=== PATIENT | female | born 1930 | race Caucasian/White ===

== ENCOUNTER 2016-08-27 13:37 | Outpatient (CLI) | payer MEDICARE, MEDICAID | END 2016-08-27 13:38 | disposition home or self-care (01) | DX: Z12.31 Encounter for screening mammogram for malignant neoplasm of breast (principal) ==

== ENCOUNTER 2016-09-15 09:12 | Outpatient (CLI) | payer MEDICARE, MEDICAID | END 2016-09-15 09:13 | disposition critical access hospital (66) | DX: R55 Syncope and collapse (principal); R11.2 Nausea with vomiting, unspecified | CPT/HCPCS: A0425; A0429 ==

== ENCOUNTER 2016-09-15 09:25 | Observation (INO) | payer MEDICARE, MEDICAID ==
[2016-09-15] MEDS ORDERED: SODIUM CHLORIDE 0.9% 1,000 ML IV ONE (09:57)
[2016-09-15] MEDS ORDERED: ONDANSETRON 4 MG/2 ML VIAL IVP STA (09:57)
[2016-09-15] MEDS ORDERED: ONDANSETRON 4 MG/2 ML VIAL ONE (10:00)
[2016-09-15] MEDS ORDERED: IPRATROPIUM/ALBUTEROL 3 ML NEB INH STA (11:40)
[2016-09-15] MEDS ORDERED: DEXAMETHASONE 10 MG/ML VIAL PO STA (11:41)
[2016-09-15] MEDS ORDERED: IPRATROPIUM/ALBUTEROL 3 ML NEB INH ONE (11:44)
[2016-09-15] MEDS ORDERED: CHERRY SYRUP 10 ML UDC PO ONE (11:47)
[2016-09-15] MEDS ORDERED: DEXAMETHASONE 10 MG/ML VIAL ONE (11:47)
[2016-09-15] MEDS ORDERED: SODIUM CHLORIDE FLUSH 0.9% 10 ML SYRINGE IVP PRN (15:14)
[2016-09-15] MEDS ORDERED: PANTOPRAZOLE 40 MG TABLET PO STA ×2 (15:20→23:41)
[2016-09-15] MEDS ORDERED: ATORVASTATIN 10 MG TABLET PO STA (15:22)
[2016-09-15] MEDS: SODIUM CHLORIDE 0.9% 1,000 ML IV SCH (17:27)
[2016-09-15] MEDS: BUDESONIDE 0.5 MG/2 ML NEB INH SCH (19:34)
[2016-09-15] MEDS: IPRATROPIUM/ALBUTEROL 3 ML NEB INH PRN (19:34)
[2016-09-15] MEDS: SODIUM CHLORIDE FLUSH 0.9% 10 ML SYRINGE IVP SCH (20:52)
[2016-09-15] MEDS: CALCIUM CARBONATE CHEW 500 MG TABLET PO PRN (20:52)
[2016-09-15] MEDS ORDERED: MAG HYDROX/AL HYDROX/SIMETH 30 ML UDC PO PRN (23:41)
[2016-09-16] MEDS: SODIUM CHLORIDE 0.9% 1,000 ML IV SCH (02:41)
[2016-09-16] MEDS: CALCIUM CARBONATE CHEW 500 MG TABLET PO PRN (02:46)
[2016-09-16] MEDS: SODIUM CHLORIDE FLUSH 0.9% 10 ML SYRINGE IVP SCH (06:50)
[2016-09-16] MEDS: IPRATROPIUM/ALBUTEROL 3 ML NEB INH PRN (07:25)
[2016-09-16] MEDS: BUDESONIDE 0.5 MG/2 ML NEB INH SCH (07:25)
[2016-09-16] MEDS ORDERED: POLYETHYLENE GLYCOL 3350 17 GM PACKET PO SCH (09:00)
== END 2016-09-16 11:22 | disposition home or self-care (01) ==
DX: R55 Syncope and collapse (principal); D72.829 Elevated white blood cell count, unspecified; J44.9 Chronic obstructive pulmonary disease, unspecified; E78.5 Hyperlipidemia, unspecified; K21.9 Gastro-esophageal reflux disease without esophagitis; K44.9 Diaphragmatic hernia without obstruction or gangrene; F41.9 Anxiety disorder, unspecified; Z87.891 Personal history of nicotine dependence; Z79.51 Long term (current) use of inhaled steroids; Z79.899 Other long term (current) drug therapy
CPT/HCPCS: 36415; 71020; 80048; 80053; 81003; 83690; 84484; 85025; 87040; 93005; 93010; 94640; 96361; 96374; 99284; 99285; A9270; G0378; J7620; J7626

== ENCOUNTER 2016-09-27 05:24 | Outpatient (CLI) | payer MEDICARE, MEDICAID | END 2016-09-27 05:25 | disposition critical access hospital (66) | DX: R10.9 Unspecified abdominal pain (principal); R14.0 Abdominal distension (gaseous); R11.0 Nausea; R55 Syncope and collapse | CPT/HCPCS: A0425; A0427 ==

== ENCOUNTER 2016-09-27 05:43 | Emergency (ER) | payer MEDICARE, MEDICAID | END 2016-09-27 08:51 | disposition home or self-care (01) | DX: R55 Syncope and collapse (principal); D72.829 Elevated white blood cell count, unspecified; R10.13 Epigastric pain; R11.0 Nausea; Z87.891 Personal history of nicotine dependence ==

== ENCOUNTER 2016-10-19 11:15 | Outpatient (CLI) | payer MEDICARE, MEDICAID | END 2016-10-19 11:30 | disposition home or self-care (01) | LOC: RT.N 11:15 | PROVIDERS: ATTEND Nurse Practitioner Gerontology | DX: R55 Syncope and collapse (principal) | CPT/HCPCS: 93005 ==

== ENCOUNTER 2016-10-19 13:08 | Outpatient (CLI) | payer MEDICARE, MEDICAID | END 2016-10-19 23:59 | disposition home or self-care (01) | DX: D72.829 Elevated white blood cell count, unspecified (principal) ==

== ENCOUNTER 2017-02-19 23:41 | Outpatient (CLI) | payer MEDICARE, MEDICAID | END 2017-02-19 23:42 | disposition critical access hospital (66) | LOC: EMS 23:41 | PROVIDERS: ATTEND Surgery | DX: R25.2 Cramp and spasm (principal); R61 Generalized hyperhidrosis | CPT/HCPCS: A0425; A0429 ==

== ENCOUNTER 2017-02-19 23:56 | Emergency (ER) | payer MEDICARE, MEDICAID ==
[2017-02-20] MEDS ORDERED: SODIUM CHLORIDE 0.9% 1,000 ML IV ONE (00:04)
[2017-02-20] MEDS ORDERED: ACETAMINOPHEN 325 MG TABLET PO STA (00:22)
[2017-02-20] MEDS ORDERED: KETOROLAC 60 MG/2 ML VIAL IVP STA (00:22)
--- NOTE | 2017-02-20 00:26 | ED Physician Documentation ---
History of Present Illness - Stated complaint Stated Complaint: LEG CRAMPS/DIZZINESS - Chief complaint Chief Complaint: Ext Problem - History obtained from History obtained from: Patient, EMS - History of Present Illness Timing: How many hours ago (1) Pain level max: 8 Pain level now: 8 Improved by: saline, stretching Worsened by: nothing - Additonal information Additional information: Patient is an 86-year-old female who states that she is having bilateral lower leg cramping for the past hour. Did not take anything for pain prior to arrival. This is intermittent. Improved temporarily with saline from EMS. Cramping started again when she arrived at the emergency department. Denies having similar symptoms in the past. No new medications. No changes to her medication. States that she ate and drank normally today. Review of Systems Ten Systems: 10 systems reviewed and negative Constitutional: denies: Fever, Chills Nose: denies: Rhinorrhea / runny nose, Congestion Cardiac: denies: Chest pain / pressure Respiratory: denies: Cough GI: denies: Abdominal Pain, Nausea, Vomiting, Diarrhea Skin: denies: Rash Musculoskeletal: denies: Neck pain, Back pain Neurologic: denies: Focal weakness, Numbness, Headache PD PAST MEDICAL HISTORY - Past Medical History Past Medical History: Yes Cardiovascular: High cholesterol Respiratory: Asthma, COPD Neuro: Head injury, Fainting Endocrine/Autoimmune: None GI: GERD, Hiatal hernia, Chronic constipation 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 : None, Incontinence HEENT: Dental implants Psych: Anxiety Musculoskeletal: Chronic back pain Derm: None - Past Surgical History Past Surgical History: Yes General: Colonoscopy /ROVING MARKER: Hysterectomy - Present Medications Home Medications: Ambulatory Orders Medication Instructions Recorded Confirmed Cholecalciferol (Vitamin D3) 2,000 mg PO DAILY 07/13/14 09/27/16 [Vitamin D3] Omeprazole 20 mg PO BID 07/13/14 09/27/16 Calcium Carbonate/Vitamin D3 1 tab PO BID 11/05/14 09/27/16 [Caltrate 600 Plus D3 Tablet] Magnesium Oxide [Mag Ox] 400 mg PO DAILY 11/05/14 09/27/16 Budesonide [Pulmicort] 1 puffs INH BID #1 inhaler 02/09/16 09/27/16 Lisinopril 10 mg PO DAILY 09/15/16 09/27/16 Psyllium [Metamucil] 1 packet PO DAILY 09/27/16 09/27/16 - Allergies Allergies/Adverse Reactions: Allergies Allergy/AdvReac Type Severity Reaction Status Date / Time Penicillins Allergy Severe Rash Verified 02/19/17 23:58 - Social History Does the pt smoke?: No Smoking Status: Former smoker Does the pt drink ETOH?: No Does the pt have substance abuse?: No - Immunizations Immunizations are current?: Yes Immunizations: TDAP current <10years - POLST Patient has POLST: No PD ED PE NORMAL - Vitals Vital signs reviewed: Yes - General General: Alert and oriented X 3, No acute distress - HEENT HEENT: Moist mucous membranes - Neck Neck: Supple, no meningeal sign - Cardiac Cardiac: RRR - Respiratory Respiratory: No respiratory distress, Clear bilaterally - Derm Derm: Warm and dry - Neuro Neuro: Alert and oriented X 3 - Psych Psych: Normal mood, Normal affect Results - Vitals Vitals: Vital Signs - 24 hr 02/19/17 02/20/17 23:58 01:56 Temperature 36.6 C Heart Rate 73 71 Respiratory 18 17 Rate Blood Pressure 138/57 H 130/81 H O2 Saturation 95 96 Oxygen O2 Source [With Activity] on 0.5L O2 via NC O2 Source Room air - Labs Labs: Laboratory Tests 02/20/17 02/20/17 00:29 00:29 WBC 10.2 RBC 4.83 Hgb 12.8 Hct 38.7 MCV 80.0 L MCH 26.6 L MCHC 33.2 RDW 14.2 Plt Count 262 MPV 8.6 Neut # Not Reportable Lymph # Not Reportable [place] # Not Reportable Eos # Not Reportable Baso # Not Reportable Absolute Nucleated RBC Not Reportable Total Counted 100 Band Neuts % (Manual) 0 Reactive Lymphs % (Man) 9 Neutrophils # (Manual) 6.1 Lymphocytes # (Manual) 3.0 Monocytes # (Manual) 0.8 Eosinophils # (Manual) 0.1 Basophils # (Manual) 0.2 H Nucleated RBCs Not Reportable Differential Comment MANUAL DIFFERENTIAL Manual Slide Review Indicated Platelet Estimate NORMAL (130-450,000) Platelet Morphology NORMAL APPEARANCE RBC Morph Micro Appear NORMAL APPEARANCE Sodium 130 L Potassium 4.1 Chloride 97 L Carbon Dioxide 23 Anion Gap 10.0 BUN 18 Creatinine 1.1 H Estimated GFR (MDRD) 47 L Glucose 124 H Calcium 8.6 Phosphorus 3.5 Magnesium 2.1 Total Bilirubin 0.7 AST 22 ALT 12 Alkaline Phosphatase 47 Total Protein 6.6 L Albumin 3.9 Globulin 2.7 Albumin/Globulin Ratio 1.4 Lipase 45 PD MEDICAL DECISION MAKING - ED course Complexity details: reviewed results, re-evaluated patient, considered differential, d/w patient ED course: Patient is an 86-year-old female who presents to the emergency department with diffuse leg cramping. Resolved with IV fluids. Will continue supportive care at home. Slightly hyponatremic, this is chronic for her. Will use Tylenol for pain. No fevers. No redness. No calf swelling or tenderness. Patient counseled regarding signs and symptoms for which I believe and urgent re- evaluation would be necessary. Patient with good understanding of and agreement to plan and is comfortable going home at this time This document was made in part using voice recognition software. While efforts are made to proofread this document, sound alike and grammatical errors may occur. Departure - Departure Disposition: 01 Home, Self Care Clinical Impression: Dehydration, Leg cramps, Hyponatremia Condition: Good Instructions: ED Dehydration, ED Muscle Pain Leg Cramps Follow-Up: Krystle Vazquez ARNP [Credentialed Staff Provider] - Within 1 week Comments: Return if you worsen. Drink plenty of water at home. Your blood pressure was elevated today on check in to the emergency department. This does not mean that you have hypertension, it is a common phenomenon to check into the emergency department and have elevated blood pressure. I recommend that you see your primary care physician within the week to have it rechecked when you're feeling better. Discharge Date/Time: 02/20/17 01:57
[2017-02-20] MEDS ORDERED: ACETAMINOPHEN 325 MG TABLET PO ONE (00:30)
[2017-02-20] MEDS ORDERED: KETOROLAC 30 MG/ML VIAL ONE (00:30)
[2017-02-20 00:36] LABS: MONOCYTES % (AUTO) 12.8 %
[2017-02-20 00:40] LABS: BASOPHILS % (AUTO) 1.4 %; EOSINOPHILS % (AUTO) 1.5 %; HCT - HEMATOCRIT 38.7 % (37.0-47.0); HGB - HEMOGLOBIN 12.8 g/dL (12.0-16.0); LYMPHOCYTES % (AUTO) 22.5 %; MEAN CORPUSCULAR HEMOGLOBIN 26.6 pg (27.0-31.0); MEAN CORPUSCULAR HGB CONC 33.2 g/dL (32.0-36.0); MEAN PLATELET VOLUME 8.6 fL (7.9-10.8); NEUTROPHILS % (AUTO) 61.8 %; RED BLOOD COUNT 4.83 10^6/uL (4.20-5.40); RED CELL DISTRIBUTION WIDTH 14.2 % (12.0-15.0); UNCORRECTED WHITE BLOOD COUNT 10.2 x10^3/uL; WHITE BLOOD COUNT 10.2 x10^3/uL (4.8-10.8)
[2017-02-20 00:50] LABS: ALBUMIN/GLOBULIN RATIO 1.4 (1.0-2.2); BILIRUBIN,TOTAL 0.7 mg/dL (0.2-1.0); CALCIUM 8.6 mg/dL (8.5-10.3); CREATININE 1.1 mg/dL (0.4-1.0); MAGNESIUM 2.1 mg/dL (1.7-2.8); PHOSPHORUS 3.5 mg/dL (2.5-4.6); POTASSIUM 4.1 mmol/L (3.5-5.0); TOTAL PROTEIN 6.6 g/dL (6.7-8.2)
[2017-02-20] MEDS ORDERED: SODIUM CHLORIDE 0.9% 500 ML IV ONE (01:08)
[2017-02-20 01:24] LABS: BAND NEUTROPHILS % (MANUAL) 0 %
[2017-02-20 01:25] LABS: BASOPHILS % (MANUAL) 2 %; EOSINOPHILS % (MANUAL) 1 %; LYMPHOCYTES % (MANUAL) 20 %; NEUTROPHILS % (MANUAL) 60 %; NP AUTO DIFFERENTIAL? YES; NP MAN DIFFERENTIAL? NO; PLATELET ESTIMATE, MANUAL NORMAL (130-450,000) (NORMAL); PLATELET MORPHOLOGY NORMAL APPEARANCE (NORMAL); TOTAL CELLS COUNTED 100
[2017-02-20 01:57] VITALS: BP 130/81
== END 2017-02-20 01:57 | disposition home or self-care (01) ==
LOC: EDUNIT# → ED 23:56
DX: E86.0 Dehydration (principal); R25.2 Cramp and spasm; E87.1 Hypo-osmolality and hyponatremia; E78.00 Pure hypercholesterolemia, unspecified; R03.0 Elevated blood-pressure reading, without diagnosis of hypertension; Z87.891 Personal history of nicotine dependence
CPT/HCPCS: 36415; 80053; 83690; 83735; 84100; 85025; 96361; 96374; 99284; A9270

== ENCOUNTER 2017-03-12 09:24 | Outpatient (CLI) | payer MEDICARE, MEDICAID ==
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
== END 2017-03-12 09:25 | disposition home or self-care (01) ==
LOC: DI 09:24
PROVIDERS: ATTEND Nurse Practitioner Gerontology
DX: M19.011 Primary osteoarthritis, right shoulder (principal); M75.101 Unspecified rotator cuff tear or rupture of right shoulder, not specified as traumatic; S46.111A Strain of muscle, fascia and tendon of long head of biceps, right arm, initial encounter

== ENCOUNTER 2017-03-19 15:56 | Emergency (ER) | payer MEDICARE, MEDICAID ==
[2017-03-19 16:06] VITALS: BP 176/93
[2017-03-19] MEDS ORDERED: oxyCODONE 5 MG TABLET PO STA (16:39)
--- NOTE | 2017-03-19 16:42 | ED Physician Documentation ---
PD HPI BACK PAIN - Stated complaint Stated Complaint: BACK PX - Chief complaint Chief Complaint: Back Pain - History obtained from History obtained from: Patient, Family - History of Present Illness Timing - onset: Today, Other (has chronic back pain, but worse today.) Timing - duration: Days (1) Timing - details: Gradual onset Pain level max: 8 Pain level now: 8 Location: Lower, Right, Left Quality: Pain, Spasm, Sharp, Aching, Dull, Similar to prior episodes Associated symptoms: No: Fever, Weakness, Numbness, Incontinent of urine, Unable to urinate, Hematuria Improves with: Rest, Other (took half a hydrocodone without relief) Worsened by: Movement Contributing factors: No: Trauma, Anticoagulated, Cancer, IVDA Similar symptoms before: Diagnosis (low back pain) Recently seen: Not recently seen Review of Systems Ten Systems: 10 systems reviewed and negative Constitutional: denies: Fever, Chills Nose: denies: Rhinorrhea / runny nose, Congestion Throat: denies: Sore throat Cardiac: denies: Chest pain / pressure Respiratory: denies: Cough GI: denies: Nausea, Vomiting, Diarrhea : reports: Incontinent (baseline). 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: Hysterectomy - Present Medications Home Medications: Ambulatory Orders Medication Instructions Recorded Confirmed Cholecalciferol (Vitamin D3) 2,000 mg PO DAILY 07/13/14 03/19/17 [Vitamin D3] Omeprazole 20 mg PO BID 07/13/14 03/19/17 Calcium Carbonate/Vitamin D3 1 tab PO BID 11/05/14 03/19/17 [Caltrate 600 Plus D3 Tablet] Magnesium Oxide [Mag Ox] 400 mg PO DAILY 11/05/14 03/19/17 Lisinopril 10 mg PO DAILY 09/15/16 03/19/17 Psyllium [Metamucil] 1 packet PO DAILY 09/27/16 03/19/17 Albuterol 1 neb INH PRN PRN 03/19/17 03/19/17 Budesonide [Pulmicort] 1 puffs INH DAILY 03/19/17 03/19/17 HYDROcod/ACETAM 5/325 [[place] 5/325] 1 tab PO PRN PRN 03/19/17 03/19/17 oxyCODONE [Roxicodone] 5 mg PO Q4-6H PRN #10 tablet 03/19/17 - Allergies Allergies/Adverse Reactions: Allergies Allergy/AdvReac Type Severity Reaction Status Date / Time Penicillins Allergy Severe Rash Verified 02/19/17 23:58 - Social History Does the pt smoke?: No Smoking Status: Never smoker Does the pt drink ETOH?: No Does the pt have substance abuse?: No - Immunizations Immunizations are current?: Yes Immunizations: TDAP current <10years - POLST Patient has POLST: No PD ED PE NORMAL - Vitals Vital signs reviewed: Yes - General General: Alert and oriented X 3, No acute distress, Well developed/nourished - HEENT HEENT: PERRL, Moist mucous membranes - Neck Neck: Supple, no meningeal sign - Cardiac Cardiac: RRR, Strong equal pulses - Respiratory Respiratory: No respiratory distress, Clear bilaterally - Abdomen Abdomen: Soft, Non tender, Non distended - Back Back: No CVA TTP, No spinal TTP, Other (Paraspinal muscle spasm present, low lumbar bilaterally.) - Derm Derm: Warm and dry, No rash - Extremities Extremities: No tenderness to palpate, Normal ROM s pain, Other (normal bilateral lower extremity patellar and ankle jerk reflexes. Normal great toe extension bilaterally) - Neuro Neuro: Alert and oriented X 3, director of first impressions 2-12 intact, No motor deficit, No sensory deficit, Normal speech - Psych Psych: Normal mood, Normal affect Results - Vitals Vitals: Vital Signs - 24 hr 03/19/17 16:01 Temperature 36.6 C Heart Rate 79 Respiratory 16 Rate Blood Pressure 176/93 H O2 Saturation 95 Oxygen O2 Source [With Activity] on 0.5L O2 via NC O2 Source Room air PD MEDICAL DECISION MAKING - ED course Complexity details: re-evaluated patient, considered differential (no cauda equina, no spinal epidural abscess, no fracture, no aortic dissection or evidence of aneursym rupture), d/w patient, d/w family ED course: Patient is an 86-year-old female with acute on chronic low back pain. Given pain medication here and feels better. Will prescribe a small amount of pain medication for home and follow-up with her doctor. She is very well-appearing, nontoxic. Afebrile. No evidence of bony disease. No evidence of cauda equina or epidural abscess. Patient counseled regarding signs and symptoms for which I believe and urgent re-evaluation would be necessary. Patient with good understanding of and agreement to plan and is comfortable going home at this time This document was made in part using voice recognition software. While efforts are made to proofread this document, sound alike and grammatical errors may occur. Departure - Departure Disposition: 01 Home, Self Care Clinical Impression: Back pain Qualifiers: Back pain location: low back pain Chronicity: acute Back pain laterality: unspecified Sciatica presence: without sciatica Qualified Code(s): M54.5 - Low back pain Condition: Good Instructions: ED Neck Back Pain General Follow-Up: your,doctor in 3 days [Other] Prescriptions: oxyCODONE [Roxicodone] 5 mg PO Q4-6H PRN #10 tablet PRN Reason: back pain Comments: Return if you worsen. This should improve over the next few days. Do not drink alcohol or drive while on narcotic pain medicine. Note that many narcotic pain relievers also contain tylenol/acetaminophen. Please ensure that your total dose of acetaminophen from all sources does not exceed 3 grams (3000mg) per day. You may constipated on this medication, take a stool softener such as "Colace" twice a day while you are on it. Also recommend a [id number] laxative such as senna or MiraLAX any day that you do not have a bowel movement. If you received narcotic pain medication in the emergency department, do not drive or operate machinery for the next 24 hours. Discharge Date/Time: 03/19/17 17:40
[2017-03-19] MEDS ORDERED: oxyCODONE 5 MG TABLET ONE (17:10)
== END 2017-03-19 17:40 | disposition home or self-care (01) ==
LOC: ED 15:56
DX: M54.5 Low back pain (principal); G89.29 Other chronic pain; E78.00 Pure hypercholesterolemia, unspecified
CPT/HCPCS: 99282; 99283; A9270

== ENCOUNTER 2017-04-21 02:20 | Outpatient (CLI) | payer MEDICARE, MEDICAID | END 2017-04-21 02:21 | disposition critical access hospital (66) | LOC: EMS 02:20 | PROVIDERS: ATTEND Surgery | DX: R44.8 Other symptoms and signs involving general sensations and perceptions (principal); R25.1 Tremor, unspecified | CPT/HCPCS: A0425; A0429 ==

== ENCOUNTER 2017-04-21 02:35 | Inpatient (IN) | payer MEDICARE, MEDICAID ==
[2017-04-21] MEDS ORDERED: SODIUM CHLORIDE 0.9% 1,000 ML IV ONE ×3 (02:56→05:09)
[2017-04-21] MEDS ORDERED: LEVALBUTEROL 1.25 MG/0.5 ML NEB INH STA (02:57)
[2017-04-21] MEDS ORDERED: ONDANSETRON 4 MG/2 ML VIAL IVP STA (02:57)
[2017-04-21] MEDS ORDERED: HYDROmorphone 1 MG/ML SYRINGE IVP STA (02:59)
[2017-04-21] MEDS ORDERED: ONDANSETRON 4 MG/2 ML VIAL ONE (03:04)
[2017-04-21] MEDS ORDERED: LEVALBUTEROL 1.25 MG/0.5 ML NEB INH ONE (03:19)
[2017-04-21] MEDS ORDERED: SODIUM CHLORIDE INHALATION 3 ML NEB ONE (03:19)
[2017-04-21] MEDS ORDERED: cefTRIAXone 1 GM in SODIUM CHLORIDE 0.9% MINIBAG 100 ML IV STA (03:30)
[2017-04-21] MEDS ORDERED: HYDROmorphone 1 MG/ML SYRINGE ONE (03:30)
[2017-04-21] MEDS ORDERED: AZITHROMYCIN INJ 500 MG in SODIUM CHLORIDE 0.9% 250 ML IV STA (03:30)
--- NOTE | 2017-04-21 03:40 | XRAY Preliminary Report ---
Exam: XR CHEST 1 VIEW IMPRESSION: 1. Large lung volumes suggesting emphysema. 2. Asymmetric infiltrates or edema, right greater than left. 3. Probable hiatal hernia. [facility] SITE ID: [id number]
--- NOTE | 2017-04-21 03:43 | XRAY Report ---
EXAM: CHEST RADIOGRAPHY EXAM DATE: 04/21/2017 03:30 AM. CLINICAL HISTORY: Cough and shivering. COMPARISON: 09/15/2016. TECHNIQUE: 1 view. FINDINGS: Lungs/Pleura: Large lung volumes. Asymmetric infiltrates or edema, right greater than left. No pleura l effusion seen. No pneumothorax. Mediastinum: Heart size is normal. Aortic atherosclerosis. Probable hiatal hernia. Other: None. IMPRESSION: 1. Large lung volumes suggesting emphysema. 2. Asymmetric infiltrates or edema, right greater than left. 3. Probable hiatal hernia. [facility] Referring Provider Line: [phone] SITE ID: [id number]
[2017-04-21] MEDS ORDERED: SODIUM CHLORIDE 0.9% MINIBAG 100 ML IV ONE (03:46)
[2017-04-21] MEDS ORDERED: cefTRIAXone 1 GM VIAL ONE (03:46)
[2017-04-21 03:59] LABS: BASOPHILS % (AUTO) 0.1 %; EOSINOPHILS % (AUTO) 0.2 %; HCT - HEMATOCRIT 39.2 % (37.0-47.0); LYMPHOCYTES # (AUTO) 0.5 10^3/uL (1.5-3.5); LYMPHOCYTES % (AUTO) 2.8 %; MEAN CORPUSCULAR HEMOGLOBIN 26.6 pg (27.0-31.0); MEAN CORPUSCULAR HGB CONC 33.3 g/dL (32.0-36.0); MEAN CORPUSCULAR VOLUME 79.9 fL (81.0-99.0); MEAN PLATELET VOLUME 8.6 fL (7.9-10.8); MONOCYTES # (AUTO) 0.5 10^3/uL (0.0-1.0); MONOCYTES % (AUTO) 2.8 %; NEUTROPHILS # (AUTO) 16.5 10^3/uL (1.5-6.6); NEUTROPHILS % (AUTO) 94.1 %; RED BLOOD COUNT 4.91 10^6/uL (4.20-5.40); RED CELL DISTRIBUTION WIDTH 14.8 % (12.0-15.0); UNCORRECTED WHITE BLOOD COUNT 17.5 x10^3/uL; WHITE BLOOD COUNT 17.5 x10^3/uL (4.8-10.8)
[2017-04-21 04:08] LABS: ALBUMIN/GLOBULIN RATIO 1.5 (1.0-2.2); BILIRUBIN,TOTAL 0.5 mg/dL (0.2-1.0); CALCIUM 7.9 mg/dL (8.5-10.3); CREATININE 1.1 mg/dL (0.4-1.0); POTASSIUM 4.1 mmol/L (3.5-5.0); TOTAL PROTEIN 6.4 g/dL (6.7-8.2)
[2017-04-21 04:16] LABS: BILIRUBIN,URINE NEGATIVE (NEGATIVE)
[2017-04-21 04:19] LABS: UA CHARGE (STRIP ONLY) YES; UR CULTURE IF IND NOT INDICATED
[2017-04-21] MEDS ORDERED: SODIUM CHLORIDE FLUSH 0.9% 10 ML SYRINGE IVP PRN (04:21)
[2017-04-21] MEDS ORDERED: oxyCODONE 5 MG TABLET PO PRN (04:21)
[2017-04-21] MEDS ORDERED: PROCHLORPERAZINE 10 MG/2 ML VIAL IVP PRN (04:21)
[2017-04-21] MEDS ORDERED: MORPHINE 2 MG/ML SYRINGE IVP PRN (04:21)
[2017-04-21] MEDS ORDERED: ACETAMINOPHEN 325 MG TABLET PO PRN (04:21)
[2017-04-21] MEDS ORDERED: ONDANSETRON 4 MG/2 ML VIAL IVP PRN (04:21)
[2017-04-21] MEDS ORDERED: IPRATROPIUM/ALBUTEROL 3 ML NEB INH PRN (04:21)
[2017-04-21] MEDS ORDERED: ZOLPIDEM 5 MG TABLET PO PRN (04:21)
--- NOTE | 2017-04-21 04:25 | ED Physician Documentation ---
PD HPI URI - Stated complaint Stated Complaint: COLD, SHIVERING - Chief complaint Chief Complaint: General - History obtained from History obtained from: Patient, Family (son) - History of Present Illness Timing - onset: How many days ago (Her son says she has had a cough for a few days that has been worsening. The patient states she developed worsening breathing and cough associated with shaking chills overnight about 1 AM. She has had some less appetite and nausea. She states she has had mostly dry cough with some wheezing.) Timing details: Gradual onset, Still present (Worsened overnight in the last few hours.) Associated symptoms: Fever (subjective), Chills (overnight and presents to ED with shaking c/w rigor, but with normal temp on arrival.), Nasal congestion, Dry cough, Dyspnea. No: Sweats, Sore throat, Hemoptysis, Chest pain, Bilateral edema Contributing factors: COPD / asthma. No: Sick contact, Travel, Immunocompromised Similar symptoms before: Diagnosis (pneumonia) Recently seen: Emergency Dept (a month ago for shoulder and back pain. Has ongoing back and shoulder pain and is getting PT for it.) Review of Systems Constitutional: reports: Fever, Chills, Myalgias Nose: reports: Congestion. denies: Rhinorrhea / runny nose Throat: denies: Sore throat Cardiac: denies: Chest pain / pressure Respiratory: reports: Dyspnea, Cough GI: reports: Nausea. denies: Abdominal Pain, Vomiting, Diarrhea Skin: denies: Rash, Lesions Musculoskeletal: reports: Back pain (chronic), Extremity pain (right shoulder chronic) Neurologic: reports: Generalized weakness. 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: Hysterectomy - Present Medications Home Medications: Ambulatory Orders Medication Instructions Recorded Confirmed Cholecalciferol (Vitamin D3) 2,000 mg PO DAILY 07/13/14 03/19/17 [Vitamin D3] Omeprazole 20 mg PO BID 07/13/14 03/19/17 Calcium Carbonate/Vitamin D3 1 tab PO BID 11/05/14 03/19/17 [Caltrate 600 Plus D3 Tablet] Magnesium Oxide [Mag Ox] 400 mg PO DAILY 11/05/14 03/19/17 Lisinopril 10 mg PO DAILY 09/15/16 03/19/17 Psyllium [Metamucil] 1 packet PO DAILY 09/27/16 03/19/17 Albuterol 1 neb INH PRN PRN 03/19/17 03/19/17 Budesonide [Pulmicort] 1 puffs INH DAILY 03/19/17 03/19/17 HYDROcod/ACETAM 5/325 [[place] 5/325] 1 tab PO PRN PRN 03/19/17 03/19/17 oxyCODONE [Roxicodone] 5 mg PO Q4-6H PRN #10 tablet 03/19/17 - Allergies Allergies/Adverse Reactions: Allergies Allergy/AdvReac Type Severity Reaction Status Date / Time Penicillins Allergy Severe Rash Verified 02/19/17 23:58 - Social History Does the pt smoke?: No Smoking Status: Never smoker Does the pt drink ETOH?: No Does the pt have substance abuse?: No - Family History Family history: denies: Venous thromboembolism - Immunizations Immunizations are current?: Yes Immunizations: TDAP current <10years - POLST Patient has POLST: No PD ED PE NORMAL - Vitals Vital signs reviewed: Yes - General General: Well developed/nourished, Other (anxious and is having rigorous type general shaking. ). No: Alert and oriented X 3 (she does seem slightly confused , with pale color. Oxygen sats reading is variable due to her shaking, but seems 88-92% on RA. Given oxygen via NC. ) - HEENT HEENT: Ears normal, Pharynx benign - Neck Neck: Supple, no meningeal sign, No adenopathy - Cardiac Cardiac: RRR (tachycardic), No murmur, No rub - Respiratory Respiratory: No: Clear bilaterally (bilateral wheezing without notable coarse sounds. Slightly diminished right base. ) - Abdomen Abdomen: Soft, Non tender - Female Female : Deferred - Rectal Rectal: Deferred - Back Back: No CVA TTP - Derm Derm: Warm and dry. No: Normal color (pale) - Extremities Extremities: Normal ROM s pain, No edema, No calf tenderness / cord, Other ( good color and cap refill in extremities) - Neuro Neuro: No motor deficit, Normal speech. No: Alert and oriented X 3 (somewhat confused and disjointed answers to questions initially. ) Eye Opening: Spontaneous Motor: Obeys Commands Verbal: Confused GCS Score: 14 - Psych Psych: Normal mood Results - Vitals Vitals: Vital Signs - 24 hr 04/21/17 04/21/17 04/21/17 02:40 03:00 03:05 Temperature 37.3 C Heart Rate 114 H 110 H 116 H Respiratory 36 H 28 H 22 Rate Blood Pressure 144/105 H 130/55 L O2 Saturation 92 92 04/21/17 03:59 Temperature Heart Rate 129 H Respiratory 24 Rate Blood Pressure 133/52 H O2 Saturation 92 Oxygen O2 Source [With Activity] on 0.5L O2 via NC O2 Source Nasal cannula Oxygen Flow Rate 3 - EKG (time done) 04:21 Rate: Rate (enter#) (121) Rhythm: Sinus tachycardia [place]: Normal Intervals: Normal OK QRS: Normal Ischemia: Normal ST segments. No: ST elevation c/w ischemia, ST depression - Labs Labs: Laboratory Tests 04/21/17 04/21/17 04/21/17 03:50 03:50 03:50 WBC 17.5 H RBC 4.91 Hgb 13.0 Hct 39.2 MCV 79.9 L MCH 26.6 L MCHC 33.3 RDW 14.8 Plt Count 252 MPV 8.6 Neut # 16.5 H Lymph # 0.5 L [place] # 0.5 Eos # 0.0 Baso # 0.0 Absolute Nucleated RBC 0.00 Nucleated RBC % 0.0 Sodium 133 L Potassium 4.1 Chloride 102 Carbon Dioxide 23 Anion Gap 8.0 BUN 23 H Creatinine 1.1 H Estimated GFR (MDRD) 47 L Glucose 129 H Lactic Acid 1.8 Calcium 7.9 L Total Bilirubin 0.5 AST 21 ALT 11 Alkaline Phosphatase 38 L Total Creatine Kinase 51 Total Protein 6.4 L Albumin 3.8 Globulin 2.6 Albumin/Globulin Ratio 1.5 Lipase 30 Urine Color Urine Clarity Urine pH Ur Specific [place] Urine Protein Urine Glucose (UA) Urine Ketones Urine Occult Blood Urine Nitrite Urine Bilirubin Urine Urobilinogen Ur Leukocyte Esterase Ur Microscopic Review Urine Culture Comments Influenza A (Rapid) Influenza B (Rapid) Influenza Types A,B Ag 04/21/17 04/21/17 03:50 04:11 WBC RBC Hgb Hct MCV MCH MCHC RDW Plt Count MPV Neut # Lymph # [place] # Eos # Baso # Absolute Nucleated RBC Nucleated RBC % Sodium Potassium Chloride Carbon Dioxide Anion Gap BUN Creatinine Estimated GFR (MDRD) Glucose Lactic Acid Calcium Total Bilirubin AST ALT Alkaline Phosphatase Total Creatine Kinase Total Protein Albumin Globulin Albumin/Globulin Ratio Lipase Urine Color YELLOW Urine Clarity CLEAR Urine pH 6.0 Ur Specific [place] 1.015 Urine Protein NEGATIVE Urine Glucose (UA) NEGATIVE Urine Ketones NEGATIVE Urine Occult Blood NEGATIVE Urine Nitrite NEGATIVE Urine Bilirubin NEGATIVE Urine Urobilinogen 0.2 (NORMAL) Ur Leukocyte Esterase NEGATIVE Ur Microscopic Review NOT INDICATED Urine Culture Comments NOT INDICATED Influenza A (Rapid) Negative Influenza B (Rapid) Negative Influenza Types A,B Ag - - [place] (name of study) chest Radiology: Prelim report reviewed, EMP read contemporaneously (right sided infiltrates mid and lower lobes. No effusion. No PTX. ) PD MEDICAL DECISION MAKING - ED course Complexity details: re-evaluated patient (Improved color, coherence, and less shaky after IV meds and neb treatment. ), considered differential (seems likely acute pneumonia with some septic components of tachycardia, altered mentation, and low sats. Lactate is normal. WBC elevated but prior ones have been high at times as well. Does not seem CHF. ), d/w patient
--- NOTE | 2017-04-21 04:30 | HISTORY & PHYSICAL EXAMINATION ---
Chief Complaint - Chief Complaint Chief Complaint: Rigors and cough <Ilia Schulz - Last Filed: 04/21/17 05:19> History of Present Illness <Rosalio Stapleton - Last Filed: 04/21/17 04:56> - Admitted From Admitted From:: Emergency Department - History Obtained From Records Reviewed: Yes History obtained from: Patient and patients son Rolan Exam Limitations: Confused <Ilia Schulz - Last Filed: 04/21/17 05:19> - History of Present Illness HPI Comment/Other: Patient is an 86-year-old female with a past medical history significant for hypertension, hyperlipidemia, COPD and chronic back pain on opioids who presented to the emergency department with a chief complaint of cough and rigors. The patient states that she was in her normal state of health until yesterday evening when she began having cough and rigors. She states that she tried to use a breathing treatment and symptoms seem to worsen with increasing cough and shortness of air. The patient also stated that she had diarrhea and was having muscle aches and body aches. She states that with the coughing she was having worsening shortness of air and finally decided to come into the emergency department. The patient is not the best historian because she does seem to be confused and the patient's son states this is not her baseline. The patient states that she did feel warm yesterday but did not check her temperature. Patient denies any chest pain, orthopnea or PND. The patient denies any sick contacts. She does admit to a sore throat and a runny nose. The patient denies any headache or nasal congestion. The patient denies any abdominal pain, nausea, vomiting, dysuria, increased urinary frequency, increased urinary urgency, joint swelling, neck stiffness or any focal neurologic deficits. The patient does admit to generalized weakness and decreased appetite. The patient denies any recent unintentional weight loss. The patient denies any hemoptysis. The patient denies any blood in her stools. On presentation to the emergency department the patient was afebrile with a temperature of 37.3, tachycardic with heart rate of 114 hypertensive and tachypneic with respiratory rate of 36. Her oxygen saturation dropped to the high 80s and she was placed on oxygen. The patient did appear to be in respiratory distress on presentation and was immediately given nebulizer treatment, steroids and IV fluids. Although the patient did have some improvement in her breathing she still appear to be in respiratory distress and was struggling. The patient remained tachycardic while she was in the emergency department and her blood pressure slowly began to drop her blood pressure prior to being sent to the medical voss was down to 90/40 systolic. The patient underwent routine lab work which did reveal a leukocytosis of 17.5 and a hyponatremia of 133. The patient's creatinine was stable at her baseline. The patient's lactic acid was 1.8. The patient's chest x-ray revealed bilateral infiltrates right greater than left consistent with pneumonia. The patient was admitted to the medical voss with early sepsis secondary to pneumonia and COPD exacerbation. 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 B[employer]ING CUTTER: reports: None : reports: None, Incontinence HEENT: reports: Dental implants Psych: reports: Anxiety Musculoskeletal: reports: Chronic back pain Derm: reports: None MRSA Hx?: No - Past Surgical History General: reports: Colonoscopy /BIAS BINDING CUTTER: reports: Hysterectomy - Family & Social History Family History: Mother: (Patient was raised by her grandparents did not know her parents well), Father: , Cancer, Other family: Alcoholism ( Grandfather), Hypertension (Son) Living arrangement: At home Living Situation: With family Social History Notes: The patient lives at home with her son Rolan. She is . She had 5 pregnancies one of which was a miscarriage. She has 4 children, 15 grandchildren and 20 great grandchildren. She lives in [place]. The patient smoked a pack a day from the age of 26 and states that she stopped in 2003 the patients son does smoke but states he smokes outside. The patient does not drink alcohol and denies any illicit drug use. - POLST Patient has POLST: No POLST Status: DNR <Ilia Schulz - Last Filed: 04/21/17 05:19> Meds/Allgy <Rosalio Stapleton - Last Filed: 04/21/17 04:56> <Ilia Schulz - Last Filed: 04/21/17 05:19> - Home Medications Home Medications: Ambulatory Orders Medication Instructions Recorded Confirmed Cholecalciferol (Vitamin D3) 2,000 mg PO DAILY 07/13/14 03/19/17 [Vitamin D3] Omeprazole 20 mg PO BID 07/13/14 03/19/17 Calcium Carbonate/Vitamin D3 1 tab PO BID 11/05/14 03/19/17 [Caltrate 600 Plus D3 Tablet] Magnesium Oxide [Mag Ox] 400 mg PO DAILY 11/05/14 03/19/17 Lisinopril 10 mg PO DAILY 09/15/16 03/19/17 Psyllium [Metamucil] 1 packet PO DAILY 09/27/16 03/19/17 Albuterol 1 neb INH PRN PRN 03/19/17 03/19/17 Budesonide [Pulmicort] 1 puffs INH DAILY 03/19/17 03/19/17 HYDROcod/ACETAM 5/325 [[place] 5/325] 1 tab PO PRN PRN 03/19/17 03/19/17 oxyCODONE [Roxicodone] 5 mg PO Q4-6H PRN #10 tablet 03/19/17 - Allergies Allergies/Adverse Reactions: Allergies Allergy/AdvReac Type Severity Reaction Status Date / Time Penicillins Allergy Severe Rash Verified 02/19/17 23:58 Review of Systems <Rosalio Stapleton - Last Filed: 04/21/17 04:56> <Ilia Schulz - Last Filed: 04/21/17 05:19> - Other Findings Other Findings: A comprehensive review of systems was performed the pertinent positives and negatives are stated above in the HPI and the remainder of the review of systems is negative. (Ilia Schulz) Exam - Vital Signs Reviewed Vital Signs: Yes - Physical Exam General Appearance: positive: Alert, Moderate distress (Patient is tachypneic and using accessory muscles of breathing she appears to be in respiratory distress), Other (Patient is confused and not her normal self according to son) Eyes Bilateral: positive: Normal inspection, PERRL, EOMI, No lid inflammation, Conjunctivae nml, No scleral icterus ENT: positive: ENT inspection nml, Pharynx nml, Dry mucous membranes. negative : Purulent nasal drainage, Pharyngeal erythema, Oral lesions Neck: positive: Nml inspection, Thyroid nml, No JVD, Trachea midline. negative : Lymphadenopathy (R), Lymphadenopathy (L), Stiff neck, Carotid bruit, Tracheal deviation Respiratory: positive: Chest non-tender, Wheezes (Diffuse wheezes on examination mostly in the upper lungs with expiratory wheezes), Rhonchi ( Patient has bilateral rhonchi right worse than left), Other (Respiratory distress with use of accessory muscles of breathing) Cardiovascular: positive: No murmur, No gallop, Tachycardia Peripheral Pulses: positive: 2+ Abdomen: positive: Non-tender, No organomegaly, Nml bowel sounds, No distention. negative: Guarding, Rebound, Hepatomegaly Back: positive: Nml inspection. negative: CVA tenderness (R), CVA tenderness (L ) Skin: positive: Color nml, No rash. negative: Cyanosis, Pallor Extremities: positive: Non-tender, Full ROM, Nml appearance, No pedal edema Neurologic/Psychiatric: positive: Oriented x3, CN's nml (2-12), Motor nml, Sensation nml, Mood/affect nml <Ilia Schulz - Last Filed: 04/21/17 05:19> - Vital Signs Vital Signs: Vital Signs x48h Temp Pulse Resp BP Pulse Ox 04/21/17 04:27 37.4 C 121 H 20 131/51 H 97 Conclusion/Plan - Lab Results Fish Bones: 04/21/17 03:50 04/21/17 03:50 <Rosalio Stapleton - Last Filed: 04/21/17 04:56> - Problem List (1) Sepsis Conclusion/Plan: Patient presents to the emergency department with rigors and cough. Patient was also short of breath and on presentation to the emergency department the patient appeared to be in respiratory distress. On presentation to the emergency department the patient was afebrile however she was tachycardic and tachypneic with respiratory rate of 36. She was also hypoxic and had mild confusion. The patient had a leukocytosis of 17.5 on lab work and lactic acid was 1.8. The patient appeared very dry and blood pressure was slowly dropping in the emergency department down to 90/40 prior to presentation to the medical voss. The source of the patient's sepsis appears to be pneumonia as the patient had bilateral infiltrates right greater than left on chest x-ray. Plan: IV fluids Monitor vital signs closely IV antibiotics for treatment of community acquired pneumonia with ceftriaxone and azithromycin Blood cultures 2 (2) Community acquired pneumonia Conclusion/Plan: Patient presented with cough, rigors and dyspnea found to have bilateral pneumonia on chest x ray. Patient was septic on presentation. Plan: IV Ceftriaxone and Azithromycin Nebs prn Supplemental O2 IVFs Blood cultures x2 Qualifiers: Laterality: right (3) COPD exacerbation Conclusion/Plan: Patient was in respiratory distress on presentation and appeared to be septic with pneumonia. Patient also had wheezing on exam and appears to have COPD exacerbation secondary to pneumonia Plan: Duonebs ATC x24 hours and prn Budesonide and formoterol BID Supplemental O2 Consider ABG if patient becomes lethargic or more confused IV Solu-Medrol (4) Chronic pain Conclusion/Plan: Patient has history of chronic back pain. The patient has pain all over likely secondary to her sepsis and infection. Patient was given a small dose of Dilaudid in the emergency depart with which she had some improvement to her pain. Plan: Patient be placed on oxycodone as needed and morphine as needed for pain control (5) Hypertension Conclusion/Plan: Patient was very hypertensive on presentation to the emergency department however her blood pressure seems to be gradually dropping likely secondary to sepsis due to pneumonia. We will hold the patient's home dose of lisinopril and give her IV fluids. Once blood pressure is more stable we will can restart her home dose of lisinopril. Monitor blood pressure closely (6) Hyponatremia Conclusion/Plan: Patient presents with hyponatremia with sodium of 133. Patient appears to have hypovolemic hyponatremia Patient will be given IV fluids We will monitor sodium (7) Prophylactic use of low molecular weight heparin for venous thromboembolism Conclusion/Plan: The patient has history of hyperlipidemia and is on patient be placed on Lovenox for DVT prophylaxis while she is hospitalized. - Lab Results Lab results reviewed: Yes Fish Bones: 04/21/17 03:50 04/21/17 03:50 - Diagnostic Imaging Results Diagnostic Imaging Results: positive: Final report reviewed, Discussed with radiologist <Ilia Schulz - Last Filed: 04/21/17 05:19> - Lab Results Other Lab Results: Laboratory Results WBC 17.5 x10^3/uL (4.8-10.8) H 04/21/17 03:50 RBC 4.91 10^6/uL (4.20-5.40) 04/21/17 03:50 Hgb 13.0 g/dL (12.0-16.0) 04/21/17 03:50 Hct 39.2 % (37.0-47.0) 04/21/17 03:50 MCV 79.9 fL (81.0-99.0) L 04/21/17 03:50 MCH 26.6 pg (27.0-31.0) L 04/21/17 03:50 MCHC 33.3 g/dL (32.0-36.0) 04/21/17 03:50 RDW 14.8 % (12.0-15.0) 04/21/17 03:50 Plt Count 252 10^3/uL (130-450) 04/21/17 03:50 MPV 8.6 fL (7.9-10.8) 04/21/17 03:50 Neut # 16.5 10^3/uL (1.5-6.6) H 04/21/17 03:50 Lymph # 0.5 10^3/uL (1.5-3.5) L 04/21/17 03:50 [place] # 0.5 10^3/uL (0.0-1.0) 04/21/17 03:50 Eos # 0.0 10^3/uL (0.0-0.7) 04/21/17 03:50 Baso # 0.0 10^3/uL (0.0-0.1) 04/21/17 03:50 Absolute Nucleated RBC 0.00 x10^3/uL 04/21/17 03:50 Nucleated RBC % 0.0 /100WBC 04/21/17 03:50 Sodium 133 mmol/L (135-145) L 04/21/17 03:50 Potassium 4.1 mmol/L (3.5-5.0) 04/21/17 03:50 Chloride 102 mmol/L (101-111) 04/21/17 03:50 Carbon Dioxide 23 mmol/L (21-32) 04/21/17 03:50 Anion Gap 8.0 (6-13) 04/21/17 03:50 BUN 23 mg/dL (6-20) H 04/21/17 03:50 Creatinine 1.1 mg/dL (0.4-1.0) H 04/21/17 03:50 Estimated GFR (MDRD) 47 (>89) L 04/21/17 03:50 Glucose 129 mg/dL (70-100) H 04/21/17 03:50 Lactic Acid 1.8 mmol/L (0.5-2.2) 04/21/17 03:50 Calcium 7.9 mg/dL (8.5-10.3) L 04/21/17 03:50 Total Bilirubin 0.5 mg/dL (0.2-1.0) 04/21/17 03:50 AST 21 IU/L (10-42) 04/21/17 03:50 ALT 11 IU/L (10-60) 04/21/17 03:50 Alkaline Phosphatase 38 IU/L (42-121) L 04/21/17 03:50 Total Creatine Kinase 51 IU/L (22-269) 04/21/17 03:50 Total Protein 6.4 g/dL (6.7-8.2) L 04/21/17 03:50 Albumin 3.8 g/dL (3.2-5.5) 04/21/17 03:50 Globulin 2.6 g/dL (2.1-4.2) 04/21/17 03:50 Albumin/Globulin Ratio 1.5 (1.0-2.2) 04/21/17 03:50 Lipase 30 U/L (22-51) 04/21/17 03:50 Urine Color YELLOW 04/21/17 04:11 Urine Clarity CLEAR (CLEAR) 04/21/17 04:11 Urine pH 6.0 PH (5.0-7.5) 04/21/17 04:11 Ur Specific [place] 1.015 (1.002-1.030) 04/21/17 04:11 Urine Protein NEGATIVE mg/dL (NEGATIVE) 04/21/17 04:11 Urine Glucose (UA) NEGATIVE mg/dL (NEGATIVE) 04/21/17 04:11 Urine Ketones NEGATIVE mg/dL (NEGATIVE) 04/21/17 04:11 Urine Occult Blood NEGATIVE (NEGATIVE) 04/21/17 04:11 Urine Nitrite NEGATIVE (NEGATIVE) 04/21/17 04:11 Urine Bilirubin NEGATIVE (NEGATIVE) 04/21/17 04:11 Urine Urobilinogen 0.2 (NORMAL) E.U./dL (NORMAL) 04/21/17 04:11 Ur Leukocyte Esterase NEGATIVE (NEGATIVE) 04/21/17 04:11 Ur Microscopic Review NOT INDICATED 04/21/17 04:11 Urine Culture Comments NOT INDICATED 04/21/17 04:11 Influenza A (Rapid) Negative (Negative) 04/21/17 03:50 Influenza B (Rapid) Negative (Negative) 04/21/17 03:50 Influenza Types A,B Ag - 04/21/17 03:50 (Ilia Schulz) - Diagnostic Imaging Results Diagnostic Imaging Results Comments: Chest x-ray Impression: 1. Large lung volumes suggesting emphysema 2. Asymmetric infiltrates or edema, right greater than left. 3. Probable hiatal hernia (Ilia Schulz) Issues/Core Measures - Anticipated LOS Anticipated Stay Length: 2 or more midnights - DVT/VTE - Prophylaxis VTE/DVT Prophylaxis med ordered at admit?: Yes <Ilia Schulz - Last Filed: 04/21/17 05:19>
[2017-04-21] MEDS ORDERED: DEXAMETHASONE 20 MG/5 ML VIAL IVP ONE (04:56)
[2017-04-21] MEDS: BUDESONIDE 0.5 MG/2 ML NEB INH SCH ×3 (05:00→20:34)
[2017-04-21] MEDS: FORMOTEROL FUMARATE NEB 20 MCG/2 ML INH SCH ×3 (05:00→20:34)
[2017-04-21] MEDS: methylPREDNISolone SUCCINATE 40 MG/ML VIAL IVP SCH ×3 (05:53→21:49)
[2017-04-21] MEDS: oxyCODONE 5 MG TABLET PO PRN (05:53)
[2017-04-21] MEDS ORDERED: DEXAMETHASONE 10 MG/ML VIAL ONE (05:57)
[2017-04-21 05:59] LABS: BASOPHILS % (AUTO) 0.3 %; HCT - HEMATOCRIT 36.8 % (37.0-47.0); LYMPHOCYTES % (AUTO) 1.2 %; MEAN CORPUSCULAR HEMOGLOBIN 26.5 pg (27.0-31.0); MEAN CORPUSCULAR HGB CONC 32.7 g/dL (32.0-36.0); MEAN CORPUSCULAR VOLUME 81.1 fL (81.0-99.0); MEAN PLATELET VOLUME 8.8 fL (7.9-10.8); MONOCYTES % (AUTO) 4.5 %; RED BLOOD COUNT 4.54 10^6/uL (4.20-5.40); RED CELL DISTRIBUTION WIDTH 14.6 % (12.0-15.0); UNCORRECTED WHITE BLOOD COUNT 24.2 x10^3/uL; WHITE BLOOD COUNT 24.2 x10^3/uL (4.8-10.8)
[2017-04-21 06:08] LABS: CALCIUM 7.5 mg/dL (8.5-10.3); CREATININE 0.9 mg/dL (0.4-1.0); POTASSIUM 3.7 mmol/L (3.5-5.0)
[2017-04-21] MEDS: PANTOPRAZOLE 40 MG TABLET PO SCH (06:10)
[2017-04-21 06:55] LABS: BAND NEUTROPHILS % (MANUAL) 19 %; LYMPHOCYTES % (MANUAL) 1 %; NEUTROPHILS % (MANUAL) 79 %; NP AUTO DIFFERENTIAL? YES; NP MAN DIFFERENTIAL? NO; PLATELET ESTIMATE, MANUAL NORMAL (130-450,000) (NORMAL); PLATELET MORPHOLOGY 1+ LARGE PLATELETS (NORMAL); TOTAL CELLS COUNTED 100
[2017-04-21] MEDS ORDERED: IPRATROPIUM/ALBUTEROL 3 ML NEB INH SCH (07:00)
[2017-04-21] MEDS: SODIUM CHLORIDE FLUSH 0.9% 10 ML SYRINGE IVP SCH ×3 (07:24→21:49)
[2017-04-21] MEDS: SODIUM CHLORIDE 0.9% 1,000 ML IV SCH ×3 (07:31→18:23)
[2017-04-21] MEDS ORDERED: LISINOPRIL 5 MG TABLET PO SCH (09:00)
[2017-04-21] MEDS: LEVALBUTEROL 1.25 MG/0.5 ML NEB INH SCH ×5 (09:17→20:34)
[2017-04-21] MEDS: SODIUM CHLORIDE INHALATION 3 ML NEB INH SCH ×5 (09:17→20:34)
[2017-04-21] MEDS: CALCIUM CARBONATE CHEW 500 MG TABLET PO SCH ×2 (10:08→21:49)
[2017-04-21] MEDS: CHOLECALCIFEROL 1,000 UNIT TABLET PO SCH (10:08)
[2017-04-21] MEDS: POLYETHYLENE GLYCOL 3350 17 GM PACKET PO SCH (10:08)
[2017-04-21] MEDS: ENOXAPARIN 40 MG/0.4 ML SYRINGE SUBQ SCH (10:09)
[2017-04-21] MEDS: MAGNESIUM OXIDE 400 MG TABLET PO SCH (10:22)
--- NOTE | 2017-04-21 13:41 | PROVIDER PROGRESS NOTE ---
Subjective - Prog Note Date Prog Note Date: 04/21/17 Prog Note Time: 13:39 - Subjective Pt reports feeling: No change Subjective: has no complaints other than wanting to go home. She denies SOB, chest pain, N/V or a new cough. Current Medications - Current Medications Current Medications: Active Medications Generic Name Dose Route Start Last Admin Trade Name Freq PRN Reason Stop Dose Admin Acetaminophen 650 mg 04/21/17 04:21 Tylenol PO Q4HR PRN Pain 1 to 4 Albuterol/Ipratropium 3 ml 04/21/17 04:21 Duoneb INH RTQID PRN Wheezing Budesonide 0.5 mg 04/21/17 05:00 04/21/17 09:18 Pulmicort INH 0.5 mg RTBID TERRANCE Administration Calcium Carbonate/Glycine 500 mg 04/21/17 09:00 04/21/17 10:08 Tums PO 500 mg BID TERRANCE Administration Cholecalciferol 2,000 unit 04/21/17 09:00 04/21/17 10:08 Vitamin D3 PO 2,000 unit DAILY TERRANCE Administration Enoxaparin Sodium 40 mg 04/21/17 09:00 04/21/17 10:09 Lovenox SUBQ 40 mg DAILY TERRANCE Administration Formoterol Fumarate 20 mcg 04/21/17 05:00 04/21/17 09:18 Perforomist INH 20 mcg RTBID TERRANCE Administration Azithromycin 500 mg/ Sodium 250 mls @ 250 mls/hr 04/22/17 04:30 Chloride IV Q24H TERRANCE Ceftriaxone Sodium 2 gm/ 100 mls @ 200 mls/hr 04/22/17 04:00 Sodium Chloride IV Q24H TERRANCE Sodium Chloride 1,000 mls @ 100 mls/hr 04/21/17 05:00 04/21/17 07:31 Normal Saline 0.9% IV 100 mls/hr .Q10H TERRANCE Administration Levalbuterol HCl 1.25 mg 04/21/17 11:00 04/21/17 13:25 Xopenex INH 1.25 mg RTQID TERRANCE Administration Magnesium Oxide 400 mg 04/21/17 09:00 04/21/17 10:22 Mag Ox PO 400 mg DAILY TERRANCE Administration Methylprednisolone 40 mg 04/21/17 05:00 04/21/17 05:53 Solu-Medrol (40mg Vial) IVP 40 mg TID TERRANCE Administration Morphine Sulfate 2 mg 04/21/17 04:21 Morphine IVP Q2H PRN Pain 8 to 10 Ondansetron HCl 4 mg 04/21/17 04:21 Zofran Inj IVP Q6HR PRN Nausea / Vomiting Oxycodone HCl 5 mg 04/21/17 04:21 04/21/17 05:53 Roxicodone PO 5 mg Q4HR PRN Administration Pain 5 to 7 Oxycodone HCl 10 mg 04/21/17 04:21 Roxicodone PO Q4HR PRN Pain 8 to 10 Pantoprazole Sodium 40 mg 04/21/17 07:00 04/21/17 06:10 Protonix PO 40 mg QDAC TERRANCE Administration Polyethylene Glycol 17 gm 04/21/17 09:00 04/21/17 10:08 Miralax PO Not Given DAILY [facility] Prochlorperazine Edisylate 10 mg 04/21/17 04:21 Compazine Inj IVP Q6HR PRN Nausea / Vomiting Sodium Chloride 10 ml 04/21/17 04:21 Normal Saline Flush 0.9% IVP PRN PRN NEEDED PER PROVIDER ORDERS Sodium Chloride 10 ml 04/21/17 06:00 04/21/17 07:24 Normal Saline Flush 0.9% IVP Not Given Q8HR [facility] Sodium Chloride 3 ml 04/21/17 08:00 04/21/17 13:25 Normal Saline INH 3 ml RTQID TERRANCE Administration Zolpidem Tartrate 5 mg 04/21/17 04:21 Ambien PO QPM PRN Insomnia Cholecalciferol (Vitamin D3) [Vitamin D3] 2,000 mg PO DAILY 07/13/14 Omeprazole 20 mg PO DAILY 07/13/14 Calcium Carbonate/Vitamin D3 [Caltrate 600 Plus D3 Tablet] 1 tab PO BID Magnesium Oxide [Mag Ox] 400 mg PO DAILY 11/05/14 Lisinopril 10 mg PO DAILY 09/15/16 Psyllium [Metamucil] 1 packet PO DAILY 09/27/16 Albuterol 1 neb INH PRN PRN 03/19/17 Budesonide [Pulmicort] 1 puffs INH DAILY 03/19/17 Objective - Vital Signs/Intake & Output Reviewed Vital Signs: Yes Vital Signs: Vital Signs x48h Temp Pulse Pulse Resp BP BP Pulse Ox 04/21/17 13:23 98 20 04/21/17 12:31 36.8 C 104 H 16 103/45 L 94 04/21/17 09:18 96 16 04/21/17 07:42 36.9 C 102 H 16 104/48 L 95 Intake & Output: Intake & Output 04/18/17 04/19/17 04/20/17 04/21/17 23:59 23:59 23:59 23:59 Intake Total 3690 Output Total 300 Balance 3390 - Objective General Appearance: positive: No acute distress, Alert Eyes Bilateral: positive: Normal inspection, PERRL ENT: positive: ENT inspection nml, Pharynx nml, No signs of dehydration Neck: positive: Nml inspection, Thyroid nml, No JVD, Trachea midline Respiratory: positive: Chest non-tender, No respiratory distress, Wheezes ( diminished through out, crackles lower bilateral lobes.) Cardiovascular: positive: Regular rate & rhythm, No gallop, Systolic murmur Peripheral Pulses: 2+ Radial (R), 2+ Radial (L), 2+ Dorsalis pedis (R), 2+ Dorsalis pedis (L) Abdomen: positive: Non-tender, No organomegaly, Nml bowel sounds, No distention Rectal: positive: Non-tender Back: positive: Nml inspection Skin: positive: Color nml, No rash, Warm, Dry Extremities: positive: Non-tender, Full ROM, No pedal edema Neurologic/Psychiatric: positive: Oriented x3, CN's nml (2-12), Motor nml, Sensation nml, Mood/affect nml Reflexes: Bicep (R): 3+, Bicep (L): 3+ - Lab Results Fish Bones: 04/21/17 05:46 04/21/17 05:46 Other Labs: Lab Results x24hrs 04/21/17 04/21/17 04/21/17 Range/Units 12:00 05:46 05:46 WBC 24.2 H (4.8-10.8) x10^3/uL RBC 4.54 (4.20-5.40) 10^6/uL Hgb 12.0 (12.0-16.0) g/dL Hct 36.8 L (37.0-47.0) % MCV 81.1 (81.0-99.0) fL MCH 26.5 L (27.0-31.0) pg MCHC 32.7 (32.0-36.0) g/dL RDW 14.6 (12.0-15.0) % Plt Count 255 (130-450) 10^3/uL MPV 8.8 (7.9-10.8) fL Neut # Not Reportable Lymph # Not Reportable [place] # Not Reportable Eos # Not Reportable Baso # Not Reportable Absolute Nucleated RBC Not Reportable Total Counted 100 Band Neuts % (Manual) 19 H (0 - 10) % Nucleated RBC % Not Reportable Neutrophils # (Manual) 23.7 H (1.5-6.6) 10^3/uL Lymphocytes # (Manual) 0.2 L (1.5-3.5) 10^3/uL Monocytes # (Manual) 0.2 (0.0-1.0) 10^3/uL Differential Comment MANUAL DIFFERENTIAL Platelet Estimate NORMAL (130-450,000) (NORMAL) Platelet Morphology 1+ LARGE PLATELETS (NORMAL) RBC Morph Micro Appear NORMAL APPEARANCE (NORMAL) Sodium 135 (135-145) mmol/L Potassium 3.7 (3.5-5.0) mmol/L Chloride 107 (101-111) mmol/L Carbon Dioxide 21 (21-32) mmol/L Anion Gap 7.0 (6-13) BUN 21 H (6-20) mg/dL Creatinine 0.9 (0.4-1.0) mg/dL Estimated GFR (MDRD) 60 L (>89) Glucose 110 H (70-100) mg/dL Lactic Acid 4.2 H* (0.5-2.2) mmol/L Calcium 7.5 L (8.5-10.3) mg/dL Blood cultures x2 are pending. - Diagnostic Imaging Diagnostic Imaging Results: positive: Prelim report reviewed Assessment/Plan - Problem List (1) Sepsis Impression: Lactic acid increased from 1.8 on admission now elevated to 4.2. Patient has been afebrile and very alert and oriented during exam. Plan: I will re-order for AM and continue to monitor labs. Awaiting BC results. Qualifiers: Sepsis type: sepsis due to unspecified organism Qualified Code(s): A41.9 - Sepsis, unspecified organism (2) Pneumonia Impression: A chest x-ray on admit suggests large lung volumes likely from emphysema, asymetric infiltrates vs. edema-right greater than left & a probable hiatal hernia. Plan: We will continue current antibiotics and await blood culture results and/ or sputum culture. RT is managing nebulizers. Qualifiers: Laterality: bilateral Lung location: lower lobe of lung (3) COPD exacerbation Impression: Patient has a known history of tobacco abuse and quit smoking in 2003. She is on chronic home inhalers and her disease is fairly controlled. Plan: Continued great RT therapy for chronic lung disease. X-ray in ER confirms , likely emphysema per radiograph report. (4) Chronic pain Impression: Patient admits to a recent syncopal episode that she did not seek emergency medical care for with an injury to her right shoulder. She has been prescribed "biofreeze" which has helped out patient. She also takes chronic opioids for back pain. Plan: I will prescribe Biofreeze as requested and slowly add narcotics due to acute illness. Qualifiers: Chronic pain type: other chronic pain Qualified Code(s): G89.29 - Other chronic pain (5) Hypertension Impression: Patient has been found to be mildly hypotensive due to acute illness 100/40's, which may be sepsis. Plan: Hold all antihypertensives and resume upon discharge. (6) Hyponatremia Impression: This was noted as mild with a sodium of 133, and improved to a normal range after IV therapy. Plan: Continue to monitor.
[2017-04-21] MEDS: CAPSAICIN 0.025% CREAM 60 GM TUBE TOP SCH (23:40)
[2017-04-22] MEDS: SODIUM CHLORIDE 0.9% 1,000 ML IV SCH ×3 (00:55→21:43)
[2017-04-22] MEDS ORDERED: cefTRIAXone 2 GM in SODIUM CHLORIDE 0.9% MINIBAG 100 ML IV SCH (04:00)
[2017-04-22] MEDS ORDERED: AZITHROMYCIN INJ 500 MG in SODIUM CHLORIDE 0.9% 250 ML IV SCH (04:30)
[2017-04-22] MEDS: oxyCODONE 5 MG TABLET PO PRN (05:16)
[2017-04-22 05:32] LABS: BILIRUBIN,URINE NEGATIVE (NEGATIVE)
[2017-04-22 05:38] LABS: UR CULTURE IF IND NOT INDICATED; WBC,URINE 0-3 /HPF (0-5)
[2017-04-22 06:11] LABS: BASOPHILS % (AUTO) 0.3 %; HGB - HEMOGLOBIN 10.7 g/dL (12.0-16.0); LYMPHOCYTES % (AUTO) 1.5 %; MEAN CORPUSCULAR HEMOGLOBIN 26.4 pg (27.0-31.0); MEAN CORPUSCULAR HGB CONC 32.3 g/dL (32.0-36.0); MEAN CORPUSCULAR VOLUME 81.8 fL (81.0-99.0); MEAN PLATELET VOLUME 9.2 fL (7.9-10.8); MONOCYTES % (AUTO) 3.2 %; RED BLOOD COUNT 4.04 10^6/uL (4.20-5.40); RED CELL DISTRIBUTION WIDTH 15.1 % (12.0-15.0); UNCORRECTED WHITE BLOOD COUNT 41.1 x10^3/uL
[2017-04-22 06:18] LABS: WHITE BLOOD COUNT 41.1 x10^3/uL (4.8-10.8)
[2017-04-22 06:19] LABS: CALCIUM 7.9 mg/dL (8.5-10.3); MAGNESIUM 1.6 mg/dL (1.7-2.8); PHOSPHORUS 2.8 mg/dL (2.5-4.6); POTASSIUM 4.3 mmol/L (3.5-5.0)
[2017-04-22 06:23] LABS: HEMOGLOBIN A1C 0.51 g/dL
[2017-04-22] MEDS: SODIUM CHLORIDE INHALATION 3 ML NEB INH SCH ×4 (06:38→23:02)
[2017-04-22] MEDS: LEVALBUTEROL 1.25 MG/0.5 ML NEB INH SCH ×4 (06:38→23:00)
[2017-04-22] MEDS: PANTOPRAZOLE 40 MG TABLET PO SCH (06:39)
[2017-04-22] MEDS: methylPREDNISolone SUCCINATE 40 MG/ML VIAL IVP SCH ×2 (06:39→13:44)
[2017-04-22] MEDS: SODIUM CHLORIDE FLUSH 0.9% 10 ML SYRINGE IVP SCH ×3 (06:42→22:24)
[2017-04-22 06:43] LABS: BAND NEUTROPHILS % (MANUAL) 18 %; LYMPHOCYTES % (MANUAL) 5 %; NEUTROPHILS % (MANUAL) 71 %; NP AUTO DIFFERENTIAL? YES; NP MAN DIFFERENTIAL? NO; PLATELET ESTIMATE, MANUAL NORMAL (130-450,000) (NORMAL); TOTAL CELLS COUNTED 100
[2017-04-22] MEDS ORDERED: VANCOMYCIN PER PHARMACY 1 GM in SODIUM CHLORIDE 0.9% 250 ML IV SCH (07:00)
--- NOTE | 2017-04-22 07:02 | PROVIDER PROGRESS NOTE ---
Subjective - Prog Note Date Prog Note Date: 04/22/17 Prog Note Time: 07:01 - Subjective Pt reports feeling: No change Subjective: Mary Davey wishes to go home today, but understands her medical condition and the need for hospitalization. She denies SOB, chest pain, N/V or a new cough. She is doing well with her nebulizers. Current Medications - Current Medications Current Medications: Active Medications Generic Name Dose Route Start Last Admin Trade Name Freq PRN Reason Stop Dose Admin Acetaminophen 650 mg 04/21/17 04:21 04/21/17 14:25 Tylenol PO 650 mg Q4HR PRN Administration Pain 1 to 4 Albuterol/Ipratropium 3 ml 04/21/17 04:21 Duoneb INH RTQID PRN Wheezing Budesonide 0.5 mg 04/21/17 05:00 04/21/17 20:34 Pulmicort INH 0.5 mg RTBID TERRANCE Administration Calcium Carbonate/Glycine 500 mg 04/21/17 09:00 04/21/17 21:49 Tums PO 500 mg BID TERRANCE Administration Capsaicin 1 applic 04/21/17 23:00 04/21/17 23:40 Trixaicin 0.025% Cream TOP Not Given QID TERRANCE Cholecalciferol 2,000 unit 04/21/17 09:00 04/21/17 10:08 Vitamin D3 PO 2,000 unit DAILY TRERANCE Administration Enoxaparin Sodium 40 mg 04/21/17 09:00 04/21/17 10:09 Lovenox SUBQ 40 mg DAILY TERRANCE Administration Formoterol Fumarate 20 mcg 04/21/17 05:00 04/21/17 20:34 Perforomist INH 20 mcg RTBID TERRANCE Administration Sodium Chloride 1,000 mls @ 125 mls/hr 04/21/17 17:58 04/22/17 05:39 Normal Saline 0.9% IV 125 mls/hr .Q8H TERRANCE Infusion Cefepime HCl 2 gm/ Sodium 100 mls @ 200 mls/hr 04/22/17 07:00 Chloride IV 04/27/17 06:59 BID TERRANCE Vancomycin HCl 1 gm/ Sodium 250 mls @ 167 mls/hr 04/22/17 07:00 Chloride IV 04/27/17 06:59 Q12H TERRANCE Levalbuterol HCl 1.25 mg 04/21/17 11:00 04/22/17 06:38 Xopenex INH 1.25 mg RTQID TERRANCE Administration Magnesium Oxide 400 mg 04/21/17 09:00 04/21/17 10:22 Mag Ox PO 400 mg DAILY TERRANCE Administration Methylprednisolone 40 mg 04/21/17 05:00 04/22/17 06:39 Solu-Medrol (40mg Vial) IVP 40 mg TID TERRANCE Administration Morphine Sulfate 2 mg 04/21/17 04:21 Morphine IVP Q2H PRN Pain 8 to 10 Ondansetron HCl 4 mg 04/21/17 04:21 Zofran Inj IVP Q6HR PRN Nausea / Vomiting Oxycodone HCl 5 mg 04/21/17 04:21 04/22/17 05:16 Roxicodone PO 5 mg Q4HR PRN Administration Pain 5 to 7 Oxycodone HCl 10 mg 04/21/17 04:21 Roxicodone PO Q4HR PRN Pain 8 to 10 Pantoprazole Sodium 40 mg 04/21/17 07:00 04/22/17 06:39 Protonix PO 40 mg QDAC TERRANCE Administration Polyethylene Glycol 17 gm 04/21/17 09:00 04/21/17 10:08 Miralax PO Not Given DAILY [facility] Prochlorperazine Edisylate 10 mg 04/21/17 04:21 Compazine Inj IVP Q6HR PRN Nausea / Vomiting Sodium Chloride 10 ml 04/21/17 04:21 Normal Saline Flush 0.9% IVP PRN PRN NEEDED PER PROVIDER ORDERS Sodium Chloride 10 ml 04/21/17 06:00 04/22/17 06:42 Normal Saline Flush 0.9% IVP 10 ml Q8HR TERRANCE Administration Sodium Chloride 3 ml 04/21/17 08:00 04/22/17 06:38 Normal Saline INH 3 ml RTQID TERRANCE Administration Zolpidem Tartrate 5 mg 04/21/17 04:21 Ambien PO QPM PRN Insomnia Cholecalciferol (Vitamin D3) [Vitamin D3] 2,000 mg PO DAILY 07/13/14 Omeprazole 20 mg PO DAILY 07/13/14 Calcium Carbonate/Vitamin D3 [Caltrate 600 Plus D3 Tablet] 1 tab PO BID Magnesium Oxide [Mag Ox] 400 mg PO DAILY 11/05/14 Lisinopril 10 mg PO DAILY 09/15/16 Psyllium [Metamucil] 1 packet PO DAILY 09/27/16 Albuterol 1 neb INH PRN PRN 03/19/17 Budesonide [Pulmicort] 1 puffs INH DAILY 03/19/17 Objective - Vital Signs/Intake & Output Reviewed Vital Signs: Yes Vital Signs: Vital Signs x48h Temp Pulse Resp BP Pulse Ox 04/22/17 05:56 36.8 C 78 18 107/53 L 98 04/22/17 00:43 36.6 C 107 H 19 115/46 L 95 Intake & Output: Intake & Output 04/19/17 04/20/17 04/21/17 04/22/17 23:59 23:59 23:59 23:59 Intake Total 5075.000 815.000 Output Total 700 350 Balance 4375.000 465.000 - Objective General Appearance: positive: No acute distress, Alert Eyes Bilateral: positive: Normal inspection, PERRL ENT: positive: ENT inspection nml, Pharynx nml, No signs of dehydration Neck: positive: Nml inspection, Thyroid nml, No JVD, Trachea midline Respiratory: positive: Chest non-tender, No respiratory distress, Wheezes, Rhonchi Cardiovascular: positive: Regular rate & rhythm, Systolic murmur Peripheral Pulses: 2+ Radial (R), 2+ Radial (L), 2+ Dorsalis pedis (R), 2+ Dorsalis pedis (L) Abdomen: positive: Non-tender, No organomegaly, Nml bowel sounds, No distention Back: positive: Nml inspection Skin: positive: Color nml, No rash, Warm, Dry Extremities: positive: Non-tender, Full ROM, Nml appearance, Pedal edema ( dependent trace BLE) Neurologic/Psychiatric: positive: Oriented x3, Motor nml, Sensation nml, Mood/ affect nml, Sensory loss Reflexes: Bicep (R): 3+, Bicep (L): 3+ - Lab Results Fish Bones: 04/22/17 06:00 04/22/17 06:00 Other Labs: Lab Results x24hrs 04/22/17 04/22/17 04/22/17 Range/Units 06:00 06:00 06:00 WBC (4.8-10.8) x10^3/uL RBC (4.20-5.40) 10^6/uL Hgb (12.0-16.0) g/dL Hct (37.0-47.0) % MCV (81.0-99.0) fL MCH (27.0-31.0) pg MCHC (32.0-36.0) g/dL RDW (12.0-15.0) % Plt Count (130-450) 10^3/uL MPV (7.9-10.8) fL Neut # Lymph # [place] # Eos # Baso # Absolute Nucleated RBC Total Counted Band Neuts % (Manual) (0 - 10) % Nucleated RBC % Neutrophils # (Manual) (1.5-6.6) 10^3/uL Lymphocytes # (Manual) (1.5-3.5) 10^3/uL Monocytes # (Manual) (0.0-1.0) 10^3/uL Differential Comment Platelet Estimate (NORMAL) RBC Morph Micro Appear (NORMAL) Sodium (135-145) mmol/L Potassium (3.5-5.0) mmol/L Chloride (101-111) mmol/L Carbon Dioxide (21-32) mmol/L Anion Gap (6-13) BUN (6-20) mg/dL Creatinine (0.4-1.0) mg/dL Estimated GFR (MDRD) (>89) Glucose (70-100) mg/dL Glycated Hemoglobin 6.4 H (4.6-6.2) % Estim Average Glucose 137 H (70-100) Lactic Acid 1.1 (0.5-2.2) mmol/L Calcium (8.5-10.3) mg/dL Phosphorus (2.5-4.6) mg/dL Magnesium (1.7-2.8) mg/dL TSH 0.46 (0.34-5.60) uIU/mL Urine Color Urine Clarity (CLEAR) Urine pH (5.0-7.5) PH Ur Specific [place] (1.002-1.030) Urine Protein (NEGATIVE) mg/dL Urine Glucose (UA) (NEGATIVE) mg/dL Urine Ketones (NEGATIVE) mg/dL Urine Occult Blood (NEGATIVE) Urine Nitrite (NEGATIVE) Urine Bilirubin (NEGATIVE) Urine Urobilinogen (NORMAL) E.U./dL Ur Leukocyte Esterase (NEGATIVE) Urine RBC (0-5) /HPF Urine WBC (0-5) /HPF Ur Squamous Epith Cells (<= Few) Urine Bacteria (None Seen) /HPF Urine Culture Comments 04/22/17 04/22/17 04/22/17 Range/Units 06:00 06:00 04:43 WBC 41.1 H* (4.8-10.8) x10^3/uL RBC 4.04 L (4.20-5.40) 10^6/uL Hgb 10.7 L (12.0-16.0) g/dL Hct 33.0 L (37.0-47.0) % MCV 81.8 (81.0-99.0) fL MCH 26.4 L (27.0-31.0) pg MCHC 32.3 (32.0-36.0) g/dL RDW 15.1 H (12.0-15.0) % Plt Count 222 (130-450) 10^3/uL MPV 9.2 (7.9-10.8) fL Neut # Not Reportable Lymph # Not Reportable [place] # Not Reportable Eos # Not Reportable Baso # Not Reportable Absolute Nucleated RBC Not Reportable Total Counted 100 Band Neuts % (Manual) 18 H (0 - 10) % Nucleated RBC % Not Reportable Neutrophils # (Manual) 36.6 H (1.5-6.6) 10^3/uL Lymphocytes # (Manual) 2.1 (1.5-3.5) 10^3/uL Monocytes # (Manual) 2.5 H (0.0-1.0) 10^3/uL Differential Comment MANUAL DIFFERENTIAL Platelet Estimate NORMAL (130-450,000) (NORMAL) RBC Morph Micro Appear NORMAL APPEARANCE (NORMAL) Sodium 135 (135-145) mmol/L Potassium 4.3 (3.5-5.0) mmol/L Chloride 106 (101-111) mmol/L Carbon Dioxide 20 L (21-32) mmol/L Anion Gap 9.0 (6-13) BUN 21 H (6-20) mg/dL Creatinine 1.0 (0.4-1.0) mg/dL Estimated GFR (MDRD) 53 L (>89) Glucose 138 H (70-100) mg/dL Glycated Hemoglobin (4.6-6.2) % Estim Average Glucose (70-100) Lactic Acid (0.5-2.2) mmol/L Calcium 7.9 L (8.5-10.3) mg/dL Phosphorus 2.8 (2.5-4.6) mg/dL Magnesium 1.6 L (1.7-2.8) mg/dL TSH (0.34-5.60) uIU/mL Urine Color YELLOW Urine Clarity CLEAR (CLEAR) Urine pH 6.0 (5.0-7.5) PH Ur Specific [place] 1.010 (1.002-1.030) Urine Protein NEGATIVE (NEGATIVE) mg/dL Urine Glucose (UA) NEGATIVE (NEGATIVE) mg/dL Urine Ketones NEGATIVE (NEGATIVE) mg/dL Urine Occult Blood NEGATIVE (NEGATIVE) Urine Nitrite NEGATIVE (NEGATIVE) Urine Bilirubin NEGATIVE (NEGATIVE) Urine Urobilinogen 0.2 (NORMAL) (NORMAL) E.U./dL Ur Leukocyte Esterase NEGATIVE (NEGATIVE) Urine RBC 0-5 (0-5) /HPF Urine WBC 0-3 (0-5) /HPF Ur Squamous Epith Cells RARE Squamous (<= Few) Urine Bacteria None Seen (None Seen) /HPF Urine Culture Comments NOT INDICATED 04/21/17 Range/Units 12:00 WBC (4.8-10.8) x10^3/uL RBC (4.20-5.40) 10^6/uL Hgb (12.0-16.0) g/dL Hct (37.0-47.0) % MCV (81.0-99.0) fL MCH (27.0-31.0) pg MCHC (32.0-36.0) g/dL RDW (12.0-15.0) % Plt Count (130-450) 10^3/uL MPV (7.9-10.8) fL Neut # Lymph # [place] # Eos # Baso # Absolute Nucleated RBC Total Counted Band Neuts % (Manual) (0 - 10) % Nucleated RBC % Neutrophils # (Manual) (1.5-6.6) 10^3/uL Lymphocytes # (Manual) (1.5-3.5) 10^3/uL Monocytes # (Manual) (0.0-1.0) 10^3/uL Differential Comment Platelet Estimate (NORMAL) RBC Morph Micro Appear (NORMAL) Sodium (135-145) mmol/L Potassium (3.5-5.0) mmol/L Chloride (101-111) mmol/L Carbon Dioxide (21-32) mmol/L Anion Gap (6-13) BUN (6-20) mg/dL Creatinine (0.4-1.0) mg/dL Estimated GFR (MDRD) (>89) Glucose (70-100) mg/dL Glycated Hemoglobin (4.6-6.2) % Estim Average Glucose (70-100) Lactic Acid 4.2 H* (0.5-2.2) mmol/L Calcium (8.5-10.3) mg/dL Phosphorus (2.5-4.6) mg/dL Magnesium (1.7-2.8) mg/dL TSH (0.34-5.60) uIU/mL Urine Color Urine Clarity (CLEAR) Urine pH (5.0-7.5) PH Ur Specific [place] (1.002-1.030) Urine Protein (NEGATIVE) mg/dL Urine Glucose (UA) (NEGATIVE) mg/dL Urine Ketones (NEGATIVE) mg/dL Urine Occult Blood (NEGATIVE) Urine Nitrite (NEGATIVE) Urine Bilirubin (NEGATIVE) Urine Urobilinogen (NORMAL) E.U./dL Ur Leukocyte Esterase (NEGATIVE) Urine RBC (0-5) /HPF Urine WBC (0-5) /HPF Ur Squamous Epith Cells (<= Few) Urine Bacteria (None Seen) /HPF Urine Culture Comments - Diagnostic Imaging Diagnostic Imaging Results: positive: Final report reviewed Assessment/Plan - Problem List (1) Sepsis Impression: Lactic acid increased from 1.8 on admission now elevated to 4.2. Patient has been afebrile and very alert and oriented during exam. Lactic acid now normalized to 1.1. WBCs are still elevated in the 40 range. Plan: Awaiting BC results, no growth to date. We will continue to give IVFs and monitor vital signs. Qualifiers: Sepsis type: sepsis due to unspecified organism Qualified Code(s): A41.9 - Sepsis, unspecified organism (2) Pneumonia Impression: A chest x-ray on admit suggests large lung volumes likely from emphysema, asymetric infiltrates vs. edema-right greater than left & a probable hiatal hernia. Plan: We will continue current antibiotics and await blood culture results and/ or sputum culture. RT is managing nebulizers. Qualifiers: Laterality: bilateral Lung location: lower lobe of lung (3) COPD exacerbation Impression: Patient has a known history of tobacco abuse and quit smoking in 2003. She is on chronic home inhalers and her disease is fairly controlled. Patient remains on oxygen at 2L nasal cannula, but does not use O2 at home. Plan: Continued great RT therapy for chronic lung disease. X-ray in ER confirms , likely emphysema per radiograph report. (4) Chronic pain Impression: Patient was prescribed capsaicin topical as an analgesic for her most recent injury to right shoulder. She also suffers from chronic low back pain due to osteoarthritis. Plan: Offer topical analgesic PRN per nursing. Use tylenol PO or IV. Monitor pain, encourage activity. Qualifiers: Chronic pain type: other chronic pain Qualified Code(s): G89.29 - Other chronic pain (5) Hypertension Impression: Patient has been found to be mildly hypotensive due to acute illness 100/50 this morning. This could likely be a consequence of suspected sepsis. Plan: Hold all antihypertensives and resume upon discharge.
[2017-04-22] MEDS: FORMOTEROL FUMARATE NEB 20 MCG/2 ML INH SCH ×2 (07:15→22:57)
[2017-04-22] MEDS: BUDESONIDE 0.5 MG/2 ML NEB INH SCH ×3 (07:15→23:01)
[2017-04-22] MEDS ORDERED: MAGNESIUM CITRATE 296 ML BOTTLE PO SCH ×2 (08:00→09:03)
[2017-04-22] MEDS: CHOLECALCIFEROL 1,000 UNIT TABLET PO SCH (08:33)
[2017-04-22] MEDS: CEFEPIME 2 GM in SODIUM CHLORIDE 0.9% MINIBAG 100 ML IV SCH (08:33)
[2017-04-22] MEDS: MAGNESIUM OXIDE 400 MG TABLET PO SCH ×2 (08:34→21:39)
[2017-04-22] MEDS: POLYETHYLENE GLYCOL 3350 17 GM PACKET PO SCH (08:34)
[2017-04-22] MEDS: ENOXAPARIN 40 MG/0.4 ML SYRINGE SUBQ SCH (08:34)
[2017-04-22] MEDS: CALCIUM CARBONATE CHEW 500 MG TABLET PO SCH (08:34)
[2017-04-22] MEDS: VANCOMYCIN INJ 1 GM in SODIUM CHLORIDE 0.9% 250 ML IV SCH (09:56)
[2017-04-22] MEDS: CAPSAICIN 0.025% CREAM 60 GM TUBE TOP SCH ×2 (11:22→13:02)
[2017-04-22] MEDS ORDERED: ALPRAZolam 0.25 MG TABLET PO PRN (17:24)
[2017-04-22] MEDS: predniSONE 20 MG TABLET PO SCH (21:40)
[2017-04-23] MEDS: SODIUM CHLORIDE FLUSH 0.9% 10 ML SYRINGE IVP SCH ×2 (05:37→13:56)
[2017-04-23] MEDS: SODIUM CHLORIDE 0.9% 1,000 ML IV SCH (05:41)
[2017-04-23 06:05] LABS: BASOPHILS % (AUTO) 0.1 %; HCT - HEMATOCRIT 26.1 % (37.0-47.0); HGB - HEMOGLOBIN 8.6 g/dL (12.0-16.0); LYMPHOCYTES # (AUTO) 0.8 10^3/uL (1.5-3.5); LYMPHOCYTES % (AUTO) 2.3 %; MEAN CORPUSCULAR HEMOGLOBIN 26.5 pg (27.0-31.0); MEAN CORPUSCULAR HGB CONC 32.9 g/dL (32.0-36.0); MEAN CORPUSCULAR VOLUME 80.7 fL (81.0-99.0); MEAN PLATELET VOLUME 9.4 fL (7.9-10.8); MONOCYTES # (AUTO) 1.6 10^3/uL (0.0-1.0); MONOCYTES % (AUTO) 4.5 %; NEUTROPHILS # (AUTO) 33.7 10^3/uL (1.5-6.6); NEUTROPHILS % (AUTO) 93.1 %; RED BLOOD COUNT 3.23 10^6/uL (4.20-5.40); RED CELL DISTRIBUTION WIDTH 15.4 % (12.0-15.0); UNCORRECTED WHITE BLOOD COUNT 36.1 x10^3/uL
[2017-04-23] MEDS: LEVALBUTEROL 1.25 MG/0.5 ML NEB INH SCH ×3 (06:06→14:07)
[2017-04-23] MEDS: BUDESONIDE 0.5 MG/2 ML NEB INH SCH (06:06)
[2017-04-23] MEDS: SODIUM CHLORIDE INHALATION 3 ML NEB INH SCH ×3 (06:06→14:07)
[2017-04-23] MEDS: FORMOTEROL FUMARATE NEB 20 MCG/2 ML INH SCH (06:06)
[2017-04-23 06:08] LABS: CALCIUM 7.7 mg/dL (8.5-10.3); CREATININE 0.8 mg/dL (0.4-1.0); POTASSIUM 4.4 mmol/L (3.5-5.0)
[2017-04-23 06:15] LABS: WHITE BLOOD COUNT 36.1 x10^3/uL (4.8-10.8)
[2017-04-23 07:19] LABS: NP AUTO DIFFERENTIAL? NO; NP MAN DIFFERENTIAL? YES
[2017-04-23] MEDS ORDERED: IOPAMIDOL-300 100 ML VIAL ONE (07:32)
--- NOTE | 2017-04-23 07:45 | XRAY Preliminary Report ---
Exam: XR CHEST 2 VIEW PA/LAT IMPRESSION: 1. Resolving right lung opacities 2. Advanced obstructive airways disease 3. Small bilateral pleural effusions 4. Hiatal hernia [facility] SITE ID: [id number]
--- NOTE | 2017-04-23 07:48 | XRAY Report ---
EXAM: CHEST RADIOGRAPHY EXAM DATE: 04/23/2017 07:32 AM. CLINICAL HISTORY: Worsening WBC and SOB/Wheezing. COMPARISON: Chest radiograph 04/21/2017. TECHNIQUE: 2 views. FINDINGS: Lungs/Pleura: Bronchial cuffing. Increased lung markings. Increased volumes. Improved aeration in the right lung. Blunting posterior costophrenic angles. Mediastinum: Stable. Hiatal hernia. Other: None. IMPRESSION: 1. Resolving right lung opacities 2. Advanced obstructive airways disease 3. Small bilateral pleural effusions 4. Hiatal hernia [facility] Referring Provider Line: [phone] SITE ID: [id number]
[2017-04-23] MEDS: CEFEPIME 2 GM in SODIUM CHLORIDE 0.9% MINIBAG 100 ML IV SCH (08:31)
[2017-04-23 08:35] LABS: BILIRUBIN,DIRECT 0.1 mg/dL (0.1-0.5); BILIRUBIN,TOTAL 0.4 mg/dL (0.2-1.0); TOTAL PROTEIN 5.9 g/dL (6.7-8.2)
[2017-04-23] MEDS: predniSONE 20 MG TABLET PO SCH (08:46)
[2017-04-23] MEDS: MAGNESIUM OXIDE 400 MG TABLET PO SCH (08:46)
[2017-04-23] MEDS: ENOXAPARIN 40 MG/0.4 ML SYRINGE SUBQ SCH (08:46)
[2017-04-23] MEDS: POLYETHYLENE GLYCOL 3350 17 GM PACKET PO SCH (08:47)
[2017-04-23 09:00] LABS: FOLATE 11.4 ng/mL (5.90 - >24.8)
[2017-04-23] MEDS ORDERED: IOPAMIDOL-300 100 ML VIAL IVP ONE (09:32)
--- NOTE | 2017-04-23 10:04 | CT Preliminary Report ---
Exam: CT CHEST ANGIO (PE) IMPRESSION: No pulmonary emboli. Patchy right lung opacities are probably from pneumonia, superimposed on areas of scarring. 2 right l ower lobe nodular opacities measuring 4 and 6 mm could be related to infectious process as well. Flei schner Society 2017 guidelines suggest 3 to 6 month follow-up for multiple nodules measuring up to 6 mm in size. [facility] SITE ID: [id number]
--- NOTE | 2017-04-23 10:22 | CT Report ---
EXAM: CT ANGIOGRAM CHEST EXAM DATE: 04/23/2017 09:31 AM. CLINICAL HISTORY: Increasing shortness of breath. COMPARISON: Chest x-ray same day. TECHNIQUE: Routine helical imaging was performed through the chest in the pulmonary arterial phase. I V Contrast: 100 mL [id number]. Reconstructions: Coronal 3-D MIP reconstructions.Sagittal and coronal. In accordance with CT protocol optimization, one or more of the following dose reduction techniques w ere utilized for this exam: automated exposure control, adjustment of mA and/or KV based on patient s ize, or use of iterative reconstructive technique. FINDINGS: Pulmonary Arteries: Diagnostic quality: Adequate through the segmental arteries. No evidence for acute or chronic pulmona ry emboli. RV/LV is within normal limits. There is no interventricular septal bowing. There is no reflux of cont rast material in the IVC. Lungs/Pleura: Coarse reticular opacity within posterior right upper lobe. Patchy right upper and middle lobe opacities with areas of probable right middle lobe mucous plugging . 6 mm posterior right lower lobe nodular opacity series 5 image 91. 4 mm posterior right lower lobe no dular opacity image 95. Trace bilateral pleural effusions. Mediastinum: Normal. No cardiac enlargement or adenopathy. Thoracic Aorta: Unremarkable. Upper Abdomen: Moderate hiatal hernia. Other: Old L1 vertebral body fracture with significant anterior wedging. Although there is relatively little loss of posterior vertebral body height, there is spinal canal stenosis at T12-L1 level due t o anterolisthesis of T12 vertebral body relative to posterior L1 vertebral contour. IMPRESSION: 1. No pulmonary emboli. 2. Patchy right lung opacities are probably from pneumonia superimposed on areas of scarring. Two rig ht lower lobe nodular opacities measuring 4 and 6 mm in size could be related to infectious process a s well. Fleischner Society 2017 guidelines suggest 3 to 6 month follow-up for multiple nodules measur ing up to 6 mm in size. [facility] Referring Provider Line: [phone] SITE ID: [id number]
[2017-04-23] MEDS: VANCOMYCIN INJ 1 GM in SODIUM CHLORIDE 0.9% 250 ML IV SCH (11:03)
--- NOTE | 2017-04-23 11:48 | Discharge Plan ---
Discharge Plan Disposition: Home, Self Care Condition: Stable Prescriptions: Levofloxacin [Levaquin] 500 mg PO DAILY 7 Days #7 tablet Nystatin 100,000 unit PO QID #28 ml predniSONE [Deltasone] 10 mg PO BID #10 tablet Diet: Regular Activity Restrictions: No Restrictions Shower Restrictions: No Driving Restrictions: No Weight Bearing: Full Weight Instruction Topics: Pneumonia Prevent, COPD Dc Additional Instructions or Follow Up instructions: You came to the hospital after you had a black out at home, and weakness, rigors , shortness of breath, and cough. We were worried about your condition and performed a sepsis work up. You were found to have leukocytosis (elevated WBCs), tachycardia (fast heart rates), hypoxia (low oxygen), decreased mental status and an elevated lactic acid (one of our sepsis markers). Your leukocytosis (elevated WBCs) persisted throughout so a peripheral flow cytometry test-which tests for blood cancers, was sent off site and is still pending. An walking oxygen test was completed by our respiratory therapist. This was completed due to your oxygen requirements. Also you underwent a chest CT with contrast which showed right lung scarring with two lower lobe nodular opacities measuring 4 to 6mm in size, which could be pneumonia or infectious process. Recommend 3-[address] We checked blood cultures-another measure in our septic work up, that remained negative throughout stay. Since laboratory results failed to improve, and you looked clinically well with good energy and improved mental status, you were sent home. New treatments or medications included home oxygen, nystatin swish and spit for 7 days, a prednisone dose for 5 days, and an oral antibiotic based on your Chest CT result to follow the IV therapy course. Please see your PCP early next week as a follow up to this hospitalization. I would like them to check on your mouth soreness as well. Take it easy for the next few days and rest if you are tired. Ask your children for help. No Smoking: If you smoke, Please STOP! Call for help. Follow-up with: Krystle Vazquez ARNP [Primary Care Provider] -
--- NOTE | 2017-04-23 13:29 | DISCHARGE SUMMARY ---
Discharge Summary Admit Date: 04/21/17 Discharge Date: 04/23/17 Discharging Provider: OMAYRA Romero Primary Care Provider: Alondra Murray Code Status: Do Not Attempt Resuscitation Condition at Discharge: Stable Discharge Disposition: 01 Home, Self Care - DIAGNOSES Admission Diagnoses: Sepsis CAP COPD exacerbation chronic pain HTN hyponatremia Discharge Diagnoses with Status of Each Condition: (1) Sepsis Impression: Lactic acid increased from 1.8 on admission now elevated to 4.2. Patient has been afebrile and very alert and oriented during exam. Lactic acid now normalized to 1.1. WBCs are still elevated in the 40 range. Plan: Awaiting BC results, no growth to date. We will continue to give IVFs and monitor vital signs. Qualifiers: Sepsis type: sepsis due to unspecified organism Qualified Code(s): A41.9 - Sepsis, unspecified organism (2) Pneumonia Impression: A chest x-ray on admit suggests large lung volumes likely from emphysema, asymetric infiltrates vs. edema-right greater than left & a probable hiatal hernia. Plan: We will continue current antibiotics and await blood culture results and/ or sputum culture. RT is managing nebulizers. Qualifiers: Laterality: bilateral Lung location: lower lobe of lung (3) COPD exacerbation Impression: Patient has a known history of tobacco abuse and quit smoking in 2003. She is on chronic home inhalers and her disease is fairly controlled. Patient remains on oxygen at 2L nasal cannula, but does not use O2 at home. Plan: Continued great RT therapy for chronic lung disease. X-ray in ER confirms , likely emphysema per radiograph report. (4) Chronic pain Impression: Patient was prescribed capsaicin topical as an analgesic for her most recent injury to right shoulder. She also suffers from chronic low back pain due to osteoarthritis. Plan: Offer topical analgesic PRN per nursing. Use tylenol PO or IV. Monitor pain, encourage activity. Qualifiers: Chronic pain type: other chronic pain Qualified Code(s): G89.29 - Other chronic pain (5) Hypertension Impression: Patient has been found to be mildly hypotensive due to acute illness 100/50 this morning. This could likely be a consequence of suspected sepsis. Plan: Hold all antihypertensives and resume upon discharge. (6) Hypoxia: Impression: Patient was not hypoxic at rest. Room air oxygen saturation was 91% , however, with exertion oxygen saturations was found to be 87%. She improved with oxygen on exertion. Her oxygen saturation required 2LPM with exertion. I am ordering HOME oxygen, Room air at rest, 2 LPM via nasal cannula with exertion. - HPI History of Present Illness: Patient is an 86-year-old female with a past medical history significant for hypertension, hyperlipidemia, COPD and chronic back pain on opioids who presented to the emergency department with a chief complaint of cough and rigors. The patient states that she was in her normal state of health until yesterday evening when she began having cough and rigors. She states that she tried to use a breathing treatment and symptoms seem to worsen with increasing cough and shortness of air. The patient also stated that she had diarrhea and was having muscle aches and body aches. She states that with the coughing she was having worsening shortness of air and finally decided to come into the emergency department. The patient is not the best historian because she does seem to be confused and the patient's son states this is not her baseline. The patient states that she did feel warm yesterday but did not check her temperature. Patient denies any chest pain, orthopnea or PND. The patient denies any sick contacts. She does admit to a sore throat and a runny nose. The patient denies any headache or nasal congestion. The patient denies any abdominal pain, nausea, vomiting, dysuria, increased urinary frequency, increased urinary urgency, joint swelling, neck stiffness or any focal neurologic deficits. The patient does admit to generalized weakness and decreased appetite. The patient denies any recent unintentional weight loss. The patient denies any hemoptysis. The patient denies any blood in her stools. On presentation to the emergency department the patient was afebrile with a temperature of 37.3, tachycardic with heart rate of 114 hypertensive and tachypneic with respiratory rate of 36. Her oxygen saturation dropped to the high 80s and she was placed on oxygen. The patient did appear to be in respiratory distress on presentation and was immediately given nebulizer treatment, steroids and IV fluids. Although the patient did have some improvement in her breathing she still appear to be in respiratory distress and was struggling. The patient remained tachycardic while she was in the emergency department and her blood pressure slowly began to drop her blood pressure prior to being sent to the medical voss was down to 90/40 systolic. The patient underwent routine lab work which did reveal a leukocytosis of 17.5 and a hyponatremia of 133. The patient's creatinine was stable at her baseline. The patient's lactic acid was 1.8. The patient's chest x-ray revealed bilateral infiltrates right greater than left consistent with pneumonia. The patient was admitted to the medical voss with early sepsis secondary to pneumonia and COPD exacerbation. (Ilia Schulz) - HOSPITAL COURSE Hospital Course: Patient presented to the emergency department with rigors, shortness of breath, and cough. A sepsis work up was initiated and she was found to have leukocytosis, tachycardia, hypoxia, decreased mental status and an elevated lactic acid. Her leukocytosis persisted throughout so a peripheral flow cytometry test was sent off site and is still pending. Her oxygen requirement was also a concern so she underwent a chest CT with contrast which showed right lung scarring with two lower lobe nodular opacities measuring 4 to 6mm in size, which could be pneumonia or infectious process. Recommend 3-[address] We checked blood cultures that remained negative throughout stay. Since labratory results failed to improve, and you looked clinically well with good energy and improved mental status, you were sent home. New treatments or medications included home oxygen, nystatin swish and spit for 7 days, a prednisone dose for 5 days, and an oral antibiotic based on your Chest CT result to follow the IV therapy course. - ALLERGIES Allergies/Adverse Reactions: Allergies Allergy/AdvReac Type Severity Reaction Status Date / Time Penicillins Allergy Severe Rash Verified 02/19/17 23:58 - MEDICATIONS Home Medications: Ambulatory Orders Medication Instructions Recorded Confirmed Cholecalciferol (Vitamin D3) 2,000 mg PO DAILY 07/13/14 04/21/17 [Vitamin D3] Omeprazole 20 mg PO DAILY 07/13/14 04/21/17 Calcium Carbonate/Vitamin D3 1 tab PO BID 11/05/14 04/21/17 [Caltrate 600 Plus D3 Tablet] Magnesium Oxide [Mag Ox] 400 mg PO DAILY 11/05/14 04/21/17 Lisinopril 10 mg PO DAILY 09/15/16 04/21/17 Psyllium [Metamucil] 1 packet PO DAILY 09/27/16 04/21/17 Albuterol 1 neb INH PRN PRN 03/19/17 04/21/17 Budesonide [Pulmicort] 1 puffs INH DAILY 03/19/17 04/21/17 oxyCODONE [Roxicodone] 5 mg PO Q4-6H PRN #10 tablet 03/19/17 04/21/17 Acetaminophen [Tylenol] 650 mg PO Q4HR PRN tablet 04/23/17 Budesonide [Pulmicort] 0.5 mg INH RTBID neb 04/23/17 Levofloxacin [Levaquin] 500 mg PO DAILY 7 Days #7 tablet 04/23/17 Nystatin 100,000 unit PO QID #28 ml 04/23/17 predniSONE [Deltasone] 10 mg PO BID #10 tablet 04/23/17 - PHYSICAL EXAM AT DISCHARGE General Appearance: positive: No acute distress, Anxious Eyes Bilateral: positive: Normal inspection, PERRL ENT: positive: ENT inspection nml, Pharynx nml, No signs of dehydration Neck: positive: Nml inspection, Thyroid nml, No JVD, Trachea midline Respiratory: positive: Chest non-tender, No respiratory distress, Rhonchi ( coarse crackles, greater on right.) Cardiovascular: positive: Regular rate & rhythm, No gallop, Systolic murmur Peripheral Pulses: positive: 2+ Abdomen: positive: Non-tender, No organomegaly, Nml bowel sounds, No distention Rectal: positive: Non-tender Back: positive: Nml inspection Skin: positive: Color nml, No rash, Warm, Dry Extremities: positive: Non-tender, Full ROM, Nml appearance, Pedal edema (d/t dependent limbs.) Neurologic/Psychiatric: positive: Oriented x3, CN's nml (2-12), Motor nml, Sensation nml, Mood/affect nml, Sensory loss Reflexes: Bicep (R): 3+, Bicep (L): 3+ - LABS Result Diagrams: 04/23/17 05:20 04/23/17 05:20 - DIAGNOSTIC IMAGING Diagnostic Imaging Results Comments: Chest x-ray on admission 04/21/17:IMPRESSION: 1. Large lung volumes suggesting emphysema. 2. Asymmetric infiltrates or edema, right greater than left. 3. Probable hiatal hernia. Chest CT with contrast 04/23/17: IMPRESSION: 1. No pulmonary emboli. 2. Patchy right lung opacities are probably from pneumonia superimposed on areas of scarring. Two right lower lobe nodular opacities measuring 4 and 6 mm in size could be related to infectious process as well. Fleischner Society 2017 guidelines suggest 3 to 6 month follow-up for multiple nodules measuring up to 6 mm in size. - FOLLOW UP Follow Up: You came to the hospital after you had a black out at home, and weakness, rigors , shortness of breath, and cough. We were worried about your condition and performed a sepsis work up. You were found to have leukocytosis (elevated WBCs), tachycardia (fast heart rates), hypoxia (low oxygen), decreased mental status and an elevated lactic acid (one of our sepsis markers). Your leukocytosis (elevated WBCs) persisted throughout so a peripheral flow cytometry test-which tests for blood cancers, was sent off site and is still pending. An walking oxygen test was completed by our respiratory therapist. This was completed due to your oxygen requirements. Also you underwent a chest CT with contrast which showed right lung scarring with two lower lobe nodular opacities measuring 4 to 6mm in size, which could be pneumonia or infectious process. Recommend 3-[address] We checked blood cultures-another measure in our septic work up, that remained negative throughout stay. Since laboratory results failed to improve, and you looked clinically well with good energy and improved mental status, you were sent home. New treatments or medications included home oxygen, nystatin swish and spit for 7 days, a prednisone dose for 5 days, and an oral antibiotic based on your Chest CT result to follow the IV therapy course. Please see your PCP early next week as a follow up to this hospitalization. I would like them to check on your mouth soreness as well. - TIME SPENT Time Spent in Discharge (Minutes): 90
[2017-04-23] MEDS ORDERED: ALBUTEROL NEB 2.5 MG/3 ML INH PRN (13:34)
[2017-04-23] MEDS ORDERED: oxyCODONE 5 MG TABLET PO PRN (13:34)
[2017-04-23] MEDS ORDERED: NYSTATIN 500000 UNITS/5 ML UDC PO SCH (14:00)
[2017-04-23 16:39] VITALS: BP 134/54
[2017-04-24] MEDS ORDERED: PSYLLIUM PACKET PO SCH (09:00)
[2017-04-24] MEDS ORDERED: NON FORMULARY MED (Omeprazole [Omeprazole] 20 MG) PO SCH (09:00)
[2017-04-24] MEDS ORDERED: BUDESONIDE 180MCG FLEXHALER INH SCH (09:00)
[2017-04-27 11:56] LABS: TEST RESULT REPORT
== END 2017-04-23 16:45 | disposition home or self-care (01) | DRG 871 ==
LOC: EDUNIT# → ED 02:35 → MS2 04:21
PROVIDERS: ADMIT Internal Medicine; ATTEND Nurse Practitioner
DX: J18.9 Pneumonia, unspecified organism (principal); A41.9 Sepsis, unspecified organism; R06.00 Dyspnea, unspecified; J18.1 Lobar pneumonia, unspecified organism; J44.0 Chronic obstructive pulmonary disease with (acute) lower respiratory infection; E78.00 Pure hypercholesterolemia, unspecified; J44.1 Chronic obstructive pulmonary disease with (acute) exacerbation; E87.1 Hypo-osmolality and hyponatremia; K21.9 Gastro-esophageal reflux disease without esophagitis; K44.9 Diaphragmatic hernia without obstruction or gangrene; K59.09 Other constipation; R32 Unspecified urinary incontinence; F41.9 Anxiety disorder, unspecified; G89.29 Other chronic pain; M54.9 Dorsalgia, unspecified; S49.91XD Unspecified injury of right shoulder and upper arm, subsequent encounter; M19.90 Unspecified osteoarthritis, unspecified site; R09.02 Hypoxemia; Z99.81 Dependence on supplemental oxygen; I10 Essential (primary) hypertension; E78.5 Hyperlipidemia, unspecified; R91.8 Other nonspecific abnormal finding of lung field; Z79.891 Long term (current) use of opiate analgesic; Z79.51 Long term (current) use of inhaled steroids; Z79.899 Other long term (current) drug therapy; Z87.891 Personal history of nicotine dependence; Z66 Do not resuscitate; Z91.81 History of falling
CPT/HCPCS: 36415; 51701; 71010; 71020; 71275; 80048; 80053; 80076; 81001; 81003; 81599; 82270; 82550; 82607; 82746; 83010; 83036; 83540; 83605; 83615; 83690; 83735; 84100; 84443; 84466; 85025; 87040; 87086; 87275; 87276; 93005; 94640; 94761; 96365; 96367; 96375; 99285

== ENCOUNTER 2017-04-28 08:52 | Emergency (ER) | payer MEDICARE, MEDICAID ==
[2017-04-28] MEDS ORDERED: FUROSEMIDE 20 MG TABLET PO STA (09:39)
[2017-04-28] MEDS ORDERED: FLUCONAZOLE 100 MG TABLET PO STA (09:40)
[2017-04-28] MEDS ORDERED: ACETAMINOPHEN 325 MG TABLET PO STA (09:40)
[2017-04-28] MEDS ORDERED: FAMOTIDINE 20 MG TABLET PO STA (09:42)
[2017-04-28] MEDS ORDERED: ACETAMINOPHEN 325 MG TABLET PO ONE (09:57)
--- NOTE | 2017-04-28 09:57 | ED Physician Documentation ---
PD HPI GI BLEED - Stated complaint Stated Complaint: LEG PX/BLK STOOL - Chief complaint Chief Complaint: Abd Pain - History obtained from History obtained from: Patient - History of Present Illness Timing - onset: How many days ago (4) Timing - details: Gradual onset, Still present (She was hospitalized 04/21- for sepsis and pneumonia, with COPD exac, and thrush. Discharged on Levaquin, Prednisone, Nystatin oral, and prior meds, with lowered dose Lisinopril. She is on Omeprazole. Noted improved breathing and cough, no chills/fevers, but has had some edema in both ankles/lower legs, with some pains in ankles. Still with some pain in throat and jaw. Also noted dark to black stools but not diarrhea for the past 3-4 days. Talked with PCP office yesterday and got call back from them to get checked in the ED, no appts available.) Associated symptoms: Black/tarry stool (small volume though, black stool, no red.). No: Vomiting, Hematemesis, Diarrhea, Abdominal pain Contributing factors: Recent antibiotics. No: Sick contact, Bad food, Travel, NSAID use (but was on Prednisone the past 7 days.) Improved by: No: Eating Worsened by: No: Eating Similar symptoms before: Has not had sx before Recently seen: Emergency Dept, Admitted (see above) Review of Systems Constitutional: reports: Myalgias, Fatigue. denies: Fever, Chills Nose: denies: Rhinorrhea / runny nose, Congestion Throat: reports: Sore throat Cardiac: denies: Chest pain / pressure, Palpitations Respiratory: reports: Cough, Wheezing (mild occasional). denies: Dyspnea GI: denies: Nausea, Vomiting, Diarrhea : denies: Frequency, Hesitancy Skin: denies: Rash, Lesions Musculoskeletal: reports: Extremity swelling (some edema in both ankles and lower legs since leaving hospital) Neurologic: reports: Generalized weakness. denies: Focal weakness, Numbness, Near syncope Endocrine: reports: Weight loss (several lbs since since the past week.), Easy bruising / bleeding Immunocompromised: denies: Immunocompromised PD PAST MEDICAL HISTORY - Past Medical History Cardiovascular: Hypertension, High cholesterol Respiratory: COPD Neuro: Head injury, Fainting Endocrine/Autoimmune: None GI: GERD, Hiatal hernia, Chronic constipation NATIONAL SALES REPRESENTATIVE: None : None, Incontinence HEENT: Dental implants Psych: Anxiety Musculoskeletal: Chronic back pain Derm: None - Past Surgical History Past Surgical History: Yes General: Colonoscopy /NATIONAL SALES REPRESENTATIVE: Hysterectomy - Present Medications Home Medications: Ambulatory Orders Medication Instructions Recorded Confirmed Cholecalciferol (Vitamin D3) 2,000 mg PO DAILY 07/13/14 04/21/17 [Vitamin D3] Omeprazole 20 mg PO DAILY 07/13/14 04/21/17 Calcium Carbonate/Vitamin D3 1 tab PO BID 11/05/14 04/21/17 [Caltrate 600 Plus D3 Tablet] Magnesium Oxide [Mag Ox] 400 mg PO DAILY 11/05/14 04/21/17 Lisinopril 10 mg PO DAILY 09/15/16 04/21/17 Psyllium [Metamucil] 1 packet PO DAILY 09/27/16 04/21/17 Albuterol 1 neb INH PRN PRN 03/19/17 04/21/17 Budesonide [Pulmicort] 1 puffs INH DAILY 03/19/17 04/21/17 oxyCODONE [Roxicodone] 5 mg PO Q4-6H PRN #10 tablet 03/19/17 04/21/17 Acetaminophen [Tylenol] 650 mg PO Q4HR PRN tablet 04/23/17 Budesonide [Pulmicort] 0.5 mg INH RTBID neb 04/23/17 Levofloxacin [Levaquin] 500 mg PO DAILY 7 Days #7 tablet 04/23/17 Nystatin 100,000 unit PO QID #28 ml 04/23/17 predniSONE [Deltasone] 10 mg PO BID #10 tablet 04/23/17 Albuterol Sulf [Ventolin Hfa 1 - 2 puffs INH Q4HR PRN #1 inhaler 04/28/17 Inhaler] Sucralfate 1 gm PO TID #20 tablet 04/28/17 - Allergies Allergies/Adverse Reactions: Allergies Allergy/AdvReac Type Severity Reaction Status Date / Time Penicillins Allergy Severe Rash Verified 02/19/17 23:58 - Social History Does the pt smoke?: No Smoking Status: Never smoker Does the pt drink ETOH?: No Does the pt have substance abuse?: No - Family History Family history: reports: Non contributory - Immunizations Immunizations are current?: Yes Immunizations: TDAP current <10years - POLST Patient has POLST: No POLST Status: DNR PD ED PE NORMAL - Vitals Vital signs reviewed: Yes - General General: Alert and oriented X 3, No acute distress, Well developed/nourished - HEENT HEENT: PERRL, Moist mucous membranes, Pharynx benign (no rash nor plaques. ) - Neck Neck: Supple, no meningeal sign, No adenopathy - Cardiac Cardiac: RRR, No murmur - Respiratory Respiratory: Clear bilaterally - Abdomen Abdomen: Soft, Non tender - Female Female : Deferred - Rectal Rectal: Other (no hemorrhoids. Minimal stool in vault, which is dark brown color , but does test guiac positive. ) - Back Back: No CVA TTP - Derm Derm: Normal color, Warm and dry, No rash (but has resolving bruised on forearms from recent hospitalization) - Extremities Extremities: No deformity, No tenderness to palpate, No calf tenderness / cord, Other (1+ edema around both ankles and just lower shins. ) - Neuro Neuro: Alert and oriented X 3, No motor deficit, Normal speech Eye Opening: Spontaneous Motor: Obeys Commands Verbal: Oriented GCS Score: 15 - Psych Psych: Normal mood, Normal affect Results - Vitals Vitals: Vital Signs - 24 hr 04/28/17 04/28/17 04/28/17 08:59 11:04 11:50 Temperature 36.6 C Heart Rate 90 90 Respiratory 16 19 Rate Blood Pressure 156/74 H 138/64 H O2 Saturation 94 89 L 94 Oxygen O2 Source [With Activity] on 0.5L O2 via NC O2 Source Room air - Labs Labs: Laboratory Tests 04/28/17 04/28/17 10:25 10:25 WBC 16.3 H RBC 3.65 L Hgb 9.7 L Hct 29.5 L MCV 81.0 MCH 26.7 L MCHC 33.0 RDW 15.1 H Plt Count 415 MPV 8.0 Neut # 14.7 H Lymph # 0.7 L [place] # 0.9 Eos # 0.0 Baso # 0.0 Absolute Nucleated RBC 0.00 Nucleated RBC % 0.0 Manual Slide Review Indicated WBC Morphology 1+ VACUOLATION Platelet Estimate NORMAL (130-450,000) Platelet Morphology NORMAL APPEARANCE RBC Morph Micro Appear 1+ OVALOCYTES Sodium 133 L Potassium 4.0 Chloride 95 L Carbon Dioxide 25 Anion Gap 13.0 BUN 18 Creatinine 1.0 Estimated GFR (MDRD) 53 L Glucose 111 H Calcium 8.7 Magnesium 2.1 Total Bilirubin 0.6 AST 22 ALT 20 Alkaline Phosphatase 31 L Total Protein 6.3 L Albumin 3.5 Globulin 2.8 Albumin/Globulin Ratio 1.3 Lipase 34 - Rads (name of study) chest Radiology: Prelim report reviewed (improved infiltrates from prior) PD MEDICAL DECISION MAKING - ED course Complexity details: reviewed old records, reviewed results (CBC shows increased Hgb since discharge. Seems stable GI bleed, and with minimal dark brown stool and stable (anemic but increased) Hgb, would consider stable GI bleed. She is on abx and steroid with seeming resolved pneumonia symptoms, so will stop those. Add Sucralfate to her Omeprazole. Recheck with PCP Clinic in 2 days if they can, otherwise she has appt in 5 days (on ).), re-evaluated patient, considered differential, d/w patient Departure - Departure Disposition: Home, Self Care Clinical Impression: Upper GI bleed Pneumonia Qualifiers: Pneumonia type: due to unspecified organism Laterality: unspecified laterality Lung location: unspecified part of lung Qualified Code(s): J18.9 - Pneumonia, unspecified organism Anemia Qualifiers: Anemia type: unspecified type Qualified Code(s): D64.9 - Anemia, unspecified Condition: Stable Record reviewed to determine appropriate education?: Yes Instructions: ED Bleed UGI Stable Follow-Up: Krystle Vazquez ARNP [Primary Care Provider] - Prescriptions: Albuterol Sulf [Ventolin Hfa Inhaler] 1 - 2 puffs INH Q4HR PRN #1 inhaler PRN Reason: Shortness Of Air/Wheezing Sucralfate 1 gm PO TID #20 tablet Comments: Your pneumonia looks improved on x-ray and your symptoms sound improved and so I would have you stop the levofloxacin and prednisone. These can be irritated in your stomach and also promoting the swelling of your feet and ankles. You do have the bleeding coming in your stool which is most likely coming from your stomach due to recent illness/pneumonia/medications. Continue your omeprazole and add sucralfate 3 times a day to coat the stomach for the next week. Follow- up with your primary care on the fourth as planned, though call them today to see if they could get you an appointment this Wednesday instead. Return if increasing amounts of dark stool or feeling worse generally. Continue the albuterol nebulizer and I would do it 4 times a day for the next week. So specific treatments are as follows; stop the levofloxacin antibiotic, stop the prednisone steroid, use albuterol nebulizer or inhaler 4 times a day for the next week then back to twice a day, continue your omeprazole acid reducing medicine daily, add sucralfate 3 times a day for the next week, follow-up with your primary care this Wednesday if possible or Wednesday as planned. Discharge Date/Time: 04/28/17 12:02
[2017-04-28] MEDS ORDERED: FLUCONAZOLE 100 MG TABLET ONE (09:58)
[2017-04-28] MEDS ORDERED: FAMOTIDINE 20 MG TABLET ONE (09:58)
[2017-04-28] MEDS ORDERED: FUROSEMIDE 20 MG TABLET ONE (09:58)
--- NOTE | 2017-04-28 10:15 | XRAY Preliminary Report ---
Exam: XR CHEST 2 VIEW PA/LAT IMPRESSION: 1. Improved multilobar right lung airspace opacities. Minimal residual basilar scar/atelectasis. No n ew focal consolidation. 2. Small pleural effusions. [facility] SITE ID: [id number]
--- NOTE | 2017-04-28 10:18 | XRAY Report ---
EXAM: CHEST RADIOGRAPHY EXAM DATE: 04/28/2017 10:03 AM. CLINICAL HISTORY: Persistent cough, recent pneumonia. History of COPD COMPARISON: 04/23/2017. 04/21/2017. TECHNIQUE: 2 views. FINDINGS: Lungs/Pleura: Hyperinflation. Right middle and upper and right lower lobe opacities are improved. The re are small pleural effusions. Minimal lower lung scarring. Mediastinum: Heart size is normal. Aorta is tortuous. Aortic atherosclerosis. Other: Degenerative changes of the thoracic spine. IMPRESSION: 1. Improved multilobar right lung airspace opacities. Minimal residual basilar scar/atelectasis. No n ew focal consolidation. 2. Small pleural effusions. [facility] Referring Provider Line: [phone] SITE ID: [id number]
[2017-04-28 10:34] LABS: EOSINOPHILS % (AUTO) 0.1 %; HCT - HEMATOCRIT 29.5 % (37.0-47.0); HGB - HEMOGLOBIN 9.7 g/dL (12.0-16.0); LYMPHOCYTES # (AUTO) 0.7 10^3/uL (1.5-3.5); MEAN CORPUSCULAR HEMOGLOBIN 26.7 pg (27.0-31.0); MONOCYTES # (AUTO) 0.9 10^3/uL (0.0-1.0); MONOCYTES % (AUTO) 5.5 %; NEUTROPHILS # (AUTO) 14.7 10^3/uL (1.5-6.6); NEUTROPHILS % (AUTO) 90.4 %; RED BLOOD COUNT 3.65 10^6/uL (4.20-5.40); RED CELL DISTRIBUTION WIDTH 15.1 % (12.0-15.0); UNCORRECTED WHITE BLOOD COUNT 16.3 x10^3/uL; WHITE BLOOD COUNT 16.3 x10^3/uL (4.8-10.8)
[2017-04-28 10:44] LABS: ALBUMIN/GLOBULIN RATIO 1.3 (1.0-2.2); BILIRUBIN,TOTAL 0.6 mg/dL (0.2-1.0); CALCIUM 8.7 mg/dL (8.5-10.3); MAGNESIUM 2.1 mg/dL (1.7-2.8); TOTAL PROTEIN 6.3 g/dL (6.7-8.2)
[2017-04-28 10:53] LABS: PLATELET ESTIMATE, MANUAL NORMAL (130-450,000) (NORMAL); PLATELET MORPHOLOGY NORMAL APPEARANCE (NORMAL)
[2017-04-28 10:54] LABS: WBC MORPHOLOGY (MULTIPLE) 1+ VACUOLATION (NORMAL)
[2017-04-28 11:06] VITALS: BP 138/64
== END 2017-04-28 12:02 | disposition home or self-care (01) ==
LOC: ED 08:52
DX: K92.2 Gastrointestinal hemorrhage, unspecified (principal); J18.9 Pneumonia, unspecified organism; D64.9 Anemia, unspecified; I10 Essential (primary) hypertension; E78.00 Pure hypercholesterolemia, unspecified
CPT/HCPCS: 36415; 71020; 80053; 83690; 83735; 85025; 99283; 99284; A9270

== ENCOUNTER 2017-07-29 12:04 | Outpatient (CLI) | payer MEDICARE, MEDICAID | END 2017-07-29 12:05 | disposition critical access hospital (66) | LOC: EMS 12:04 | PROVIDERS: ATTEND Surgery | DX: R42 Dizziness and giddiness (principal); R11.0 Nausea; R14.0 Abdominal distension (gaseous); R10.9 Unspecified abdominal pain | CPT/HCPCS: A0425; A0429 ==

== ENCOUNTER 2017-07-29 12:21 | Emergency (ER) | payer MEDICARE, MEDICAID ==
[2017-07-29] MEDS ORDERED: SODIUM CHLORIDE 0.9% 1,000 ML IV ONE (12:41)
[2017-07-29] MEDS ORDERED: ONDANSETRON 4 MG/2 ML VIAL IVP STA (12:41)
--- NOTE | 2017-07-29 12:43 | ED Physician Documentation ---
PD HPI ABD PAIN - Stated complaint Stated Complaint: bloating dizzy nausea - Chief complaint Chief Complaint: Abd Pain - History obtained from History obtained from: Patient, EMS - History of Present Illness Timing - onset: Other (This is an 86-year-old woman with history of hypertension , hyperlipidemia, COPD and chronic back pain, also a remote hysterectomy who comes in today complaining of on and off upper abdominal pain and feeling like she is bloated with nausea but no vomiting. It looks like she was here for similar complaints in the middle of April but refused a workup at that time.) Review of Systems Ten Systems: 10 systems reviewed and negative Constitutional: denies: Fever, Chills, Fatigue Nose: denies: Rhinorrhea / runny nose, Congestion Cardiac: denies: Chest pain / pressure, Palpitations Respiratory: denies: Dyspnea, Cough GI: reports: Abdominal Pain, Abdominal Swelling, Nausea. denies: Vomiting, Constipation, Diarrhea, Hematemesis, Bloody / black stool PD PAST MEDICAL HISTORY - Past Medical History Cardiovascular: Hypertension, High cholesterol Respiratory: COPD Neuro: Head injury, Fainting Endocrine/Autoimmune: None GI: GERD, Hiatal hernia, Chronic constipation BULB GROWER: None : None, Incontinence HEENT: Dental implants Psych: Anxiety Musculoskeletal: Chronic back pain Derm: None - Past Surgical History Past Surgical History: Yes General: Colonoscopy /BULB GROWER: Hysterectomy - Present Medications Home Medications: Ambulatory Orders Medication Instructions Recorded Confirmed Cholecalciferol (Vitamin D3) 2,000 mg PO DAILY 07/13/14 05/12/17 [Vitamin D3] Omeprazole 20 mg PO DAILY 07/13/14 05/12/17 Calcium Carbonate/Vitamin D3 1 tab PO BID 11/05/14 05/12/17 [Caltrate 600 Plus D3 Tablet] Magnesium Oxide [Mag Ox] 400 mg PO DAILY 11/05/14 05/12/17 Lisinopril 10 mg PO DAILY 09/15/16 05/12/17 Psyllium [Metamucil] 1 packet PO DAILY 09/27/16 05/12/17 Albuterol 1 neb INH PRN PRN 03/19/17 05/12/17 Budesonide [Pulmicort] 1 puffs INH DAILY 03/19/17 05/12/17 Acetaminophen [Tylenol] 650 mg PO Q4HR PRN tablet 04/23/17 05/12/17 Budesonide [Pulmicort] 0.5 mg INH RTBID neb 04/23/17 05/12/17 Nystatin 100,000 unit PO QID #28 ml 04/23/17 05/12/17 Albuterol Sulf [Ventolin Hfa 1 - 2 puffs INH Q4HR PRN #1 inhaler 04/28/17 Inhaler] - Allergies Allergies/Adverse Reactions: Allergies Allergy/AdvReac Type Severity Reaction Status Date / Time Penicillins Allergy Severe Rash Verified 07/29/17 12:41 - Social History Does the pt smoke?: No Smoking Status: Never smoker Does the pt drink ETOH?: No Does the pt have substance abuse?: No - Family History Family history: reports: Non contributory - Immunizations Immunizations are current?: Yes Immunizations: TDAP current <10years - POLST Patient has POLST: No POLST Status: DNR PD ED PE NORMAL - Vitals Vital signs reviewed: Yes - General General: Alert and oriented X 3, No acute distress - HEENT HEENT: PERRL, EOMI - Neck Neck: Supple, no meningeal sign, No bony TTP - Cardiac Cardiac: RRR, No murmur - Respiratory Respiratory: No respiratory distress, Clear bilaterally - Abdomen Abdomen: Other (I do not appreciate any bowel tones, she has mild tenderness in the upper abdomen without surgical signs.) - Back Back: No CVA TTP, No spinal TTP - Derm Derm: Normal color, Warm and dry - Extremities Extremities: No edema, No calf tenderness / cord - Neuro Neuro: Alert and oriented X 3, Normal speech Results - Vitals Vitals: Vital Signs - 24 hr 07/29/17 07/29/17 12:34 15:19 Temperature 36.5 C Heart Rate 78 85 Respiratory 14 13 Rate Blood Pressure 201/65 H 170/74 H O2 Saturation 93 95 Oxygen O2 Source [] on 0.5L O2 via NC O2 Source Room air - EKG (time done) 1239 Rate: Rate (enter#) (79) Rhythm: NSR Ina: LAD Intervals: Normal [place] QRS: Normal Ischemia: Non specific changes (Compared with the last EKG on file, dated April 21, 2017. She was much more tachycardic than like she had some rate related lateral ST depression and which is now resolved.) Computer interpretation: Agree with computer - Labs Labs: Laboratory Tests 07/29/17 07/29/17 07/29/17 13:00 13:00 13:00 WBC 9.4 RBC 4.92 Hgb 11.1 L Hct 34.2 L MCV 69.6 L MCH 22.6 L MCHC 32.4 RDW 16.3 H Plt Count 401 MPV 8.4 Neut # 7.6 H Lymph # 1.0 L [place] # 0.6 Eos # 0.1 Baso # 0.0 Absolute Nucleated RBC 0.00 Nucleated RBC % 0.0 Sodium 128 L Potassium 4.5 Chloride 95 L Carbon Dioxide 22 Anion Gap 11.0 BUN 19 Creatinine 1.0 Estimated GFR (MDRD) 53 L Glucose 111 H Calcium 9.0 Total Bilirubin 0.5 AST 22 ALT < 10 L Alkaline Phosphatase 49 Troponin I 0.07 Total Protein 7.0 Albumin 3.9 Globulin 3.1 Albumin/Globulin Ratio 1.3 Lipase 19 L 07/29/17 14:55 WBC RBC Hgb Hct MCV MCH MCHC RDW Plt Count MPV Neut # Lymph # [place] # Eos # Baso # Absolute Nucleated RBC Nucleated RBC % Sodium Potassium Chloride Carbon Dioxide Anion Gap BUN Creatinine Estimated GFR (MDRD) Glucose Calcium Total Bilirubin AST ALT Alkaline Phosphatase Troponin I 0.07 Total Protein Albumin Globulin Albumin/Globulin Ratio Lipase - Rads (name of study) Ct A/P Radiology: EMP read contemporaneously (No definite abnormality that is acute appearing, she does have moderate hiatal hernia with reflux contrast and diverticulosis as well as a stable T12 compression fracture stable atherosclerosis.) PD MEDICAL DECISION MAKING - ED course ED course: 86-year-old woman with upper abdominal pain, nontender. Her EKG is improved from prior. She did have a very mild elevation in her troponin 0 0.07 and this was repeated without change suggesting against the coronary events. Her abdominal CT was only remarkable for hiatal hernia and this may be causative. Departure - Departure Disposition: 01 Home, Self Care Clinical Impression: Abdominal pain Qualifiers: Abdominal location: upper abdomen, unspecified Qualified Code(s): R10.10 - Upper abdominal pain, unspecified Condition: Good Record reviewed to determine appropriate education?: Yes Instructions: Abdominal Pain Comments: Continue current medications and follow-up with your doctor, next available appointment. Return if worse.
[2017-07-29] MEDS ORDERED: IOPAMIDOL-300 100 ML VIAL ONE (12:52)
[2017-07-29] MEDS ORDERED: IOPAMIDOL-300 50 ML VIAL ONE (12:52)
[2017-07-29 13:14] LABS: BASOPHILS % (AUTO) 0.2 %; EOSINOPHILS # (AUTO) 0.1 10^3/uL (0.0-0.7); EOSINOPHILS % (AUTO) 1.4 %; HGB - HEMOGLOBIN 11.1 g/dL (12.0-16.0); LYMPHOCYTES % (AUTO) 10.6 %; MEAN CORPUSCULAR HEMOGLOBIN 22.6 pg (27.0-31.0); MEAN CORPUSCULAR HGB CONC 32.4 g/dL (32.0-36.0); MEAN CORPUSCULAR VOLUME 69.6 fL (81.0-99.0); MEAN PLATELET VOLUME 8.4 fL (7.9-10.8); MONOCYTES # (AUTO) 0.6 10^3/uL (0.0-1.0); MONOCYTES % (AUTO) 6.3 %; NEUTROPHILS # (AUTO) 7.6 10^3/uL (1.5-6.6); NEUTROPHILS % (AUTO) 81.5 %; PLT - PLATELET COUNT 401 10^3/uL (130-450); RED BLOOD COUNT 4.92 10^6/uL (4.20-5.40); RED CELL DISTRIBUTION WIDTH 16.3 % (12.0-15.0); WHITE BLOOD COUNT 9.4 x10^3/uL (4.8-10.8)
[2017-07-29 13:25] LABS: ALBUMIN 3.9 g/dL (3.2-5.5); ALBUMIN/GLOBULIN RATIO 1.3 (1.0-2.2); ALKALINE PHOSPHATASE 49 IU/L (42-121); ALT ALANINE AMINOTRANSFERASE < 10 IU/L (10-60); AST ASPARTATE AMINOTRANSFERASE 22 IU/L (10-42); BILIRUBIN,TOTAL 0.5 mg/dL (0.2-1.0); BUN - BLOOD UREA NITROGEN 19 mg/dL (6-20); CARBON DIOXIDE - CO2 22 mmol/L (21-32); CHLORIDE 95 mmol/L (101-111); GFR - MDRD 53 (>89); GLUCOSE 111 mg/dL (70-100); LIPASE 19 U/L (22-51); SODIUM 128 mmol/L (135-145)
[2017-07-29] MEDS ORDERED: IOPAMIDOL-300 100 ML VIAL IVP ONE (14:19)
[2017-07-29] MEDS ORDERED: IOPAMIDOL-300 50 ML VIAL PO ONE (14:19)
--- NOTE | 2017-07-29 14:42 | CT Report ---
EXAM: CT ABDOMEN AND PELVIS EXAM DATE: 07/29/2017 02:20 PM. CLINICAL HISTORY: Upper abdominal pain, abdomen distention. Nausea. IV and PO contrast, upper abd jason n, ?SBO. COMPARISONS: 07/29/2013. TECHNIQUE: Routine helical CT imaging was performed through the abdomen and pelvis. IV contrast: ISOV UE 300 100mL. Enteric contrast: Yes. Reconstructions: Coronal and sagittal. In accordance with CT protocol optimization, one or more of the following dose reduction techniques w ere utilized for this exam: automated exposure control, adjustment of mA and/or KV based on patient s ize, or use of iterative reconstructive technique. FINDINGS: Lung Bases: Moderate-sized hiatal hernia is now more prominent/distended with oral contrast. Very robison ited demonstration of some retained or refluxed contrast within the distal most esophagus. Mitral ananda ve region calcification/density. Evidence of at least mild coronary artery calcifications. Liver: Normal. No masses. Gallbladder/Bile Ducts: Unremarkable. Spleen: Normal. Pancreas: Normal. Adrenal Glands: Mild left and minimal right adrenal gland enlargement is stable, consistent with anya gn finding, likely adenomatous change. Kidneys: Multiple bilateral hypodensities are without substantial change and compatible with cysts. N o definite mass. No hydronephrosis, hydroureter or perinephric stranding. Peritoneal Cavity/Bowel: Colonic diverticulosis without evidence of diverticulitis. No free fluid, fr ee air or adenopathy. No masses or acute inflammatory process. Appendix is not clearly visualized but there are no findings suspicious for appendicitis. Pelvic Organs: Bladder appears unremarkable. The uterus is nonvisualized. No pamela pelvic organ abnor mality. Vasculature: Extensive atherosclerotic calcifications without aneurysm. Bones: Increased rounded lucent/cystic focus within the anterior right iliac bone, near the anterior roof of the acetabulum, has progressed from the prior exam and likely represents progressive degenera tive cystic change. No definite acute osseous abnormalities. Severe T12 vertebral body burst fracture with associated retropulsion, canal narrowing and focal kyphosis is without change. Other: None. IMPRESSION: 1. No definite acute abnormality of the abdomen or pelvis demonstrated. 2. Moderate-sized hiatal hernia, distended with oral contrast with associated retained or refluxed di stal esophageal oral contrast. 3. Colonic diverticulosis without evidence of diverticulitis. 4. Stable, chronic changes related to severely compressed T12 vertebral body burst fracture. 5. Severe atherosclerotic calcifications. 6. Additional stable chronic findings. [facility] Referring Provider Line: [phone] SITE ID: [id number]
[2017-07-29 15:20] VITALS: BP 170/74
== END 2017-07-29 15:47 | disposition home or self-care (01) ==
LOC: EDUNIT# → ED 12:21
DX: R10.10 Upper abdominal pain, unspecified (principal); K44.9 Diaphragmatic hernia without obstruction or gangrene; I10 Essential (primary) hypertension; E78.5 Hyperlipidemia, unspecified; G89.29 Other chronic pain; Z90.710 Acquired absence of both cervix and uterus
CPT/HCPCS: 36415; 74177; 80053; 83690; 84484; 85025; 93005; 96374; 99283; 99284; Q9967

== ENCOUNTER 2017-09-14 11:47 | Outpatient (CLI) | payer MEDICARE, MEDICAID ==
--- NOTE | 2017-09-14 15:25 | XRAY Report ---
THREE VIEW THORACIC SPINE: 09/14/2017 CLINICAL INDICATION: Back pain. COMPARISON: Limited images of the spine of CT abdomen and pelvis of 07/29/2017. FINDINGS: AP, lateral, swimmer's views of the thoracic spine demonstrate stable T12 fracture. Mild degenerative disk disease is present. No new fracture is appreciated. No paraspinal hematoma is seen. IMPRESSION: STABLE T12 COMPRESSION FRACTURE. TD: 09/14/2017 15:24
== END 2017-09-14 11:48 | disposition home or self-care (01) ==
LOC: DI.N 11:47
PROVIDERS: ATTEND Nurse Practitioner
DX: M48.54XD Collapsed vertebra, not elsewhere classified, thoracic region, subsequent encounter for fracture with routine healing (principal); M51.34 Other intervertebral disc degeneration, thoracic region
CPT/HCPCS: 72070

== ENCOUNTER 2017-09-22 11:36 | Outpatient (CLI) | payer MEDICARE, MEDICAID ==
--- NOTE | 2017-09-24 17:28 | Mammography Report ---
DIGITAL SCREENING MAMMOGRAM: 09/22/2017 CLINICAL INDICATION: An 86-year-old with history of benign right breast biopsy for screening. COMPARISON: 07/2016, 03/2012, 08/2010. TECHNIQUE: Routine CC and MLO projections were obtained of the breasts. FINDINGS: The breasts again demonstrate scattered fibroglandular densities bilaterally. Coarse and punctate, typically benign calcifications are present. No suspicious masses, clustered microcalcifications, or regions of architectural distortion are identified. IMPRESSION: BENIGN FINDINGS. RECOMMENDATION: Routine annual screening unless otherwise clinically indicated. BIRADS category 2 benign findings. STANDARD QUALIFYING STATEMENTS 1. This examination was reviewed with the aid of Computed-Aided Detection (CAD). 2. A negative or benign imaging report should not delay biopsy if clinically suspicious findings are present. Consider surgical consultation if warranted. More than 5% of cancers are not identified by imaging. 3. Dense breasts may obscure an underlying neoplasm. TD: 09/24/2017 17:28
== END 2017-09-22 11:37 | disposition home or self-care (01) ==
LOC: DI.N 11:36
PROVIDERS: ATTEND Nurse Practitioner Gerontology
DX: Z12.31 Encounter for screening mammogram for malignant neoplasm of breast (principal)
CPT/HCPCS: 77067

== ENCOUNTER 2017-10-22 13:51 | Outpatient (CLI) | payer MEDICARE, MEDICAID ==
--- NOTE | 2017-10-22 15:36 | MRI Report ---
EXAM: RIGHT SHOULDER MRI WITHOUT CONTRAST EXAM DATE: 10/22/2017 02:39 PM. CLINICAL HISTORY: Chronic right shoulder pain, bursitis of right shoulder. COMPARISON: Prior MRI 03/12/2017. TECHNIQUE: Multiplanar, multisequence T1-weighted and fluid-sensitive sequences of the shoulder witho ut contrast. Other: None. FINDINGS: Rotator cuff: Moderate thickening and edema involving the distal supraspinatus and infraspinatus, sli ghtly increased from prior. Small 4.5 x 4.5 mm bursal surface tear of the distal upper fibers of the infraspinatus. Small lobulated fluid tracking proximally along the infraspinatus musculotendinous keri ction similar to prior. Adjacent subcortical cyst formation at the greater tuberosity, unchanged. Mil d subscapularis atrophy. Long head biceps tendon: The intra-articular long head biceps tendon is not definitely identified. Po ssible previous tear. Labrum: Some blunting and degenerative appearance of the superior labrum. No discrete labral tear anish ntified. Bones and articular surfaces: Mild cartilage thinning and irregularity in the glenohumeral joint. Mod erate degenerative change at the acromioclavicular joint. Acromioclavicular joint: Mild to moderate degenerative change. Type II acromion. Trace fluid in the s ubacromial subdeltoid bursa. IMPRESSION: 1. Severe supraspinatus and infraspinatus tendinosis slightly increased from prior. 2. Small focus of low-grade distal bursal surface tear of the infraspinatus. 3. Nonvisualization of the intra-articular long head biceps tendon which may indicate a chronic tear. 4. Mild glenohumeral and acromioclavicular osteoarthritis. [facility]OS[facility] Referring Provider Line: [phone] SITE ID: [id number]
== END 2017-10-22 13:52 | disposition home or self-care (01) ==
LOC: DI 13:51
PROVIDERS: ATTEND Orthopaedic Surgery
DX: M67.813 Other specified disorders of tendon, right shoulder (principal); M71.811 Other specified bursopathies, right shoulder; M19.011 Primary osteoarthritis, right shoulder

== ENCOUNTER 2017-11-30 16:23 | Outpatient (CLI) | payer MEDICARE, MEDICAID ==
[2017-11-30 18:44] LABS: BILIRUBIN,URINE NEGATIVE (NEGATIVE); GLUCOSE, URINE (UA) NEGATIVE (NEGATIVE); KETONES,URINE (UA) NEGATIVE (NEGATIVE); LEUKOCYTE ESTERASE, URINE NEGATIVE (NEGATIVE); NITRITE,URINE NEGATIVE (NEGATIVE); OCCULT BLOOD,URINE NEGATIVE (NEGATIVE); PROTEIN,URINE NEGATIVE (NEGATIVE); UROBILINOGEN,URINE 0.2 (NORMAL) E.U./dL (NORMAL)
[2017-11-30 18:57] LABS: BACTERIA,URINE None Seen /HPF (None Seen); CLARITY,URINE CLEAR (CLEAR); RBC,URINE 0-5 /HPF (0-5); SQUAMOUS EPITHELIAL CELL,UR RARE Squamous (<= Few); WBC CLUMPS,URINE PRESENT
== END 2017-11-30 16:24 | disposition home or self-care (01) ==
LOC: LAB.R 16:23
PROVIDERS: ATTEND Nurse Practitioner
DX: R30.0 Dysuria (principal)
CPT/HCPCS: 81001; 87086

== ENCOUNTER 2018-01-10 03:54 | Outpatient (CLI) | payer MEDICARE, MEDICAID | END 2018-01-10 03:55 | disposition critical access hospital (66) | LOC: EMS 03:54 | PROVIDERS: ATTEND Surgery | DX: R11.2 Nausea with vomiting, unspecified (principal); R25.2 Cramp and spasm | CPT/HCPCS: A0425; A0427 ==

== ENCOUNTER 2018-01-10 04:12 | Emergency (ER) | payer MEDICARE, MEDICAID ==
[2018-01-10] MEDS ORDERED: ONDANSETRON 4 MG/2 ML VIAL IVP STA (04:16)
[2018-01-10 04:47] LABS: BASOPHILS # (AUTO) 0.1 10^3/uL (0.0-0.1); BASOPHILS % (AUTO) 1.4 %; EOSINOPHILS # (AUTO) 0.2 10^3/uL (0.0-0.7); EOSINOPHILS % (AUTO) 2.1 %; LYMPHOCYTES # (AUTO) 1.5 10^3/uL (1.5-3.5); LYMPHOCYTES % (AUTO) 18.3 %; MEAN CORPUSCULAR HEMOGLOBIN 23.9 pg (27.0-31.0); MEAN CORPUSCULAR HGB CONC 33.3 g/dL (32.0-36.0); MEAN CORPUSCULAR VOLUME 71.7 fL (81.0-99.0); MEAN PLATELET VOLUME 8.5 fL (7.9-10.8); MONOCYTES # (AUTO) 0.8 10^3/uL (0.0-1.0); MONOCYTES % (AUTO) 10.4 %; NEUTROPHILS # (AUTO) 5.5 10^3/uL (1.5-6.6); NEUTROPHILS % (AUTO) 67.8 %; PLT - PLATELET COUNT 234 10^3/uL (130-450); RED BLOOD COUNT 4.59 10^6/uL (4.20-5.40); RED CELL DISTRIBUTION WIDTH 18.3 % (12.0-15.0); WHITE BLOOD COUNT 8.2 x10^3/uL (4.8-10.8)
--- NOTE | 2018-01-10 04:54 | ED Physician Documentation ---
History of Present Illness - Stated complaint Stated Complaint: N/V - Chief complaint Chief Complaint: Abd Pain - History obtained from History obtained from: Patient - Additonal information Additional information: 87-year-old female presents the emergency department with epigastric discomfort and nausea and vomiting which started this morning. The patient's had numerous bouts of vomiting and during an episode of vomiting she believes she may have passed out. The patient denies any chest pain or palpitations. Symptoms are described as moderate. The patient's had improvement after receiving Zofran by EMS. The patient denies lower abdominal pain, chest pain, diaphoresis or shortness of breath. No specific triggering factors. No other associated symptoms. Review of Systems Constitutional: reports: Fatigue. denies: Fever, Chills Eyes: denies: Discharge Ears: denies: Loss of hearing Nose: denies: Rhinorrhea / runny nose Throat: denies: Dental pain / toothache Cardiac: denies: Chest pain / pressure Respiratory: denies: Dyspnea GI: reports: Abdominal Pain, Nausea, Vomiting : denies: Dysuria Skin: denies: Rash Musculoskeletal: denies: Back pain Neurologic: denies: Generalized weakness Immunocompromised: denies: Chemotherapy PD PAST MEDICAL HISTORY - Past Medical History Past Medical History: Yes Cardiovascular: Hypertension, High cholesterol Respiratory: COPD Endocrine/Autoimmune: None GI: GERD, Hiatal hernia, Chronic constipation AIR TECHNICIAN: None : None, Incontinence HEENT: Dental implants Psych: Anxiety Musculoskeletal: Chronic back pain Derm: None - Past Surgical History Past Surgical History: Yes General: Colonoscopy /AIR TECHNICIAN: Hysterectomy - Present Medications Home Medications: Ambulatory Orders Medication Instructions Recorded Confirmed Cholecalciferol (Vitamin D3) 2,000 mg PO DAILY 07/13/14 01/10/18 [Vitamin D3] Omeprazole 20 mg PO DAILY 07/13/14 01/10/18 Calcium Carbonate/Vitamin D3 1 tab PO BID 11/05/14 01/10/18 [Caltrate 600 Plus D3 Tablet] Magnesium Oxide [Mag Ox] 400 mg PO DAILY 11/05/14 01/10/18 Lisinopril 10 mg PO DAILY 09/15/16 01/10/18 Psyllium [Metamucil] 1 packet PO DAILY 09/27/16 01/10/18 Albuterol 1 neb INH PRN PRN 03/19/17 01/10/18 Budesonide [Pulmicort] 1 puffs INH DAILY 03/19/17 01/10/18 Acetaminophen [Tylenol] 650 mg PO Q4HR PRN tablet 04/23/17 01/10/18 Budesonide [Pulmicort] 0.5 mg INH RTBID neb 04/23/17 01/10/18 Nystatin 100,000 unit PO QID #28 ml 04/23/17 01/10/18 Albuterol Sulf [Ventolin Hfa 1 - 2 puffs INH Q4HR PRN #1 inhaler 04/28/17 Inhaler] Metoclopramide [Reglan] 10 mg PO Q6H PRN #30 tablet 01/10/18 Ondansetron Odt [Zofran] 4 mg TL Q6H PRN #30 tablet 01/10/18 - Allergies Allergies/Adverse Reactions: Allergies Allergy/AdvReac Type Severity Reaction Status Date / Time Penicillins Allergy Severe Rash Verified 01/10/18 04:21 - Social History Does the pt smoke?: No Smoking Status: Never smoker Does the pt drink ETOH?: No Does the pt have substance abuse?: No - Immunizations Immunizations are current?: Yes Immunizations: TDAP current <10years - POLST Patient has POLST: No POLST Status: DNR PD ED PE NORMAL - General General: Alert and oriented X 3, No acute distress - HEENT HEENT: Atraumatic, PERRL, EOMI - Neck Neck: Supple, no meningeal sign - Cardiac Cardiac: RRR, Strong equal pulses - Respiratory Respiratory: No respiratory distress - Abdomen Abdomen: Soft, Non distended. No: Non tender (The patient is tender palpation in the epigastrium, No rebound or peritoneal signs) - Rectal Rectal: Other (Normal tone, there was brown stool on the gloved finger. The stool was heme-negative. A RN was present as a technical support technician) - Back Back: No CVA TTP - Derm Derm: Normal color - Extremities Extremities: No deformity, No edema - Neuro Neuro: Alert and oriented X 3, Normal speech - Psych Psych: Normal affect Results - Vitals Vitals: Vital Signs - 24 hr 01/10/18 04:15 Temperature 36.7 C Heart Rate 77 Respiratory 20 Rate Blood Pressure 192/86 H O2 Saturation 90 L Oxygen O2 Source [] on 0.5L O2 via NC O2 Source Room air - EKG (time done) 04:29 Rate: Rate (enter#) Rhythm: NSR Intervals: Normal [place] ( ), QRS normal Ischemia: Non specific changes Other comments: Other comments (Sinus rhythm, nonspecific changes, there Is significant baseline artifact on this EKG, when compared to a prior EKG there is no acute ischemic changes) Compare to prior EKG: Unchanged from prior EKG - Labs Labs: Laboratory Tests 01/10/18 01/10/18 01/10/18 04:38 04:38 04:38 WBC 8.2 RBC 4.59 Hgb 11.0 L Hct 32.9 L MCV 71.7 L MCH 23.9 L MCHC 33.3 RDW 18.3 H Plt Count 234 MPV 8.5 Neut # (Auto) 5.5 Lymph # (Auto) 1.5 [place] # (Auto) 0.8 Eos # (Auto) 0.2 Baso # (Auto) 0.1 Absolute Nucleated RBC 0.00 Nucleated RBC % 0.0 Sodium 132 L Potassium 4.0 Chloride 100 L Carbon Dioxide 24 Anion Gap 8.0 BUN 23 H Creatinine 1.1 H Estimated GFR (MDRD) 47 L Glucose 104 H Calcium 8.4 L Total Bilirubin 0.6 AST 22 ALT 11 Alkaline Phosphatase 44 Troponin I < 0.04 Total Protein 6.8 Albumin 3.5 Globulin 3.3 Albumin/Globulin Ratio 1.1 Lipase 41 Urine Color Urine Clarity Urine pH Ur Specific [place] Urine Protein Urine Glucose (UA) Urine Ketones Urine Occult Blood Urine Nitrite Urine Bilirubin Urine Urobilinogen Ur Leukocyte Esterase Ur Microscopic Review Urine Culture Comments Blood Type Antibody Screen 01/10/18 01/10/18 04:38 05:00 WBC RBC Hgb Hct MCV MCH MCHC RDW Plt Count MPV Neut # (Auto) Lymph # (Auto) [place] # (Auto) Eos # (Auto) Baso # (Auto) Absolute Nucleated RBC Nucleated RBC % Sodium Potassium Chloride Carbon Dioxide Anion Gap BUN Creatinine Estimated GFR (MDRD) Glucose Calcium Total Bilirubin AST ALT Alkaline Phosphatase Troponin I Total Protein Albumin Globulin Albumin/Globulin Ratio Lipase Urine Color LT. YELLOW Urine Clarity CLEAR Urine pH 6.0 Ur Specific [place] 1.010 Urine Protein NEGATIVE Urine Glucose (UA) NEGATIVE Urine Ketones NEGATIVE Urine Occult Blood NEGATIVE Urine Nitrite NEGATIVE Urine Bilirubin NEGATIVE Urine Urobilinogen 0.2 (NORMAL) Ur Leukocyte Esterase NEGATIVE Ur Microscopic Review NOT INDICATED Urine Culture Comments NOT INDICATED Blood Type A POSITIVE Antibody Screen NEGATIVE - Rads (name of study) CT abdomen pelvis Radiology: Final report received PD MEDICAL DECISION MAKING - ED course ED course: On reevaluation the patient is resting comfortably her symptoms are under much better control. The patient's had no further episodes of vomiting and her nausea has resolved and her epigastric pain has resolved. The patient's vomit was initially clear and then became a brownish color. There is no pamela blood or melena. There does appear to be some Anju-Alfredo tears associated with the vomiting. The patient's rectal exam showed no evidence of blood in the stool. The patient currently follows with gastroenterology, the patient recently has had an upper GI and lower GI scopes. I recommended that the patient follow back up with her GI for further management of her ongoing nausea and vomiting and hiatal hernia. The patient understands and agrees. Presently , the patient appears appropriate for discharge home and ongoing outpatient management. I discussed warning signs and recommended returning to the emergency department immediately for worsening or any concerns - Sepsis Event Vital Signs: Vital Signs - 24 hr 01/10/18 04:15 Temperature 36.7 C Heart Rate 77 Respiratory 20 Rate Blood Pressure 192/86 H O2 Saturation 90 L Oxygen O2 Source [] on 0.5L O2 via NC O2 Source Room air Departure - Departure Disposition: 01 Home, Self Care Clinical Impression: Hiatal hernia, Epigastric pain Vomiting Qualifiers: Vomiting type: unspecified Vomiting Intractability: non-intractable Nausea presence: with nausea Qualified Code(s): R11.2 - Nausea with vomiting, unspecified Gastritis Qualifiers: Gastritis type: unspecified gastritis Chronicity: acute Gastritis bleeding: without bleeding Qualified Code(s): K29.00 - Acute gastritis without bleeding Condition: Good Instructions: Abdominal Pain, Gastritis, Hiatal Hernia Follow-Up: Krystle Vazquez ARNP [Primary Care Provider] - Within 3 Days Prescriptions: Metoclopramide [Reglan] 10 mg PO Q6H PRN #30 tablet PRN Reason: Nausea / Vomiting Ondansetron Odt [Zofran] 4 mg TL Q6H PRN #30 tablet PRN Reason: Nausea / Vomiting Comments: Please follow-up with your freight checker as soon as possible for further management of your recurrent vomiting and hiatal hernia. Please return to the emergency department immediately for worsening symptoms or any concerns
[2018-01-10] MEDS ORDERED: IOPAMIDOL-300 100 ML VIAL ONE (04:56)
[2018-01-10 05:01] LABS: ALBUMIN 3.5 g/dL (3.2-5.5); ALBUMIN/GLOBULIN RATIO 1.1 (1.0-2.2); BILIRUBIN,TOTAL 0.6 mg/dL (0.2-1.0); CALCIUM 8.4 mg/dL (8.5-10.3); CREATININE 1.1 mg/dL (0.4-1.0); TOTAL PROTEIN 6.8 g/dL (6.7-8.2)
[2018-01-10 05:07] LABS: BILIRUBIN,URINE NEGATIVE (NEGATIVE); GLUCOSE, URINE (UA) NEGATIVE (NEGATIVE); KETONES,URINE (UA) NEGATIVE (NEGATIVE); LEUKOCYTE ESTERASE, URINE NEGATIVE (NEGATIVE); NITRITE,URINE NEGATIVE (NEGATIVE); OCCULT BLOOD,URINE NEGATIVE (NEGATIVE); PROTEIN,URINE NEGATIVE (NEGATIVE); UROBILINOGEN,URINE 0.2 (NORMAL) E.U./dL (NORMAL)
[2018-01-10 05:09] LABS: CLARITY,URINE CLEAR (CLEAR)
[2018-01-10] MEDS ORDERED: IOPAMIDOL-300 100 ML VIAL IVP ONE (05:54)
--- NOTE | 2018-01-10 06:08 | CT Report ---
Procedure Date: 01/10/2018 Accession Number: [id number] / [id number] Procedure: CT - Abdomen/Pelvis W/ CPT Code: FULL RESULT: EXAM: CT ABDOMEN AND PELVIS EXAM DATE: 01/10/2018 05:30 AM. CLINICAL HISTORY: Abdominal pain. Nausea and vomiting. COMPARISONS: ABDOMEN/PELVIS W/ 07/29/2017. TECHNIQUE: Routine helical CT imaging was performed through the abdomen and pelvis. IV contrast: 100 ML ISOVUE 300. Enteric contrast: No. Reconstructions: Coronal and sagittal. In accordance with CT protocol optimization, one or more of the following dose reduction techniques were utilized for this exam: automated exposure control, adjustment of mA and/or KV based on patient size, or use of iterative reconstructive technique. FINDINGS: Lung Bases: No focal consolidation seen. Moderate to large hiatal hernia. Mitral annulus calcification. Coronary artery calcifications. Liver: No focal lesion identified. Gallbladder/Bile Ducts: Unremarkable. Spleen: Normal. Pancreas: Normal. Adrenal Glands: Adrenal thickening, left greater than right. This is unchanged. Kidneys: Bilateral cysts. No masses or hydronephrosis. Peritoneal Cavity/Bowel: Colonic diverticula. No diverticulitis identified. No bowel obstruction seen. No free air or free fluid. No lymphadenopathy. Appendix is not well seen. No evidence of appendicitis. Pelvic Organs: Uterus is not seen. Visualized pelvic organs are unremarkable. Vasculature: Moderate to severe atherosclerosis. No aortic aneurysm. Bones: Osteopenia. Degenerative changes in the spine. Unchanged vertebral body fracture at T12. Other: None. IMPRESSION: 1. Hiatal hernia. 2. Colonic diverticula without definite diverticulitis. 3. No bowel obstruction seen. [facility]
[2018-01-10 06:28] VITALS: BP 134/54
== END 2018-01-10 06:45 | disposition home or self-care (01) ==
LOC: EDUNIT# → ED 04:12 → SUPCPDRO 04:12 → ED 06:45
DX: K44.9 Diaphragmatic hernia without obstruction or gangrene (principal); R11.2 Nausea with vomiting, unspecified; K29.00 Acute gastritis without bleeding; I10 Essential (primary) hypertension; E78.00 Pure hypercholesterolemia, unspecified
CPT/HCPCS: 36415; 74177; 80053; 81003; 83690; 84484; 85025; 86850; 86900; 86901; 93005; 96374; 99283; Q9967; 81001; 87086

== ENCOUNTER 2018-03-07 11:20 | Outpatient (CLI) | payer MEDICARE, MEDICAID ==
[2018-03-07 18:44] LABS: BASOPHILS # (AUTO) 0.1 10^3/uL (0.0-0.1); BASOPHILS % (AUTO) 1.1 %; EOSINOPHILS # (AUTO) 0.1 10^3/uL (0.0-0.7); EOSINOPHILS % (AUTO) 1.4 %; HGB - HEMOGLOBIN 12.8 g/dL (12.0-16.0); LYMPHOCYTES # (AUTO) 1.7 10^3/uL (1.5-3.5); LYMPHOCYTES % (AUTO) 17.3 %; MEAN CORPUSCULAR HEMOGLOBIN 25.1 pg (27.0-31.0); MEAN CORPUSCULAR HGB CONC 32.5 g/dL (32.0-36.0); MEAN CORPUSCULAR VOLUME 77.2 fL (81.0-99.0); MEAN PLATELET VOLUME 9.3 fL (7.9-10.8); MONOCYTES # (AUTO) 0.9 10^3/uL (0.0-1.0); MONOCYTES % (AUTO) 9.8 %; NEUTROPHILS # (AUTO) 6.8 10^3/uL (1.5-6.6); NEUTROPHILS % (AUTO) 70.4 %; PLT - PLATELET COUNT 321 10^3/uL (130-450); RED CELL DISTRIBUTION WIDTH 20.1 % (12.0-15.0); WHITE BLOOD COUNT 9.6 x10^3/uL (4.8-10.8)
[2018-03-07 19:56] LABS: PLATELET ESTIMATE, MANUAL NORMAL (130-450,000) (NORMAL); PLATELET MORPHOLOGY NORMAL APPEARANCE (NORMAL)
== END 2018-03-07 11:21 | disposition home or self-care (01) ==
LOC: LAB.N 11:20
PROVIDERS: ATTEND Internal Medicine
DX: K21.0 Gastro-esophageal reflux disease with esophagitis (principal); D50.9 Iron deficiency anemia, unspecified
CPT/HCPCS: 36415; 85025

== ENCOUNTER 2018-03-25 08:00 | Outpatient (CLI) | payer MEDICARE, MEDICAID ==
[2018-03-25 14:09] LABS: % IRON SATURATION 21 % (20-50); IRON 75 ug/dL (28-170); TOTAL IRON BINDING CAPACITY 351 ug/dL (250-450); TRANSFERRIN 251 mg/dL (192-382)
== END 2018-03-25 08:01 | disposition home or self-care (01) ==
LOC: LAB.N 08:00
PROVIDERS: ATTEND Nurse Practitioner Gerontology
DX: D64.9 Anemia, unspecified (principal)
CPT/HCPCS: 36415; 83540; 84466

== ENCOUNTER 2018-07-21 16:17 | Outpatient (CLI) | payer MEDICARE, MEDICAID | END 2018-07-21 16:18 | disposition critical access hospital (66) | LOC: MERGE 16:17 → EMS 16:17 | PROVIDERS: ATTEND Surgery | DX: M54.9 Dorsalgia, unspecified (principal) | CPT/HCPCS: A0425; A0429 ==

== ENCOUNTER 2018-07-21 16:40 | Emergency (ER) | payer MEDICARE, MEDICAID ==
[2018-07-21] MEDS ORDERED: SODIUM CHLORIDE 0.9% 1,000 ML IV ONE (17:11)
[2018-07-21] MEDS ORDERED: LORazepam 2 MG/ML VIAL IVP STA (17:12)
--- NOTE | 2018-07-21 17:14 | ED Physician Documentation ---
History of Present Illness - Stated complaint Stated Complaint: LEG CRAMPS - Chief complaint Chief Complaint: General - History obtained from History obtained from: Patient - History of Present Illness Timing: Today (She has a history of leg cramps that became much more severe this afternoon. Its both calves and both feet. She takes blood pressure medicines but she does not think she takes a diuretic.) Review of Systems Constitutional: denies: Fever, Chills Cardiac: denies: Chest pain / pressure, Palpitations Respiratory: denies: Dyspnea, Cough PD PAST MEDICAL HISTORY - Past Medical History Cardiovascular: High cholesterol - Past Surgical History Past Surgical History: No - Allergies Allergies/Adverse Reactions: Allergies Allergy/AdvReac Type Severity Reaction Status Date / Time Penicillins Allergy Unknown Verified 07/21/18 17:49 - Social History Does the pt smoke?: No Smoking Status: Never smoker Does the pt drink ETOH?: No Does the pt have substance abuse?: No - Immunizations Immunizations are current?: No Immunizations: Other immun not current PD ED PE NORMAL - Vitals Vital signs reviewed: Yes - General General: Alert and oriented X 3, Other (She is uncomfortable and moving her legs around a lot.) - Extremities Extremities: No edema, No calf tenderness / cord - Neuro Neuro: Alert and oriented X 3, Normal speech Results - Vitals Vitals: Vital Signs - 24 hr 07/21/18 16:38 Temperature 37 C Heart Rate 98 Respiratory 17 Rate Blood Pressure 162/75 H O2 Saturation 95 Oxygen O2 Source Room air - Labs Labs: Laboratory Tests 07/21/18 07/21/18 17:21 17:21 WBC 7.7 RBC 4.87 Hgb 13.5 Hct 39.4 MCV 80.9 L MCH 27.6 MCHC 34.1 RDW 15.1 H Plt Count 239 MPV 8.9 Neut # (Auto) 5.8 Lymph # (Auto) 1.0 L [place] # (Auto) 0.8 Eos # (Auto) 0.1 Baso # (Auto) 0.1 Absolute Nucleated RBC 0.00 Nucleated RBC % 0.0 Sodium 133 L Potassium 4.0 Chloride 100 L Carbon Dioxide 24 Anion Gap 9.0 BUN 18 Creatinine 1.3 H Estimated GFR (MDRD) 39 L Glucose 112 H Calcium 8.9 Magnesium 2.2 Total Bilirubin 0.5 AST 26 ALT 11 Alkaline Phosphatase 60 Total Protein 7.4 Albumin 4.1 Globulin 3.3 Albumin/Globulin Ratio 1.2 Lipase 40 PD MEDICAL DECISION MAKING - ED course ED course: This is an 87-year-old woman presents with leg cramps. There is no evidence of DVT or vascular disease on examination. After the administration of IV fluids and Ativan she was better Departure - Departure Disposition: Home, Self Care Clinical Impression: Leg cramps, Dehydration Condition: Good Record reviewed to determine appropriate education?: Yes Instructions: ED Dehydration Comments: Call your doctor to arrange a follow-up appointment, make the next available appointment. In the interim, return anytime if worse or if new symptoms develop. Your blood pressure was elevated today on check into the emergency department. This does not mean that you have hypertension, it is a common phenomenon to come to the emergency department and have elevated blood pressure. I recommend that you see your primary care physician within the week to have it rechecked when you are feeling better.
[2018-07-21 17:44] LABS: BASOPHILS # (AUTO) 0.1 10^3/uL (0.0-0.1); BASOPHILS % (AUTO) 1.1 %; EOSINOPHILS # (AUTO) 0.1 10^3/uL (0.0-0.7); EOSINOPHILS % (AUTO) 1.4 %; HGB - HEMOGLOBIN 13.5 g/dL (12.0-16.0); LYMPHOCYTES % (AUTO) 13.3 %; MEAN CORPUSCULAR HEMOGLOBIN 27.6 pg (27.0-31.0); MEAN CORPUSCULAR HGB CONC 34.1 g/dL (32.0-36.0); MEAN CORPUSCULAR VOLUME 80.9 fL (81.0-99.0); MEAN PLATELET VOLUME 8.9 fL (7.9-10.8); MONOCYTES # (AUTO) 0.8 10^3/uL (0.0-1.0); MONOCYTES % (AUTO) 9.8 %; NEUTROPHILS # (AUTO) 5.8 10^3/uL (1.5-6.6); NEUTROPHILS % (AUTO) 74.4 %; PLT - PLATELET COUNT 239 10^3/uL (130-450); RED BLOOD COUNT 4.87 10^6/uL (4.20-5.40); RED CELL DISTRIBUTION WIDTH 15.1 % (12.0-15.0); WHITE BLOOD COUNT 7.7 x10^3/uL (4.8-10.8)
[2018-07-21 17:55] LABS: ALBUMIN 4.1 g/dL (3.2-5.5); ALBUMIN/GLOBULIN RATIO 1.2 (1.0-2.2); BILIRUBIN,TOTAL 0.5 mg/dL (0.2-1.0); CALCIUM 8.9 mg/dL (8.5-10.3); CREATININE 1.3 mg/dL (0.4-1.0); MAGNESIUM 2.2 mg/dL (1.7-2.8); TOTAL PROTEIN 7.4 g/dL (6.7-8.2)
[2018-07-21 18:22] VITALS: BP 125/58
== END 2018-07-21 18:40 | disposition home or self-care (01) ==
LOC: EDBD → MERGE 16:40 → ED 16:40
DX: R25.2 Cramp and spasm (principal); E86.0 Dehydration; R03.0 Elevated blood-pressure reading, without diagnosis of hypertension; E78.00 Pure hypercholesterolemia, unspecified
CPT/HCPCS: 36415; 80053; 83690; 83735; 85025; 96361; 96374; 99283; 99284; J2060

== ENCOUNTER 2018-07-30 16:41 | Outpatient (CLI) | payer MEDICARE, MEDICAID | END 2018-07-30 16:42 | disposition critical access hospital (66) | LOC: EMS 16:41 | PROVIDERS: ATTEND Surgery | DX: R10.9 Unspecified abdominal pain (principal) | CPT/HCPCS: A0425; A0427 ==

== ENCOUNTER 2018-07-30 16:58 | Observation (INO) | payer MEDICARE, MEDICAID ==
[2018-07-30 17:41] LABS: BASOPHILS % (AUTO) 0.2 %; EOSINOPHILS # (AUTO) 0.1 10^3/uL (0.0-0.7); EOSINOPHILS % (AUTO) 0.9 %; HGB - HEMOGLOBIN 12.6 g/dL (12.0-16.0); LYMPHOCYTES # (AUTO) 1.1 10^3/uL (1.5-3.5); LYMPHOCYTES % (AUTO) 17.2 %; MEAN CORPUSCULAR HEMOGLOBIN 26.9 pg (27.0-31.0); MEAN CORPUSCULAR HGB CONC 34.4 g/dL (32.0-36.0); MEAN CORPUSCULAR VOLUME 78.3 fL (81.0-99.0); MEAN PLATELET VOLUME 8.6 fL (7.9-10.8); MONOCYTES # (AUTO) 0.8 10^3/uL (0.0-1.0); MONOCYTES % (AUTO) 12.2 %; NEUTROPHILS # (AUTO) 4.5 10^3/uL (1.5-6.6); NEUTROPHILS % (AUTO) 69.5 %; PLT - PLATELET COUNT 242 10^3/uL (130-450); RED BLOOD COUNT 4.67 10^6/uL (4.20-5.40); RED CELL DISTRIBUTION WIDTH 14.7 % (12.0-15.0); WHITE BLOOD COUNT 6.4 x10^3/uL (4.8-10.8)
--- NOTE | 2018-07-30 17:59 | ED Physician Documentation ---
PD HPI ABD PAIN - Stated complaint Stated Complaint: ABD PX - Chief complaint Chief Complaint: Abd Pain - History obtained from History obtained from: Patient, EMS - History of Present Illness Timing - onset: How many days ago (several) Timing - duration: Days (several) Timing - details: Gradual onset, Intermittant Pain level max: 4 Pain level now: 0 Quality: Cramping, Pain Location: Epigastric Radiation: Chest Improved by: Other (nothing) Worsened by: Other (nothing) Associated symptoms: Nausea, Vomiting (states dry heaves, but only vomited x1). No: Fever, Hematemesis, Diarrhea, Constipation, Melena, Hematochezia, Dysuria, Hematuria Similar symptoms before: Diagnosis (hiatal hernia) Recently seen: Not recently seen Review of Systems Ten Systems: 10 systems reviewed and negative Constitutional: denies: Fever, Chills Ears: denies: Ear pain Nose: denies: Rhinorrhea / runny nose, Congestion Throat: denies: Sore throat Cardiac: denies: Chest pain / pressure : denies: Dysuria Skin: denies: Rash Musculoskeletal: denies: Neck pain, Back pain Neurologic: denies: Headache PD PAST MEDICAL HISTORY - Past Medical History Past Medical History: Yes Cardiovascular: High cholesterol Respiratory: COPD Endocrine/Autoimmune: None GI: GERD, Hiatal hernia, Chronic constipation 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 : None, Incontinence HEENT: Dental implants Psych: Anxiety Musculoskeletal: Chronic back pain Derm: None - Past Surgical History Past Surgical History: Yes General: Colonoscopy /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 ATTENDANT: Hysterectomy - Present Medications Home Medications: Ambulatory Orders Medication Instructions Recorded Confirmed Cholecalciferol (Vitamin D3) 2,000 mg PO DAILY 07/13/14 01/10/18 [Vitamin D3] Omeprazole 20 mg PO DAILY 07/13/14 01/10/18 Calcium Carbonate/Vitamin D3 1 tab PO BID 11/05/14 01/10/18 [Caltrate 600 Plus D3 Tablet] Magnesium Oxide [Mag Ox] 400 mg PO DAILY 11/05/14 01/10/18 Lisinopril 10 mg PO DAILY 09/15/16 01/10/18 Psyllium [Metamucil] 1 packet PO DAILY 09/27/16 01/10/18 Albuterol 1 neb INH PRN PRN 03/19/17 01/10/18 Budesonide [Pulmicort] 1 puffs INH DAILY 03/19/17 01/10/18 Acetaminophen [Tylenol] 650 mg PO Q4HR PRN tablet 04/23/17 01/10/18 Budesonide [Pulmicort] 0.5 mg INH RTBID neb 04/23/17 01/10/18 Nystatin 100,000 unit PO QID #28 ml 04/23/17 01/10/18 Albuterol Sulf [Ventolin Hfa 1 - 2 puffs INH Q4HR PRN #1 inhaler 04/28/17 01/10/18 Inhaler] Metoclopramide [Reglan] 10 mg PO Q6H PRN #30 tablet 01/10/18 Ondansetron Odt [Zofran] 4 mg TL Q6H PRN #30 tablet 01/10/18 - Allergies Allergies/Adverse Reactions: Allergies Allergy/AdvReac Type Severity Reaction Status Date / Time Penicillins Allergy Severe Rash Verified 07/30/18 17:07 - Social History Does the pt smoke?: No Smoking Status: Never smoker Does the pt drink ETOH?: No Does the pt have substance abuse?: No - Immunizations Immunizations are current?: No Immunizations: Other immun not current - POLST Patient has POLST: No POLST Status: DNR PD ED PE NORMAL - Vitals Vital signs reviewed: Yes - General General: Alert and oriented X 3, No acute distress, Well developed/nourished - HEENT HEENT: PERRL, Other (Dry lips and tongue) - Neck Neck: Supple, no meningeal sign - Cardiac Cardiac: RRR, Strong equal pulses - Respiratory Respiratory: No respiratory distress, Clear bilaterally - Abdomen Abdomen: Soft, Non tender, Non distended - Derm Derm: Warm and dry, No rash - Extremities Extremities: No edema - Neuro Neuro: Alert and oriented X 3 - Psych Psych: Normal mood, Normal affect Results - Vitals Vitals: Vital Signs - 24 hr 07/30/18 07/30/18 07/30/18 17:04 17:08 19:21 Temperature 36.8 C Heart Rate 79 67 91 Respiratory 16 16 18 Rate Blood Pressure 191/166 H 180/78 H 191/78 H O2 Saturation 95 95 94 07/30/18 20:49 Temperature Heart Rate 88 Respiratory Rate Blood Pressure 163/80 H O2 Saturation 95 Oxygen O2 Source [With Activity] on 0.5L O2 via NC O2 Source Room air - Labs Labs: Laboratory Tests 07/30/18 07/30/18 07/30/18 17:30 17:30 20:25 WBC 6.4 RBC 4.67 Hgb 12.6 Hct 36.6 L MCV 78.3 L MCH 26.9 L MCHC 34.4 RDW 14.7 Plt Count 242 MPV 8.6 Neut # (Auto) 4.5 Lymph # (Auto) 1.1 L [place] # (Auto) 0.8 Eos # (Auto) 0.1 Baso # (Auto) 0.0 Absolute Nucleated RBC 0.00 Nucleated RBC % 0.0 Sodium 120 L* Potassium 4.2 Chloride 86 L Carbon Dioxide 24 Anion Gap 10.0 BUN 19 Creatinine 1.4 H Estimated GFR (MDRD) 36 L Glucose 118 H Calcium 9.1 Total Bilirubin 0.6 AST 25 ALT 12 Alkaline Phosphatase 52 Total Protein 7.2 Albumin 4.1 Globulin 3.1 Albumin/Globulin Ratio 1.3 Lipase 40 Urine Color YELLOW Urine Clarity CLEAR Urine pH 7.0 Ur Specific [place] 1.010 Urine Protein NEGATIVE Urine Glucose (UA) NEGATIVE Urine Ketones TRACE Urine Occult Blood NEGATIVE Urine Nitrite NEGATIVE Urine Bilirubin NEGATIVE Urine Urobilinogen 0.2 (NORMAL) Ur Leukocyte Esterase NEGATIVE Ur Microscopic Review NOT INDICATED Urine Culture Comments NOT INDICATED - Rads (name of study) CT abdomen pelvis Radiology: Prelim report reviewed, EMP read contemporaneously, See rad report (1. No acute intra-abdominal abnormality demonstrated. 2. Stable mild hiatal hernia and sigmoid diverticulosis. 3. Stable severe T12 compression fracture, retropulsion, and central canal narrowing. ) PD MEDICAL DECISION MAKING - ED course Complexity details: reviewed results, re-evaluated patient, considered differential, d/w patient, d/w framing consultant ED course: 87-year-old female with vomiting and abdominal pain. No acute findings on abdomen pelvis CT. Has a chronic compression fracture. She is found to have significant hyponatremia. Likely volume contraction related. She is not on any diuretics. Will place in observation for repletion. Discussed the case with the hospitalist who accepts This document was made in part using voice recognition software. While efforts are made to proofread this document, sound alike and grammatical errors may occur. Departure - Departure Disposition: ED Place in Observation Clinical Impression: Hyponatremia Condition: Stable
[2018-07-30 18:12] LABS: ALBUMIN 4.1 g/dL (3.2-5.5); ALBUMIN/GLOBULIN RATIO 1.3 (1.0-2.2); BILIRUBIN,TOTAL 0.6 mg/dL (0.2-1.0); CALCIUM 9.1 mg/dL (8.5-10.3); CREATININE 1.4 mg/dL (0.4-1.0); TOTAL PROTEIN 7.2 g/dL (6.7-8.2)
[2018-07-30] MEDS ORDERED: SODIUM CHLORIDE 0.9% 1,000 ML IV ONE (18:23)
[2018-07-30] MEDS ORDERED: IOVERSOL 320 100 ML VIAL IVP ONE ×2 (18:40→20:53)
[2018-07-30 20:34] LABS: BILIRUBIN,URINE NEGATIVE (NEGATIVE); GLUCOSE, URINE (UA) NEGATIVE (NEGATIVE); KETONES,URINE (UA) TRACE mg/dL (NEGATIVE); LEUKOCYTE ESTERASE, URINE NEGATIVE (NEGATIVE); NITRITE,URINE NEGATIVE (NEGATIVE); OCCULT BLOOD,URINE NEGATIVE (NEGATIVE); PROTEIN,URINE NEGATIVE (NEGATIVE); UROBILINOGEN,URINE 0.2 (NORMAL) E.U./dL (NORMAL)
[2018-07-30 20:52] LABS: CLARITY,URINE CLEAR (CLEAR)
[2018-07-30] MEDS ORDERED: SODIUM CHLORIDE FLUSH 0.9% 10 ML SYRINGE IVP PRN (21:29)
[2018-07-30] MEDS ORDERED: ONDANSETRON 4 MG/2 ML VIAL IVP PRN (21:29)
--- NOTE | 2018-07-30 21:29 | CT Report ---
Reason: abd pain, n/v Procedure Date: 07/30/2018 Accession Number: [id number] / [id number] Procedure: CT - Abdomen/Pelvis W CPT Code: FULL RESULT: EXAM: CT ABDOMEN AND PELVIS EXAM DATE: 07/30/2018 08:35 PM. CLINICAL HISTORY: Nausea and vomiting. Abdominal pain. COMPARISONS: ABDOMEN/PELVIS W/ 01/10/2018 5:30 AM. TECHNIQUE: Routine helical CT imaging was performed through the abdomen and pelvis. IV contrast: 50 mL Optiray 320. Enteric contrast: No. Reconstructions: Coronal and sagittal. In accordance with CT protocol optimization, one or more of the following dose reduction techniques were utilized for this exam: automated exposure control, adjustment of mA and/or KV based on patient size, or use of iterative reconstructive technique. FINDINGS: Lung Bases: Mild hiatal hernia. Moderate mitral annulus calcification. Liver: Normal. No masses. Gallbladder/Bile Ducts: Unremarkable. Spleen: Normal. Pancreas: Normal. Adrenal Glands: Normal. Kidneys: A few small cortical and peripelvic cysts are seen. There is no nephrolithiasis or hydronephrosis. Peritoneal Cavity/Bowel: There is mild predominantly sigmoid diverticulosis without evidence of diverticulitis. There is no obstruction or ileus. No free fluid or free air. The appendix is well visualized and normal. Pelvic Organs: Hysterectomy changes are seen. The bladder and visualized pelvic organs are within normal limits. Vasculature: Calcified atherosclerotic disease of the aorta is seen without aneurysm or other significant vascular abnormality. Bones: Severe compression fracture deformity with retropulsion at T12 that is similar to prior study. 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 Other: None. IMPRESSION: 1. No acute intra-abdominal abnormality demonstrated. 2. Stable mild hiatal hernia and sigmoid diverticulosis. 3. Stable severe T12 compression fracture, retropulsion, and central canal narrowing. RADIA
--- NOTE | 2018-07-30 21:59 | HISTORY & PHYSICAL EXAMINATION ---
Chief Complaint - Chief Complaint Chief Complaint: abdominal pain History of Present Illness - Admitted From Admitted From:: [facility] ED - History Obtained From Records Reviewed: yes History obtained from: patient and ED staff - History of Present Illness HPI Comment/Other: Patient seen on 07/30/18 at 21:15pm Patient is a 87 y/o female who was brought to the ED via EMS for abdominal pain. Initially she reported epi-gastric, then left-sided. Onset was around 3pm . She had 1 episode of vomiting just prior to EMS picking her up. Currently she denies abd pain or nausea. No chest pain, SHELIA, fever or chills. She is not a very good historian. Her history is very tangential and vague. It took several attempts at the question to get a chief complain. Work up in the ED included CT abd/pelvis, CBC, BMP. She was found to have a sodium level of 120. As a result she is being admitted for further treatment. 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 She is . She had 5 pregnancies one of which was a miscarriage. She has 4 children, 15 grandchildren and 20 great grandchildren. She lives in [place]. The patient smoked a pack a day from the age of 26 and states that she stopped in 2003 the patients son does smoke but states he smokes outside. The patient does not drink alcohol and denies any illicit drug use. - POLST Patient has POLST: No POLST Status: DNR Meds/Allgy - Home Medications Home Medications: Ambulatory Orders Medication Instructions Recorded Confirmed Cholecalciferol (Vitamin D3) 2,000 mg PO DAILY 07/13/14 01/10/18 [Vitamin D3] Omeprazole 20 mg PO DAILY 07/13/14 07/31/18 Calcium Carbonate/Vitamin D3 1 tab PO BID 11/05/14 07/31/18 [Caltrate 600 Plus D3 Tablet] Magnesium Oxide [Mag Ox] 400 mg PO DAILY 11/05/14 07/31/18 Lisinopril 10 mg PO DAILY 09/15/16 07/31/18 Psyllium [Metamucil] 1 packet PO DAILY 09/27/16 01/10/18 Albuterol 1 neb INH PRN PRN 03/19/17 01/10/18 Budesonide [Pulmicort] 1 puffs INH DAILY 03/19/17 01/10/18 Acetaminophen [Tylenol] 650 mg PO Q4HR PRN tablet 04/23/17 07/31/18 Budesonide [Pulmicort] 0.5 mg INH RTBID neb 04/23/17 01/10/18 Nystatin 100,000 unit PO QID #28 ml 04/23/17 01/10/18 Albuterol Sulf [Ventolin Hfa 1 - 2 puffs INH Q4HR PRN #1 inhaler 04/28/17 01/10/18 Inhaler] Metoclopramide [Reglan] 10 mg PO Q6H PRN #30 tablet 01/10/18 Ondansetron Odt [Zofran] 4 mg TL Q6H PRN #30 tablet 01/10/18 - Allergies Allergies/Adverse Reactions: Allergies Allergy/AdvReac Type Severity Reaction Status Date / Time Penicillins Allergy Severe Rash Verified 07/30/18 17:07 Review of Systems - Constitutional Constitutional: reports: Chills. denies: Fever - Eyes Eyes: denies: Pain, Blurred vision, Dipolpia - Ears, Nose & Throat Ears, Nose & Throat: denies: Vertigo, Sore throat - Cardiovascular Cariovascular: denies: Irregular heart rate, Palpitations, Chest pain, Edema, Lightheadedness, Syncope, Exertional dyspnea - Respiratory Respiratory: denies: Cough, Wheezing, SOB at rest, SOB with exertion - Gastrointestinal Gastrointestinal: reports: Abdominal pain, Vomiting. denies: Abdominal distention, Constipation, Diarrhea - Genitourinary Genitourinary: denies: Dysuria, Frequency, Urgency - Musculoskeletal Musculoskeletal: reports: Back pain. denies: Muscle pain - Integumentary Integumentary: denies: Pruritis, Lesions, Dryness - Neurological Neurological: denies: Focal weakness, Headache, Dizziness - Psychiatric Psychiatric: denies: Depression, Anxiety - Endocrine Endocrine: denies: Polyuria, Polydypsia - Hematologic/Lymphatic Hematologic/Lymphatic: denies: Bruising, Petechiae, Blood clots Prior Level of Functionality: Patient lives in an apartment in [place]. She son lives with her She is independent of activities of daily living Exam - Vital Signs Vital Signs: Vital Signs x48h Temp Pulse Resp BP Pulse Ox 07/30/18 20:49 88 163/80 H 95 07/30/18 19:21 91 18 191/78 H 94 07/30/18 17:08 67 16 180/78 H 95 07/30/18 17:04 36.8 C 79 16 191/166 H 95 - Physical Exam General Appearance: positive: No acute distress, Alert Eyes Bilateral: positive: Normal inspection, PERRL, EOMI, No scleral icterus ENT: positive: ENT inspection nml, Pharynx nml, Dry mucous membranes Neck: positive: No JVD, Trachea midline Respiratory: positive: Chest non-tender, No respiratory distress, Breath sounds nml. negative: Wheezes, Rales, Rhonchi Cardiovascular: positive: Regular rate & rhythm, No murmur Abdomen: positive: Non-tender, Nml bowel sounds, No distention. negative: Guarding, Rebound Back: positive: Nml inspection Skin: positive: No rash, Dry Extremities: positive: Non-tender, Nml appearance, No pedal edema Neurologic/Psychiatric: positive: Oriented x3 Conclusion/Plan - Problem List (1) Hyponatremia Conclusion/Plan: Likely hypovolemic hyponatremia Serum osmolality pending Patient's Cr is 1.4. Baseline usually 1.1 IV hydration with normal saline at 150 ml/hr Will check BMP q6hrs. (2) Acute kidney injury Conclusion/Plan: Likely pre-renal. Hydrating patient. Will hold lisinopril (3) Hypertension Conclusion/Plan: Will order prn labetalol or hydralazine for sbp > 160 Lisinopril currently on hold Qualifiers: Hypertension type: essential hypertension Qualified Code(s): I10 - Ess ential (primary) hypertension (4) Abdominal pain Conclusion/Plan: CT abd/pelvis unremarkable. Will manage with tylenol. Zofran ordered for nausea/vomiting Qualifiers: Abdominal location: upper abdomen, unspecified Qualified Code(s): R10.10 - Upper abdominal pain, unspecified (5) GERD (gastroesophageal reflux disease) Conclusion/Plan: On omeprazole at home. Will order protonix (6) COPD (chronic obstructive pulmonary disease) Conclusion/Plan: Not in exacerbation Will resume home regimen - Lab Results Fish Bones: 07/30/18 17:30 07/31/18 05:56
[2018-07-30] MEDS: ACETAMINOPHEN 325 MG TABLET PO PRN (22:13)
[2018-07-30] MEDS: SODIUM CHLORIDE 0.9% 1,000 ML IV SCH (22:17)
[2018-07-30] MEDS ORDERED: LABETALOL 20 MG/4 ML SYRINGE IVP PRN (22:43)
[2018-07-30] MEDS ORDERED: traZODone 50 MG TABLET PO PRN (23:14)
[2018-07-30 23:54] LABS: CALCIUM 8.4 mg/dL (8.5-10.3); CREATININE 1.2 mg/dL (0.4-1.0)
[2018-07-31] MEDS: SODIUM CHLORIDE FLUSH 0.9% 10 ML SYRINGE IVP SCH ×3 (00:41→16:45)
[2018-07-31] MEDS: SODIUM CHLORIDE 0.9% 1,000 ML IV SCH ×2 (05:22→12:00)
[2018-07-31 06:11] LABS: CALCIUM 7.9 mg/dL (8.5-10.3); CREATININE 1.2 mg/dL (0.4-1.0)
[2018-07-31] MEDS: ACETAMINOPHEN 325 MG TABLET PO PRN (08:33)
[2018-07-31] MEDS ORDERED: POLYETHYLENE GLYCOL 3350 17 GM PACKET PO SCH (09:00)
[2018-07-31] MEDS ORDERED: PANTOPRAZOLE 40 MG VIAL IVP SCH (09:00)
[2018-07-31 11:10] LABS: CALCIUM 7.8 mg/dL (8.5-10.3); CREATININE 1.1 mg/dL (0.4-1.0)
[2018-07-31 16:15] VITALS: BP 136/69
--- NOTE | 2018-07-31 17:22 | Discharge Plan ---
Discharge Plan Disposition: 01 Home, Self Care Condition: Stable Diet: Regular Activity Restrictions: Activity as Tolerated Shower Restrictions: No Instruction Topics: Hyponatremia Dc Additional Instructions or Follow Up instructions: You were here for dehydration, low sodium level and nausea. You needed iv sodium replacement. Stay well hydrated. You should mostly be drinking broth, juices or Gatorade and water. You SHOULD be salting your food. Please see your PCP in the next 2-4 days for labs and hospital follow-up. No Smoking: If you smoke, Please STOP! Call for help. Follow-up with: Krystle Vazquez ARNP [Primary Care Provider] -
[2018-07-31 17:24] LABS: CREATININE 1.1 mg/dL (0.4-1.0)
--- NOTE | 2018-08-04 20:16 | PROVIDER PROGRESS NOTE ---
Assessment/Plan - Problem List (1) Hyponatremia Assessment/Plan: The patient required saline hydration for severe hyponatremia of 120. Na was checked q6h and has improved slowly into an acceptable range, now 128. Patient will be [facility] home. CONDITION AT DISCHARGE: STABLE (2) Dehydration Assessment/Plan: iv saline volume replaced and she is not clinically dehydrated. She is 4L (+) since admission. She and the daughter, at bedside, were reminded that the patient should rehydrate with drinking broths and juices, not just water. (3) Acute kidney injury Assessment/Plan: Elevated BUN/creat of 18/06.4 has now normalized with rehydration tp 04/30.1 (4) Hypertension Qualifiers: Hypertension type: essential hypertension Qualified Code(s): I10 - Essential (primary) hypertension Assessment/Plan: BP controlled on present med Lisinopril, continue this. (5) Abdominal pain Qualifiers: Abdominal location: unspecified location Qualified Code(s): R10.9 - Unspecified abdominal pain Assessment/Plan: No further complaints of this. (6) Hx of gastroesophageal reflux (GERD) Assessment/Plan: Possibly this was the cause of abdominal pain yesterday, difficult to assess with her being a poor historian. (7) History of COPD Assessment/Plan: No current acute exacerbation of COPD. Continue inhalers as used previously. - Lab Result Fish Bone Diagrams: 07/30/18 17:30 07/31/18 17:05 Subjective - Subjective Patient Reports: Feeling Better, Resting Comfortably Nursing Reports: No Complaints Objective Vital Signs: Oxygen O2 Source [With Activity] on 0.5L O2 via NC O2 Source Room air General: Alert HEENT: Mucous membr. moist/pink Neck: Supple, No JVD Neuro: Non Focal Cardiovascular: Regular rate Respiratory: No respiratory distress Abdomen: Soft, No tenderness Extremities: No edema - Results Results: Laboratory Results WBC 6.4 x10^3/uL (4.8-10.8) 07/30/18 17:30 RBC 4.67 10^6/uL (4.20-5.40) 07/30/18 17:30 Hgb 12.6 g/dL (12.0-16.0) 07/30/18 17:30 Hct 36.6 % (37.0-47.0) L 07/30/18 17:30 MCV 78.3 fL (81.0-99.0) L 07/30/18 17:30 MCH 26.9 pg (27.0-31.0) L 07/30/18 17:30 MCHC 34.4 g/dL (32.0-36.0) 07/30/18 17:30 RDW 14.7 % (12.0-15.0) 07/30/18 17:30 Plt Count 242 10^3/uL (130-450) 07/30/18 17:30 MPV 8.6 fL (7.9-10.8) 07/30/18 17:30 Neut # (Auto) 4.5 10^3/uL (1.5-6.6) 07/30/18 17:30 Lymph # (Auto) 1.1 10^3/uL (1.5-3.5) L 07/30/18 17:30 [place] # (Auto) 0.8 10^3/uL (0.0-1.0) 07/30/18 17:30 Eos # (Auto) 0.1 10^3/uL (0.0-0.7) 07/30/18 17:30 Baso # (Auto) 0.0 10^3/uL (0.0-0.1) 07/30/18 17:30 Absolute Nucleated RBC 0.00 x10^3/uL 07/30/18 17:30 Nucleated RBC % 0.0 /100WBC 07/30/18 17:30 Sodium 128 mmol/L (135-145) L 07/31/18 17:05 Potassium 4.6 mmol/L (3.5-5.0) 07/31/18 17:05 Chloride 98 mmol/L (101-111) L 07/31/18 17:05 Carbon Dioxide 24 mmol/L (21-32) 07/31/18 17:05 Anion Gap 6.0 (6-13) 07/31/18 17:05 BUN 12 mg/dL (6-20) 07/31/18 17:05 Creatinine 1.1 mg/dL (0.4-1.0) H 07/31/18 17:05 Estimated GFR (MDRD) 47 (>89) L 07/31/18 17:05 Glucose 95 mg/dL (70-100) 07/31/18 17:05 Calcium 8.0 mg/dL (8.5-10.3) L 07/31/18 17:05 Total Bilirubin 0.6 mg/dL (0.2-1.0) 07/30/18 17:30 AST 25 IU/L (10-42) 07/30/18 17:30 ALT 12 IU/L (10-60) 07/30/18 17:30 Alkaline Phosphatase 52 IU/L (42-121) 07/30/18 17:30 Total Protein 7.2 g/dL (6.7-8.2) 07/30/18 17:30 Albumin 4.1 g/dL (3.2-5.5) 07/30/18 17:30 Globulin 3.1 g/dL (2.1-4.2) 07/30/18 17:30 Albumin/Globulin Ratio 1.3 (1.0-2.2) 07/30/18 17:30 Lipase 40 U/L (22-51) 07/30/18 17:30 Urine Color YELLOW 07/30/18 20:25 Urine Clarity CLEAR (CLEAR) 07/30/18 20:25 Urine pH 7.0 PH (5.0-7.5) 07/30/18 20:25 Ur Specific [place] 1.010 (1.002-1.030) 07/30/18 20:25 Urine Protein NEGATIVE mg/dL (NEGATIVE) 07/30/18 20:25 Urine Glucose (UA) NEGATIVE mg/dL (NEGATIVE) 07/30/18 20:25 Urine Ketones TRACE mg/dL (NEGATIVE) 07/30/18 20:25 Urine Occult Blood NEGATIVE (NEGATIVE) 07/30/18 20:25 Urine Nitrite NEGATIVE (NEGATIVE) 07/30/18 20:25 Urine Bilirubin NEGATIVE (NEGATIVE) 07/30/18 20:25 Urine Urobilinogen 0.2 (NORMAL) E.U./dL (NORMAL) 07/30/18 20:25 Ur Leukocyte Esterase NEGATIVE (NEGATIVE) 07/30/18 20:25 Ur Microscopic Review NOT INDICATED 07/30/18 20:25 Urine Culture Comments NOT INDICATED 07/30/18 20:25 ABX Reporting Has patient been on IV antibiotics over the past 48 hours?: No
== END 2018-07-31 18:35 | disposition home or self-care (01) ==
LOC: EDUNIT# → ED 16:58 → OBS 21:29
PROVIDERS: ADMIT Internal Medicine; ATTEND Internal Medicine
DX: E87.1 Hypo-osmolality and hyponatremia (principal); N17.9 Acute kidney failure, unspecified; E86.0 Dehydration; I10 Essential (primary) hypertension; R10.10 Upper abdominal pain, unspecified; K21.9 Gastro-esophageal reflux disease without esophagitis; J44.9 Chronic obstructive pulmonary disease, unspecified; F41.9 Anxiety disorder, unspecified; E78.00 Pure hypercholesterolemia, unspecified; K44.9 Diaphragmatic hernia without obstruction or gangrene; K59.09 Other constipation; R32 Unspecified urinary incontinence; G89.29 Other chronic pain; M54.9 Dorsalgia, unspecified; Z87.891 Personal history of nicotine dependence; Z66 Do not resuscitate; Z79.51 Long term (current) use of inhaled steroids
CPT/HCPCS: 36415; 74177; 80048; 80053; 81003; 83690; 85025; 96361; 96374; 99284; A9270; G0378; Q9967; 81001; 83930; 87086; 96360

== ENCOUNTER 2018-08-01 08:00 | Outpatient (CLI) | payer MEDICARE, MEDICAID ==
[2018-08-01 19:47] LABS: CREATININE 1.2 mg/dL (0.4-1.0)
[2018-08-01 20:08] LABS: CALCIUM 8.7 mg/dL (8.5-10.3)
== END 2018-08-01 23:59 | disposition home or self-care (01) ==
LOC: LAB.N 08:00
PROVIDERS: ATTEND Nurse Practitioner Gerontology
DX: E87.1 Hypo-osmolality and hyponatremia (principal)
CPT/HCPCS: 36415; 80048

== ENCOUNTER 2018-08-09 10:16 | Outpatient (CLI) | payer MEDICARE, MEDICAID ==
[2018-08-09 13:08] LABS: CALCIUM 8.9 mg/dL (8.5-10.3); CREATININE 1.1 mg/dL (0.4-1.0)
== END 2018-08-09 23:59 ==
LOC: LAB.N 10:16
PROVIDERS: ATTEND Nurse Practitioner Gerontology
DX: E87.1 Hypo-osmolality and hyponatremia (principal)
CPT/HCPCS: 36415; 80048

== ENCOUNTER 2018-09-09 21:09 | Outpatient (CLI) | payer MEDICARE, MEDICAID | END 2018-09-09 21:10 | disposition critical access hospital (66) | LOC: EMS 21:09 | PROVIDERS: ATTEND Surgery | DX: M79.605 Pain in left leg (principal); M79.604 Pain in right leg | CPT/HCPCS: A0425; A0429 ==

== ENCOUNTER 2018-09-09 21:25 | Emergency (ER) | payer MEDICARE, MEDICAID ==
--- NOTE | 2018-09-09 21:34 | ED Physician Documentation ---
PD HPI LOWER EXT INJURY - Stated complaint Stated Complaint: LEG CRAMPING - Chief complaint Chief Complaint: Trauma Ext - History obtained from History obtained from: Patient - History of Present Illness PD HPI LOW EXT INJURY LOCATION: Right, Left, Lower leg (she states she had legs cramps in both legs onset while lying in bed. Got up to walk around and felt better. No chest pain. Was concerned so call 911.) Type of injury: No: Fall, Twist Where injury occurred: Home Timing - onset: How many minutes ago (30-45) Timing - duration: Minutes (was improving and then onset again of the bilateral leg cramps. Denies discoloration of legs nor pallor. No weakness of legs.) Timing - details: Abrupt onset, Now resolved Worsened by: No: Moving, Palpating Associated symptoms: No: Weakness, Numbness Contributing factors: No: Anticoagulated, Prior ortho surgery Similar symptoms before: Has not had sx before (denies Any claudication when walking around. She states she does get tired easily last couple of months with walking into stores and such. No pedal edema nor calf tenderness walking around.) Recently seen: Not recently seen Review of Systems Constitutional: denies: Fever, Chills, Myalgias Nose: denies: Rhinorrhea / runny nose, Congestion Throat: denies: Sore throat Respiratory: denies: Cough GI: denies: Nausea, Vomiting, Diarrhea, Bloody / black stool Musculoskeletal: denies: Extremity swelling Neurologic: reports: Generalized weakness. 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 : None, Incontinence HEENT: Dental implants Psych: Anxiety Musculoskeletal: Chronic back pain Derm: None - Past Surgical History Past Surgical History: Yes General: Colonoscopy /SUPERVISOR BONDING: Hysterectomy - Present Medications Home Medications: Ambulatory Orders Medication Instructions Recorded Confirmed Omeprazole 20 mg PO QDAC 07/13/14 07/31/18 Lisinopril 40 mg PO DAILY 09/15/16 07/31/18 Budesonide [Pulmicort] 0.5 mg INH RTBID neb 04/23/17 07/31/18 Albuterol Sulf [Ventolin Hfa 2 puffs INH Q4HR PRN 07/31/18 07/31/18 Inhaler] Ipratropium/Albuterol [Duoneb] 3 ml INH Q4H PRN 07/31/18 07/31/18 - Allergies Allergies/Adverse Reactions: Allergies Allergy/AdvReac Type Severity Reaction Status Date / Time Penicillins Allergy Severe Rash Verified 09/09/18 21:31 - Social History Does the pt smoke?: No Smoking Status: Never smoker Does the pt drink ETOH?: No Does the pt have substance abuse?: No - Immunizations Immunizations are current?: No Immunizations: Other immun not current - POLST Patient has POLST: No POLST Status: DNR PD ED PE NORMAL - Vitals Vital signs reviewed: Yes - General General: Alert and oriented X 3, No acute distress, Well developed/nourished - HEENT HEENT: Moist mucous membranes, Pharynx benign - Neck Neck: Supple, no meningeal sign, No adenopathy - Cardiac Cardiac: RRR, No murmur - Respiratory Respiratory: Clear bilaterally - Abdomen Abdomen: Normal bowel sounds, Soft, Non distended - Back Back: No CVA TTP - Derm Derm: Normal color, Warm and dry - Extremities Extremities: No edema, No calf tenderness / cord Results - Vitals Vitals: Vital Signs - 24 hr 09/09/18 09/09/18 09/09/18 21:30 22:37 23:32 Temperature 37.0 C Heart Rate 77 73 83 Respiratory 18 16 16 Rate Blood Pressure 187/90 H 158/65 H 155/70 H O2 Saturation 99 95 96 Oxygen O2 Source [With Activity] on 0.5L O2 via NC O2 Source Room air - Labs Labs: Laboratory Tests 09/09/18 09/09/18 22:01 22:01 WBC 10.2 RBC 4.49 Hgb 11.8 L Hct 35.4 L MCV 78.7 L MCH 26.2 L MCHC 33.3 RDW 15.1 H Plt Count 250 MPV 8.3 Neut # (Auto) 7.9 H Lymph # (Auto) 1.3 L [place] # (Auto) 0.9 Eos # (Auto) 0.1 Baso # (Auto) 0.1 Absolute Nucleated RBC 0.01 Nucleated RBC % 0.1 Sodium 124 L Potassium 4.4 Chloride 92 L Carbon Dioxide 22 Anion Gap 10.0 BUN 21 H Creatinine 1.1 H Estimated GFR (MDRD) 47 L Glucose 113 H Calcium 8.4 L Magnesium 1.8 Total Bilirubin 0.5 AST 22 ALT 13 Alkaline Phosphatase 46 Total Creatine Kinase 52 Total Protein 6.5 L Albumin 3.6 Globulin 2.9 Albumin/Globulin Ratio 1.2 Lipase 34 Departure - Departure Disposition: 01 Home, Self Care Clinical Impression: Leg cramps Condition: Stable Record reviewed to determine appropriate education?: Yes Instructions: ED Muscle Pain Leg Cramps Follow-Up: Krystle Vazquez ARNP [Primary Care Provider] - Comments: Your sodium level is moderately low but at about the level that it commonly is. Is not really low like it was a month ago. Your other electrolytes are okay. Drink electrolyte replacement fluids. Not too much of just plain water. Continue usual medications. I did not see on your list any cholesterol medicines. Check your medicines at home though and if any of them end in "statin" then discontinue use of those. Otherwise use Tylenol or Ibuprofen/Naproxen as needed for pains/ cramps. Discharge Date/Time: 09/09/18 23:40
[2018-09-09] MEDS ORDERED: SODIUM CHLORIDE 0.9% 1,000 ML IV ONE (21:52)
[2018-09-09 22:07] LABS: BASOPHILS # (AUTO) 0.1 10^3/uL (0.0-0.1); BASOPHILS % (AUTO) 0.8 %; EOSINOPHILS # (AUTO) 0.1 10^3/uL (0.0-0.7); EOSINOPHILS % (AUTO) 0.7 %; HGB - HEMOGLOBIN 11.8 g/dL (12.0-16.0); LYMPHOCYTES # (AUTO) 1.3 10^3/uL (1.5-3.5); LYMPHOCYTES % (AUTO) 13.1 %; MEAN CORPUSCULAR HEMOGLOBIN 26.2 pg (27.0-31.0); MEAN CORPUSCULAR HGB CONC 33.3 g/dL (32.0-36.0); MEAN CORPUSCULAR VOLUME 78.7 fL (81.0-99.0); MEAN PLATELET VOLUME 8.3 fL (7.9-10.8); MONOCYTES # (AUTO) 0.9 10^3/uL (0.0-1.0); MONOCYTES % (AUTO) 8.4 %; NEUTROPHILS # (AUTO) 7.9 10^3/uL (1.5-6.6); PLT - PLATELET COUNT 250 10^3/uL (130-450); RED BLOOD COUNT 4.49 10^6/uL (4.20-5.40); RED CELL DISTRIBUTION WIDTH 15.1 % (12.0-15.0); WHITE BLOOD COUNT 10.2 x10^3/uL (4.8-10.8)
[2018-09-09 22:21] LABS: ALBUMIN 3.6 g/dL (3.2-5.5); ALBUMIN/GLOBULIN RATIO 1.2 (1.0-2.2); BILIRUBIN,TOTAL 0.5 mg/dL (0.2-1.0); CALCIUM 8.4 mg/dL (8.5-10.3); CREATININE 1.1 mg/dL (0.4-1.0); MAGNESIUM 1.8 mg/dL (1.7-2.8); TOTAL PROTEIN 6.5 g/dL (6.7-8.2)
[2018-09-09 23:37] VITALS: BP 155/70
== END 2018-09-09 23:40 | disposition home or self-care (01) ==
LOC: EDUNIT# → ED 21:25
DX: R25.2 Cramp and spasm (principal); E87.1 Hypo-osmolality and hyponatremia; E78.00 Pure hypercholesterolemia, unspecified
CPT/HCPCS: 36415; 80053; 82550; 83690; 83735; 85025; 96360; 99283

== ENCOUNTER 2018-09-15 08:00 | Outpatient (CLI) | payer MEDICARE, MEDICAID ==
[2018-09-15 18:32] LABS: BASOPHILS # (AUTO) 0.1 10^3/uL (0.0-0.1); BASOPHILS % (AUTO) 1.3 %; EOSINOPHILS # (AUTO) 0.1 10^3/uL (0.0-0.7); EOSINOPHILS % (AUTO) 1.2 %; HGB - HEMOGLOBIN 12.4 g/dL (12.0-16.0); LYMPHOCYTES # (AUTO) 1.6 10^3/uL (1.5-3.5); LYMPHOCYTES % (AUTO) 16.5 %; MEAN CORPUSCULAR HGB CONC 32.6 g/dL (32.0-36.0); MEAN CORPUSCULAR VOLUME 79.9 fL (81.0-99.0); MEAN PLATELET VOLUME 9.3 fL (7.9-10.8); MONOCYTES % (AUTO) 10.5 %; NEUTROPHILS # (AUTO) 6.7 10^3/uL (1.5-6.6); NEUTROPHILS % (AUTO) 70.5 %; PLT - PLATELET COUNT 284 10^3/uL (130-450); RED BLOOD COUNT 4.76 10^6/uL (4.20-5.40); RED CELL DISTRIBUTION WIDTH 15.4 % (12.0-15.0); WHITE BLOOD COUNT 9.4 x10^3/uL (4.8-10.8)
[2018-09-15 18:43] LABS: ALBUMIN 4.1 g/dL (3.2-5.5); ALBUMIN/GLOBULIN RATIO 1.4 (1.0-2.2); BILIRUBIN,TOTAL 0.6 mg/dL (0.2-1.0); CALCIUM 9.1 mg/dL (8.5-10.3); CREATININE 0.9 mg/dL (0.4-1.0); TOTAL PROTEIN 7.1 g/dL (6.7-8.2)
== END 2018-09-15 23:59 | disposition home or self-care (01) ==
LOC: LAB.N 08:00
PROVIDERS: ATTEND Family Medicine
DX: E87.1 Hypo-osmolality and hyponatremia (principal); D64.9 Anemia, unspecified
CPT/HCPCS: 36415; 80053; 85025

== ENCOUNTER 2018-10-09 03:38 | Outpatient (CLI) | payer MEDICARE, MEDICAID | END 2018-10-09 03:39 | disposition critical access hospital (66) | LOC: EMS 03:38 | PROVIDERS: ATTEND Surgery | DX: R53.1 Weakness (principal); R06.00 Dyspnea, unspecified; R05 Cough | CPT/HCPCS: A0425; A0429 ==

== ENCOUNTER 2018-10-09 03:53 | Observation (INO) | payer MEDICARE, MEDICAID ==
--- NOTE | 2018-10-09 04:15 | ED Physician Documentation ---
History of Present Illness - Stated complaint Stated Complaint: WEAKNESS - Chief complaint Chief Complaint: General - History obtained from History obtained from: Patient, Family - History of Present Illness Timing: Unknown (various complaints with various timeframes) Pain level now: 2 (back (chronic)) Improved by: rest Worsened by: movement - Additonal information Additional information: BIBA. Medics report patient c/o cough, body aches, generalized headache. Patient tells me she has back pain, although this is chronic. She c/o nausea, vomiting for past few days-weeks. She confirms she has had coughing, dyspnea since yesterday, although there is also a chronic component to this. 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 : None, Incontinence HEENT: Dental implants Psych: Anxiety Musculoskeletal: Chronic back pain Derm: None - Past Surgical History Past Surgical History: Yes General: Colonoscopy /TRANSIT AUTHORITY POLICE OFFICER: Hysterectomy - Present Medications Home Medications: Ambulatory Orders Medication Instructions Recorded Confirmed Omeprazole 40 mg PO QDAC 07/13/14 10/09/18 Albuterol Sulf [Ventolin Hfa 2 puffs INH Q4HR PRN 07/31/18 10/09/18 Inhaler] Ipratropium/Albuterol [Duoneb] 3 ml INH Q4H PRN 07/31/18 10/09/18 Amlodipine Besylate 10 mg PO DAILY 10/09/18 10/09/18 Amlodipine Besylate 10 mg PO DAILY 10/09/18 10/09/18 Baclofen 10 mg PO TID PRN 10/09/18 10/09/18 Cholecalciferol (Vitamin D3) 2,000 units PO DAILY 10/09/18 10/09/18 [Vitamin D3] Lisinopril 40 mg PO DAILY 10/09/18 10/09/18 Magnesium Oxide [Mag Ox] 400 mg PO DAILY 10/09/18 10/09/18 Psyllium [Metamucil] 1 packet PO DAILY 10/09/18 10/09/18 - Allergies Allergies/Adverse Reactions: Allergies Allergy/AdvReac Type Severity Reaction Status Date / Time Penicillins Allergy Severe Rash Verified 09/09/18 21:31 - Social History Does the pt smoke?: No Smoking Status: Never smoker Does the pt drink ETOH?: No Does the pt have substance abuse?: No - Immunizations Immunizations are current?: No Immunizations: Other immun not current - POLST Patient has POLST: No POLST Status: DNR PD ED PE NORMAL - Vitals Vital signs reviewed: Yes - General General: Alert and oriented X 3, Well developed/nourished, Other (very tangential, often not answering the questions asked; she appears anxious and mildly dyspneic) - HEENT HEENT: PERRL, EOMI, Other (dry mucous membranes) - Neck Neck: Supple, no meningeal sign - Cardiac Cardiac: RRR, No murmur - Abdomen Abdomen: Soft, Non tender - Derm Derm: Normal color, Warm and dry - Extremities Extremities: No edema - Neuro Neuro: Alert and oriented X 3, government services professional 2-12 intact, No motor deficit, No sensory deficit, Normal speech PD ED PE EXPANDED - Respiratory Respiratory: Rhonchi (right-sided rhonchi), Other (mild dyspnea) - Psych Psych: Anxious Results - Vitals Vitals: Oxygen O2 Source [With Activity] on 0.5L O2 via NC O2 Source Room air Oxygen Flow Rate 2 - Labs Labs: Laboratory Tests 10/09/18 10/09/18 10/09/18 04:00 04:00 04:00 WBC 10.9 H RBC 5.05 Hgb 13.2 Hct 39.5 MCV 78.3 L MCH 26.1 L MCHC 33.3 RDW 15.2 H Plt Count 296 MPV 8.6 Neut # (Auto) 8.5 H Lymph # (Auto) 1.3 L [place] # (Auto) 0.8 Eos # (Auto) 0.1 Baso # (Auto) 0.1 Absolute Nucleated RBC 0.01 Nucleated RBC % 0.1 Sodium 128 L Potassium 4.4 Chloride 94 L Carbon Dioxide 25 Anion Gap 9.0 BUN 24 H Creatinine 1.1 H Estimated GFR (MDRD) 47 L Glucose 107 H Lactic Acid Calcium 9.1 Total Bilirubin 0.4 AST 22 ALT 10 Alkaline Phosphatase 48 Troponin I < 0.04 B-Natriuretic Peptide Total Protein 7.1 Albumin 3.9 Globulin 3.2 Albumin/Globulin Ratio 1.2 Lipase 45 Urine Color Urine Clarity Urine pH Ur Specific [place] Urine Protein Urine Glucose (UA) Urine Ketones Urine Occult Blood Urine Nitrite Urine Bilirubin Urine Urobilinogen Ur Leukocyte Esterase Ur Microscopic Review Urine Culture Comments 10/09/18 10/09/18 10/09/18 04:00 04:28 04:40 WBC RBC Hgb Hct MCV MCH MCHC RDW Plt Count MPV Neut # (Auto) Lymph # (Auto) [place] # (Auto) Eos # (Auto) Baso # (Auto) Absolute Nucleated RBC Nucleated RBC % Sodium Potassium Chloride Carbon Dioxide Anion Gap BUN Creatinine Estimated GFR (MDRD) Glucose Lactic Acid 0.7 Calcium Total Bilirubin AST ALT Alkaline Phosphatase Troponin I B-Natriuretic Peptide 102 H Total Protein Albumin Globulin Albumin/Globulin Ratio Lipase Urine Color YELLOW Urine Clarity CLEAR Urine pH 7.0 Ur Specific [place] <=1.005 Urine Protein NEGATIVE Urine Glucose (UA) NEGATIVE Urine Ketones NEGATIVE Urine Occult Blood NEGATIVE Urine Nitrite NEGATIVE Urine Bilirubin NEGATIVE Urine Urobilinogen 0.2 (NORMAL) Ur Leukocyte Esterase NEGATIVE Ur Microscopic Review NOT INDICATED Urine Culture Comments NOT INDICATED PD MEDICAL DECISION MAKING - ED course Complexity details: reviewed old records, reviewed results, re-evaluated patient , considered differential, d/w patient, d/w family ED course: Patient cannot provide a clear chief complaint/concern regarding reason for this ED visit. Her daughter arrives to ED and tells me that this is not unusual behavior, and that patient has gradually become increasingly anxious over months/years, increasingly difficult to reassure, and can become defensive and even angry with little provocation. Patient appeared anxious and mildly dyspneic on presentation, but after tests resulted, reevaluated and she appears calm and in NAD. Results d/w patient and daughter and plan was d/c home; patient and daughter were comfortable with this plan. However, patient rapidly became irritated with RN as IV removed and EKG leads were being removed, and when moved from bed to wheelchair, she became pale and unresponsive. I was immediately called to room to reevaluate her; I found her to be pale, breathing spontaneously but not responding to verbal or tactile stimulus. Radial pulse is thready. She is no longer on cafeteria monitor, but pulse oximeter indicates pulse in mid/upper 40s. Within approximately 1-2 minutes, patient gradually improved in color and level of consciousness. She vomited x 1. She was then put back into the bed and, as she became more awake, was again angry with nursing staff for "causing me to black out". Plan is to admit for observation for syncopal episode. As per my conversation with the daughter, the circumstances of the event would suggest vasovagal episode. Departure - Departure Disposition: ED Place in Observation Clinical Impression: Hyponatremia, Nausea, Syncope Condition: Good Discharge Date/Time: 10/09/18 10:05
[2018-10-09] MEDS ORDERED: ONDANSETRON 4 MG/2 ML VIAL IVP STA (04:27)
[2018-10-09 04:30] LABS: BASOPHILS # (AUTO) 0.1 10^3/uL (0.0-0.1); BASOPHILS % (AUTO) 1.3 %; EOSINOPHILS # (AUTO) 0.1 10^3/uL (0.0-0.7); EOSINOPHILS % (AUTO) 1.3 %; HGB - HEMOGLOBIN 13.2 g/dL (12.0-16.0); LYMPHOCYTES # (AUTO) 1.3 10^3/uL (1.5-3.5); LYMPHOCYTES % (AUTO) 11.6 %; MEAN CORPUSCULAR HEMOGLOBIN 26.1 pg (27.0-31.0); MEAN CORPUSCULAR HGB CONC 33.3 g/dL (32.0-36.0); MEAN CORPUSCULAR VOLUME 78.3 fL (81.0-99.0); MEAN PLATELET VOLUME 8.6 fL (7.9-10.8); MONOCYTES # (AUTO) 0.8 10^3/uL (0.0-1.0); MONOCYTES % (AUTO) 7.2 %; NEUTROPHILS # (AUTO) 8.5 10^3/uL (1.5-6.6); NEUTROPHILS % (AUTO) 78.6 %; PLT - PLATELET COUNT 296 10^3/uL (130-450); RED BLOOD COUNT 5.05 10^6/uL (4.20-5.40); RED CELL DISTRIBUTION WIDTH 15.2 % (12.0-15.0); WHITE BLOOD COUNT 10.9 x10^3/uL (4.8-10.8)
[2018-10-09 04:37] LABS: ALBUMIN 3.9 g/dL (3.2-5.5); ALBUMIN/GLOBULIN RATIO 1.2 (1.0-2.2); BILIRUBIN,TOTAL 0.4 mg/dL (0.2-1.0); CALCIUM 9.1 mg/dL (8.5-10.3); CREATININE 1.1 mg/dL (0.4-1.0); TOTAL PROTEIN 7.1 g/dL (6.7-8.2)
[2018-10-09 04:44] LABS: BILIRUBIN,URINE NEGATIVE (NEGATIVE); CLARITY,URINE CLEAR (CLEAR); GLUCOSE, URINE (UA) NEGATIVE (NEGATIVE); KETONES,URINE (UA) NEGATIVE (NEGATIVE); LEUKOCYTE ESTERASE, URINE NEGATIVE (NEGATIVE); NITRITE,URINE NEGATIVE (NEGATIVE); OCCULT BLOOD,URINE NEGATIVE (NEGATIVE); PROTEIN,URINE NEGATIVE (NEGATIVE); UROBILINOGEN,URINE 0.2 (NORMAL) E.U./dL (NORMAL)
--- NOTE | 2018-10-09 05:12 | XRAY Report ---
Reason: dyspnea, cough Procedure Date: 10/09/2018 Accession Number: [id number] / [id number] Procedure: XR - Chest 2 View X-Ray CPT Code: 06711 FULL RESULT: EXAM: CHEST RADIOGRAPHY EXAM DATE: 10/09/2018 05:02 AM. CLINICAL HISTORY: Dyspnea, cough. COMPARISON: CHEST 2 VIEW PA/LAT 04/28/2017 9:43 AM. TECHNIQUE: 2 views. FINDINGS: Lungs/Pleura: No focal opacities evident. No pleural effusion. No pneumothorax. Normal volumes. Mediastinum: Heart and mediastinal contours are unremarkable. Other: Stable lower thoracic compression fracture. IMPRESSION: No evidence of acute cardiopulmonary disease. RADIA
[2018-10-09] MEDS ORDERED: SODIUM CHLORIDE 0.9% 500 ML IV STA (06:44)
[2018-10-09] MEDS ORDERED: LORazepam 2 MG/ML VIAL IVP STA (06:44)
[2018-10-09] MEDS ORDERED: TEMAZEPAM 15 MG CAPSULE PO PRN (09:08)
[2018-10-09] MEDS ORDERED: SODIUM CHLORIDE FLUSH 0.9% 10 ML SYRINGE IVP PRN (09:08)
[2018-10-09] MEDS ORDERED: HYDROmorphone 0.5 MG/0.5 ML SYRINGE IVP PRN (09:08)
[2018-10-09] MEDS: SODIUM CHLORIDE 0.9% 1,000 ML IV SCH ×2 (10:45→20:34)
[2018-10-09] MEDS ORDERED: LORazepam 2 MG/ML VIAL IVP PRN (11:16)
[2018-10-09] MEDS ORDERED: ETHYL CHLORIDE SPRAY TOP ONE (11:58)
[2018-10-09] MEDS ORDERED: BACLOFEN 10 MG TABLET PO PRN (12:01)
[2018-10-09] MEDS ORDERED: IPRATROPIUM/ALBUTEROL 3 ML NEB INH PRN (12:01)
--- NOTE | 2018-10-09 12:01 | HISTORY & PHYSICAL EXAMINATION ---
Chief Complaint - Chief Complaint Chief Complaint: syncope and collapse History of Present Illness - Admitted From Admitted From:: ED - History Obtained From Records Reviewed: yes History obtained from: family, chart review Exam Limitations: AMS - History of Present Illness HPI Comment/Other: Mary Reese is an 87-year old with a past medical history of hypertension, anxiety, depression, dementia, chronic pain, anemia, dysphagia, asthma, emphysema, diverticulosis, GI bleed, nocturia, female stress incontinence, GERD, glaucoma, hyperlipidemia, lumbar disc disease, parotidectomy, pulmonary embolism, status post hysterectomy, and COPD. She was brought in by EMS today for complaints of bladder incontinence, fevers, body aches, SHORE, generalized weakness. The patient wears 2L of O2 via nasal cannula at home. Medics reported that the patient originally complained of cough, body aches, generalized headache. Initially in the ED the patient complained of back pain, although this is chronic. She also complained of nausea, vomiting for past few days- weeks. She confirms she has had coughing, dyspnea since yesterday, although there is also a chronic component to this. Labs show a WBC count of 10.9, sodium of 128, BUN of 24, creatinine of 1.1, glucose 107, troponin 0.04, BNP 102, with no other abnormalities. Just before wheeling out of the ED, while taking out her IV, she became unresponsive, slumped over, and had a systolic blood pressure in the 50's. She will be admitted for further investigation to her syncope. 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: reports: Miscarriage(s) : reports: Incontinence, Chronic bladder infection, Nocturia HEENT: reports: Chronic vision loss, Chronic sinusitis, Dental implants, Other (glaucoma) Psych: reports: Depression, Anxiety, Panic attacks, Post traumatic stress disorder Musculoskeletal: reports: Osteoarthritis, Fatigue, Chronic back pain, Other (spinal DJD, compression fractures) Derm: reports: None MRSA Hx?: No - Past Surgical History General: reports: Colonoscopy, EGD /TRANSIT PLANNING MANAGER: reports: Hysterectomy - Family & Social History Family History: Mother: , Father: Family History Comment/Other: Father had DM, and heart disease. Mother- unknown Living arrangement: At home Living Situation: With family (lives with her son) Social History Notes: The patient lives at home with her son Rolan. She is . She had 5 pregnancies one of which was a miscarriage. She has 4 children, 15 grandchildren and 20 great grandchildren. She lives in [place]. The patient smoked a pack a day from the age of 26 and states that she stopped in 2003 the patients son does smoke but states he smokes outside. The patient does not drink alcohol and denies any illicit drug use. The patient continues to drive a car despite several episodes of syncope. She wishes to be a FULL code. - Substance History Use: Uses substance without health or social issues: NONE Abuse: Recurrent use of substance despite neg consequences: NONE Dependence: Experiences withdrawal or developed tolerances: NONE - POLST Patient has POLST: No POLST Status: Full Code Meds/Allgy - Home Medications Home Medications: Ambulatory Orders Medication Instructions Recorded Confirmed Omeprazole 40 mg PO QDAC 07/13/14 10/09/18 Albuterol Sulf [Ventolin Hfa 2 puffs INH Q4HR PRN 07/31/18 10/09/18 Inhaler] Ipratropium/Albuterol [Duoneb] 3 ml INH Q4H PRN 07/31/18 10/09/18 Amlodipine Besylate 10 mg PO DAILY 10/09/18 10/09/18 Amlodipine Besylate 10 mg PO DAILY 10/09/18 10/09/18 Baclofen 10 mg PO TID PRN 10/09/18 10/09/18 Cholecalciferol (Vitamin D3) 2,000 units PO DAILY 10/09/18 10/09/18 [Vitamin D3] Lisinopril 40 mg PO DAILY 10/09/18 10/09/18 Magnesium Oxide [Mag Ox] 400 mg PO DAILY 10/09/18 10/09/18 Psyllium [Metamucil] 1 packet PO DAILY 10/09/18 10/09/18 - Allergies Allergies/Adverse Reactions: Allergies Allergy/AdvReac Type Severity Reaction Status Date / Time Penicillins Allergy Severe Rash Verified 09/09/18 21:31 Review of Systems - Constitutional Constitutional: reports: Fatigue, Weakness, Weight loss - Eyes Eyes: reports: Vision loss - Ears, Nose & Throat Ears, Nose & Throat: reports: Hearing loss, Postnasal drainage, Dentures, Ying rseness - Cardiovascular Cariovascular: reports: Palpitations, Lightheadedness, Syncope, Exertional dyspnea - Respiratory Respiratory: reports: Cough, SOB with exertion - Gastrointestinal Gastrointestinal: reports: Nausea, Reflux/heartburn, Poor appetite - Genitourinary Genitourinary: reports: Dysuria, Incontinence (stress) - Musculoskeletal Musculoskeletal: reports: Back pain, Limited range of motion, Muscle weakness (restless legs), Joint pain, Joint swelling - Integumentary Integumentary: reports: Dryness - Neurological Neurological: reports: General weakness, Dizziness, Memory problems, Pre- existing deficit - Psychiatric Psychiatric: reports: Depression, Anxiety - Hematologic/Lymphatic Hematologic/Lymphatic: reports: Recurrent infections - All Other Systems All Other Systems: reports: Reviewed and negative Prior Level of Functionality: Lives independently, still drives a car, and uses no walker or cane. History of falls and syncope. Exam - Vital Signs Reviewed Vital Signs: Yes Vital Signs: Vital Signs x48h Temp Pulse Pulse Resp BP BP Pulse Ox 10/09/18 10:49 36.8 C 93 16 120/47 L 97 10/09/18 09:40 101 H 20 109/52 L 91 L 10/09/18 07:54 90 24 107/44 L 98 10/09/18 07:14 100 24 138/59 H 94 10/09/18 06:30 72 18 88/47 L 87 L 10/09/18 05:58 91 16 136/59 H 93 10/09/18 04:18 87 L - Physical Exam General Appearance: positive: Alert, Mild distress, Anxious, Lethargic Eyes Bilateral: positive: PERRL ENT: positive: Pharynx nml, Dry mucous membranes Neck: positive: Thyroid nml, No JVD, Trachea midline Respiratory: positive: Chest non-tender, No respiratory distress, Other (bilateral low lobe crackles) Cardiovascular: positive: No gallop, Irregularly irregular, Systolic murmur Peripheral Pulses: positive: 2+ Abdomen: positive: No organomegaly, Nml bowel sounds, Guarding, Other (rounded, soft) Back: positive: Nml inspection Skin: positive: No rash, Warm, Dry, Pallor Extremities: positive: Non-tender, Full ROM, Nml appearance, Pedal edema (trace BLEs) Neurologic/Psychiatric: positive: Disoriented to time, Weakness, Sensory loss, Slurred/abnml speech, Depressed mood/affect, Other (dementia with poor short term memory) Reflexes: Bicep (R): 3+, Bicep (L): 3+ Conclusion/Plan - Problem List (1) Altered mental status Conclusion/Plan: - Per family the patient has had evidence of confusion since arriving in the ED - She has had a decline in her functional status for at least the past 1 year Plan: Continue syncope work up (2) Syncope and collapse Conclusion/Plan: - Just before wheeling out of the ED, while taking out her IV, she became unresponsive, slumped over, and had a systolic blood pressure in the 50's - After reviewing history and interviewing the family, syncope has happened for several years and is centered around her mental state/stress level Plan: Echo, carotid dopplers, head MRI in the AM (3) Dehydration Conclusion/Plan: - BNP was 102 - On exam, the patient has very slight crackles, but does not appear overloaded Plan: Continue gentle IV fluids, monitor for potential overload (4) Ataxia Conclusion/Plan: - Family states that their mother often displays times of unbalance, but refuses to use a walker, "because then I look old" Plan: PT evaluation in the AM (5) Hyponatremia Conclusion/Plan: - Known to have chronic low sodium - Admitted with a sodium of 128, recheck was 130 - Likely due to polypharmacy, sedatives Plan: Continue to monitor, gentle IV fluids (6) Anxiety and depression Conclusion/Plan: - Listed in history and is likely long standing given the multiple reports of anxiety - Takes baclofen at home, but likely for restless legs - No specific prescribed medications for these conditions Plan: Give lorazepam for nausea and anxiety, monitor for improvement (7) Restless legs Conclusion/Plan: - Takes Baclofen and magnesium at home - Continues to complain of leg cramps here Plan: Continue meds here, add dilaudid if needed - Lab Results Lab results reviewed: Yes Josh Bones: 10/09/18 04:00 10/09/18 17:15 Core Measures - Anticipated LOS I expect patient to be DC'd or transferred within 96 hours.: Yes - DVT/VTE - Prophylaxis VTE/DVT Device ordered at admit?: Yes VTE/DVT Prophylaxis med ordered at admit?: Yes - Stroke - Rehab Assessment Rehab services assessment to be ordered?: Yes - AMI - Statin at Admit Aspirin Prescribed on Admit: Yes
--- NOTE | 2018-10-09 13:25 | Ultrasound Report ---
Reason: syncope and collapse Procedure Date: 10/09/2018 Accession Number: [id number] / [id number] Procedure: US - Carotid Doppler Complete CPT Code: FULL RESULT: EXAM: BILATERAL CAROTID AND VERTEBRAL ARTERY DUPLEX DOPPLER ULTRASOUND. EXAM DATE: 10/09/2018 12:07 PM CLINICAL HISTORY: Syncope and collapse. COMPARISON: None. TECHNIQUE: Grayscale imaging, color Doppler, and duplex spectral Doppler were used to evaluate the carotid and vertebral arteries bilaterally. Static images were obtained. FINDINGS: No significant plaque is identified in the right or left common or internal carotid arteries. Normal antegrade flow is present in bilateral vertebral arteries. VELOCITIES (cm/sec): Right CCA mid: PSV 68 cm/sec CCA dist: PSV 72 cm/sec ICA prox: PSV 77 cm/sec, EDV 17 cm/sec ICA mid: PSV 77 cm/sec, EDV 18 cm/sec ICA dist: PSV 58 cm/sec, EDV 13 cm/sec ECA: PSV 85 cm/sec Vert: PSV 72 cm/sec ICA/CCA: 1.06 Left CCA mid: PSV 122 cm/sec CCA dist: PSV 128 cm/sec ICA prox: PSV 102 cm/sec, EDV 22 cm/sec ICA mid: PSV 92 cm/sec, EDV 19 cm/sec ICA dist: PSV 86 cm/sec, EDV 19 cm/sec ECA: PSV 165 cm/sec Vert: PSV 77 cm/sec ICA/CCA: 0.8 ICA diameter stenosis: Right: <50% by velocity and <70% by NASCET criteria. Left: <50% by velocity and <70% by NASCET criteria. IMPRESSION: 1. No significant bilateral carotid artery plaquing. 2. In the right carotid artery there are no elevated carotid artery velocities to suggest hemodynamically significant stenosis. 3. In the left carotid artery there are mildly elevated velocities in the external carotid artery, and borderline elevated flow velocities in the distal common carotid artery. No elevated internal carotid artery velocities to suggest hemodynamically significant stenosis. 4. Normal antegrade flow is present in bilateral vertebral arteries. General Recommendations: Stenosis =50% ICA - Follow-up ultrasound 6-12 months Stenosis <50% ICA - High Risk Patient with plaque - Follow-up ultrasound 1-2 years Normal Study but High Risk Patient - Follow-up ultrasound 3-5 years Management recommendations and diagnostic criteria are based on current IAC endorsed standards in Carotid Artery Stenosis: Grayscale and Doppler Ultrasound Diagnosis. Validated velocity measurements with angiographic measurements and velocity criteria are extrapolated from diameter data as defined by the Society of Radiologists in Ultrasound Consensus Conference Radiology 2003; 229;340-346. RADIA
[2018-10-09] MEDS: ACETAMINOPHEN 325 MG TABLET PO PRN (14:55)
[2018-10-09] MEDS: SODIUM CHLORIDE FLUSH 0.9% 10 ML SYRINGE IVP SCH (16:45)
[2018-10-09] MEDS ORDERED: GI COCKTAIL 120 ML BOTTLE PO ONE (17:03)
[2018-10-09 17:28] LABS: CALCIUM 8.3 mg/dL (8.5-10.3); CREATININE 1.1 mg/dL (0.4-1.0)
[2018-10-09] MEDS: ASPIRIN 325 MG TABLET PO SCH (17:52)
[2018-10-09] MEDS: FAMOTIDINE 20 MG TABLET PO SCH (20:33)
[2018-10-09] MEDS ORDERED: ATORVASTATIN 40 MG TABLET PO SCH (21:00)
[2018-10-10] MEDS: SODIUM CHLORIDE FLUSH 0.9% 10 ML SYRINGE IVP SCH ×2 (01:18→09:20)
[2018-10-10 04:58] LABS: CHOL/HDL RATIO 2.4 (<4.4); CHOLESTEROL 166 mg/dL; HDL CHOLESTEROL 70 mg/dL
[2018-10-10 05:21] LABS: LDL CHOLESTEROL,DIRECT 86 mg/dL; LDLD/HDL RATIO 1.2 (<4.4)
[2018-10-10] MEDS: SODIUM CHLORIDE 0.9% 1,000 ML IV SCH (05:41)
[2018-10-10] MEDS ORDERED: PSYLLIUM PACKET PO SCH (09:00)
[2018-10-10] MEDS ORDERED: ENOXAPARIN 40 MG/0.4 ML SYRINGE SUBQ SCH (09:00)
[2018-10-10] MEDS ORDERED: MAGNESIUM OXIDE 400 MG TABLET PO SCH (09:00)
[2018-10-10] MEDS ORDERED: POLYETHYLENE GLYCOL 3350 17 GM PACKET PO SCH (09:00)
[2018-10-10] MEDS: FAMOTIDINE 20 MG TABLET PO SCH (09:18)
[2018-10-10] MEDS: ASPIRIN 325 MG TABLET PO SCH (09:19)
[2018-10-10] MEDS: ACETAMINOPHEN 325 MG TABLET PO PRN (09:25)
[2018-10-10] MEDS ORDERED: MIDODRINE 2.5 MG TABLET PO SCH (12:00)
--- NOTE | 2018-10-10 12:01 | MRI Report ---
Reason: syncope and collapse Procedure Date: 10/10/2018 Accession Number: [id number] / [id number] Procedure: MRI - Brain W/O CPT Code: FULL RESULT: EXAM: MRI BRAIN WITHOUT CONTRAST EXAM DATE: 10/10/2018 11:32 AM. CLINICAL HISTORY: Syncope and collapse. Headache. Generalized weakness. COMPARISON: No prior brain MRI. TECHNIQUE: Multiplanar, multisequence T1-weighted and fluid-sensitive MR sequences of the brain were performed. Sequences optimized for routine evaluation. Other: None. IV Contrast: None. FINDINGS: Mild diffuse atrophy. No acute infarct or acute hemorrhage. No midline shift or abnormal subdural fluid collection. Mild to moderate chronic appearing white matter disease, likely from aging and chronic microangiopathy. Mild ventriculomegaly, more likely from atrophy than hydrocephalus. Prominent degenerative changes partially visualized in the upper cervical spine. The major arterial skull base flow voids are present. IMPRESSION: Moderately prominent chronic senescent changes. No MRI evidence for acute intracranial abnormality. RADIA
--- NOTE | 2018-10-10 12:03 | Discharge Plan ---
Discharge Plan Disposition: 01 Home, Self Care Condition: Good Prescriptions: Aspirin [Adult Aspirin Regimen] 81 mg PO DAILY #30 tablet. Fluticasone/Salmeterol [Advair 250-50 Diskus] 1 each IH BID #1 blst.w.dev Lisinopril 10 mg PO DAILY #30 tablet Midodrine 2.5 mg PO TIDWM #90 tablet Montelukast [Singulair] 10 mg PO QPM #30 tablet Tiotropium [place] [Spiriva] 5 puffs IH DAILY #30 cap.w.dev Diet: Regular Activity Restrictions: NO driving until seen by your PCP Assistance Devices: Walker Weight Bearing: Full Weight Additional Instructions or Follow Up instructions: You came to the ED yesterday and when it was time to leave you passed out, so further investigation was needed. The most concerning thing about your recurrent episodes is that you state that you are still driving. Since we have not found a true cause of your episodes, you are medically advised NOT to continue driving until you get further direction from your primary care provider. Although your brain MRI was negative for a stroke or bleeding, it did show moderate evidence of dementia, which may explain your short term memory loss. All testing including; orthostatic vital signs, telemetry monitoring, an echocardiogram and a carotid Doppler study all were non-diagnostic in evaluating syncope. After reviewing all of your blood pressure readings, your diastolic readings were low (the bottom number). Low blood pressure might seem desirable, and for some people, it causes no problems. However, for many people, abnormally low blood pressure (hypotension) can cause dizziness and fainting. In severe cases, low blood pressure can be life-threatening. A blood pressure reading lower than 90 millimeters of mercury (mm Hg) for the top number (systolic) or 60 mm Hg for the bottom number (diastolic) is generally considered low blood pressure. The causes of low blood pressure can range from dehydration to serious medical or surgical disorders. It's important to find out what's causing your low blood pressure so that it can be treated. To help treat this, I am prescribing a medication called midodrine to help your diastolic blood pressure stay in the normal range. You should continue your Lisinopril, but at only 10 mg per day. Please stop the Norvasc (amlodipine) until further direction. To properly manage your COPD please take Spiriva every day, Advair twice daily (rinse your mouth afterwards), and a pill at night called Singular. You should avoid all sedatives, and if needed, only take them before bed-time. Please see your PCP within one week- or later this week as a follow up to your stay. Follow-Up Care: [facility] - Pulmonary No Smoking: If you smoke, Please STOP! Call for help. Follow-up with: Krystle Vazquez ARNP [Primary Care Provider] -
[2018-10-10] MEDS ORDERED: FUROSEMIDE 20 MG TABLET PO SCH (14:06)
[2018-10-10 14:16] VITALS: BP 137/45
--- NOTE | 2018-10-10 18:26 | DISCHARGE SUMMARY ---
Discharge Summary Admit Date: 10/09/18 Discharge Date: 10/10/18 Discharging Provider: OMAYRA Romero Primary Care Provider: Krystle Vazquez Code Status: Attempt Resuscitation Condition at Discharge: Good Discharge Disposition: 01 Home, Self Care - DIAGNOSES Admission Diagnoses: Syncope and collapse (R55) Altered mental status (R41.82) Dehydration (E86.0) Ataxia (R27.0) Anxiety and depression (F41.9) Restless legs (G25.81) Discharge Diagnoses with Status of Each Condition: Syncope and collapse (R55) Main culprit has not been determined, diastolic blood pressure was low 35-50's throughout her stay, which may be the source of her syncope. All other testing; telemetry monitoring, carotid Doppler, and orthostatic vital signs were insignificant. Very low dose midodrine was prescribed, norvasc stopped as this could make this worse. 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 The patient and her family were made aware of this and given this reason as the 2nd good reason to refrain from driving. 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 Proper inhalers and Singular sent to [facility] to use at home, may need further teaching - HPI History of Present Illness: Mary Reese is an 87-year old with a past medical history of hypertension, anxiety, depression, dementia, chronic pain, anemia, dysphagia, asthma, emphysema, diverticulosis, GI bleed, nocturia, female stress incontinence, GERD, glaucoma, hyperlipidemia, lumbar disc disease, parotidectomy, pulmonary embolism, status post hysterectomy, and COPD. She was brought in by EMS today for complaints of bladder incontinence, fevers, body aches, SHORE, generalized weakness. The patient wears 2L of O2 via nasal cannula at home. Medics reported that the patient originally complained of cough, body aches, generalized headache. Initially in the ED the patient complained of back pain, although this is chronic. She also complained of nausea, vomiting for past few days-week s. She confirms she has had coughing, dyspnea since yesterday, although there is also a chronic component to this. Labs show a WBC count of 10.9, sodium of 128, BUN of 24, creatinine of 1.1, glucose 107, troponin 0.04, BNP 102, with no other abnormalities. Just before wheeling out of the ED, while taking out her IV, she became unresponsive, slumped over, and had a systolic blood pressure in the 5 0's. She will be admitted for further investigation to her syncope. - ALLERGIES Allergies/Adverse Reactions: Allergies Allergy/AdvReac Type Severity Reaction Status Date / Time Penicillins Allergy Severe Rash Verified 09/09/18 21:31 - MEDICATIONS Home Medications: Ambulatory Orders Medication Instructions Recorded Confirmed Omeprazole 20 mg PO QDAC 07/13/14 10/10/18 Albuterol Sulf [Ventolin Hfa 2 puffs INH Q4HR PRN 07/31/18 10/09/18 Inhaler] Ipratropium/Albuterol [Duoneb] 3 ml INH Q4H PRN 07/31/18 10/09/18 Magnesium Oxide [Mag Ox] 400 mg PO DAILY 10/09/18 10/09/18 Psyllium [Metamucil] 1 packet PO DAILY 10/09/18 10/09/18 Aspirin [Adult Aspirin Regimen] 81 mg PO DAILY #30 tablet. 10/10/18 Cholecalciferol (Vitamin D3) 800 units PO DAILY 10/10/18 10/10/18 [Vitamin D3] Fluticasone/Salmeterol [Advair 1 each IH BID #1 blst.w.dev 10/10/18 250-50 Diskus] Lisinopril 10 mg PO DAILY #30 tablet 10/10/18 Midodrine 2.5 mg PO TIDWM #90 tablet 10/10/18 Montelukast [Singulair] 10 mg PO QPM #30 tablet 10/10/18 Tiotropium [place] [Spiriva] 5 puffs IH DAILY #30 cap.w.dev 10/10/18 - PHYSICAL EXAM AT DISCHARGE General Appearance: positive: Alert, Moderate distress, Anxious Eyes Bilateral: positive: Normal inspection, PERRL ENT: positive: Pharynx nml, No signs of dehydration Neck: positive: Thyroid nml, No JVD, Trachea midline Respiratory: positive: Chest non-tender, No respiratory distress, Wheezes (expiratory wheezing) Cardiovascular: positive: Regular rate & rhythm, No gallop, Systolic murmur Peripheral Pulses: positive: 2+ Abdomen: positive: Non-tender, Nml bowel sounds Back: positive: Nml inspection Skin: positive: No rash, Warm, Dry, Pallor Extremities: positive: Non-tender, Full ROM, Nml appearance, Pedal edema (mild to BLEs) Neurologic/Psychiatric: positive: CN's nml (2-12), Motor nml, Weakness, Sensory loss, Slurred/abnml speech, Depressed mood/affect, Other (very severe short term memory loss) Reflexes: Bicep (R): 3+, Bicep (L): 3+ - LABS Result Diagrams: 10/09/18 04:00 10/09/18 17:15 - DIAGNOSTIC IMAGING Diagnostic Imaging Results: Final report reviewed Diagnostic Imaging Results Comments: EXAM: MRI BRAIN WITHOUT CONTRAST EXAM DATE: 10/10/2018 11:32 AM CLINICAL HISTORY: Syncope and collapse. Headache. Generalized weakness. FINDINGS: Mild diffuse atrophy. No acute infarct or acute hemorrhage. No midline shift or abnormal subdural fluid collection. Mild to moderate chronic appearing white matter disease, likely from aging and chronic microangiopathy. Mild ventriculomegaly, more likely from atrophy than hydrocephalus. Prominent degenerative changes partially visualized in the upper cervical spine. The major arterial skull base flow voids are present. IMPRESSION: Moderately prominent chronic senescent changes. No MRI evidence for acute intracranial abnormality. EXAM: BILATERAL CAROTID AND VERTEBRAL ARTERY DUPLEX DOPPLER ULTRASOUND EXAM DATE: 10/09/2018 12:07 PM IMPRESSION: 1. No significant bilateral carotid artery plaquing. 2. In the right carotid artery there are no elevated carotid artery velocities to suggest hemodynamically significant stenosis. 3. In the left carotid artery there are mildly elevated velocities in the external carotid artery, and borderline elevated flow velocities in the distal common carotid artery. No elevated internal carotid artery velocities to suggest hemodynamically significant stenosis. 4. Normal antegrade flow is present in bilateral vertebral arteries. General Recommendations: Stenosis =50% ICA - Follow-up ultrasound 6-12 months. Stenosis <50% ICA - High Risk Patient with plaque - Follow-up ultrasound 1-2 years. Normal Study but High Risk Patient - Follow-up ultrasound 3-5 years EXAM: CHEST RADIOGRAPHY EXAM DATE: 10/09/2018 05:02 AM IMPRESSION: No evidence of acute cardiopulmonary disease. Preliminary Echo results 10/09/2018: EF >75%, LV function is hyperdynamic, no regional wall abnormalities, diastolic function is indeterminate. Mild mitral regurg, RVSP at rest is 39 mmHg, with no other abnormalities. - FOLLOW UP Follow Up: Disposition: Home, Self Care Prescriptions: Aspirin [Adult Aspirin Regimen] 81 mg PO DAILY #30 tablet. Fluticasone/Salmeterol [Advair 250-50 Diskus] 1 each IH BID #1 blst.w.dev Lisinopril 10 mg PO DAILY #30 tablet Midodrine 2.5 mg PO TIDWM #90 tablet Montelukast [Singulair] 10 mg PO QPM #30 tablet Tiotropium [place] [Spiriva] 5 puffs IH DAILY #30 cap.w.dev Activity Restrictions: NO driving until seen by your PCP Additional Instructions or Follow Up instructions: You came to the ED yesterday and when it was time to leave you passed out, so further investigation was needed. The most concerning thing about your recurrent episodes is that you state that you are still driving. Since we have not found a true cause of your episodes, you are medically advised NOT to continue driving until you get further direction from your primary care provider. Although your brain MRI was negative for a stroke or bleeding, it did show moderate evidence of dementia, which may explain your short term memory loss. All testing including; orthostatic vital signs, telemetry monitoring, an e chocardiogram and a carotid Doppler study all were non-diagnostic in evaluating syncope. After reviewing all of your blood pressure readings, your diastolic readings were low (the bottom number). Low blood pressure might seem desirable, and for some people, it causes no problems. However, for many people, abnormally low blood pressure (hypotension) can cause dizziness and fainting. In severe cases, low blood pressure can be life-threatening. A blood pressure reading lower than 90 millimeters of mercury (mm Hg) for the top number (systolic) or 60 mm Hg for the bottom number (diastolic) is generally considered low blood pressure. The causes of low blood pressure can range from dehydration to serious medical or surgical disorders. It's important to find out what's causing your low blood pressure so that it can be treated. To help treat this, I am prescribing a medication called midodrine to help your diastolic blood pressure stay in the normal range. You should continue your Lisinopril, but at only 10 mg per day. Please stop the Norvasc (amlodipine) until further direction. To properly manage your COPD please take Spiriva every day, Advair twice daily (rinse your mouth afterwards), and a pill at night called Singular. You should avoid all sedatives, and if needed, only take them before bed-time. Please see your PCP within one week- or later this week as a follow up to your stay. - TIME SPENT Time Spent in Discharge (Minutes): 65
== END 2018-10-10 14:55 | disposition home or self-care (01) ==
LOC: EDUNIT# → ED 03:53 → OBS 09:08
PROVIDERS: ADMIT Nurse Practitioner; ATTEND Nurse Practitioner
DX: R55 Syncope and collapse (principal); I95.0 Idiopathic hypotension; F03.91 Unspecified dementia, unspecified severity, with behavioral disturbance; R41.82 Altered mental status, unspecified; E86.0 Dehydration; E87.1 Hypo-osmolality and hyponatremia; R27.0 Ataxia, unspecified; F41.9 Anxiety disorder, unspecified; F32.9 Major depressive disorder, single episode, unspecified; F43.9 Reaction to severe stress, unspecified; G25.81 Restless legs syndrome; I25.10 Atherosclerotic heart disease of native coronary artery without angina pectoris; J43.9 Emphysema, unspecified; D64.9 Anemia, unspecified; R13.10 Dysphagia, unspecified; R35.1 Nocturia; N39.3 Stress incontinence (female) (male); R30.0 Dysuria; G89.29 Other chronic pain; Z86.711 Personal history of pulmonary embolism; M51.36 Other intervertebral disc degeneration, lumbar region; K21.9 Gastro-esophageal reflux disease without esophagitis; E78.5 Hyperlipidemia, unspecified; H40.9 Unspecified glaucoma; H91.90 Unspecified hearing loss, unspecified ear; Z99.81 Dependence on supplemental oxygen; M19.90 Unspecified osteoarthritis, unspecified site; Z87.891 Personal history of nicotine dependence; Z87.19 Personal history of other diseases of the digestive system; Z87.01 Personal history of pneumonia (recurrent); E89.89 Other postprocedural endocrine and metabolic complications and disorders; Z79.51 Long term (current) use of inhaled steroids; Z79.899 Other long term (current) drug therapy
CPT/HCPCS: 36415; 70551; 71046; 80048; 80061; 81003; 83605; 83690; 83721; 83880; 84484; 86140; 93306; 93880; 96361; 96372; 96374; 96375; 99284; A9270; G0378; J1170; J1650; J2060; 80053; 81001; 84443; 85025; 87086; 99285

== ENCOUNTER 2018-10-12 08:00 | Outpatient (CLI) | payer MEDICARE, MEDICAID ==
[2018-10-12 13:11] LABS: BUN - BLOOD UREA NITROGEN 12 mg/dL (6-20); CALCIUM 8.6 mg/dL (8.5-10.3); CARBON DIOXIDE - CO2 24 mmol/L (21-32); CHLORIDE 94 mmol/L (101-111); CHOL/HDL RATIO 2.6 (<4.4); CHOLESTEROL 196 mg/dL; CREATININE 0.9 mg/dL (0.4-1.0); GFR - MDRD 60 (>89); GLUCOSE 113 mg/dL (70-100); HDL CHOLESTEROL 75 mg/dL; LDL CHOLESTEROL,CALCULATED 110 mg/dL; LDL/HDL RATIO 1.5 (<4.4); SODIUM 128 mmol/L (135-145); VLDL CHOLESTEROL 11 mg/dL
== END 2018-10-12 23:59 | disposition home or self-care (01) ==
LOC: LAB.N 08:00
PROVIDERS: ATTEND Nurse Practitioner Gerontology
DX: E87.1 Hypo-osmolality and hyponatremia (principal); I10 Essential (primary) hypertension
CPT/HCPCS: 36415; 80048; 80061; 83721

== ENCOUNTER 2018-11-07 08:00 | Outpatient (CLI) | payer MEDICARE, MEDICAID ==
[2018-11-07 12:14] LABS: CALCIUM 8.7 mg/dL (8.5-10.3); CREATININE 1.1 mg/dL (0.4-1.0)
== END 2018-11-07 23:59 | disposition home or self-care (01) ==
LOC: LAB.N 08:00
PROVIDERS: ATTEND Nurse Practitioner Gerontology
DX: E87.1 Hypo-osmolality and hyponatremia (principal)
CPT/HCPCS: 36415; 80048

== ENCOUNTER 2018-12-14 13:20 | Outpatient (CLI) | payer MEDICARE, MEDICAID ==
[2018-12-14 19:02] LABS: BASOPHILS # (AUTO) 0.1 10^3/uL (0.0-0.1); BASOPHILS % (AUTO) 1.1 %; EOSINOPHILS # (AUTO) 0.1 10^3/uL (0.0-0.7); EOSINOPHILS % (AUTO) 1.3 %; HGB - HEMOGLOBIN 11.3 g/dL (12.0-16.0); LYMPHOCYTES # (AUTO) 1.4 10^3/uL (1.5-3.5); LYMPHOCYTES % (AUTO) 17.5 %; MEAN CORPUSCULAR VOLUME 80.8 fL (81.0-99.0); MEAN PLATELET VOLUME 11.6 fL (7.9-10.8); MONOCYTES # (AUTO) 0.9 10^3/uL (0.0-1.0); MONOCYTES % (AUTO) 10.7 %; NEUTROPHILS # (AUTO) 5.7 10^3/uL (1.5-6.6); NEUTROPHILS % (AUTO) 68.9 %; PLT - PLATELET COUNT 291 10^3/uL (130-450); RED BLOOD COUNT 4.52 10^6/uL (4.20-5.40); RED CELL DISTRIBUTION WIDTH 14.9 % (12.0-15.0); WHITE BLOOD COUNT 8.2 x10^3/uL (4.8-10.8)
[2018-12-14 19:38] LABS: BUN - BLOOD UREA NITROGEN 15 mg/dL (6-20); CALCIUM 8.4 mg/dL (8.5-10.3); CARBON DIOXIDE - CO2 24 mmol/L (21-32); CHLORIDE 102 mmol/L (101-111); CHOL/HDL RATIO 3.2 (<4.4); CHOLESTEROL 220 mg/dL; GFR - MDRD 53 (>89); GLUCOSE 85 mg/dL (70-100); HDL CHOLESTEROL 69 mg/dL; LDL CHOLESTEROL,CALCULATED 140 mg/dL; SODIUM 136 mmol/L (135-145); VLDL CHOLESTEROL 11 mg/dL
== END 2018-12-14 23:59 | disposition home or self-care (01) ==
LOC: LAB.N 13:20
PROVIDERS: ATTEND Nurse Practitioner Gerontology
DX: E87.1 Hypo-osmolality and hyponatremia (principal); I10 Essential (primary) hypertension
CPT/HCPCS: 36415; 80048; 80061; 83721; 85025

== ENCOUNTER 2019-01-18 09:26 | Outpatient (CLI) | payer MEDICARE, MEDICAID ==
--- NOTE | 2019-01-18 10:31 | Mammography Report ---
Reason: BILAT BREAST PAIN Procedure Date: 01/18/2019 Accession Number: [id number] / [id number] Procedure: BILLY - Diagnostic Dig Bilat CPT Code: FULL RESULT: EXAM: Diagnostic Dig Bilat DATE: 01/18/2019 10:20 AM CLINICAL HISTORY: Right breast pain after injury December 29, now resolved per patient. Left breast tenderness lower outer breast elicited at PCP exam, also resolved now per patient. No reported personal or family history of breast cancer. TECHNIQUE: (B) - Bilateral CC and MLO views were obtained. COMPARISON: 09/22/2017 through 09/05/2010 PARENCHYMAL PATTERN: (A) - The breasts demonstrate scattered fibroglandular densities bilaterally. FINDINGS: Bilateral breasts: Stable mild symmetric nipple retraction. There are no suspicious masses, calcifications, or areas of distortion. There is no mammographic finding in either breast to correspond to recent symptoms, now resolved. There is no tenderness to palpation of the left breast at exam today. IMPRESSION: Benign findings. BI-RADS category 2. RECOMMENDATION: (ANNUAL) - Recommend routine annual screening mammography. Clinical follow-up for recent symptoms is recommended. Patient should return for additional evaluation for any recurrence or new symptoms/concerns. BI-RADS CATEGORY: (2) - Benign Findings. STANDARD QUALIFYING STATEMENTS: 1. This examination was not reviewed with the aid of Computer-Aided Detection (CAD). 2. A negative or benign imaging report should not preclude biopsy if clinically suspicious findings are present. 3. Dense breasts may obscure an underlying neoplasm. 4. This examination was reviewed without the aid of 3D breast imaging (tomosynthesis).
== END 2019-01-18 09:27 | disposition home or self-care (01) ==
LOC: DI 09:26
PROVIDERS: ATTEND Family Medicine
DX: N64.4 Mastodynia (principal)
CPT/HCPCS: 77066

== ENCOUNTER 2019-02-09 07:04 | Outpatient (CLI) | payer MEDICARE, MEDICAID | END 2019-02-09 07:05 | disposition critical access hospital (66) | LOC: EMS 07:04 | PROVIDERS: ATTEND Surgery | DX: R11.2 Nausea with vomiting, unspecified (principal); R55 Syncope and collapse | CPT/HCPCS: A0425; A0427 ==

== ENCOUNTER 2019-02-09 07:20 | Emergency (ER) | payer MEDICARE, MEDICAID ==
[2019-02-09 08:22] LABS: ALBUMIN 3.4 g/dL (3.2-5.5); ALBUMIN/GLOBULIN RATIO 1.2 (1.0-2.2); BILIRUBIN,TOTAL 0.7 mg/dL (0.2-1.0); CALCIUM 8.7 mg/dL (8.5-10.3); TOTAL PROTEIN 6.3 g/dL (6.7-8.2)
--- NOTE | 2019-02-09 08:23 | ED Physician Documentation ---
PD HPI NVD - Stated complaint Stated Complaint: N/V - Chief complaint Chief Complaint: Abd Pain - History obtained from History obtained from: Patient - History of Present Illness Timing - onset: Today Timing - duration: Minutes Timing - details: Abrupt onset, Now resolved Associated symptoms: Near syncope / syncope, Other (nausea/vomiting.) Contributing factors: Other (head injury yesterday) Improved by: Laying still Similar symptoms before: Diagnosis (vasovagal syncope) Recently seen: Clinic - Additonal information Additional information: 88 y/o female with a history or vasovagl syncope had a fall yesterday in her bedroom when she turned around too quickly. She fell between the bed and the bedside stand and struck the back of her head and landed on her buttocks. She has low back pain and occipital pain. She canceled a doctors appointment yesterday. This morning at 6am she was wiping a sore area on her buttocks when she had a syncopal episode. She has a history of vasovagal syncope since age 9. Review of Systems Constitutional: reports: Chills, Sweats. denies: Fever Eyes: denies: Decreased vision Ears: denies: Ear pain Nose: denies: Congestion Throat: denies: Sore throat Cardiac: denies: Chest pain / pressure, Palpitations Respiratory: denies: Dyspnea, Cough GI: reports: Nausea, Vomiting. denies: Abdominal Pain : denies: Dysuria, Frequency Skin: reports: Rash Musculoskeletal: reports: Back pain. denies: Neck pain, Extremity pain Neurologic: reports: Generalized weakness, Syncope, Head injury. denies: Focal weakness, Numbness, Difficulty speaking, Altered mental status, Headache, LOC PD PAST MEDICAL HISTORY - Past Medical History Past Medical History: Yes Cardiovascular: Hypertension, High cholesterol Respiratory: COPD Endocrine/Autoimmune: None GI: GERD, Hiatal hernia, Chronic constipation NON CATEG[employer]ICAL [employer]ER: None : None, Incontinence HEENT: Dental implants Psych: Anxiety Musculoskeletal: Chronic back pain Derm: None Other Past Medical History: "syncope" - Past Surgical History Past Surgical History: Yes General: Colonoscopy /NON CATEGORICAL [employer]ER: Hysterectomy - Present Medications Home Medications: Ambulatory Orders Medication Instructions Recorded Confirmed Omeprazole 20 mg PO QDAC 07/13/14 10/10/18 Albuterol Sulf [Ventolin Hfa 2 puffs INH Q4HR PRN 07/31/18 10/09/18 Inhaler] Ipratropium/Albuterol [Duoneb] 3 ml INH Q4H PRN 07/31/18 10/09/18 Magnesium Oxide [Mag Ox] 400 mg PO DAILY 10/09/18 10/09/18 Psyllium [Metamucil] 1 packet PO DAILY 10/09/18 10/09/18 Aspirin [Adult Aspirin Regimen] 81 mg PO DAILY #30 tablet. 10/10/18 Cholecalciferol (Vitamin D3) 800 units PO DAILY 10/10/18 10/10/18 [Vitamin D3] Fluticasone/Salmeterol [Advair 1 each IH BID #1 blst.w.dev 10/10/18 250-50 Diskus] Lisinopril 10 mg PO DAILY #30 tablet 10/10/18 Montelukast [Singulair] 10 mg PO QPM #30 tablet 10/10/18 Tiotropium [place] [Spiriva] 5 puffs IH DAILY #30 cap.w.dev 10/10/18 Citalopram [CeleXA] 0 mg DAILY 02/09/19 02/09/19 Halobetasol Propionate 15 gm TP 02/09/19 Hydrocodone/Acetaminophen 1 - 2 each PO Q6H PRN #14 tablet 02/09/19 [Hydrocodon-Acetaminophen 5-325] - Allergies Allergies/Adverse Reactions: Allergies Allergy/AdvReac Type Severity Reaction Status Date / Time Penicillins Allergy Severe Rash Verified 02/09/19 07:29 4 other meds Allergy Unknown Uncoded 02/09/19 07:29 - Social History Does the pt smoke?: No Smoking Status: Never smoker Does the pt drink ETOH?: No Does the pt have substance abuse?: No - Immunizations Immunizations are current?: No Immunizations: Other immun not current - POLST Patient has POLST: No POLST Status: DNR PD ED PE NORMAL - Vitals Vital signs reviewed: Yes (hypertensive ) - General General: Alert and oriented X 3, No acute distress, Well developed/nourished - HEENT HEENT: PERRL, EOMI, Other (There is a small bump on the occiput on the left ) - Neck Neck: Supple, no meningeal sign, No bony TTP - Cardiac Cardiac: RRR, No murmur - Respiratory Respiratory: No respiratory distress, Other (diminished bilat at bases ) - Abdomen Abdomen: Soft, Non tender - Back Back: No CVA TTP, Other (lower lumbar central point tenderness) - Derm Derm: Normal color, Warm and dry, No rash - Extremities Extremities: No deformity, No edema - Neuro Neuro: Alert and oriented X 3, No motor deficit, No sensory deficit, Normal speech Eye Opening: Spontaneous Motor: Obeys Commands Verbal: Oriented GCS Score: 15 - Psych Psych: Normal mood, Normal affect Results - Vitals Vitals: Vital Signs - 24 hr 02/09/19 02/09/19 02/09/19 07:21 08:00 08:30 Temperature 36.1 C L Heart Rate 68 64 68 Respiratory 20 18 18 Rate Blood Pressure 168/70 H 149/55 H 151/63 H O2 Saturation 96 96 97 02/09/19 02/09/19 02/09/19 09:30 10:00 11:00 Temperature Heart Rate 68 74 82 Respiratory 18 16 16 Rate Blood Pressure 135/63 H 143/65 H 156/67 H O2 Saturation 95 94 94 Oxygen O2 Source [] on 0.5L O2 via NC O2 Source Room air - EKG (time done) 0722 Rate: Rate (enter#) (61) Ischemia: Normal ST segments Compare to prior EKG: Unchanged from prior EKG (SPT 01-10-18 no changes) Computer interpretation: Agree with computer - Labs Labs: Laboratory Tests 02/09/19 02/09/19 02/09/19 07:45 08:50 11:20 WBC 12.1 H RBC 5.48 H Hgb 13.3 Hct 42.4 MCV 77.4 L MCH 24.3 L MCHC 31.4 L RDW 16.5 H Plt Count 287 MPV 11.1 H Neut # (Auto) 8.7 H Lymph # (Auto) 0.8 L [place] # (Auto) 1.0 Eos # (Auto) 1.4 H Baso # (Auto) 0.1 Absolute Nucleated RBC 0.00 Nucleated RBC % 0.0 Manual Slide Review Indicated RBC Morph Micro Appear 2+ ANISOCYTOSIS Sodium 134 L Potassium 4.5 Chloride 100 L Carbon Dioxide 24 Anion Gap 10.0 BUN 13 Creatinine 1.0 Estimated GFR (MDRD) 53 L Glucose 116 H Calcium 8.7 Total Bilirubin 0.7 AST 20 ALT 11 Alkaline Phosphatase 49 Total Protein 6.3 L Albumin 3.4 Globulin 2.9 Albumin/Globulin Ratio 1.2 Lipase 28 Urine Color YELLOW Urine Clarity CLEAR Urine pH 7.0 Ur Specific [place] 1.010 Urine Protein NEGATIVE Urine Glucose (UA) NEGATIVE Urine Ketones NEGATIVE Urine Occult Blood NEGATIVE Urine Nitrite NEGATIVE Urine Bilirubin NEGATIVE Urine Urobilinogen 0.2 (NORMAL) Ur Leukocyte Esterase NEGATIVE Ur Microscopic Review NOT INDICATED Urine Culture Comments NOT INDICATED - Rads (name of study) lumbar spine Radiology: Prelim report reviewed (Impression: 1. Possible fracture at S1/S2 2. DJD. 3. Chronic compression T12.), EMP read indepedently, See rad report CT head without Radiology: Prelim report reviewed (IMPRESSION: Generalized age-related cortical atrophic changes without evidence of acute intracranial abnormality.), EMP read indepedently, See rad report chest Radiology: Prelim report reviewed (IMPRESSION: No active cardiopulmonary disease ), EMP read indepedently, See rad report Procedures - IVC sono (time) 0845 Bedside IVC sono: IVC measures (cm) (1.47), [place] PD MEDICAL DECISION MAKING - ED course Complexity details: reviewed old records, reviewed results, re-evaluated patient, considered differential, d/w patient ED course: 88 y/o female with a fall onto her buttocks and head yesterday has had 3 episodes of vasovagal syncope. Departure - Departure Disposition: 01 Home, Self Care Clinical Impression: Vasovagal syncope Sacral fracture, closed Qualifiers: Encounter type: initial encounter Zone of sacrum fracture: zone I of sacrum Fracture alignment: nondisplaced Qualified Code(s): S32.110A - Nondisplaced Zone I fracture of sacrum, initial encounter for closed fracture Condition: Stable Instructions: ED Fx Coccyx, ED Syncope Vasovagal Follow-Up: Krystle Vazquez ARNP [Primary Care Provider] - Prescriptions: Hydrocodone/Acetaminophen [Hydrocodon-Acetaminophen 5-325] 1 - 2 each PO Q6H PRN #14 tablet PRN Reason: pain Discharge Date/Time: 02/09/19 13:10
[2019-02-09] MEDS ORDERED: SODIUM CHLORIDE 0.9% 1,000 ML IV ONE (08:51)
[2019-02-09 09:12] LABS: BASOPHILS # (AUTO) 0.1 10^3/uL (0.0-0.1); EOSINOPHILS # (AUTO) 1.4 10^3/uL (0.0-0.7); EOSINOPHILS % (AUTO) 11.6 %; HGB - HEMOGLOBIN 13.3 g/dL (12.0-16.0); LYMPHOCYTES # (AUTO) 0.8 10^3/uL (1.5-3.5); LYMPHOCYTES % (AUTO) 6.8 %; MEAN CORPUSCULAR HEMOGLOBIN 24.3 pg (27.0-31.0); MEAN CORPUSCULAR HGB CONC 31.4 g/dL (32.0-36.0); MEAN CORPUSCULAR VOLUME 77.4 fL (81.0-99.0); MEAN PLATELET VOLUME 11.1 fL (7.9-10.8); MONOCYTES % (AUTO) 8.2 %; NEUTROPHILS # (AUTO) 8.7 10^3/uL (1.5-6.6); PLT - PLATELET COUNT 287 10^3/uL (130-450); RED BLOOD COUNT 5.48 10^6/uL (4.20-5.40); RED CELL DISTRIBUTION WIDTH 16.5 % (12.0-15.0); WHITE BLOOD COUNT 12.1 x10^3/uL (4.8-10.8)
[2019-02-09 09:27] LABS: RBC MORPHOLOGY (MULTIPLE) 2+ ANISOCYTOSIS (NORMAL)
--- NOTE | 2019-02-09 09:41 | XRAY Report ---
Reason: fall low back contusion Procedure Date: 02/09/2019 Accession Number: [id number] / [id number] Procedure: XR - Lumbar Spine 2 View CPT Code: FULL RESULT: EXAM: LUMBOSACRAL SPINE RADIOGRAPHY EXAM DATE: 02/09/2019 09:19 AM. CLINICAL HISTORY: Fall low back contusion. COMPARISONS: CHEST 2 VIEW 10/09/2018 4:52 AM ABDOMEN/PELVIS W/ 07/30/2018 8:35 PM. TECHNIQUE: 3 views. FINDINGS: Alignment: Grade 1 anterolisthesis L3 on L4 Bones: Five [id number] lumbar vertebral bodies are present. On the lateral coned-down view possible offset between S1/S2. Chronic compression T12. Disks: Osteophyte and disk space narrowing at every level. Facets: L5-S1 facet arthropathy. Sacroiliac Joints: Unremarkable. Soft Tissues: Vascular calcifications.. The visualized bowel gas pattern is normal. IMPRESSION: 1. Possible fracture at S1/S2 2. DJD. 3. Chronic compression T12 RADIA
--- NOTE | 2019-02-09 09:42 | XRAY Report ---
Reason: shaking chills syncope Procedure Date: 02/09/2019 Accession Number: [id number] / [id number] Procedure: XR - Chest 1 View X-Ray CPT Code: 79099 FULL RESULT: EXAM: CHEST RADIOGRAPHY EXAM DATE: 02/09/2019 09:18 AM. CLINICAL HISTORY: Shaking chills syncope. COMPARISON: CHEST 2 VIEW 10/09/2018 4:52 AM. TECHNIQUE: 1 view. FINDINGS: Lungs/Pleura: No focal opacities evident. No pleural effusion. No pneumothorax. Mediastinum: Within exam limitations, the cardiomediastinal contour is normal. Small to moderate hiatal hernia. Other: T12 compression IMPRESSION: No active cardiopulmonary disease RADIA
--- NOTE | 2019-02-09 09:46 | CT Report ---
Reason: fall yesterday vomiting syncope today Procedure Date: 02/09/2019 Accession Number: [id number] / [id number] Procedure: CT - HEAD WO CPT Code: FULL RESULT: EXAM: CT HEAD EXAM DATE: 02/09/2019 09:19 AM. CLINICAL HISTORY: Fall yesterday vomiting syncope today. COMPARISON: None. TECHNIQUE: Multiaxial CT images were obtained from the foramen magnum to the vertex. Reformats: Sagittal and coronal. IV contrast: None. In accordance with CT protocol optimization, one or more of the following dose reduction techniques were utilized for this exam: automated exposure control, adjustment of mA and/or KV based on patient size, or use of iterative reconstructive technique. FINDINGS: Parenchyma: No intraparenchymal hemorrhage. No evidence of mass, midline shift, or CT findings of acute infarction. Chadwick-white differentiation is distinct. Diffuse chronic microangiopathic white matter changes are evident. Extraaxial Spaces: Normal for age. No subdural or epidural collections identified. Ventricles: The ventricles and cortical sulci are enlarged, consistent with age-related tissue loss. Sinuses and orbits: Trace fluid left mastoid tip Imaged paranasal sinuses, orbits, show no significant abnormality. Bones: No evidence of fracture or calvarial defect. Other: None. IMPRESSION: Generalized age-related cortical atrophic changes without evidence of acute intracranial abnormality. RADIA
[2019-02-09 11:26] VITALS: BP 156/67
[2019-02-09 11:30] LABS: BILIRUBIN,URINE NEGATIVE (NEGATIVE); GLUCOSE, URINE (UA) NEGATIVE (NEGATIVE); KETONES,URINE (UA) NEGATIVE (NEGATIVE); LEUKOCYTE ESTERASE, URINE NEGATIVE (NEGATIVE); NITRITE,URINE NEGATIVE (NEGATIVE); OCCULT BLOOD,URINE NEGATIVE (NEGATIVE); PROTEIN,URINE NEGATIVE (NEGATIVE); UROBILINOGEN,URINE 0.2 (NORMAL) E.U./dL (NORMAL)
[2019-02-09 11:32] LABS: CLARITY,URINE CLEAR (CLEAR)
== END 2019-02-09 13:10 | disposition home or self-care (01) ==
LOC: EDUNIT# → ED 07:20
DX: R55 Syncope and collapse (principal); R11.2 Nausea with vomiting, unspecified; S32.110A Nondisplaced Zone I fracture of sacrum, initial encounter for closed fracture; S00.03XA Contusion of scalp, initial encounter; W18.30XA Fall on same level, unspecified, initial encounter; Y92.003 Bedroom of unspecified non-institutional (private) residence as the place of occurrence of the external cause; M47.816 Spondylosis without myelopathy or radiculopathy, lumbar region; I10 Essential (primary) hypertension; Z79.82 Long term (current) use of aspirin
CPT/HCPCS: 36415; 70450; 71045; 72100; 80053; 81001; 81003; 83690; 85025; 87086; 93005; 96360; 96361; 99284

== ENCOUNTER 2019-09-29 14:40 | Emergency (ER) | payer MEDICARE, MEDICAID ==
[2019-09-29 14:50] VITALS: BP 166/63
[2019-09-29] MEDS ORDERED: MELOXICAM 7.5 MG TABLET PO STA (15:29)
--- NOTE | 2019-09-29 15:33 | ED Physician Documentation ---
History of Present Illness - Stated complaint Stated Complaint: LT ARM/SHOULDER PX - Chief complaint Chief Complaint: Trauma Ext - History obtained from History obtained from: Patient - History of Present Illness Pain level max: 5 Pain level now: 0 - Additonal information Additional information: 88-year-old female complains of left arm pain since March. She states that she suffered a skin tear at that time and has had intermittent pain since then. She states sometimes is in the shoulder, sometimes in the elbow and sometimes in the fingers. Sometimes it is a shooting pain, other times it is an aching pain, no new injury. Occasional tingling, no numbness. No new injury. Better with Tylenol, worse with movement. She states it was hurting before she came into the emergency department but took Tylenol and now she has no pain. 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 : None, Incontinence HEENT: Dental implants Psych: Anxiety Musculoskeletal: Chronic back pain Derm: None - Past Surgical History Past Surgical History: Yes General: Colonoscopy /SOCIAL WORK COORDINATOR: Hysterectomy - Present Medications Home Medications: Ambulatory Orders Medication Instructions Recorded Confirmed Omeprazole 20 mg PO QDAC 07/13/14 10/10/18 Albuterol Sulf [Ventolin Hfa 2 puffs INH Q4HR PRN 07/31/18 10/09/18 Inhaler] Ipratropium/Albuterol [Duoneb] 3 ml INH Q4H PRN 07/31/18 10/09/18 Magnesium Oxide [Mag Ox] 400 mg PO DAILY 10/09/18 10/09/18 Psyllium [Metamucil] 1 packet PO DAILY 10/09/18 10/09/18 Aspirin [Adult Aspirin Regimen] 81 mg PO DAILY #30 tablet. 10/10/18 Cholecalciferol (Vitamin D3) 800 units PO DAILY 10/10/18 10/10/18 [Vitamin D3] Fluticasone/Salmeterol [Advair 1 each IH BID #1 blst.w.dev 10/10/18 250-50 Diskus] Montelukast [Singulair] 10 mg PO QPM #30 tablet 10/10/18 Tiotropium [place] [Spiriva] 5 puffs IH DAILY #30 cap.w.dev 10/10/18 lisinopriL [Lisinopril] 10 mg PO DAILY #30 tablet 10/10/18 Citalopram [CeleXA] 0 mg DAILY 02/09/19 02/09/19 Halobetasol Propionate 15 gm TP 02/09/19 Hydrocodone/Acetaminophen 1 - 2 each PO Q6H PRN #14 tablet 02/09/19 [Hydrocodon-Acetaminophen 5-325] Meloxicam [Mobic] 7.5 mg PO DAILY #14 tablet 09/29/19 - Allergies Allergies/Adverse Reactions: Allergies Allergy/AdvReac Type Severity Reaction Status Date / Time Penicillins Allergy Severe Rash Verified 09/29/19 14:44 4 other meds Allergy Unknown Uncoded 02/09/19 07:29 - Social History Does the pt smoke?: No Smoking Status: Never smoker Does the pt drink ETOH?: No Does the pt have substance abuse?: No - Immunizations Immunizations are current?: No Immunizations: Other immun not current - POLST Patient has POLST: No POLST Status: DNR PD ED PE NORMAL - Vitals Vital signs reviewed: Yes - General General: Alert and oriented X 3, No acute distress, Well developed/nourished - HEENT HEENT: Moist mucous membranes - Neck Neck: Supple, no meningeal sign, No bony TTP - Cardiac Cardiac: RRR, Strong equal pulses - Respiratory Respiratory: No respiratory distress, Clear bilaterally - Derm Derm: Warm and dry - Extremities Extremities: Other (Normal examination of the left upper extremity. Full range of movement of all joints without discomfort. Neurovascularly intact. No bony tenderness. No swelling.) - Neuro Neuro: Alert and oriented X 3 - Psych Psych: Normal mood, Normal affect Results - Vitals Vitals: Vital Signs - 24 hr 09/29/19 14:45 Temperature 37.2 C Heart Rate 81 Respiratory 17 Rate Blood Pressure 166/63 H O2 Saturation 95 Oxygen O2 Source [With Activity] on 0.5L O2 via NC O2 Source Room air PD MEDICAL DECISION MAKING - ED course Complexity details: considered differential, d/w patient ED course: Patient with intermittent left arm pain since March. Sometimes in the shoulder, sometimes in the elbow, sometimes in the wrist. Currently asymptomatic. We will trial her on meloxicam and see if this helps her pain. We will have her follow-up with her doctor for further care. No evidence of acute coronary syndrome, pulmonary embolus, DVT. Patient counseled regarding signs and symptoms for which I believe and urgent re-evaluation would be necessary. Patient with good understanding of and agreement to plan and is comfortable going home at this time This document was made in part using voice recognition software. While efforts are made to proofread this document, sound alike and grammatical errors may occur. Departure - Departure Disposition: 01 Home, Self Care Clinical Impression: Arm pain, left Condition: Good Instructions: ED Paraesthesias Follow-Up: your,doctor in 1 week [Other] Prescriptions: Meloxicam [Mobic] 7.5 mg PO DAILY #14 tablet Comments: Return if you worsen. Follow-up with your doctor for further care.
== END 2019-09-29 16:01 | disposition home or self-care (01) ==
LOC: ED 14:40
DX: M79.602 Pain in left arm (principal); I10 Essential (primary) hypertension
CPT/HCPCS: 99282; 99284; A9270

== ENCOUNTER 2019-11-22 12:20 | Outpatient (CLI) | payer MEDICARE, MEDICAID ==
--- NOTE | 2019-11-22 14:01 | XRAY Report ---
Reason: BACK PAIN WITH RADICULOPATHY Procedure Date: 11/22/2019 Accession Number: [id number] / [id number] Procedure: WCP - Lumbar Spine Complete CPT Code: Final Report FULL RESULT: PROCEDURE: Lumbar Spine Complete INDICATIONS: BACK PAIN WITH RADICULOPATHY TECHNIQUE: 3 views of the lumbar spine were acquired. COMPARISON: None. FINDINGS: Bones: 5 [id number] vertebrae are present. There is near normal bony alignment, with a slight degree of convex leftward scoliosis centered at the thoracolumbar junction. No new vertebral body compression fractures are found but there is a vertebral plana at T12 and mild anterior wedge compression fractures also stable over time at T10 and T11. Degenerative disc disease along the thoracic spine visualized is moderate. At the upper half of the lumbosacral spine there is significant disc height reduction and slightly less along the lower half. Facet osteoarthritis is moderate to moderately severe progressing towards the lumbosacral junction.. No suspicious bony lesions. Soft tissues: Overlying bowel gas pattern is normal. No suspicious soft tissue calcifications. IMPRESSION: Old compression fractures T10, T11 and especially T12 without definite worsening. No acute disease is seen. Previously present moderate to moderately severe degenerative disc disease and facet osteoarthritis along the lumbosacral spine appears little if any changed from January 2019. Reviewed by: Stephon Oliva MD on 11/22/2019 1:59 PM PDT Approved by: Stephon Oliva MD on 11/22/2019 1:59 PM PDT Station ID: [id number]
--- NOTE | 2019-11-22 14:15 | XRAY Report ---
Reason: LEFT SHOULDER PAIN Procedure Date: 11/22/2019 Accession Number: [id number] / [id number] Procedure: WCP - Shoulder 3 View LT CPT Code: Final Report FULL RESULT: PROCEDURE: Shoulder 3 View LT INDICATIONS: LEFT SHOULDER PAIN TECHNIQUE: 3 views of the shoulder were acquired. COMPARISON: None. FINDINGS: Bones: No fractures or dislocations. No suspicious bony lesions. Visualized ribs appear intact. Soft tissues: No suspicious soft tissue calcifications. IMPRESSION: Mild to moderate AC joint osteoarthritis. Mild glenohumeral joint osteoarthritis. No trauma found. Reviewed by: Stephon Oliva MD on 11/22/2019 2:14 PM PDT Approved by: Stephon Oliva MD on 11/22/2019 2:14 PM PDT Station ID: [id number]
== END 2019-11-22 23:59 | disposition home or self-care (01) ==
LOC: DI.WCP 12:20
PROVIDERS: ATTEND Family Medicine
DX: M51.34 Other intervertebral disc degeneration, thoracic region (principal); M48.54XA Collapsed vertebra, not elsewhere classified, thoracic region, initial encounter for fracture; M51.37 Other intervertebral disc degeneration, lumbosacral region; M47.817 Spondylosis without myelopathy or radiculopathy, lumbosacral region; M19.012 Primary osteoarthritis, left shoulder
CPT/HCPCS: 72110

== ENCOUNTER 2020-01-09 15:09 | Outpatient (CLI) | payer MEDICARE, MEDICAID ==
[2020-01-09 18:38] LABS: BASOPHILS # (AUTO) 0.1 10^3/uL (0.0-0.1); BASOPHILS % (AUTO) 1.3 %; EOSINOPHILS # (AUTO) 0.2 10^3/uL (0.0-0.7); EOSINOPHILS % (AUTO) 2.2 %; HGB - HEMOGLOBIN 11.5 g/dL (12.0-16.0); LYMPHOCYTES # (AUTO) 1.5 10^3/uL (1.5-3.5); LYMPHOCYTES % (AUTO) 17.8 %; MEAN CORPUSCULAR HEMOGLOBIN 25.1 pg (27.0-31.0); MEAN CORPUSCULAR HGB CONC 31.3 g/dL (32.0-36.0); MEAN PLATELET VOLUME 11.4 fL (7.9-10.8); MONOCYTES # (AUTO) 0.8 10^3/uL (0.0-1.0); MONOCYTES % (AUTO) 9.6 %; NEUTROPHILS # (AUTO) 5.7 10^3/uL (1.5-6.6); PLT - PLATELET COUNT 285 10^3/uL (130-450); RED BLOOD COUNT 4.59 10^6/uL (4.20-5.40); RED CELL DISTRIBUTION WIDTH 16.8 % (12.0-15.0); WHITE BLOOD COUNT 8.2 x10^3/uL (4.8-10.8)
[2020-01-09 18:57] LABS: ALBUMIN/GLOBULIN RATIO 1.3 (1.0-2.2); BILIRUBIN,TOTAL 0.7 mg/dL (0.2-1.0); CALCIUM 8.8 mg/dL (8.5-10.3); CREATININE 1.2 mg/dL (0.4-1.0)
== END 2020-01-09 23:59 | disposition home or self-care (01) ==
LOC: LAB.WCP 15:09
PROVIDERS: ATTEND Family Medicine
DX: R10.9 Unspecified abdominal pain (principal)
CPT/HCPCS: 36415; 80053; 81001; 82150; 83690; 85025; 87086

== ENCOUNTER 2020-01-10 07:00 | Outpatient (CLI) | payer MEDICARE, MEDICAID ==
[2020-01-10 19:58] LABS: BILIRUBIN,URINE NEGATIVE (NEGATIVE); GLUCOSE, URINE (UA) NEGATIVE (NEGATIVE); KETONES,URINE (UA) NEGATIVE (NEGATIVE); LEUKOCYTE ESTERASE, URINE TRACE (NEGATIVE); NITRITE,URINE POSITIVE (NEGATIVE); OCCULT BLOOD,URINE NEGATIVE (NEGATIVE); PROTEIN,URINE NEGATIVE (NEGATIVE); UROBILINOGEN,URINE 0.2 (NORMAL) E.U./dL (NORMAL)
[2020-01-10 20:15] LABS: BACTERIA,URINE Many /HPF (None Seen); CLARITY,URINE CLEAR (CLEAR); RBC,URINE None Seen /HPF (0-5); SQUAMOUS EPITHELIAL CELL,UR NONE SEEN (<= Few)
== END 2020-01-10 23:59 | disposition home or self-care (01) ==
LOC: LAB.R 07:00
PROVIDERS: ATTEND Family Medicine
DX: R10.9 Unspecified abdominal pain (principal); R32 Unspecified urinary incontinence
CPT/HCPCS: 81001; 87077; 87086; 87181

== ENCOUNTER 2020-01-25 06:52 | Outpatient (CLI) | payer MEDICARE, MEDICAID ==
--- NOTE | 2020-01-25 17:24 | Ultrasound Report ---
PROCEDURE: Abdomen Complete INDICATIONS: ABDOMINAL DISCOMFORT TECHNIQUE: Real-time scanning was performed of the abdominal and retroperitoneal organs, with image documentatio n. COMPARISON: None. FINDINGS: Liver: Liver is normal in size and increased in echotexture. Gallbladder: Gallbladder is unremarkable. Wall thickness is within normal limits measuring 1.9 mm. Biliary ducts: Intrahepatic bile ducts are non-dilated. Extrahepatic bile duct caliber measures 3.3 mm. Normal is 6-7 mm or less in diameter, or 10 mm or less post-cholecystectomy. Pancreas: Visualized portions of the pancreas are sonographically normal. Spleen: Spleen is normal in size and homogeneous in echotexture. Kidneys: Kidneys are normal in size and echotexture. Right kidney measures 9.7 cm long; left kidney measures 8.7 cm long. No hydronephrosis or nephrolithiasis. No solid masses. Bilateral renal cyst s are identified the largest on the right measuring 23 x 20 x 15 mm in the midpole and 19 x 18 x 14 m m in the inferior pole. Largest cyst on the left measures 12 x 11 x 10 mm. Aorta: Visualized aorta is normal in caliber at less than 3 cm. Iliacs: Proximal common iliac arteries are normal in caliber at less than 2.5 cm. IVC: Intrahepatic inferior vena cava is patent. Miscellaneous: No free abdominal fluid. IMPRESSION: Bilateral renal cysts. Hepatic steatosis. Reviewed by: Pam Vargas MD on 01/25/2020 5:23 PM PDT Approved by: Pam Vargas MD on 01/25/2020 5:23 PM PDT Station ID: [id number]
== END 2020-01-25 06:53 | disposition home or self-care (01) ==
LOC: DI 06:52
PROVIDERS: ATTEND Family Medicine
DX: N28.1 Cyst of kidney, acquired (principal)
CPT/HCPCS: 76700

== ENCOUNTER 2020-06-26 08:23 | Outpatient (CLI) | payer MEDICARE, MEDICAID ==
[2020-06-26 11:52] LABS: BASOPHILS # (AUTO) 0.1 10^3/uL (0.0-0.1); BASOPHILS % (AUTO) 1.7 %; EOSINOPHILS # (AUTO) 0.1 10^3/uL (0.0-0.7); HGB - HEMOGLOBIN 11.9 g/dL (12.0-16.0); LYMPHOCYTES # (AUTO) 1.2 10^3/uL (1.5-3.5); LYMPHOCYTES % (AUTO) 16.7 %; MEAN CORPUSCULAR HGB CONC 32.3 g/dL (32.0-36.0); MEAN CORPUSCULAR VOLUME 80.3 fL (81.0-99.0); MEAN PLATELET VOLUME 11.4 fL (7.9-10.8); MONOCYTES # (AUTO) 0.7 10^3/uL (0.0-1.0); MONOCYTES % (AUTO) 9.4 %; NEUTROPHILS % (AUTO) 69.9 %; PLT - PLATELET COUNT 279 10^3/uL (130-450); RED BLOOD COUNT 4.58 10^6/uL (4.20-5.40); RED CELL DISTRIBUTION WIDTH 14.9 % (12.0-15.0); WHITE BLOOD COUNT 7.1 x10^3/uL (4.8-10.8)
[2020-06-26 12:04] LABS: ALBUMIN 3.8 g/dL (3.2-5.5); ALBUMIN/GLOBULIN RATIO 1.2 (1.0-2.2); ALKALINE PHOSPHATASE 50 IU/L (42-121); ALT ALANINE AMINOTRANSFERASE 11 IU/L (10-60); AST ASPARTATE AMINOTRANSFERASE 23 IU/L (10-42); BILIRUBIN,TOTAL 0.5 mg/dL (0.2-1.0); BUN - BLOOD UREA NITROGEN 28 mg/dL (6-20); CALCIUM 8.9 mg/dL (8.5-10.3); CARBON DIOXIDE - CO2 25 mmol/L (21-32); CHLORIDE 93 mmol/L (101-111); CHOL/HDL RATIO 3.4 (<4.4); CHOLESTEROL 261 mg/dL; CREATININE 2.2 mg/dL (0.4-1.0); GLUCOSE 90 mg/dL (70-100); HDL CHOLESTEROL 76 mg/dL; LDL CHOLESTEROL,CALCULATED 171 mg/dL; LDL/HDL RATIO 2.3 (<4.4); TOTAL PROTEIN 6.9 g/dL (6.7-8.2); VLDL CHOLESTEROL 14 mg/dL
[2020-06-26 12:22] LABS: CREATININE,URINE 83.9 mg/dL; MICROALBUM/CREATININE RATIO,UR 9.5 ug/mg (<30.0); MICROALBUMIN,URINE 0.8 mg/dL (0-300.0)
== END 2020-06-26 23:59 | disposition home or self-care (01) ==
LOC: LAB.WCP 08:23
PROVIDERS: ATTEND Internal Medicine
DX: I10 Essential (primary) hypertension (principal); R73.01 Impaired fasting glucose
CPT/HCPCS: 36415; 80053; 80061; 82043; 82570; 83036; 83721; 84443; 85025

== ENCOUNTER 2020-07-16 08:00 | Outpatient (CLI) | payer MEDICARE, MEDICAID ==
[2020-07-16 18:00] LABS: BILIRUBIN,URINE NEGATIVE (NEGATIVE); CLARITY,URINE CLEAR (CLEAR); GLUCOSE, URINE (UA) NEGATIVE (NEGATIVE); KETONES,URINE (UA) NEGATIVE (NEGATIVE); LEUKOCYTE ESTERASE, URINE NEGATIVE (NEGATIVE); NITRITE,URINE NEGATIVE (NEGATIVE); OCCULT BLOOD,URINE NEGATIVE (NEGATIVE); PROTEIN,URINE NEGATIVE (NEGATIVE); UROBILINOGEN,URINE 0.2 (NORMAL) E.U./dL (NORMAL)
[2020-07-16 18:06] LABS: CREATININE 1.1 mg/dL (0.4-1.0)
[2020-07-16 18:11] LABS: BACTERIA,URINE Rare /HPF (None Seen); RBC,URINE None Seen /HPF (0-5); SQUAMOUS EPITHELIAL CELL,UR RARE Squamous (<= Few)
== END 2020-07-16 23:59 | disposition home or self-care (01) ==
LOC: LAB.WCP 08:00
PROVIDERS: ATTEND Family Medicine
DX: N18.31 Chronic kidney disease, stage 3a (principal); E87.1 Hypo-osmolality and hyponatremia
CPT/HCPCS: 36415; 80048; 81001; 83930; 83935; 84300

== ENCOUNTER 2020-08-23 07:00 | Outpatient (CLI) | payer MEDICARE, MEDICAID | END 2020-08-23 23:59 | disposition home or self-care (01) | LOC: LAB.WCP 07:00 | PROVIDERS: ATTEND Internal Medicine | DX: E87.1 Hypo-osmolality and hyponatremia (principal) | CPT/HCPCS: 36415; 82533 ==

== ENCOUNTER 2020-08-28 21:48 | Emergency (ER) | payer MEDICARE, MEDICAID ==
[2020-08-28] MEDS ORDERED: diphenhydrAMINE INJ 50 MG/ML VIAL IM STA (22:33)
[2020-08-28] MEDS ORDERED: DEXAMETHASONE 10 MG/ML VIAL IM STA (22:33)
--- NOTE | 2020-08-28 22:38 | ED Physician Documentation ---
PD HPI WOUND RECHECK - Stated complaint Stated Complaint: UPPER BODY RASH/ITCHING - Chief complaint Chief Complaint: Wound - Histroy obtained from History obtained from: Patient - Additional information Additional information: Very itchy rash starting LUE now BUE and trunk today. Unclear cause. 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 10/10/18 Cholecalciferol (Vitamin D3) 800 units PO DAILY 10/10/18 10/10/18 [Vitamin D3] Fluticasone/Salmeterol [Advair 1 each IH BID #1 blst.w.dev 10/10/18 250-50 Diskus] Montelukast [Singulair] 10 mg PO QPM #30 tablet 10/10/18 Tiotropium [place] [Spiriva] 5 puffs IH DAILY #30 cap.w.dev 10/10/18 lisinopriL [Lisinopril] 10 mg PO DAILY #30 tablet 10/10/18 Citalopram [CeleXA] 0 mg DAILY 02/09/19 02/09/19 Halobetasol Propionate 15 gm TP 02/09/19 Hydrocodone/Acetaminophen 1 - 2 each PO Q6H PRN #14 tablet 02/09/19 [Hydrocodon-Acetaminophen 5-325] Meloxicam [Mobic] 7.5 mg PO DAILY #14 tablet 09/29/19 Doxepin [SINEquan] 10 mg PO TID PRN #30 cap 08/28/20 predniSONE [Deltasone] 20 mg PO [id number] #21 tab 08/28/20 - Allergies Allergies/Adverse Reactions: Allergies Allergy/AdvReac Type Severity Reaction Status Date / Time Penicillins Allergy Severe Rash Verified 08/28/20 21:58 4 other meds Allergy Unknown Uncoded 08/28/20 21:58 - Social History Does the pt smoke?: No Smoking Status: Never smoker Does the pt drink ETOH?: No Does the pt have substance abuse?: No - Immunizations Immunizations are current?: No Immunizations: Other immun not current - POLST Patient has POLST: No POLST Status: DNR PD ED PE NORMAL - Vitals Vital signs reviewed: Yes - General General: Alert and oriented X 3, Other (scratching herself) - HEENT HEENT: PERRL, Pharynx benign - Derm Derm: Other (Confluent severe hives, both arms >trunk) - Extremities Extremities: No edema, No calf tenderness / cord - Neuro Neuro: Alert and oriented X 3, Normal speech Results - Vitals Vitals: Vital Signs - 24 hr 08/28/20 08/28/20 21:52 23:19 Temperature 36.4 C L Heart Rate 81 80 Respiratory 18 20 Rate Blood Pressure 170/71 H 173/76 H O2 Saturation 97 98 Oxygen O2 Source [With Activity] on 0.5L O2 via NC O2 Source Room air Departure - Departure Disposition: 01 Home, Self Care Clinical Impression: Hives Condition: Stable Record reviewed to determine appropriate education?: Yes Instructions: ED Urticaria Prescriptions: predniSONE [Deltasone] 20 mg PO [id number] #21 tab Doxepin [SINEquan] 10 mg PO TID PRN #30 cap PRN Reason: Itching Comments: The rash today does not look at all fungal to me, looks like hives. We are treating this with steroids and a antihistamine which should help a lot. Return if worsening and follow-up with your primary care physician.
[2020-08-28 23:19] VITALS: BP 173/76
== END 2020-08-28 23:20 | disposition home or self-care (01) ==
LOC: ED 21:48
DX: L50.9 Urticaria, unspecified (principal); I10 Essential (primary) hypertension; Z79.82 Long term (current) use of aspirin
CPT/HCPCS: 96372; 99283; J1200

== ENCOUNTER 2020-09-19 16:34 | Outpatient (CLI) | payer MEDICARE, MEDICAID ==
--- NOTE | 2020-09-19 17:38 | XRAY Report ---
PROCEDURE: Lumbar Spine 2 View INDICATIONS: Hx OF LSPINE COMPRESSION FRACTURES: ASSESS FOR NEW COMP Fx TECHNIQUE: 3 views of the lumbar spine were acquired. COMPARISON: 02/09/2019. FINDINGS: Bones: 5 [id number] vertebrae are present. There is grade 1 retrolisthesis at L1-2 and L2-3 le vels. Degenerative endplate changes and bilateral facet arthrosis throughout lumbar spine is seen mo re prominent at L1-2 and L2-3 levels. Chronic-appearing anterior wedge compression deformity at T12 l evel is seen. No vertebral body compression fractures. No suspicious bony lesions. Soft tissues: Overlying bowel gas pattern is normal. No suspicious soft tissue calcifications. IMPRESSION: No acute lumbar spine vertebral body compression fracture. Chronic-appearing anterior we dge compression deformity at T12 level. Grade 1 retrolisthesis at L2-3 and L3-4 levels.Degenerative d isc disease throughout lumbar spine, progressed since 2019 study. Reviewed by: Eleuterio Chin MD on 09/19/2020 5:37 PM PDT Approved by: Eleuterio Chin MD on 09/19/2020 5:37 PM PDT Station ID: [id number]
== END 2020-09-19 16:35 | disposition home or self-care (01) ==
LOC: DI.N 16:34
PROVIDERS: ATTEND Internal Medicine
DX: M43.16 Spondylolisthesis, lumbar region (principal); M47.816 Spondylosis without myelopathy or radiculopathy, lumbar region; R93.7 Abnormal findings on diagnostic imaging of other parts of musculoskeletal system

== ENCOUNTER 2021-02-24 07:25 | Outpatient (CLI) | payer MEDICARE, MEDICAID ==
[2021-02-24 12:19] LABS: CALCIUM 8.8 mg/dL (8.5-10.3); CREATININE 1.3 mg/dL (0.4-1.0); POTASSIUM 4.2 mmol/L (3.5-5.0)
[2021-02-24 12:59] LABS: ESTIMATED AVERAGE GLUCOSE 134 mg/dL (70-100); HEMOGLOBIN A1c% 6.3 % (4.27-6.07)
== END 2021-02-24 23:59 | disposition home or self-care (01) ==
LOC: LAB.WCP 07:25
PROVIDERS: ATTEND Internal Medicine
DX: I10 Essential (primary) hypertension (principal); R73.01 Impaired fasting glucose
CPT/HCPCS: 36415; 80048; 83036

== ENCOUNTER 2021-05-13 15:54 | Emergency (ER) | payer MEDICARE, MEDICAID ==
[2021-05-13 16:12] VITALS: BP 154/68
[2021-05-13] MEDS ORDERED: CHERRY SYRUP 10 ML UDC PO ONE (17:55)
[2021-05-13] MEDS ORDERED: DEXAMETHASONE 10 MG/ML VIAL PO STA (17:55)
[2021-05-13] MEDS ORDERED: KETOROLAC 30 MG/ML VIAL IM STA (17:55)
--- NOTE | 2021-05-13 17:58 | ED Physician Documentation ---
PD HPI BACK PAIN - Stated complaint Stated Complaint: RIGHT LEG LEG/HIP PX - Chief complaint Chief Complaint: Ext Problem - History obtained from History obtained from: Patient - History of Present Illness Timing - onset: How many weeks ago (2) Timing - duration: Weeks (2) Timing - details: Gradual onset, Still present Location: Lower, Right Quality: Pain, Spasm, Sharp, Similar to prior episodes Associated symptoms: Incontinent of urine (normally and unchanged). No: Fever, Weakness, Numbness, Unable to urinate, Hematuria, Incontinent of stool Improves with: Rest, Position Worsened by: Movement Similar symptoms before: Diagnosis (sciatica) Recently seen: Clinic - Additional information Additional information: 89-year-old female with a prior history of sciatica has developed symptoms again of pain in her right leg she has pain radiating down the right leg from the hip to the foot. She is having some increasing pain when she bears weight and she has pain up into the sciatic notch. She has had the symptoms previously. Review of Systems Constitutional: denies: Fever Nose: denies: Congestion Throat: denies: Sore throat Cardiac: denies: Chest pain / pressure Respiratory: denies: Dyspnea, Cough GI: reports: Abdominal Pain. denies: Vomiting, Diarrhea : reports: Incontinent. denies: Dysuria, Frequency Musculoskeletal: reports: Back pain, Extremity pain. 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 10/10/18 Cholecalciferol (Vitamin D3) 800 units PO DAILY 10/10/18 10/10/18 [Vitamin D3] Fluticasone/Salmeterol [Advair 1 each IH BID #1 blst.w.dev 10/10/18 250-50 Diskus] Montelukast [Singulair] 10 mg PO QPM #30 tablet 10/10/18 Tiotropium [place] [Spiriva] 5 puffs IH DAILY #30 cap.w.dev 10/10/18 lisinopriL [Lisinopril] 10 mg PO DAILY #30 tablet 10/10/18 Citalopram [CeleXA] 0 mg DAILY 02/09/19 02/09/19 Halobetasol Propionate 15 gm TP 02/09/19 Hydrocodone/Acetaminophen 1 - 2 each PO Q6H PRN #14 tablet 02/09/19 [Hydrocodon-Acetaminophen 5-325] Meloxicam [Mobic] 7.5 mg PO DAILY #14 tablet 09/29/19 Doxepin [SINEquan] 10 mg PO TID PRN #30 cap 08/28/20 predniSONE [Deltasone] 20 mg PO [id number] #21 tab 08/28/20 Cyclobenzaprine [Flexeril] 10 mg PO TID PRN #20 tablet 05/13/21 HYDROcod/ACETAM 5/325 [[place] 5/325] 1 - 2 tablet PO Q6H PRN #14 tablet 05/13/21 - Allergies Allergies/Adverse Reactions: Allergies Allergy/AdvReac Type Severity Reaction Status Date / Time Penicillins Allergy Severe Rash Verified 05/13/21 15:59 4 other meds Allergy Unknown Uncoded 08/28/20 21:58 - Social History Does the pt smoke?: No Smoking Status: Never smoker Does the pt drink ETOH?: No Does the pt have substance abuse?: No - Immunizations Immunizations are current?: No Immunizations: Other immun not current - POLST Patient has POLST: No POLST Status: DNR PD ED PE NORMAL - Vitals Vital signs reviewed: Yes (Hypertensive) - General General: Alert and oriented X 3, No acute distress, Well developed/nourished, Other (89-year-old female who appears younger than her stated age is in no distress.) - HEENT HEENT: Atraumatic, PERRL - Neck Neck: Supple, no meningeal sign - Respiratory Respiratory: No respiratory distress - Back Back: No CVA TTP, No spinal TTP, Other (There is specific point tenderness to the lower lumbar spine that extends into the sciatic notch on the right side.) - Derm Derm: Normal color, Warm and dry, No rash - Extremities Extremities: No deformity, No edema - Neuro Neuro: Alert and oriented X 3, health safety specialist 2-12 intact, No motor deficit, No sensory deficit, Normal speech Eye Opening: Spontaneous Motor: Obeys Commands Verbal: Oriented GCS Score: 15 - Psych Psych: Normal mood, Normal affect Results - Vitals Vitals: Vital Signs - 24 hr 05/13/21 15:59 Temperature 37.1 C Heart Rate 62 Respiratory 18 Rate Blood Pressure 154/68 H O2 Saturation 96 Oxygen O2 Source [With Activity] on 0.5L O2 via NC O2 Source Room air PD MEDICAL DECISION MAKING - ED course Complexity details: reviewed old records, considered differential, d/w patient ED course: 89-year-old female with acute sciatica is administered dexamethasone 10 mg orally and 30 mg of Toradol IM. We will place her on a short course of pain medication muscle relaxant. Departure - Departure Disposition: 01 Home, Self Care Clinical Impression: Sciatica Qualifiers: Laterality: right Qualified Code(s): M54.31 - Sciatica, right side Condition: Stable Instructions: ED Sciatica Follow-Up: Nj Espana MD [Primary Care Provider] - Prescriptions: Cyclobenzaprine [Flexeril] 10 mg PO TID PRN #20 tablet PRN Reason: Spasms HYDROcod/ACETAM 5/325 [[place] 5/325] 1 - 2 tablet PO Q6H PRN #14 tablet PRN Reason: Pain Comments: , today it looks like you have sciatica again and the recommendation is to reduce activity, stretch your back and use the pain medication and muscle relaxant as needed. The expectation is that tonight you have some acute relief but this may still take more days to resolve. Scripts for pain medication and muscle relaxant have been escribed to [facility] in [place].
== END 2021-05-13 18:25 | disposition home or self-care (01) ==
LOC: ED 15:54
DX: M54.41 Lumbago with sciatica, right side (principal); I10 Essential (primary) hypertension; Z79.82 Long term (current) use of aspirin
CPT/HCPCS: 96372; 99283; 99284; A9270

== ENCOUNTER 2021-06-08 15:22 | Outpatient (CLI) | payer MEDICARE, MEDICAID | END 2021-06-08 15:23 | disposition EMS.NT | LOC: EMS 15:22 | DX: R55 Syncope and collapse (principal) ==

== ENCOUNTER 2021-06-11 08:00 | Outpatient (CLI) | payer MEDICARE, MEDICAID ==
--- NOTE | 2021-06-11 17:06 | XRAY Report ---
PROCEDURE: Ribs 2 View LT INDICATIONS: L SIDED RIB PX TECHNIQUE: 3 views of the left ribs were acquired. COMPARISON: None FINDINGS: Surgical changes and devices: None. Bones and chest wall: No fractures or dislocations. No suspicious bony lesions. Overlying soft tis sues appear unremarkable. Lungs and pleura: The visualized lung appears clear. No pleural effusions or pneumothorax are visib le. IMPRESSION: No gross displaced left rib fracture is seen. Visualized left lung field is clear. Reviewed by: Eleuterio Chin MD on 06/11/2021 5:05 PM PST Approved by: Eleuterio Chin MD on 06/11/2021 5:05 PM PST Station ID: [id number]
--- NOTE | 2021-06-11 17:07 | XRAY Report ---
PROCEDURE: Abdomen 3 View X-Ray INDICATIONS: ABDOMINAL PX TECHNIQUE: 1 view of the abdomen were acquired. COMPARISON: 07/29/2017, 01/10/2018, 20/07/2018, 01/25/2020 FINDINGS: Surgical changes and devices: None. Bowel: No pneumoperitoneum. The bowel gas pattern is nonobstructive. The amount of fecal matter th roughout the colon is seen. Soft tissues: No masses; visualized solid organ contours appear normal in size. No suspicious abdom inal calcifications. Bones: No suspicious bony abnormalities. IMPRESSION: Mild to moderate constipation. No bowel obstruction or gross free air. No abnormal renal calcificatio ns. No acute cardiopulmonary pathology. Reviewed by: Eleuterio Chin MD on 06/11/2021 5:05 PM PST Approved by: Eleuterio Chin MD on 06/11/2021 5:05 PM PST Station ID: [id number]
== END 2021-06-11 23:59 ==
LOC: DI.N 08:00
PROVIDERS: ATTEND Family Medicine
DX: R07.81 Pleurodynia (principal); R10.9 Unspecified abdominal pain; K59.00 Constipation, unspecified

== ENCOUNTER 2021-06-16 08:00 | Outpatient (CLI) | payer MEDICARE, MEDICAID ==
[2021-06-16 18:21] LABS: BASOPHILS # (AUTO) 0.1 10^3/uL (0.0-0.1); BASOPHILS % (AUTO) 1.1 %; EOSINOPHILS # (AUTO) 0.2 10^3/uL (0.0-0.7); EOSINOPHILS % (AUTO) 1.7 %; HCT - HEMATOCRIT 38.1 % (37.0-47.0); HGB - HEMOGLOBIN 11.6 g/dL (12.0-16.0); LYMPHOCYTES # (AUTO) 1.3 10^3/uL (1.5-3.5); LYMPHOCYTES % (AUTO) 13.7 %; MEAN CORPUSCULAR HEMOGLOBIN 22.5 pg (27.0-31.0); MEAN CORPUSCULAR HGB CONC 30.4 g/dL (32.0-36.0); MEAN PLATELET VOLUME 11.2 fL (7.9-10.8); MONOCYTES # (AUTO) 0.9 10^3/uL (0.0-1.0); MONOCYTES % (AUTO) 9.2 %; NEUTROPHILS # (AUTO) 6.8 10^3/uL (1.5-6.6); NEUTROPHILS % (AUTO) 74.1 %; PLT - PLATELET COUNT 257 10^3/uL (130-450); RED BLOOD COUNT 5.15 10^6/uL (4.20-5.40); RED CELL DISTRIBUTION WIDTH 17.6 % (12.0-15.0); WHITE BLOOD COUNT 9.2 x10^3/uL (4.8-10.8)
[2021-06-16 18:26] LABS: ALBUMIN 4.2 g/dL (3.2-5.5); ALBUMIN/GLOBULIN RATIO 1.3 (1.0-2.2); BILIRUBIN,TOTAL 0.3 mg/dL (0.2-1.0); CALCIUM 8.8 mg/dL (8.5-10.3); CREATININE 1.5 mg/dL (0.4-1.0); TOTAL PROTEIN 7.4 g/dL (6.7-8.2)
== END 2021-06-16 23:59 ==
LOC: LAB.WCP 08:00
PROVIDERS: ATTEND Internal Medicine
DX: R10.9 Unspecified abdominal pain (principal)
CPT/HCPCS: 36415; 80053; 81001; 83690; 85025; 87086

== ENCOUNTER 2021-06-19 11:20 | Outpatient (CLI) | payer MEDICARE, MEDICAID ==
--- NOTE | 2021-06-19 12:40 | CT Report ---
PROCEDURE: Abdomen/Pelvis WO INDICATIONS: ABD PAIN TECHNIQUE: Noncontrast 5 mm thick sections acquired from the diaphragms to the symphysis. 5 mm coronal and sagi ttal reformats were then performed. For radiation dose reduction, the following was used: automated exposure control, adjustment of mA and/or kV according to patient size. COMPARISON: 07/30/2018 FINDINGS: Image quality: Excellent. ABDOMEN: Lung bases: Lung bases are clear. Heart size is normal. Solid organs: Liver and spleen are normal in size. Gallbladder is unremarkable. Pancreas is normal in contours. No adrenal nodules. Kidneys are normal in size, without hydronephrosis or nephrolithi asis. Peritoneum and bowel: Large hiatal hernia. Unenhanced bowel loops demonstrate normal wall thickness and caliber. No free fluid or air. Mild diverticulosis without evidence of diverticulitis. Moderate ly large fecal load. Nodes and vessels: No retroperitoneal or mesenteric adenopathy by size criteria. Aorta and inferior vena cava are normal in caliber. Extensive aortic and bilateral iliac atherosclerotic calcification s. Suspect probable bilateral hemodynamically significant iliac stenotic disease. Miscellaneous: No ventral hernias. PELVIS: Genitourinary: Bladder wall thickness is normal. Miscellaneous: No inguinal hernias or adenopathy. Uterus is surgically absent. Bones: No suspicious bony lesions. Stable chronic severe T12 compression fracture with bony retropul melissa and acute angle kyphosis and canal stenosis. IMPRESSION: 1. Large hiatal hernia. 2. Moderately large fecal load, mild diverticulosis. 3. Peripheral vascular disease with probable bilateral hemodynamically significant calcified iliac st enotic disease. Question: Does this patient have lifestyle limiting claudication symptoms? 4. Stable chronic severe compression fracture of T12 with acute angle kyphosis and canal stenosis. Reviewed by: Renan Garrison MD on 06/19/2021 12:39 PM PST Approved by: Renan Garrison MD on 06/19/2021 12:39 PM PST Station ID: [id number]
== END 2021-06-19 11:21 | disposition home or self-care (01) ==
LOC: DI 11:20
PROVIDERS: ATTEND Family Medicine
DX: K44.9 Diaphragmatic hernia without obstruction or gangrene (principal); K57.90 Diverticulosis of intestine, part unspecified, without perforation or abscess without bleeding; I70.0 Atherosclerosis of aorta; I70.8 Atherosclerosis of other arteries; M48.54XA Collapsed vertebra, not elsewhere classified, thoracic region, initial encounter for fracture; M48.04 Spinal stenosis, thoracic region

== ENCOUNTER 2021-07-05 03:07 | Outpatient (CLI) | payer MEDICARE, MEDICAID | END 2021-07-05 03:08 | disposition critical access hospital (66) | LOC: EMS 03:07 | DX: R50.9 Fever, unspecified (principal); R53.1 Weakness; R52 Pain, unspecified | CPT/HCPCS: A0425; A0429 ==

== ENCOUNTER 2021-07-05 03:22 | Inpatient (IN) | payer MEDICARE, MEDICAID ==
[2021-07-05] MEDS ORDERED: SODIUM CHLORIDE 0.9% 1,000 ML IV STA ×2 (03:36→05:51)
[2021-07-05] MEDS ORDERED: ONDANSETRON 4 MG/2 ML VIAL IVP STA (03:36)
[2021-07-05] MEDS ORDERED: KETOROLAC 15 MG/ML VIAL IVP STA (03:36)
[2021-07-05] MEDS ORDERED: ACETAMINOPHEN 325 MG TABLET PO STA (03:37)
--- NOTE | 2021-07-05 03:39 | ED Physician Documentation ---
PD HPI NVD - Stated complaint Stated Complaint: FEVER, N/V, SOA - Chief complaint Chief Complaint: Fever - History obtained from History obtained from: Patient, EMS - History of Present Illness Timing - onset: How many days ago (2-3) Timing - duration: Days (2-3) Timing - details: Abrupt onset, Still present Associated symptoms: Fever, Loss of appetite, Other (general weakness with nausea and several times vomiting. States loose stool but not diarrhea per se. No abd pain. Has some left shoulder pain. Noted to have fever to 101 at home. Unable to get herself up from toilet once on it [employer]. some cough/dyspnea.). No: Abdominal pain, Hematemesis, Melena, Dysuria Contributing factors: No: Sick contact, Bad food, Recent antibiotics Improved by: No: Vomiting Worsened by: Eating. No: Breathing Similar symptoms before: Has not had sx before Recently seen: Clinic (seen walk in 2 weeks ago for abd pains and had CT abd outpt without specific findings.) Review of Systems Constitutional: reports: Fever, Chills, Myalgias, Fatigue (for 2-3 days, increasing) Nose: denies: Rhinorrhea / runny nose, Congestion Throat: denies: Sore throat Cardiac: denies: Palpitations, Pedal edema Respiratory: reports: Dyspnea, Cough. denies: Hemoptysis, Wheezing GI: reports: Nausea, Vomiting. denies: Abdominal Pain, Diarrhea Neurologic: reports: Generalized weakness. 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 10/10/18 Cholecalciferol (Vitamin D3) 800 units PO DAILY 10/10/18 10/10/18 [Vitamin D3] Fluticasone/Salmeterol [Advair 1 each IH BID #1 blst.w.dev 10/10/18 250-50 Diskus] Montelukast [Singulair] 10 mg PO QPM #30 tablet 10/10/18 Tiotropium [place] [Spiriva] 5 puffs IH DAILY #30 cap.w.dev 10/10/18 lisinopriL [Lisinopril] 10 mg PO DAILY #30 tablet 10/10/18 Citalopram [CeleXA] 0 mg DAILY 02/09/19 02/09/19 Halobetasol Propionate 15 gm TP 02/09/19 Hydrocodone/Acetaminophen 1 - 2 each PO Q6H PRN #14 tablet 02/09/19 [Hydrocodon-Acetaminophen 5-325] Meloxicam [Mobic] 7.5 mg PO DAILY #14 tablet 09/29/19 Doxepin [SINEquan] 10 mg PO TID PRN #30 cap 08/28/20 predniSONE [Deltasone] 20 mg PO [id number] #21 tab 08/28/20 Cyclobenzaprine [Flexeril] 10 mg PO TID PRN #20 tablet 05/13/21 HYDROcod/ACETAM 5/325 [[place] 5/325] 1 - 2 tablet PO Q6H PRN #14 tablet 05/13/21 - Allergies Allergies/Adverse Reactions: Allergies Allergy/AdvReac Type Severity Reaction Status Date / Time Penicillins Allergy Severe Rash Verified 07/05/21 03:31 4 other meds Allergy Unknown Uncoded 07/05/21 03:31 - Social History Does the pt smoke?: No Smoking Status: Never smoker Does the pt drink ETOH?: No Does the pt have substance abuse?: No - Immunizations Immunizations are current?: No Immunizations: Other immun not current - POLST Patient has POLST: No POLST Status: DNR PD ED PE NORMAL - Vitals Vital signs reviewed: Yes - General General: Alert and oriented X 3, Well developed/nourished - HEENT HEENT: Ears normal, Pharynx benign. No: Moist mucous membranes - Neck Neck: Supple, no meningeal sign, No adenopathy - Cardiac Cardiac: RRR, No murmur - Respiratory Respiratory: Clear bilaterally - Abdomen Abdomen: Soft, Non distended, No organomegaly, Other (mildly tender without guarding nor rebound in mid to upper abd. ). No: Normal bowel sounds (decreased) - Female Female : Deferred - Rectal Rectal: Deferred - Back Back: No CVA TTP - Derm Derm: Warm and dry, No rash. No: Normal color (pale) - Extremities Extremities: Normal ROM s pain, No edema, No calf tenderness / cord - Neuro Neuro: Alert and oriented X 3, No motor deficit (no focal weakness, but has general weakness with poor lifting of both legs and moderate weakness both arms. ), No sensory deficit, Normal speech, Other (palpable but diminished pulses both dorsal feet. ) Eye Opening: Spontaneous Motor: Obeys Commands Verbal: Oriented GCS Score: 15 Results - Vitals Vitals: Vital Signs - 24 hr 07/05/21 07/05/21 07/05/21 03:26 05:46 05:58 Temperature 37.4 C Heart Rate 94 25 L Respiratory 18 26 H Rate Blood Pressure 146/78 H 126/51 L O2 Saturation 96 96 86 L Oxygen O2 Source [With Activity] on 0.5L O2 via NC O2 Source Room air Oxygen Flow Rate 0.5 - Labs Labs: Laboratory Tests 07/05/21 07/05/21 07/05/21 03:45 04:17 04:17 WBC 13.7 H RBC 4.52 Hgb 10.5 L Hct 33.0 L MCV 73.0 L MCH 23.2 L MCHC 31.8 L RDW 17.4 H Plt Count 241 MPV 11.3 H Neut # (Auto) Not Reportable Lymph # (Auto) Not Reportable [place] # (Auto) Not Reportable Eos # (Auto) Not Reportable Baso # (Auto) Not Reportable Absolute Nucleated RBC Not Reportable Total Counted 100 Band Neuts % (Manual) 0 Abnorm Lymph % (Manual) 0 Nucleated RBC % Not Reportable Neutrophils # (Manual) 11.6 H Lymphocytes # (Manual) 0.8 L Monocytes # (Manual) 1.2 H Eosinophils # (Manual) 0.0 Basophils # (Manual) 0.0 Differential Comment MANUAL DIFFERENTIAL WBC Morphology NORMAL APPEARANCE Platelet Estimate NORMAL (130-450,000) Platelet Morphology NORMAL APPEARANCE RBC Morph Micro Appear NORMAL APPEARANCE Sodium 129 L Potassium 3.7 Chloride 94 L Carbon Dioxide 24 Anion Gap 11.0 BUN 39 H Creatinine 1.7 H Estimated GFR (MDRD) 28 L Glucose 118 H Lactic Acid Calcium 8.1 L Magnesium 2.0 Total Bilirubin 0.6 AST 26 ALT 18 Alkaline Phosphatase 34 L Total Protein 6.2 L Albumin 3.3 Globulin 2.9 Albumin/Globulin Ratio 1.1 Lipase 99 H Urine Color Urine Clarity Urine pH Ur Specific [place] Urine Protein Urine Glucose (UA) Urine Ketones Urine Occult Blood Urine Nitrite Urine Bilirubin Urine Urobilinogen Ur Leukocyte Esterase Urine RBC Urine WBC Ur Squamous Epith Cells Urine Bacteria Ur Microscopic Review Urine Culture Comments Nasal Adenovirus (PCR) NOT DETECTED Nasal B. parapertussis DNA (PCR) NOT DETECTED Nasal Coronavir 229E PCR NOT DETECTED Nasal Coronavir HKU1 PCR NOT DETECTED Nasal Coronavir NL63 PCR NOT DETECTED Nasal Coronavir OC43 PCR NOT DETECTED Nasal Enterovir/Rhinovir PCR NOT DETECTED Nasal Influenza B PCR NOT DETECTED Nasal Influenza A PCR NOT DETECTED Nasal Parainfluen 1 PCR NOT DETECTED Nasal Parainfluen 2 PCR NOT DETECTED Nasal Parainfluen 3 PCR NOT DETECTED Nasal Parainfluen 4 PCR NOT DETECTED Nasal RSV (PCR) NOT DETECTED Nasal B.pertussis DNA PCR NOT DETECTED Nasal C.pneumoniae (PCR) NOT DETECTED [place] Human Metapneumo PCR NOT DETECTED Nasal M.pneumoniae (PCR) NOT DETECTED Nasal SARS-CoV-2 (PCR) NOT DETECTED 07/05/21 07/05/21 04:17 04:17 WBC RBC Hgb Hct MCV MCH MCHC RDW Plt Count MPV Neut # (Auto) Lymph # (Auto) [place] # (Auto) Eos # (Auto) Baso # (Auto) Absolute Nucleated RBC Total Counted Band Neuts % (Manual) Abnorm Lymph % (Manual) Nucleated RBC % Neutrophils # (Manual) Lymphocytes # (Manual) Monocytes # (Manual) Eosinophils # (Manual) Basophils # (Manual) Differential Comment WBC Morphology Platelet Estimate Platelet Morphology RBC Morph Micro Appear Sodium Potassium Chloride Carbon Dioxide Anion Gap BUN Creatinine Estimated GFR (MDRD) Glucose Lactic Acid 1.4 Calcium Magnesium Total Bilirubin AST ALT Alkaline Phosphatase Total Protein Albumin Globulin Albumin/Globulin Ratio Lipase Urine Color YELLOW Urine Clarity CLEAR Urine pH 5.5 Ur Specific [place] 1.025 Urine Protein 30 H Urine Glucose (UA) NEGATIVE Urine Ketones NEGATIVE Urine Occult Blood MODERATE H Urine Nitrite NEGATIVE Urine Bilirubin NEGATIVE Urine Urobilinogen 0.2 (NORMAL) Ur Leukocyte Esterase NEGATIVE Urine RBC 6-10 H Urine WBC 0-3 Ur Squamous Epith Cells NONE SEEN Urine Bacteria Many H Ur Microscopic Review INDICATED Urine Culture Comments NOT INDICATED Nasal Adenovirus (PCR) Nasal B. parapertussis DNA (PCR) Nasal Coronavir 229E PCR Nasal Coronavir HKU1 PCR Nasal Coronavir NL63 PCR Nasal Coronavir OC43 PCR Nasal Enterovir/Rhinovir PCR Nasal Influenza B PCR Nasal Influenza A PCR Nasal Parainfluen 1 PCR Nasal Parainfluen 2 PCR Nasal Parainfluen 3 PCR Nasal Parainfluen 4 PCR Nasal RSV (PCR) Nasal B.pertussis DNA PCR Nasal C.pneumoniae (PCR) [place] Human Metapneumo PCR Nasal M.pneumoniae (PCR) Nasal SARS-CoV-2 (PCR) - Rads (name of study) chest xray Radiology: Prelim report reviewed (ill defined densities in the right upper lobe may represent pneumonia. ), See rad report chest/abd/pelvic CT Radiology: Prelim report reviewed (abdomen without acute process. chest with some lower lobe densities c/w inflammation/infection.), See rad report PD MEDICAL DECISION MAKING - ED course Complexity details: reviewed results (UA is okay. WBC elevated but normal lactate. CXR possible right pneumonia. Mild abd tender. Will get CT chest/abd. ), considered differential (seems general illness, consider viral or COVID. ), d/w patient Departure - Departure Disposition: 66 [facility] DC/Xfer Clinical Impression: Pneumonia, Hypoxia, Generalized weakness, Vomiting
[2021-07-05 04:24] LABS: BILIRUBIN,URINE NEGATIVE (NEGATIVE); GLUCOSE, URINE (UA) NEGATIVE (NEGATIVE); KETONES,URINE (UA) NEGATIVE (NEGATIVE); LEUKOCYTE ESTERASE, URINE NEGATIVE (NEGATIVE); NITRITE,URINE NEGATIVE (NEGATIVE); OCCULT BLOOD,URINE MODERATE (NEGATIVE); PH,URINE 5.5 PH (5.0-7.5); PROTEIN,URINE 30 mg/dL (NEGATIVE); UROBILINOGEN,URINE 0.2 (NORMAL) E.U./dL (NORMAL)
[2021-07-05 04:25] LABS: BASOPHILS % (AUTO) 0.1 %; EOSINOPHILS % (AUTO) 0.1 %; HGB - HEMOGLOBIN 10.5 g/dL (12.0-16.0); LYMPHOCYTES % (AUTO) 5.3 %; MEAN CORPUSCULAR HEMOGLOBIN 23.2 pg (27.0-31.0); MEAN CORPUSCULAR HGB CONC 31.8 g/dL (32.0-36.0); MEAN PLATELET VOLUME 11.3 fL (7.9-10.8); MONOCYTES % (AUTO) 9.9 %; NEUTROPHILS % (AUTO) 84.3 %; PLT - PLATELET COUNT 241 10^3/uL (130-450); RED BLOOD COUNT 4.52 10^6/uL (4.20-5.40); RED CELL DISTRIBUTION WIDTH 17.4 % (12.0-15.0); WHITE BLOOD COUNT 13.7 x10^3/uL (4.8-10.8)
[2021-07-05 04:30] LABS: CLARITY,URINE CLEAR (CLEAR)
[2021-07-05 04:31] LABS: ABNORMAL LYMPHS % (MANUAL) 0 %; BAND NEUTROPHILS % (MANUAL) 0 %
[2021-07-05 04:35] LABS: ALBUMIN 3.3 g/dL (3.2-5.5); ALBUMIN/GLOBULIN RATIO 1.1 (1.0-2.2); BACTERIA,URINE Many /HPF (None Seen); BILIRUBIN,TOTAL 0.6 mg/dL (0.2-1.0); CALCIUM 8.1 mg/dL (8.5-10.3); CREATININE 1.7 mg/dL (0.4-1.0); POTASSIUM 3.7 mmol/L (3.5-5.0); SQUAMOUS EPITHELIAL CELL,UR NONE SEEN (<= Few); TOTAL PROTEIN 6.2 g/dL (6.7-8.2); WBC,URINE 0-3 /HPF (0-5)
[2021-07-05 04:44] LABS: DIFFERENTIAL COMMENT MANUAL DIFFERENTIAL; LYMPHOCYTES # (MANUAL) 0.8 10^3/uL (1.5-3.5); LYMPHOCYTES % (MANUAL) 6 %; MONOCYTES # (MANUAL) 1.2 10^3/uL (0.0-1.0); NEUTROPHILS # (MANUAL) 11.6 10^3/uL (1.5-6.6); PLATELET ESTIMATE, MANUAL NORMAL (130-450,000) (NORMAL); PLATELET MORPHOLOGY NORMAL APPEARANCE (NORMAL); RBC MORPHOLOGY (MULTIPLE) NORMAL APPEARANCE (NORMAL); WBC MORPHOLOGY (MULTIPLE) NORMAL APPEARANCE (NORMAL)
[2021-07-05 04:49] LABS: B. PARAPERTUSSIS- RESP PCR PAN NOT DETECTED; B. PERTUSSIS- RESP PCR PANEL NOT DETECTED; C. PNEUMONIAE- RESP PCR PANEL NOT DETECTED; CORONAVIRUS 229E-RESP PCR NOT DETECTED; CORONAVIRUS HKU1-RESP PCR NOT DETECTED; CORONAVIRUS NL63-RESP PCR NOT DETECTED; CORONAVIRUS OC43-RESP PCR NOT DETECTED; HUMAN METAPNEUMOVIRUS NOT DETECTED; INFLUENZA A- RESP PCR PANEL NOT DETECTED; INFLUENZA B - RESP PCR PANEL NOT DETECTED; M. PNEUMONIAE- RESP PCR PANEL NOT DETECTED; PARAINFLUENZA VIRUS 1 NOT DETECTED; PARAINFLUENZA VIRUS 2 NOT DETECTED; PARAINFLUENZA VIRUS 3 NOT DETECTED; PARAINFLUENZA VIRUS 4 NOT DETECTED; RHINOVIRUS/ENTEROVIRUS NOT DETECTED; RSV- RESP PCR PANEL NOT DETECTED; SARS-CoV-2 -RESP PCR PANEL NOT DETECTED
[2021-07-05] MEDS ORDERED: AZITHROMYCIN INJ 500 MG in SODIUM CHLORIDE 0.9% 250 ML IV STA (04:51)
[2021-07-05] MEDS ORDERED: cefTRIAXone 1 GM VIAL IVP STA (04:51)
[2021-07-05] MEDS ORDERED: ONDANSETRON 4 MG/2 ML VIAL IVP PRN (07:03)
[2021-07-05] MEDS ORDERED: ONDANSETRON ODT 4 MG TABLET TL PRN (07:03)
[2021-07-05] MEDS ORDERED: LACTATED RINGERS 1,000 ML IV SCH (08:00)
--- NOTE | 2021-07-05 08:27 | CT Report ---
PROCEDURE: CHEST WO INDICATIONS: fever; possible infiltrates on CXR. TECHNIQUE: Noncontrast 1mm axial images were acquired from the pulmonary apices to the posterior costophrenic an gles. Axial 5 mm soft tissue kernel reconstructions were performed as well as 8 mm axial MIP and cor onal and sagittal 5 mm reformations. For radiation dose reduction, the following was used: automate d exposure control, adjustment of mA and/or kV according to patient size. COMPARISON: Prior chest CT, 04/23/2017 Correlation is also made with the accompanying chest radiogra ph and the accompanying abdomen and pelvis CT, 07/05/2021. FINDINGS: Image quality: Excellent. Lungs and pleura: No acute air space opacities. No pleural effusions or pneumothorax. Central and peripheral airways are patent and normal in caliber. Mediastinum: Heart size is normal. Dense calcification can be seen involving the mitral valve annulu s. No pericardial effusion. No mediastinal adenopathy by size criteria. Thoracic aorta and central pulmonary arteries are normal in size. Dense atherosclerotic calcification can be seen. At least mode rate coronary artery calcification is seen. Esophagus is normal in caliber. There is a moderate hiata l hernia. Bones and chest wall: No suspicious bony lesions. There is a stable remote L1 compression deformity, with approximately 80% loss of height anteriorly. This is unchanged compared to 2017. Age-appropriat e degenerative changes are seen. There is accentuated thoracic kyphosis. No acute vertebral body compression fractures. No axillary or supraclavicular adenopathy by size criteria. The thyroid is s mall in size and demonstrates no focal lesions. Abdomen: Visualized upper abdominal solid organs and bowel loops appear normal in the absence of con trast. IMPRESSION: Clear lungs. No infiltrates. No significant pulmonary nodule. Incidental note is made of: Moderate hiatal hernia Dense atherosclerotic calcification, including involving the coronary arteries Dense calcification of the mitral valve annulus Stable remote L1 anterior wedge deformity Note: No significant discrepancy from the preliminary report. Reviewed by: Nathan Moralez MD on 07/05/2021 7:26 AM [place] Approved by: Nathan Moralez MD on 07/05/2021 7:26 AM [facility] Station ID: [id number]
--- NOTE | 2021-07-05 08:34 | CT Report ---
PROCEDURE: Abdomen/Pelvis WO INDICATIONS: fever and vomiting, some general abd tender TECHNIQUE: Noncontrast 5 mm thick sections acquired from the diaphragms to the symphysis. 5 mm coronal and sagi ttal reformats were then performed. For radiation dose reduction, the following was used: automated exposure control, adjustment of mA and/or kV according to patient size. COMPARISON: 06/19/2021, 07/30/2018, 01/10/2018. Correlation is also made with the accompanying chest CT and chest radiograph, 07/05/2021. FINDINGS: Image quality: Excellent. ABDOMEN: Lung bases: Lung bases are clear. Heart size is normal. There is a moderate hiatal hernia. Solid organs: Liver and spleen are normal in size. Gallbladder wall does not appear thickened. P ancreas is normal in contours. Generalized thickening can be seen of the adrenal glands, yet without focal adrenal nodules. Kidneys are normal in size, without hydronephrosis or nephrolithiasis. Peritoneum and bowel: Unenhanced bowel loops demonstrate normal wall thickness and caliber. No free fluid or air. There is minimal sigmoid diverticulosis, without findings of active diverticulitis. Nodes and vessels: No retroperitoneal or mesenteric adenopathy by size criteria. Aorta and inferior vena cava are normal in caliber. Dense atherosclerotic calcification can be seen. Miscellaneous: No ventral hernias. PELVIS: Genitourinary: Bladder wall thickness is normal. This patient is status post hysterectomy. No adnex al masses can be seen. Miscellaneous: No inguinal hernias or adenopathy. Bones: No suspicious bony lesions. No acute vertebral body compression fractures. There is a remot e, stable L1 anterior wedge deformity, with approximately 80% loss of height anteriorly. This is stab le compared to 2017. 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 6 lumbar-type vertebral bodies are seen. IMPRESSION: No acute abnormality can be seen. Incidental note is made of: Moderate hiatal hernia Dense atherosclerotic calcification Stable L1 anterior wedge deformity Diverticulosis, without findings of active diverticulitis. Hysterectomy Transitional lumbar anatomy Note: No significant discrepancy from the preliminary report. Reviewed by: Nathan Moralez MD on 07/05/2021 7:33 AM [place] Approved by: Nathan Moralez MD on 07/05/2021 7:33 AM [facility] Station ID: [id number]
--- NOTE | 2021-07-05 08:36 | XRAY Report ---
PROCEDURE: Chest 1 View X-Ray INDICATIONS: chest pain TECHNIQUE: One view of the chest was acquired. COMPARISON: Her plain film, 06/11/2021. Chest radiograph, 02/09/2019 and 10/09/2018. Correlation is als o made with the accompanying chest CT, 07/05/2021. FINDINGS: Surgical changes and devices: None. Lungs and pleura: No pleural effusions or pneumothorax. Lungs are clear. Mediastinum: Mediastinal contours appear normal. Heart size is normal. There is a moderate hiatal hernia. Bones and chest wall: No suspicious bony lesions. Age-appropriate degenerative changes are seen. Overlying soft tissues appear unremarkable. IMPRESSION: No acute abnormality is seen. (There is minimal, potential, poorly defined opacity seen involving the right upper lobe, which is no t substantiated on the subsequently performed chest CT.) Note: No significant discrepancy from the preliminary report. Reviewed by: Nathan Moralez MD on 07/05/2021 7:35 AM [facility] Approved by: Nathan Moralez MD on 07/05/2021 7:35 AM [facility] Station ID: [id number]
[2021-07-05] MEDS ORDERED: ENOXAPARIN 30 MG/0.3 ML SYRINGE SUBQ SCH (09:00)
--- NOTE | 2021-07-05 10:56 | HISTORY & PHYSICAL EXAMINATION ---
Chief Complaint - Chief Complaint Chief Complaint: Altered Mental Status History of Present Illness - Admitted From Admitted From:: Home - History Obtained From Records Reviewed: [facility] History obtained from: Patient, family Exam Limitations: Altered Mental Status - History of Present Illness HPI Comment/Other: Patient is an 89 year old female. She is confused, unable to give reliable ROS or HPI. She lives at home with her son. Her son reports that she is mildly confused at baseline but has been getting progressively more confused over the past two weeks. She has been "mumbling and zoning out." She has also had poor appetite. He reports that she has a had a mild cough, congestion and an episode of vomiting 4 days ago. He denies shortness of breath, diarrhea, fever or urinary incontinence. Today he was worried and called an ambulance to have her evaluated in the emergency department. He reports that she ambulates without a walker at baseline. Upon arrival to the ED, she complained of vomiting and weakness. Her vitals were stable, she was afebrile at 37.4 C, heart rate 94, respiration 18, bp 147/78 with O2 saturation 96%. She was alert and oriented. Work-up was concerning for pneumonia due to elevated WBC at 13.7, ill defined densities on chest x-ray and cough. However, chest CT shows no infiltrates or significant densities. COVID and respiratory pathogen panel negative. UA unremarkable. CMP shows hyponatremia 129, BUN 39, Cr 1.8, GFR 38. Admitted to floor for further work up. Upon admission to floor, patient became hypoxic and unresponsive. She later regained consciousness but was confused, disoriented to time and event. History - Past Medical History Cardiovascular: reports: Hypertension, High cholesterol Respiratory: reports: COPD Endocrine/Autoimmune: reports: None GI: reports: GERD, Hiatal hernia, Chronic constipation HEAD OF ENGLISH: reports: None : reports: None, Incontinence HEENT: reports: Dental implants Psych: reports: Anxiety Musculoskeletal: reports: Chronic back pain Derm: reports: None MRSA Hx?: No - Past Surgical History General: reports: Colonoscopy /HEAD OF ENGLISH: reports: Hysterectomy - Family & Social History Family History: Mother: , Father: Family History Comment/Other: Father had DM, and heart disease. Mother- unknown Social History Notes: The patient lives at home with her son Rolan. She is . She had 5 pregnancies one of which was a miscarriage. She has 4 children, 15 grandchildren and 20 great grandchildren. She lives in [place]. The patient smoked a pack a day from the age of 26 and states that she stopped in 2003 the patients son does smoke but states he smokes outside. The patient does not drink alcohol and denies any illicit drug use. The patient continues to drive a car despite several episodes of syncope. She wishes to be a FULL code. - Substance History Use: Uses substance without health or social issues: NONE - POLST Patient has POLST: No POLST Status: DNR Meds/Allgy - Home Medications Home Medications: Ambulatory Orders Medication Instructions Recorded Confirmed Omeprazole 20 mg PO QDAC 07/13/14 07/05/21 Albuterol Sulf [Ventolin Hfa 1 - 2 puffs INH Q4HR PRN 07/31/18 07/05/21 Inhaler] Magnesium Oxide [Mag Ox] 400 mg PO DAILY 10/09/18 07/05/21 Aspirin [Adult Aspirin Regimen] 81 mg PO DAILY #30 tablet. 10/10/18 07/05/21 Fluticasone/Salmeterol [Advair 1 each IH BID #1 blst.w.dev 10/10/18 07/05/21 250-50 Diskus] Acetaminophen [8 Hour Pain Relief] 650 mg PO Q8H 07/05/21 07/05/21 Ascorbic Acid [Vitamin C] 500 mg PO DAILY 07/05/21 07/05/21 Calcium Carbonate [Tums (Calcium 200 mg PO DAILY PRN 07/05/21 07/05/21 Carbonate 500mg)] Cholecalciferol (Vitamin D3) 50 mcg PO DAILY 07/05/21 07/05/21 [Vitamin D3] Diclofenac Potassium [Cataflam] 50 mg PO BID PRN 07/05/21 07/05/21 Fluticasone [Flonase] 1 sprays SYEDA BID 07/05/21 07/05/21 Lidocaine Patch 5% [Lidoderm Patch] 1 each TOP DAILY PRN 07/05/21 07/05/21 Metoprolol Tartrate [Lopressor] 25 mg PO BID 07/05/21 07/05/21 Trospium Chloride 20 mg PO QPM 07/05/21 07/05/21 amLODIPine [Norvasc] 5 mg PO BID 07/05/21 07/05/21 polyethylene glycoL 3350 [Miralax] 17 gm PO DAILY PRN 07/05/21 07/05/21 - Allergies Allergies/Adverse Reactions: Allergies Allergy/AdvReac Type Severity Reaction Status Date / Time Penicillins Allergy Severe Rash Verified 07/05/21 03:31 4 other meds Allergy Unknown Uncoded 07/05/21 03:31 Review of Systems - Constitutional Constitutional: reports: Weakness, Poor appetite. denies: Fever - Ears, Nose & Throat Ears, Nose & Throat: reports: Nasal congestion. denies: Sore throat - Respiratory Respiratory: reports: Cough. denies: SOB at rest, SOB with exertion - Gastrointestinal Gastrointestinal: reports: Nausea, Vomiting. denies: Abdominal pain, Diarrhea - Genitourinary Genitourinary: denies: Dysuria, Incontinence - Musculoskeletal Musculoskeletal: reports: Back pain - Neurological Neurological: reports: Other (Confusion) - All Other Systems All Other Systems: reports: Other (Unable to obtain reliable ROS from patient due to confusion. All recorded findings are from son.) Exam - Vital Signs Vital Signs: Vital Signs x48h Temp Pulse Pulse Resp BP BP Pulse Ox 07/05/21 09:00 36.3 C L 80 16 110/38 L 95 07/05/21 08:10 36.4 C L 90 20 132/60 H 96 07/05/21 05:58 86 L 07/05/21 05:46 25 L 76 H 126/51 L 96 07/05/21 03:26 37.4 C 94 18 146/78 H 96 - Physical Exam General Appearance: positive: Alert, Mild distress, Anxious Eyes Bilateral: positive: Normal inspection, PERRL ENT: positive: ENT inspection nml Neck: positive: Nml inspection, No JVD, Trachea midline Respiratory: positive: No respiratory distress, Breath sounds nml Cardiovascular: positive: Regular rate & rhythm Peripheral Pulses: positive: 2+ Abdomen: positive: Non-tender Back: positive: Nml inspection Skin: positive: Pallor Extremities: positive: Non-tender, No pedal edema Neurologic/Psychiatric: positive: CN's nml (2-12), Sensation nml, Mood/affect nml, Disoriented to time, Weakness, Other (Intention tremor, unable to take meds). negative: Oriented x3 (Disoriented to time and event), Motor nml, Disoriented to person, Disoriented to place, Sensory loss, Facial droop, Slurred/abnml speech, Depressed mood/affect Sepsis Event Note (H) - Evaluation Current Stage of Sepsis: Ruled out Conclusion/Plan - Problem List (1) Altered mental status Conclusion/Plan: Upon admission to the floor, patient became hypoxic and non-arousable. Her pupils were pinpoint. She has since regained consciousness but is confused, oriented to name and place only. Pupils are PERRL. Would like to rule out PE as the source of altered mental status due to hypoxia. Unable to do a CTA at this time due depressed kidney function; GFR 28, Cr 1.7, BUN 39. Head CT is normal but patient's transient, depressed level of consciousness may have been indicative of a basilar artery stroke. She also has general weakness but no focal deficits or slurred speech. Infectious etiology of confusion considered due to elevated WBC. Urinary tract infection unlikely, urine has bacteria but no nitrates or leukocyte esterse. Pneumonia unlikely, no fever, clear lungs and no infiltrates or significant densities on chest CT. Acute OR considered but deemed unlikely, unchanged EKG from baseline, high sensitivity Troponin 29.1. Toxodrome unlikely, UDS negative. She is not on prison or prescribed opioids. No history of recreational drug use. Patient lives with her son who denies a known history of ingestion. Plan Observation Rehydrate patient with bicarbonate and IV fluids today to improve kidney function and CTA tomorrow. Patient receiving Lovenox as well as SCDs in the meantime for anticoagulation and DVT prophylaxis. Qualifiers: Altered mental status type: transient alteration of awareness Qualified Code(s): R40.4 - Transient alteration of awareness (2) Hypoxia Conclusion/Plan: 98% on 1 L O2. Patient has a history of COPD is on 2-3 L O2 via NC at home. She is COVID negative and negative for other respiratory pathogens. Lung sounds are clear and no infiltrates or densities on chest CT so pneumonia or effusion unlikely. Plan Continue O2 monitoring and therapy as needed with goal to keep O2 saturation > 92%. (3) Hypertension Conclusion/Plan: Continue metoprolol and amlodipine as usual (4) Dementia Conclusion/Plan: Family planning with social work for care following discharge Qualifiers: Dementia type: unspecified type Dementia behavioral disturbance: without behavioral disturbance Qualified Code(s): F03.90 - Unspecified dementia without behavioral disturbance (5) Acute kidney injury Conclusion/Plan: Plan to hydrate patient with IV fluids and bicarbonate. Monitor bradley output - Lab Results Fish Bones: 07/05/21 04:17 07/05/21 04:17 - Diagnostic Imaging Results Diagnostic Imaging Results: positive: Final report reviewed (Negative for infiltrates or effusion), See rad report - EKG Results EKG Interpreted Independently: Yes EKG Comparison: Unchanged from prior EKG EKG Findings: R wave progression slightly delayed, no change from 02/09/[address] changes Core Measures - Anticipated LOS I expect patient to be DC'd or transferred within 96 hours.: Yes - DVT/VTE - Prophylaxis VTE/DVT Device ordered at admit?: Yes VTE/DVT Prophylaxis med ordered at admit?: Yes
[2021-07-05] MEDS: SODIUM BICARBONATE 100 MEQ in DEXTROSE 5% 1,000 ML IV SCH (11:00)
[2021-07-05] MEDS: SODIUM CHLORIDE FLUSH 0.9% 10 ML SYRINGE IVP SCH ×2 (11:18→20:16)
[2021-07-05 11:30] LABS: MUDS CUTOFF CONCENTRATIONS CUTOFF CONC BELOW:
--- NOTE | 2021-07-05 11:33 | PHARMACY PROGRESS NOTE ---
- Best Possible Medication History Admit Date and Time: 07/05/21 0703 Processed by: Pharmacy Medication History completed: Yes Patient Interview: Pt unable to participate Secondary Source(s): Physician records, Pharmacy records As the person ultimately responsible for medication therapy, providers are able to order a medication from an existing home medication list in [facility] via the "Reconcile Routine" prior to Confirmation of that medication by clerical and office support workers. Such practice is discouraged except when the physician, in their clinical judgment, deems that a medical need exists for a medication without regard to previous use.
[2021-07-05 11:54] LABS: AMPHETAMINE SCREEN,URINE NEGATIVE (NEGATIVE); BARBITURATE SCREEN,UR NEGATIVE (NEGATIVE); BENZODIAZEPINES SCREEN, URINE NEGATIVE (NEGATIVE); COCAINE SCREEN URINE NEGATIVE (NEGATIVE); METHADONE SCREEN, URINE NEGATIVE (NEGATIVE); METHAMPHETAMINES SCREEN, URINE NEGATIVE (NEGATIVE); OPIATE SCREEN, URINE NEGATIVE (NEGATIVE); OXYCODONE SCREEN, URINE NEGATIVE (NEGATIVE); PROPOXYPHENE SCREEN, URINE NEGATIVE (NEGATIVE); THC CANNABINOID SCREEN, URINE NEGATIVE (NEGATIVE); TRICYCLIC ANTIDEPRESSANT,URINE NEGATIVE (NEGATIVE)
--- NOTE | 2021-07-05 12:51 | CT Report ---
PROCEDURE: HEAD WO INDICATIONS: sudden ams, pinpoint pupils, unresponsive TECHNIQUE: Noncontrast 4.5 mm thick angled axial sections acquired from the foramen magnum to the vertex. For r adiation dose reduction, the following was used: automated exposure control, adjustment of mA and/or kV according to patient size. COMPARISON: CT head 02/09/2019. FINDINGS: Image quality: Excellent. CSF spaces: Basal cisterns are patent. No extra-axial fluid collections. Ventricles are normal in size and shape. Brain: No midline shift. No intracranial masses or hemorrhage. Scattered hypodensities in the subco rtical and periventricular white matter are most commonly seen in the setting of chronic microvascula r ischemic changes. There is mild diffuse cerebral and cerebellar volume loss for age. Skull and face : Calvarium and visualized facial bones are intact, without suspicious lesions. Sinuses: Visualized sinuses and mastoids are clear. IMPRESSION: No acute intracranial abnormality. Reviewed by: Yoseph Henderson MD on 07/05/2021 12:50 PM PST Approved by: Yoseph Henderson MD on 07/05/2021 12:50 PM PST Station ID: [id number]
[2021-07-05] MEDS: ACETAMINOPHEN 325 MG TABLET PO PRN ×2 (13:22→18:42)
[2021-07-05] MEDS: ENOXAPARIN 40 MG/0.4 ML SYRINGE SUBQ SCH (20:17)
[2021-07-06] MEDS: ACETAMINOPHEN 325 MG TABLET PO PRN (00:38)
[2021-07-06] MEDS: SODIUM CHLORIDE FLUSH 0.9% 10 ML SYRINGE IVP SCH ×3 (00:38→19:09)
[2021-07-06] MEDS: SODIUM BICARBONATE 100 MEQ in DEXTROSE 5% 1,000 ML IV SCH (00:39)
[2021-07-06] MEDS ORDERED: oxyCODONE 5 MG TABLET PO PRN (00:48)
[2021-07-06 05:57] LABS: BASOPHILS % (AUTO) 0.2 %; EOSINOPHILS % (AUTO) 0.1 %; HCT - HEMATOCRIT 34.2 % (37.0-47.0); HGB - HEMOGLOBIN 10.9 g/dL (12.0-16.0); LYMPHOCYTES # (AUTO) 0.7 10^3/uL (1.5-3.5); LYMPHOCYTES % (AUTO) 5.9 %; MEAN CORPUSCULAR HEMOGLOBIN 23.2 pg (27.0-31.0); MEAN CORPUSCULAR HGB CONC 31.9 g/dL (32.0-36.0); MEAN CORPUSCULAR VOLUME 72.8 fL (81.0-99.0); MONOCYTES # (AUTO) 0.9 10^3/uL (0.0-1.0); NEUTROPHILS % (AUTO) 85.5 %; PLT - PLATELET COUNT 224 10^3/uL (130-450); RED CELL DISTRIBUTION WIDTH 17.6 % (12.0-15.0); WHITE BLOOD COUNT 11.7 x10^3/uL (4.8-10.8)
[2021-07-06 06:07] LABS: CALCIUM 7.7 mg/dL (8.5-10.3); CREATININE 1.2 mg/dL (0.4-1.0); POTASSIUM 3.2 mmol/L (3.5-5.0)
[2021-07-06] MEDS ORDERED: POTASSIUM CHLORIDE 20 MEQ/15 ML UDC PO SCH (08:00)
[2021-07-06] MEDS: cefTRIAXone 1 GM in SODIUM CHLORIDE 0.9% MINIBAG 100 ML IV SCH (08:07)
[2021-07-06] MEDS: ENOXAPARIN 40 MG/0.4 ML SYRINGE SUBQ SCH ×2 (08:07→20:22)
[2021-07-06] MEDS ORDERED: IOVERSOL 320 100 ML VIAL IVP ONE ×2 (08:46→11:39)
[2021-07-06] MEDS ORDERED: AZITHROMYCIN INJ 500 MG in SODIUM CHLORIDE 0.9% 250 ML IV SCH (09:00)
[2021-07-06] MEDS: NS W/40 MEQ KCL 1,000 ML IV SCH ×2 (09:37→20:21)
--- NOTE | 2021-07-06 11:44 | CT Report ---
PROCEDURE: ANGIO CHEST W/WO INDICATIONS: PE protocol CONTRAST: IV CONTRAST: Optiray 320 ml: 80 PO CONTRAST: *NO PO CONTRAST TECHNIQUE: After the administration of intravenous contrast, 2 mm axial images were acquired from the pulmonary apices to the posterior costophrenic angles during the arterial phase. In addition, 1 mm lung kernel and 5 mm soft tissue kernel reconstructions were performed. 3-dimensional coronal oblique maximum int ensity projection (MIP) reformats, 8 mm axial MIP, and 5 mm coronal and sagittal MPR reformats were t hen performed through the thorax. For radiation dose reduction, the following was used: automated exp osure control, adjustment of mA and/or kV according to patient size. COMPARISON: Prior noncontrast chest CT, 07/05/2021. Prior chest CT 04/23/2017 Correlation is also made with the overlapping portions of recent abdomen pelvis CT, 07/05/2021. FINDINGS: Image quality: Excellent. Pulmonary arteries: Pulmonary arteries are normal in size, and demonstrate no intraluminal filling d efects to suggest central pulmonary embolism. Lungs and pleura: There has been interval development of trace bilateral pleural effusions with overl shalini atelectasis. No pleural effusions or pneumothorax. Central and peripheral airways are patent. Mediastinum: Heart size is normal, without pericardial effusion. There is dense calcification of the mitral valve annulus. Moderate coronary artery calcification is seen. No mediastinal or hilar adenop athy. Thoracic aorta is normal in caliber and enhancement. Atherosclerotic calcification is seen. E sophagus is normal in caliber. There is a moderate hiatal hernia. Bones and chest wall: No suspicious bony lesions. No displaced rib fracture is seen. There is a stab le remote L1 anterior wedge deformity. No axillary or supraclavicular adenopathy. The thyroid is nor mal in size and there are no incidental findings. Abdomen: Visualized upper abdominal solid organs appear normal in the early arterial phase of enhanc ement. IMPRESSION: Pulmonary embolism is not seen. Interval development of trace bilateral pleural effusions with overlying atelectasis. Incidental note is made of: Moderate hiatal hernia Atelectatic calcification, including involving the coronary arteries Dense calcification of the mitral valve annulus Stable remote L1 anterior wedge deformity. Reviewed by: Nathan Moralez MD on 07/06/2021 10:42 AM [place] Approved by: Nathan Moralez MD on 07/06/2021 10:42 AM [facility] Station ID: [id number]
[2021-07-06] MEDS: AZITHROMYCIN INJ 500 MG in SODIUM CHLORIDE 0.9% 250 ML IV SCH (13:22)
--- NOTE | 2021-07-06 16:58 | PROVIDER PROGRESS NOTE ---
Subjective - Prog Note Date Prog Note Date: 07/06/21 Prog Note Time: 04:00 - Subjective Pt reports feeling: No change Subjective: Patient reports that she is feeling okay. She complains of pain in her shoulders. She states that she sees her granddaughter in the room. Talking to Chandrakant. Concerned about the cat running around the hospital Current Medications - Current Medications Current Medications: Active Medications Acetaminophen (Acetaminophen 325 Mg Tablet) 650 mg PO Q4HR PRN PRN Reason: Pain 1 to 4 Last Admin: 07/06/21 00:38 Dose: 650 mg Enoxaparin Sodium (Enoxaparin 40 Mg/0.4 Ml Syringe) 40 mg SUBQ BID [facility] Last Admin: 07/06/21 08:07 Dose: 40 mg Ceftriaxone Sodium 1 gm/ (Sodium Chloride) 100 mls @ 200 mls/hr IV DAILY [facility] Stop: 07/09/21 09:29 Last Infusion: 07/06/21 09:29 Dose: Infused Azithromycin 500 mg/ Sodium (Chloride) 250 mls @ 250 mls/hr IV 1400 [facility] Stop: 07/07/21 14:59 Last Infusion: 07/06/21 14:22 Dose: Infused Potassium Chloride/Sodium Chloride (Normal Saline 0.9% W/40 Meq Kcl) 1,000 mls @ 100 mls/hr IV .Q10H [facility] Last Infusion: 07/06/21 14:22 Dose: 100 mls/hr Ondansetron HCl (Ondansetron Odt 4 Mg Tablet) 4 mg TL Q6HR PRN PRN Reason: Nausea / Vomiting Last Admin: 07/06/21 10:03 Dose: 4 mg Ondansetron HCl (Ondansetron 4 Mg/2 Ml Vial) 4 mg IVP Q6HR PRN PRN Reason: Nausea / Vomiting Oxycodone HCl (Oxycodone 5 Mg Tablet) 5 mg PO Q4HR PRN PRN Reason: PAIN Sodium Chloride (Sodium Chloride Flush 0.9% 10 Ml Syringe) 10 ml IVP PRN PRN PRN Reason: NEEDED PER PROVIDER ORDERS Sodium Chloride (Sodium Chloride Flush 0.9% 10 Ml Syringe) 10 ml IVP 0100,0900,1700 [facility] Last Admin: 07/06/21 08:08 Dose: Not Given Omeprazole 20 mg PO QDAC 07/13/14 Albuterol Sulf [Ventolin Hfa Inhaler] 1 - 2 puffs INH Q4HR PRN 07/31/18 Magnesium Oxide [Mag Ox] 400 mg PO DAILY 10/09/18 Acetaminophen [8 Hour Pain Relief] 650 mg PO Q8H 07/05/21 Ascorbic Acid [Vitamin C] 500 mg PO DAILY 07/05/21 Calcium Carbonate [Tums (Calcium Carbonate 500mg)] 200 mg PO DAILY PRN 07/05/21 Cholecalciferol (Vitamin D3) [Vitamin D3] 50 mcg PO DAILY 07/05/21 Diclofenac Potassium [Cataflam] 50 mg PO BID PRN 07/05/21 Fluticasone [Flonase] 1 sprays SYEDA BID 07/05/21 Lidocaine Patch 5% [Lidoderm Patch] 1 each TOP DAILY PRN 07/05/21 Metoprolol Tartrate [Lopressor] 25 mg PO BID 07/05/21 Trospium Chloride 20 mg PO QPM 07/05/21 amLODIPine [Norvasc] 5 mg PO BID 07/05/21 polyethylene glycoL 3350 [Miralax] 17 gm PO DAILY PRN 07/05/21 Objective - Vital Signs/Intake & Output Reviewed Vital Signs: Yes Vital Signs: Vital Signs x48h Temp Pulse Resp BP Pulse Ox 07/06/21 16:30 37.3 C 101 H 20 160/76 H 96 07/06/21 16:04 37.7 C 96 20 163/60 H 95 07/06/21 14:33 85 07/06/21 13:00 37.1 C 104 H 18 149/54 H 96 Intake & Output: Intake & Output 07/03/21 07/04/21 07/05/21 07/06/21 23:59 23:59 23:59 23:59 Intake Total 2960 2477.000 Output Total 200 800 Balance 2760 1677.000 - Objective General Appearance: positive: No acute distress, Alert Eyes Bilateral: positive: Normal inspection, PERRL, EOMI ENT: positive: No signs of dehydration Neck: positive: Nml inspection, Thyroid nml, No JVD Respiratory: positive: Chest non-tender, No respiratory distress, Breath sounds nml. negative: Wheezes, Rales, Rhonchi Cardiovascular: positive: Regular rate & rhythm, No murmur, No gallop Peripheral Pulses: 2+ Radial (R), 2+ Radial (L), 2+ Dorsalis pedis (R), 2+ Dorsalis pedis (L) Abdomen: positive: Non-tender Back: positive: Other (mild thoracic kyphosis) Skin: positive: Color nml Extremities: positive: Non-tender, Nml appearance Neurologic/Psychiatric: positive: CN's nml (2-12), Sensation nml, Weakness, Othe r (Able to identify self, time and place but her speech is slow and confused, gets distracted easily and she is disoriented to event. Visual hallucinations.) - Lab Results Fish Bones: 07/07/21 04:50 07/07/21 04:50 Other Labs: Lab Results x24hrs 07/06/21 07/06/21 Range/Units 04:30 04:30 WBC 11.7 H (4.8-10.8) x10^3/uL RBC 4.70 (4.20-5.40) 10^6/uL Hgb 10.9 L (12.0-16.0) g/dL Hct 34.2 L (37.0-47.0) % MCV 72.8 L (81.0-99.0) fL MCH 23.2 L (27.0-31.0) pg MCHC 31.9 L (32.0-36.0) g/dL RDW 17.6 H (12.0-15.0) % Plt Count 224 (130-450) 10^3/uL MPV TNP Neut # (Auto) 10.0 H (1.5-6.6) 10^3/uL Lymph # (Auto) 0.7 L (1.5-3.5) 10^3/uL [place] # (Auto) 0.9 (0.0-1.0) 10^3/uL Eos # (Auto) 0.0 (0.0-0.7) 10^3/uL Baso # (Auto) 0.0 (0.0-0.1) 10^3/uL Absolute Nucleated RBC 0.00 x10^3/uL Nucleated RBC % 0.0 /100WBC Sodium 126 L (135-145) mmol/L Potassium 3.2 L (3.5-5.0) mmol/L Chloride 91 L (101-111) mmol/L Carbon Dioxide 28 (21-32) mmol/L Anion Gap 7.0 (6-13) BUN 34 H (6-20) mg/dL Creatinine 1.2 H (0.4-1.0) mg/dL Estimated GFR (MDRD) 42 L (>89) Glucose 161 H (70-100) mg/dL Calcium 7.7 L (8.5-10.3) mg/dL - Diagnostic Imaging Diagnostic Imaging Results: positive: See rad report Diagnostic Imaging Comments: No PE identified on CTA. Interval development of trace bilateral pleural effusions with overlying atelectasis ABX Reporting Has patient been on IV antibiotics over the past 48 hours?: No Sepsis Event Note (H) - Evaluation Current Stage of Sepsis: Ruled out Assessment/Plan - Problem List (1) Altered mental status Impression: Upon admission to the floor yesterday, patient became hypoxic and non-arousable. Her pupils were pinpoint. She has since regained consciousness but has been confused since. She speaks slowly, gets distracted easily and appears to be having visual hallucinations. CTA done today to rule out PE, none found. Head CT is normal but patient's transient, depressed level of consciousness may have been indicative of a basilar artery stroke or TIA. She also has general weakness but no focal deficits or slurred speech. Infectious etiology of confusion considered due to elevated WBC upon admission. Her WBC count dropped today from 13.7 to 11.7. Urinary tract infection unlikely, urine has bacteria but no nitrates or leukocyte esterse. Pneumonia unlikely, no fever, clear lungs and no infiltrates or significant densities on chest CT. Interval development of trace bilateral pleural effusions with overlying atelectasis seen on CTA but this is unlikely indicative of pneumonia. Negative blood cultures. Acute [place] considered but deemed unlikely, unchanged EKG from baseline, high sensitivity Troponin 29.1. Toxodrome unlikely, UDS negative. She is not on usp or prescribed opioids. No history of recreational drug use. Patient lives with her son who denies a known history of ingestion. Plan Observation Continue to monitor mental status. Qualifiers: Altered mental status type: transient alteration of awareness Qualified Code(s): R40.4 - Transient alteration of awareness (2) Hypoxia Impression: 96% on 1 L O2. Patient has a history of COPD is on 2-3 L O2 via NC at home. CTA shows interval development of trace bilateral pleural effusions with overlying atelectasis. No infiltrates or pulmonary embolism noted. She is COVID negative and negative for other respiratory pathogens. Blood cultures negative. Lung sounds are clear. Pneumonia unlikely. Plan Continue O2 monitoring and therapy as needed with goal to keep O2 saturation > 92%. Continue Lovanox for DVT prophylaxis (3) Hypertension Impression: Continue metoprolol and amlodipine as usual (4) Dementia Impression: Family planning with social work for care following discharge Qualifiers: Dementia type: unspecified type Dementia behavioral disturbance: without behavioral disturbance Qualified Code(s): F03.90 - Unspecified dementia without behavioral disturbance (5) Acute kidney injury Impression: Kidney function improved today following rehydration and bicarbonate: BUN: 39>34 CR: 1.7>1.2 GFR 28>42 Continue to monitor Sampson output (6) Hyponatremia Impression: Sodium dropped from 129 yesterday to 126 today. Decrease likely from receiving fluids with 5 yesterday. This has been discontinued. Given normal saline 0.9% with 40 Meq Kcl (7) Hypokalemia Impression: Potassium dropped from 3.7 yesterday to 3.2 today Given normal saline 0.9% with 40 Meq Kcl
[2021-07-07] MEDS: SODIUM CHLORIDE FLUSH 0.9% 10 ML SYRINGE IVP SCH ×3 (04:56→17:53)
[2021-07-07 05:42] LABS: BASOPHILS % (AUTO) 0.1 %; HGB - HEMOGLOBIN 11.4 g/dL (12.0-16.0); LYMPHOCYTES # (AUTO) 0.8 10^3/uL (1.5-3.5); LYMPHOCYTES % (AUTO) 6.2 %; MEAN CORPUSCULAR HEMOGLOBIN 23.6 pg (27.0-31.0); MEAN CORPUSCULAR HGB CONC 32.6 g/dL (32.0-36.0); MEAN CORPUSCULAR VOLUME 72.5 fL (81.0-99.0); MEAN PLATELET VOLUME 11.5 fL (7.9-10.8); MONOCYTES # (AUTO) 1.4 10^3/uL (0.0-1.0); MONOCYTES % (AUTO) 10.5 %; NEUTROPHILS # (AUTO) 11.1 10^3/uL (1.5-6.6); NEUTROPHILS % (AUTO) 82.8 %; PLT - PLATELET COUNT 244 10^3/uL (130-450); RED BLOOD COUNT 4.83 10^6/uL (4.20-5.40); RED CELL DISTRIBUTION WIDTH 17.9 % (12.0-15.0); WHITE BLOOD COUNT 13.5 x10^3/uL (4.8-10.8)
[2021-07-07 05:46] LABS: CALCIUM 7.5 mg/dL (8.5-10.3); CREATININE 0.8 mg/dL (0.4-1.0); POTASSIUM 3.9 mmol/L (3.5-5.0)
[2021-07-07] MEDS: NS W/40 MEQ KCL 1,000 ML IV SCH ×2 (06:17→21:22)
[2021-07-07] MEDS: cefTRIAXone 1 GM in SODIUM CHLORIDE 0.9% MINIBAG 100 ML IV SCH (08:54)
[2021-07-07] MEDS: ENOXAPARIN 40 MG/0.4 ML SYRINGE SUBQ SCH (08:54)
--- NOTE | 2021-07-07 09:02 | PROVIDER PROGRESS NOTE ---
Subjective - Prog Note Date Prog Note Date: 07/07/21 Prog Note Time: 14:00 - Subjective Pt reports feeling: Worse (Patient is more confused today) Subjective: Patient is mumbling unintelligibly. Current Medications - Current Medications Current Medications: Active Medications Acetaminophen (Acetaminophen 325 Mg Tablet) 650 mg PO Q4HR PRN PRN Reason: Pain 1 to 4 Last Admin: 07/06/21 00:38 Dose: 650 mg Enoxaparin Sodium (Enoxaparin 40 Mg/0.4 Ml Syringe) 40 mg SUBQ BID [facility] Last Admin: 07/07/21 08:54 Dose: 40 mg Ceftriaxone Sodium 1 gm/ (Sodium Chloride) 100 mls @ 200 mls/hr IV DAILY [facility] Stop: 07/09/21 09:29 Last Admin: 07/07/21 08:54 Dose: 200 mls/hr Azithromycin 500 mg/ Sodium (Chloride) 250 mls @ 250 mls/hr IV 1400 [facility] Stop: 07/07/21 14:59 Last Infusion: 07/06/21 14:22 Dose: Infused Potassium Chloride/Sodium Chloride (Normal Saline 0.9% W/40 Meq Kcl) 1,000 mls @ 100 mls/hr IV .Q10H [facility] Last Infusion: 07/07/21 08:54 Dose: 0 mls/hr Ondansetron HCl (Ondansetron Odt 4 Mg Tablet) 4 mg TL Q6HR PRN PRN Reason: Nausea / Vomiting Last Admin: 07/06/21 10:03 Dose: 4 mg Ondansetron HCl (Ondansetron 4 Mg/2 Ml Vial) 4 mg IVP Q6HR PRN PRN Reason: Nausea / Vomiting Oxycodone HCl (Oxycodone 5 Mg Tablet) 5 mg PO Q4HR PRN PRN Reason: PAIN Sodium Chloride (Sodium Chloride Flush 0.9% 10 Ml Syringe) 10 ml IVP PRN PRN PRN Reason: NEEDED PER PROVIDER ORDERS Sodium Chloride (Sodium Chloride Flush 0.9% 10 Ml Syringe) 10 ml IVP 0100,0900,1700 [facility] Last Admin: 07/07/21 08:54 Dose: 10 ml Omeprazole 20 mg PO QDAC 07/13/14 Albuterol Sulf [Ventolin Hfa Inhaler] 1 - 2 puffs INH Q4HR PRN 07/31/18 Magnesium Oxide [Mag Ox] 400 mg PO DAILY 10/09/18 Acetaminophen [8 Hour Pain Relief] 650 mg PO Q8H 07/05/21 Ascorbic Acid [Vitamin C] 500 mg PO DAILY 07/05/21 Calcium Carbonate [Tums (Calcium Carbonate 500mg)] 200 mg PO DAILY PRN 07/05/21 Cholecalciferol (Vitamin D3) [Vitamin D3] 50 mcg PO DAILY 07/05/21 Diclofenac Potassium [Cataflam] 50 mg PO BID PRN 07/05/21 Fluticasone [Flonase] 1 sprays SYEDA BID 07/05/21 Lidocaine Patch 5% [Lidoderm Patch] 1 each TOP DAILY PRN 07/05/21 Metoprolol Tartrate [Lopressor] 25 mg PO BID 07/05/21 Trospium Chloride 20 mg PO QPM 07/05/21 amLODIPine [Norvasc] 5 mg PO BID 07/05/21 polyethylene glycoL 3350 [Miralax] 17 gm PO DAILY PRN 07/05/21 Objective - Vital Signs/Intake & Output Vital Signs: Temp Pulse Resp BP Pulse Ox 37.4 C 106 H 22 171/70 H 96 07/07/21 12:19 07/07/21 12:41 07/07/21 12:19 07/07/21 12:41 07/07/21 12:19 Vital Signs x48h Temp Pulse Resp BP Pulse Ox 07/07/21 08:30 37.4 C 102 H 22 167/70 H 97 07/07/21 06:33 96 07/07/21 06:32 88 L 07/07/21 05:05 24 95 07/07/21 05:00 36.7 C 92 24 170/82 H 95 Intake & Output: Intake & Output 07/04/21 07/05/21 07/06/21 07/07/21 23:59 23:59 23:59 23:59 Intake Total 2960 3515.333 993.333 Output Total 200 1150 650 Balance 2760 2365.333 343.333 - Objective General Appearance: positive: Mild distress, Anxious, Lethargic (Patient sleeping on and off today. Upon arousal she is confused and anxious.) Eyes Bilateral: positive: Normal inspection, PERRL, EOMI ENT: positive: No signs of dehydration, Other (dysphagia) Neck: positive: Nml inspection, No JVD, Trachea midline Respiratory: positive: Chest non-tender, No respiratory distress, Breath sounds nml Cardiovascular: positive: No murmur, No gallop, Tachycardia Peripheral Pulses: 2+ Radial (R), 2+ Radial (L), 2+ Dorsalis pedis (R), 2+ Dorsalis pedis (L) Abdomen: positive: Non-tender Back: positive: Other (thoracic kyphosis) Skin: positive: Color nml Extremities: positive: Non-tender, Nml appearance Neurologic/Psychiatric: positive: Disoriented to place, Disoriented to time, Weakness (significant general weakness), Slurred/abnml speech (Aphasia, mumbling). negative: Facial droop Comments/Other: Patient is sitting up in bed mumbling. She responds to her name. Unable to answer any questions. She is mumbling as if trying to form words but unable to. Physical therapy attempted to work with patient. She required maximum assist to dangle. Unable to sit up on her own. She is also having trouble swallowing today. - Lab Results Fish Bones: 07/07/21 04:50 07/07/21 04:50 Other Labs: Lab Results x24hrs 07/07/21 07/07/21 07/07/21 Range/Units 04:50 04:50 04:50 WBC 13.5 H (4.8-10.8) x10^3/uL RBC 4.83 (4.20-5.40) 10^6/uL Hgb 11.4 L (12.0-16.0) g/dL Hct 35.0 L (37.0-47.0) % MCV 72.5 L (81.0-99.0) fL MCH 23.6 L (27.0-31.0) pg MCHC 32.6 (32.0-36.0) g/dL RDW 17.9 H (12.0-15.0) % Plt Count 244 (130-450) 10^3/uL MPV 11.5 H (7.9-10.8) fL Neut # (Auto) 11.1 H (1.5-6.6) 10^3/uL Lymph # (Auto) 0.8 L (1.5-3.5) 10^3/uL Karnes # (Auto) 1.4 H (0.0-1.0) 10^3/uL Eos # (Auto) 0.0 (0.0-0.7) 10^3/uL Baso # (Auto) 0.0 (0.0-0.1) 10^3/uL Absolute Nucleated RBC 0.00 x10^3/uL Nucleated RBC % 0.0 /100WBC Sodium 124 L (135-145) mmol/L Potassium 3.9 (3.5-5.0) mmol/L Chloride 94 L (101-111) mmol/L Carbon Dioxide 25 (21-32) mmol/L Anion Gap 5.0 L (6-13) BUN 14 (6-20) mg/dL Creatinine 0.8 (0.4-1.0) mg/dL Estimated GFR (MDRD) 68 L (>89) Glucose 120 H (70-100) mg/dL Calcium 7.5 L (8.5-10.3) mg/dL TSH 0.21 L (0.34-5.60) uIU/mL ABX Reporting Has patient been on IV antibiotics over the past 48 hours?: Yes Sepsis Event Note (H) - Evaluation Current Stage of Sepsis: Ruled out Assessment/Plan - Problem List (1) Altered mental status Impression: Upon admission to the floor yesterday, patient became hypoxic and non- responsive. Her pupils were pinpoint. She then regained conciousness but was confused. Yesterday she was having visual hallucinations. Today she has aphasia and is mumbling unintelligibly, unable to form words. She seems very alarmed by this. Head CT is normal but patient's transient, depressed level of consciousness may have been indicative of a basilar artery stroke or TIA. She also has general weakness but no focal deficits. Would like to proceed with further imaging, MRI ordered. CTA done yesterday to rule out PE, none found. Infectious etiology of confusion considered due to elevated WBC upon admission. Her WBC today is 13.5, up from 11.7 yesterday. Urinary tract infection unlikely, urine has bacteria but no nitrates or leukocyte esterse. Pneumonia unlikely, no fever, clear lungs and no infiltrates or significant densities on chest CT. Interval development of trace bilateral pleural effusions with overlying atelectasis seen on CTA but this is unlikely indicative of pneumonia. Negative blood cultures. Acute MD initially considered but deemed unlikely, unchanged EKG from baseline, high sensitivity Troponin 29.1. Toxodrome unlikely, UDS negative. She is not on oysterman or prescribed opioids. No history of recreational drug use. Patient lives with her son who denies a known history of ingestion. Consulted with neurologist today, recommends MRI to rule out brain stem bleed/stroke. Plan MRI to look for brainstem bleed/stroke Add statin and aspirin in case of stroke Because we have ruled out PE, Lovanox decreased to 40 mg subQ today Observation Continue to monitor mental status Qualifiers: Altered mental status type: transient alteration of awareness Qualified Code(s): R40.4 - Transient alteration of awareness (2) Hypoxia Impression: 96% on 1 L O2 today. Patient has a history of COPD is on 2-3 L O2 via NC at home. CTA shows interval development of trace bilateral pleural effusions with overlying atelectasis. No infiltrates or pulmonary embolism noted. She is COVID negative and negative for other respiratory pathogens. Blood cultures negative. Lung sounds are clear. Pneumonia unlikely. Plan Continue O2 monitoring and therapy as needed with goal to keep O2 saturation > 92%. Continue Lovanox for DVT prophylaxis (3) Generalized weakness Impression: Patient unable to sit up on her own today. Struggling to feed herself. Plan to get MRI to evaluate for brainstem stroke or bleed that could be causing these symptoms (4) Dysphagia Impression: Patient having trouble swallowing water. This is a new development today (07/07) Plan NPO Swallow study tomorrow (5) Aphasia Impression: Patient having trouble expressing speech today (07/07). Plan to do MRI to look for stroke/bleed. (6) Hypertension Impression: Continue metoprolol and amlodipine as usual (7) Dementia Impression: Family planning with social work for care following discharge Qualifiers: Dementia type: unspecified type Dementia behavioral disturbance: without behavioral disturbance Qualified Code(s): F03.90 - Unspecified dementia without behavioral disturbance (8) Acute kidney injury Impression: Kidney function improved today following rehydration and bicarbonate: BUN: 39->34->14 CR: 1.7->1.2->0.8 GFR 28->42->68 Continue to monitor Sampson output (9) Hyponatremia Impression: Sodium dropped from 126 yesterday to 124 today. Decrease is likely due to receiving fluids with D5 2 days ago. These have been stopped, anticipated that levels will rise following this. Given normal saline with 40 Meq K IV yesterday and today (10) Hypokalemia Impression: Potassium improved from 3.2 yesterday to 3.9 today follow normal saline with 40 Meq K IV and PO 40 Meq K. Continue normal saline with 40 Meq K IV today K currently within normal range. Will continue to monitor.
[2021-07-07] MEDS: AZITHROMYCIN INJ 500 MG in SODIUM CHLORIDE 0.9% 250 ML IV SCH (14:21)
--- NOTE | 2021-07-07 16:52 | MRI Report ---
PROCEDURE: Brain W/O INDICATIONS: sudden AMS, psychosis alt w coma TECHNIQUE: Noncontrast axial T1 spin echo, axial T2 fast spin echo, sagittal and axial FLAIR, coronal T2 fast sp in echo, axial gradient echo, axial diffusion and ADC through the brain. COMPARISON: CT head 07/05/2021., MR brain 10/10/2018 FINDINGS: Image quality: Excellent. CSF Spaces: Basal cisterns are patent. No extra-axial fluid collections. Ventricles are normal in size and shape. Brain: There is increased T2/STIR signal within the right temporal lobe. Areas of abnormal signal als o extend medially into the inferior right frontal lobe. There is hyperintense signal on diffusion seq uence within this region. However, it is also hyperintense on ADC. There is appearance of flow void l oss within the right MCA corresponding to area of signal abnormality. Brainstem appears normal. CT h ead exam on 07/05/2021 does not appear to demonstrate acute abnormality within this region. Skull and face: Calvarium has normal marrow signal. Orbits appear normal. Sinuses: There is minimal scattered pansinus muscle thickening. Fluid is present within the mastoid a ir cells bilaterally. IMPRESSION: Abnormal hyperintense signal within the right temporal lobe with hyperintense diffusion signal. While this could represent subacute ischemia, given lack of ADC hypointensity, this could also represent T 2 shine through from other etiologies such as infection or edema. In addition, there is a question of loss of flow void within the right MCA. Further evaluation with MR brain with contrast as well as MR A or CTA head and neck is recommended. Reviewed by: Pam Vargas MD on 07/07/2021 4:50 PM PST Approved by: Pam Vargas MD on 07/07/2021 4:50 PM PST Station ID: [id number]
[2021-07-07] MEDS ORDERED: ASPIRIN EC 325 MG TABLET PO ONE (18:14)
[2021-07-07] MEDS: MEROPENEM 1 GM in SODIUM CHLORIDE 0.9% MINIBAG 100 ML IV SCH (21:22)
--- NOTE | 2021-07-07 21:26 | CONSULTATION NOTE ---
Consultation Report: Dr. Post requested a LP. I called and discussed risks of procedure with Elena Williamson, daughter. She consented for procedure. patient placed left lateral position, Chloroprep used, LIdocaine 1% localization at L4/5, attempt x1 with success, 4 tubes of CSF collected. CSF appeared clear. Patient tolerated procedure well. Samples hand delivered to lab
[2021-07-07] MEDS ORDERED: LORazepam 2 MG/ML VIAL IVP STA (21:29)
[2021-07-07] MEDS ORDERED: LORazepam 2 MG/ML VIAL ONE (21:37)
[2021-07-07] MEDS: SODIUM CHLORIDE 0.9% IV SCH (21:46)
[2021-07-07] MEDS: ACYCLOVIR IV SCH (21:46)
[2021-07-07 21:50] LABS: CSF - GLUCOSE 51 mg/dL (45-70); TOTAL PROTEIN,CSF 160 mg/dL (15-60)
[2021-07-07] MEDS ORDERED: SODIUM CHLORIDE 0.9% 500 ML IV ONE ×2 (21:51→22:52)
[2021-07-07] MEDS ORDERED: VANCOMYCIN INJ 500 MG in SODIUM CHLORIDE 0.9% MINIBAG 100 ML IV SCH (22:00)
[2021-07-07] MEDS ORDERED: LORazepam 2 MG/ML VIAL IVP PRN (22:32)
[2021-07-07 22:41] LABS: CLARITY,CSF CLEAR (CLEAR); COLOR,CSF COLORLESS (COLORLESS); CSF TUBE # CSF TUBE# 3; CSF XANTHOCHROMIA ABSENT (ABSENT); RED BLOOD CELL,CSF 23 /mm^3 (0-1); WHITE BLOOD CELL,CSF 6 /mm^3 (0-5)
[2021-07-07 23:02] LABS: LYMPHOCYTES,CSF 35 % (40-80); MONOCYTES,CSF 63 % (15-45); NEUTROPHILS,CSF 2 % (0-6)
[2021-07-08 00:13] LABS: ALBUMIN 2.2 g/dL (3.2-5.5); ALKALINE PHOSPHATASE 26 IU/L (42-121); ALT ALANINE AMINOTRANSFERASE 35 IU/L (10-60); AST ASPARTATE AMINOTRANSFERASE 50 IU/L (10-42); BILIRUBIN,TOTAL 0.5 mg/dL (0.2-1.0); BUN - BLOOD UREA NITROGEN 18 mg/dL (6-20); CARBON DIOXIDE - CO2 23 mmol/L (21-32); CHLORIDE 95 mmol/L (101-111); GFR - MDRD 52 (>89); GLUCOSE 120 mg/dL (70-100); POTASSIUM 4.3 mmol/L (3.5-5.0); SODIUM 124 mmol/L (135-145); TOTAL PROTEIN 4.5 g/dL (6.7-8.2)
[2021-07-08 00:20] LABS: BILIRUBIN,DIRECT < 0.1 mg/dL (0.1-0.5)
--- NOTE | 2021-07-08 01:02 | PROVIDER PROGRESS NOTE ---
Yoga Instructor Note - Yoga Instructor Note Yoga Instructor Note: A rapid response was called this evening as the patient had become more somnolent and lethargic. She is also now febrile temperature of 39.1 C. Her rate had also increased to the 130s. Upon my evaluation, she was not responding to stimuli. She was unresponsive and was tachypneic. She had MRI completed earlier today to evaluate for her altered mental status and that revealed an abnormality in the right temporal lobe but no evidence of ischemia. Given her new fever, the concern was now for encephalitis/meningitis. We started her empirically on vancomycin and meropenem IV to cover for bacterial meningitis. These antibiotics were chosen given she has a penicillin allergy. 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 I spoke with anesthesia and they were able to perform a lumbar puncture this evening. The cell counts are pending. I have sent for glucose, protein, Gram stain, cell count, bacterial culture. I have also sent for an HSV PCR from the CSF fluid. We will consider an auto immune encephalitis panel based off of the cell count of findings. The patient was also shortly after noted to have seizure-like activity where she had facial twitching and rigidity of her left upper extremity. She was given 2 mg of IV lorazepam with resolution of the symptoms. I spoke with the patient's daughter, Madalyn, to update her on the patient's critical condition. I informed her what our plan is and what further work-up m ay include such as the lumbar puncture which she was agreeable to when I spoke to her earlier on in the day. I informed her we will continue antibiotics and the acyclovir empirically. We will look to obtain an MRA of the brain tomorrow. She asked if we can manage her mother's critical condition here at our facility and I informed her that at this time I do not see why she would need to be trans ferred unless there is no improvement over next 24 hours and we do not have a clear etiology of her altered mental status such as an obvious bacterial meningitis or viral encephalitis. I did recommend that she come and visit her mother and she was able to do so this evening. She will return in the morning. Assessment: Encephalopathy Fever New seizure Suspected meningitis/encephalitis Plan: Have proceeded with a lumbar puncture as mentioned above and we will follow up the CSF studies. We will continue her on vancomycin, meropenem, acyclovir IV empirically. Continue IV hydration. We will check labs including BMP and liver function panel. We will also check a free T4 given her TSH was decreased this morning as this may also be related to thyroid storm. MRA of the brain in the morning. Transfer to ICU for closer monitoring. 42 minutes of critical care time were spent including evaluating the patient, ordering IV therapies, interpreting labs and images, as well as updating the family.
[2021-07-08 05:13] LABS: BASOPHILS % (AUTO) 0.1 %; HGB - HEMOGLOBIN 10.1 g/dL (12.0-16.0); LYMPHOCYTES % (AUTO) 6.4 %; MEAN CORPUSCULAR HEMOGLOBIN 23.4 pg (27.0-31.0); MEAN CORPUSCULAR HGB CONC 31.6 g/dL (32.0-36.0); MEAN CORPUSCULAR VOLUME 74.1 fL (81.0-99.0); MEAN PLATELET VOLUME 11.8 fL (7.9-10.8); MONOCYTES % (AUTO) 10.8 %; NEUTROPHILS % (AUTO) 82.2 %; PLT - PLATELET COUNT 225 10^3/uL (130-450); RED BLOOD COUNT 4.32 10^6/uL (4.20-5.40); RED CELL DISTRIBUTION WIDTH 18.4 % (12.0-15.0); WHITE BLOOD COUNT 14.5 x10^3/uL (4.8-10.8)
[2021-07-08] MEDS: MEROPENEM 1 GM in SODIUM CHLORIDE 0.9% MINIBAG 100 ML IV SCH ×3 (05:15→20:27)
[2021-07-08 05:16] LABS: ABNORMAL LYMPHS % (MANUAL) 0 %
[2021-07-08 05:19] LABS: CALCIUM 7.2 mg/dL (8.5-10.3); POTASSIUM 4.4 mmol/L (3.5-5.0)
[2021-07-08] MEDS: SODIUM CHLORIDE FLUSH 0.9% 10 ML SYRINGE IVP SCH ×3 (05:27→18:05)
[2021-07-08 05:31] LABS: BAND NEUTROPHILS % (MANUAL) 1 %; LYMPHOCYTES # (MANUAL) 1.7 10^3/uL (1.5-3.5); LYMPHOCYTES % (MANUAL) 12 %; MONOCYTES # (MANUAL) 0.6 10^3/uL (0.0-1.0); NEUTROPHILS # (MANUAL) 12.2 10^3/uL (1.5-6.6)
[2021-07-08 05:32] LABS: DIFFERENTIAL COMMENT MANUAL DIFFERENTIAL; PLATELET ESTIMATE, MANUAL NORMAL (130-450,000) (NORMAL); PLATELET MORPHOLOGY NORMAL APPEARANCE (NORMAL); RBC MORPHOLOGY (MULTIPLE) 1+ OVALOCYTES (NORMAL); WBC MORPHOLOGY (MULTIPLE) NORMAL APPEARANCE (NORMAL)
[2021-07-08] MEDS: SODIUM CHLORIDE 0.9% IV SCH ×3 (05:54→21:26)
[2021-07-08] MEDS: ACYCLOVIR IV SCH ×3 (05:54→21:26)
[2021-07-08] MEDS ORDERED: SODIUM CHLORIDE 0.9% 500 ML IV ONE (05:59)
--- NOTE | 2021-07-08 08:55 | PROVIDER PROGRESS NOTE ---
Assessment/Plan - Problem List (1) Encephalopathy Assessment/Plan: Etiology undetermined. Differential includes subacute CVA versus seizure versus viral infection. CT of the brain was unremarkable. However MRI done 07/07/2021 showed abnormal hyperintense signal within the right temporal lobe with hyperintense diffusion signal. There was also question of loss of flow void within the right MCA. It was recommended that further evaluation be done with MR brain with contrast as well as MRA head and neck. This was not done on 07/08/2021 for concern about patient's respiratory status. Will plan on doing the above imaging on 07/09/2021. LP analysis does not support a bacterial infection As WBC was 6 blood glucose 51 total protein 160. It was clear in color. Patient is still on vancomycin, Meropenem and acyclovir empirically. Dexamethasone 10 mg IV every 8 hours for 3 doses ordered. Patient was also started on Keppra 1000 mg IV twice daily. If no improvement within the next 24 hours. Will discuss further with family. Further plans could involve transfer for neurology evaluation and or EEG. (2) Hyponatremia Assessment/Plan: Mild. Sodium level yesterday was 124. Sodium level today is 126. We will continue to monitor and treat accordingly. (3) Seizure Assessment/Plan: Keppra 1000 mg IV twice daily. If no change in mental status will discuss with family the possibility of transfer for EEG and neurology consult. (4) Leukocytosis Assessment/Plan: Etiology undetermined. White blood cell count today is 14.5. Blood cultures are no growth to date. On empiric antibiotics with vancomycin, meropenem. Also on acyclovir. We will continue to monitor. - Current Meds Current Meds: Current Medications Generic Name Dose Route Start Last Admin Trade Name Freq PRN Reason Stop Dose Admin Acetaminophen 650 mg 07/05/21 07:03 07/06/21 00:38 Acetaminophen 325 Mg Tablet PO 650 mg Q4HR PRN Administration Pain 1 to 4 Ceftriaxone Sodium 1 gm/ 100 mls @ 200 mls/hr 07/06/21 09:00 07/07/21 09:39 Sodium Chloride IV 07/09/21 09:29 Infused DAILY TERRANCE Infusion Potassium Chloride/Sodium Chloride 1,000 mls @ 100 mls/hr 07/06/21 09:00 07/07/21 21:22 Normal Saline 0.9% W/40 Meq Kcl IV 100 mls/hr .Q10H TERRANCE Administration Acyclovir 450 mg/ Sodium 509 mls @ 500 mls/hr 07/07/21 21:00 07/08/21 05:54 Chloride IV 500 mls/hr Q8H TERRANCE Administration Meropenem 1 gm/ Sodium 100 mls @ 200 mls/hr 07/07/21 21:00 07/08/21 05:50 Chloride IV Infused Q8H TERRANCE Infusion Vancomycin HCl 500 mg/ Sodium 100 mls @ 100 mls/hr 07/07/21 22:00 07/07/21 23:50 Chloride IV Infused Q24H TERRANCE Infusion Ondansetron HCl 4 mg 07/05/21 07:03 07/06/21 10:03 Ondansetron Odt 4 Mg Tablet TL 4 mg Q6HR PRN Administration Nausea / Vomiting Sodium Chloride 10 ml 07/05/21 09:00 07/08/21 05:27 Sodium Chloride Flush 0.9% 10 Ml Syringe IVP Not Given 0100,0900,1700 TERRANCE - Lab Result Fish Bone Diagrams: 07/08/21 04:41 07/08/21 04:41 Subjective - Subjective Patient Reports: Other (Patient does not respond to tactile or verbal stimuli.She grimaces and moans to painful stimuli.) Objective Vital Signs: Vital Signs - 24 hr 07/07/21 07/07/21 07/07/21 10:53 10:55 12:19 Temperature 37.4 C Heart Rate [ 109 H 109 H Activity] Heart Rate [ 110 H Brachial] Heart Rate [ Monitoring electrodes] Heart Rate [ 145 H 120 H Sitting] Heart Rate [ 106 H 106 H Supine] Respiratory 22 Rate Blood Pressure 177/74 H 177/74 H [Activity] Blood Pressure 177/74 H [Right Brachial artery] Blood Pressure 130/84 H 130/84 H [Sitting] Blood Pressure 171/70 H 171/70 H [Supine] O2 Saturation 96 07/07/21 07/07/21 07/07/21 12:41 16:44 20:08 Temperature 37.6 C Heart Rate [ 109 H Activity] Heart Rate [ 109 H 54 L Brachial] Heart Rate [ Monitoring electrodes] Heart Rate [ 120 H Sitting] Heart Rate [ 106 H Supine] Respiratory 22 33 H Rate Blood Pressure 177/74 H [Activity] Blood Pressure 165/73 H 150/93 H [Right Brachial artery] Blood Pressure 130/84 H [Sitting] Blood Pressure 171/70 H [Supine] O2 Saturation 96 81 L 07/07/21 07/07/21 07/07/21 20:12 20:15 20:21 Temperature 39 C H Heart Rate [ Activity] Heart Rate [ 139 H 139 H 124 H Brachial] Heart Rate [ Monitoring electrodes] Heart Rate [ Sitting] Heart Rate [ Supine] Respiratory 30 H 30 H Rate Blood Pressure [Activity] Blood Pressure 178/88 H 176/101 H 182/62 H [Right Brachial artery] Blood Pressure [Sitting] Blood Pressure [Supine] O2 Saturation 99 99 07/07/21 07/07/21 07/07/21 20:27 20:31 20:47 Temperature 39.1 C H Heart Rate [ Activity] Heart Rate [ 60 120 H 71 Brachial] Heart Rate [ Monitoring electrodes] Heart Rate [ Sitting] Heart Rate [ Supine] Respiratory 33 H 30 H 30 H Rate Blood Pressure [Activity] Blood Pressure 156/88 H 165/120 H 167/75 H [Right Brachial artery] Blood Pressure [Sitting] Blood Pressure [Supine] O2 Saturation 99 98 98 07/07/21 07/07/21 07/08/21 21:00 22:23 00:00 Temperature 39.1 C H 39.1 C H Heart Rate [ Activity] Heart Rate [ 116 H Brachial] Heart Rate [ 144 H 96 Monitoring electrodes] Heart Rate [ Sitting] Heart Rate [ Supine] Respiratory 40 H 28 H 38 H Rate Blood Pressure [Activity] Blood Pressure 156/67 H 96/41 L 99/48 L [Right Brachial artery] Blood Pressure [Sitting] Blood Pressure [Supine] O2 Saturation 95 96 96 07/08/21 07/08/21 07/08/21 01:00 02:00 03:00 Temperature Heart Rate [ Activity] Heart Rate [ Brachial] Heart Rate [ 95 97 87 Monitoring electrodes] Heart Rate [ Sitting] Heart Rate [ Supine] Respiratory 36 H 38 H 36 H Rate Blood Pressure [Activity] Blood Pressure 107/51 L 100/47 L 93/45 L [Right Brachial artery] Blood Pressure [Sitting] Blood Pressure [Supine] O2 Saturation 97 97 97 07/08/21 07/08/21 07/08/21 04:00 05:00 06:00 Temperature 36.1 C L Heart Rate [ Activity] Heart Rate [ Brachial] Heart Rate [ 97 82 86 Monitoring electrodes] Heart Rate [ Sitting] Heart Rate [ Supine] Respiratory 30 H 34 H 33 H Rate Blood Pressure [Activity] Blood Pressure 142/57 H 110/53 L 109/46 L [Right Brachial artery] Blood Pressure [Sitting] Blood Pressure [Supine] O2 Saturation 97 99 99 07/08/21 07:00 Temperature Heart Rate [ Activity] Heart Rate [ Brachial] Heart Rate [ 102 H Monitoring electrodes] Heart Rate [ Sitting] Heart Rate [ Supine] Respiratory 30 H Rate Blood Pressure [Activity] Blood Pressure 133/63 H [Right Brachial artery] Blood Pressure [Sitting] Blood Pressure [Supine] O2 Saturation 98 Oxygen O2 Source [With Activity] on 0.5L O2 via NC O2 Source Nasal cannula Oxygen Flow Rate 0.5 I&O (Last 24 Hrs): Intake and Output Totals x24h 07/06/21 07/07/21 07/08/21 23:59 23:59 23:59 Intake Total 3515.333 3352.333 100 Output Total 1150 2150 205 Balance 2365.333 1202.333 -105 General: Other (lethargic, not oriented to place, self or time) HEENT: Atraumatic, PERRLA, EOMI Neck: Supple, No JVD Neuro: Other (Not oriented to self, time, place or reason. Grimaces/moans painful stimuli only.) Cardiovascular: Regular rate, Normal S1, Normal S2 Respiratory: Chest non-tender, Breath sounds nml, Other (crackles) Abdomen: Normal bowel sounds, Soft Extremities: No clubbing, No cyanosis, No edema Skin: No rashes, No breakdown, No significant lesion - Results Results: Laboratory Results WBC 14.5 x10^3/uL (4.8-10.8) H 07/08/21 04:41 RBC 4.32 10^6/uL (4.20-5.40) 07/08/21 04:41 Hgb 10.1 g/dL (12.0-16.0) L 07/08/21 04:41 Hct 32.0 % (37.0-47.0) L 07/08/21 04:41 MCV 74.1 fL (81.0-99.0) L 07/08/21 04:41 MCH 23.4 pg (27.0-31.0) L 07/08/21 04:41 MCHC 31.6 g/dL (32.0-36.0) L 07/08/21 04:41 RDW 18.4 % (12.0-15.0) H 07/08/21 04:41 Plt Count 225 10^3/uL (130-450) 07/08/21 04:41 MPV 11.8 fL (7.9-10.8) H 07/08/21 04:41 Neut # (Auto) Not Reportable 07/08/21 04:41 Lymph # (Auto) Not Reportable 07/08/21 04:41 [place] # (Auto) Not Reportable 07/08/21 04:41 Eos # (Auto) Not Reportable 07/08/21 04:41 Baso # (Auto) Not Reportable 07/08/21 04:41 Absolute Nucleated RBC Not Reportable 07/08/21 04:41 Total Counted 100 07/08/21 04:41 Band Neuts % (Manual) 1 % (0-10) 07/08/21 04:41 Abnorm Lymph % (Manual) 0 % 07/08/21 04:41 Nucleated RBC % Not Reportable 07/08/21 04:41 Neutrophils # (Manual) 12.2 10^3/uL (1.5-6.6) H 07/08/21 04:41 Lymphocytes # (Manual) 1.7 10^3/uL (1.5-3.5) 07/08/21 04:41 Monocytes # (Manual) 0.6 10^3/uL (0.0-1.0) 07/08/21 04:41 Eosinophils # (Manual) 0.0 10^3/uL (0-0.7) 07/08/21 04:41 Basophils # (Manual) 0.0 10^3/uL (0-0.1) 07/08/21 04:41 Differential Comment MANUAL DIFFERENTIAL 07/08/21 04:41 WBC Morphology NORMAL APPEARANCE (NORMAL) 07/08/21 04:41 Platelet Estimate NORMAL (130-450,000) (NORMAL) 07/08/21 04:41 Platelet Morphology NORMAL APPEARANCE (NORMAL) 07/08/21 04:41 RBC Morph Micro Appear 1+ OVALOCYTES (NORMAL) 07/08/21 04:41 Sodium 126 mmol/L (135-145) L 07/08/21 04:41 Potassium 4.4 mmol/L (3.5-5.0) 07/08/21 04:41 Chloride 96 mmol/L (101-111) L 07/08/21 04:41 Carbon Dioxide 24 mmol/L (21-32) 07/08/21 04:41 Anion Gap 6.0 (6-13) 07/08/21 04:41 BUN 18 mg/dL (6-20) 07/08/21 04:41 Creatinine 1.0 mg/dL (0.4-1.0) 07/08/21 04:41 Estimated GFR (MDRD) 52 (>89) L 07/08/21 04:41 Glucose 100 mg/dL (70-100) 07/08/21 04:41 Lactic Acid 1.4 mmol/L (0.5-2.2) 07/05/21 04:17 Calcium 7.2 mg/dL (8.5-10.3) L 07/08/21 04:41 Magnesium 2.0 mg/dL (1.7-2.8) 07/05/21 04:17 Total Bilirubin 0.5 mg/dL (0.2-1.0) 07/07/21 23:53 Direct Bilirubin < 0.1 mg/dL (0.1-0.5) L 07/07/21 23:53 AST 50 IU/L (10-42) H 07/07/21 23:53 ALT 35 IU/L (10-60) 07/07/21 23:53 Alkaline Phosphatase 26 IU/L (42-121) L 07/07/21 23:53 Troponin I High Sens 29.1 ng/L (2.3-14.8) H* 07/05/21 10:40 Total Protein 4.5 g/dL (6.7-8.2) L 07/07/21 23:53 Albumin 2.2 g/dL (3.2-5.5) L 07/07/21 23:53 Globulin 2.3 g/dL (2.1-4.2) 07/07/21 23:53 Albumin/Globulin Ratio 1.1 (1.0-2.2) 07/05/21 04:17 Lipase 99 U/L (22-51) H 07/05/21 04:17 TSH 0.21 uIU/mL (0.34-5.60) L 07/07/21 04:50 Free T4 1.16 ng/dL (0.58-1.64) 07/07/21 04:50 Urine Color YELLOW 07/05/21 04:17 Urine Clarity CLEAR (CLEAR) 07/05/21 04:17 Urine pH 5.5 PH (5.0-7.5) 07/05/21 04:17 Ur Specific [place] 1.025 (1.002-1.030) 07/05/21 04:17 Urine Protein 30 mg/dL (NEGATIVE) H 07/05/21 04:17 Urine Glucose (UA) NEGATIVE mg/dL (NEGATIVE) 07/05/21 04:17 Urine Ketones NEGATIVE mg/dL (NEGATIVE) 07/05/21 04:17 Urine Occult Blood MODERATE (NEGATIVE) H 07/05/21 04:17 Urine Nitrite NEGATIVE (NEGATIVE) 07/05/21 04:17 Urine Bilirubin NEGATIVE (NEGATIVE) 07/05/21 04:17 Urine Urobilinogen 0.2 (NORMAL) E.U./dL (NORMAL) 07/05/21 04:17 Ur Leukocyte Esterase NEGATIVE (NEGATIVE) 07/05/21 04:17 Urine RBC 6-10 /HPF (0-5) H 07/05/21 04:17 Urine WBC 0-3 /HPF (0-5) 07/05/21 04:17 Ur Squamous Epith Cells NONE SEEN (<= Few) 07/05/21 04:17 Urine Bacteria Many /HPF (None Seen) H 07/05/21 04:17 Ur Microscopic Review INDICATED 07/05/21 04:17 Urine Culture Comments NOT INDICATED 07/05/21 04:17 CSF Color COLORLESS (COLORLESS) 07/07/21 21:15 CSF Clarity CLEAR (CLEAR) 07/07/21 21:15 Xanthrochromic ABSENT (ABSENT) 07/07/21 21:15 CSF WBC 6 /mm^3 (0-5) H 07/07/21 21:15 CSF RBC 23 /mm^3 (0-1) H 07/07/21 21:15 CSF Cell Count Tube # CSF TUBE# 3 07/07/21 21:15 CSF Neutrophils 2 % (0-6) 07/07/21 21:15 CSF Lymphocytes 35 % (40-80) L 07/07/21 21:15 CSF Monocytes 63 % (15-45) H 07/07/21 21:15 CSF Glucose 51 mg/dL (45-70) 07/07/21 21:15 CSF Total Protein 160 mg/dL (15-60) H 07/07/21 21:15 Nasal Adenovirus (PCR) NOT DETECTED 07/05/21 03:45 Nasal B. parapertussis DNA (PCR) NOT DETECTED 07/05/21 03:45 Nasal Coronavir 229E PCR NOT DETECTED 07/05/21 03:45 Nasal Coronavir HKU1 PCR NOT DETECTED 07/05/21 03:45 Nasal Coronavir NL63 PCR NOT DETECTED 07/05/21 03:45 Nasal Coronavir OC43 PCR NOT DETECTED 07/05/21 03:45 Nasal Enterovir/Rhinovir PCR NOT DETECTED 07/05/21 03:45 Nasal Influenza B PCR NOT DETECTED 07/05/21 03:45 Nasal Influenza A PCR NOT DETECTED 07/05/21 03:45 Nasal Parainfluen 1 PCR NOT DETECTED 07/05/21 03:45 Nasal Parainfluen 2 PCR NOT DETECTED 07/05/21 03:45 Nasal Parainfluen 3 PCR NOT DETECTED 07/05/21 03:45 Nasal Parainfluen 4 PCR NOT DETECTED 07/05/21 03:45 Nasal RSV (PCR) NOT DETECTED 07/05/21 03:45 Nasal B.pertussis DNA PCR NOT DETECTED 07/05/21 03:45 Nasal C.pneumoniae (PCR) NOT DETECTED 07/05/21 03:45 [place] Human Metapneumo PCR NOT DETECTED 07/05/21 03:45 Nasal M.pneumoniae (PCR) NOT DETECTED 07/05/21 03:45 Nasal SARS-CoV-2 (PCR) NOT DETECTED 07/05/21 03:45 Urine Opiates Screen NEGATIVE (NEGATIVE) 07/05/21 11:00 Ur Oxycodone Screen NEGATIVE (NEGATIVE) 07/05/21 11:00 Urine Methadone Screen NEGATIVE (NEGATIVE) 07/05/21 11:00 Ur Propoxyphene Screen NEGATIVE (NEGATIVE) 07/05/21 11:00 Ur Barbiturates Screen NEGATIVE (NEGATIVE) 07/05/21 11:00 Ur Tricyclics Screen NEGATIVE (NEGATIVE) 07/05/21 11:00 Ur Phencyclidine Scrn NEGATIVE (NEGATIVE) 07/05/21 11:00 Ur Amphetamine Screen NEGATIVE (NEGATIVE) 07/05/21 11:00 U Methamphetamines Scrn NEGATIVE (NEGATIVE) 07/05/21 11:00 U Benzodiazepines Scrn NEGATIVE (NEGATIVE) 07/05/21 11:00 Urine Cocaine Screen NEGATIVE (NEGATIVE) 07/05/21 11:00 U Cannabinoids Screen NEGATIVE (NEGATIVE) 07/05/21 11:00 Sepsis Event Note (H) - Evaluation Current Stage of Sepsis: Ruled out ABX Reporting Has patient been on IV antibiotics over the past 48 hours?: Yes
[2021-07-08] MEDS ORDERED: ENOXAPARIN 40 MG/0.4 ML SYRINGE SUBQ SCH (09:00)
[2021-07-08] MEDS ORDERED: ASPIRIN EC 81 MG TABLET PO SCH (09:00)
[2021-07-08] MEDS: cefTRIAXone 1 GM in SODIUM CHLORIDE 0.9% MINIBAG 100 ML IV SCH (09:16)
[2021-07-08] MEDS: DEXAMETHASONE 10 MG/ML VIAL IVP SCH ×2 (10:51→18:37)
[2021-07-08] MEDS: levETIRAcetam INJ 1,000 MG in SODIUM CHLORIDE 0.9% 100ML 100 ML IV SCH ×2 (10:55→21:00)
[2021-07-08] MEDS: NS W/40 MEQ KCL 1,000 ML IV SCH (11:19)
[2021-07-08] MEDS: VANCOMYCIN INJ 1 GM in SODIUM CHLORIDE 0.9% 250 ML IV SCH (11:46)
--- NOTE | 2021-07-08 12:42 | PHARMACY PROGRESS NOTE ---
- Therapy Status Vancomycin regimen day #: 1 Therapy status: Awaiting steady state Basis for treatment: Empirical Treatment indication: concern for bacterial meningitis Trough goal: 15-20 Concurrent antibiotics: meropenem - ISABEL Risk Acute Kidney Injury risk factors: IV contrast within 72 hrs, Admission to ICU - Monitoring and Recommendation Clinical response to treatment: I&O Previous 24 hours 07/06/21 07/07/21 07/08/21 23:59 23:59 23:59 Intake Total 3515.333 3352.333 1819 Output Total 1150 2150 430 Balance 2365.333 1207.777 6316 Lab Results 07/08/21 07/07/21 07/07/21 04:41 23:53 04:50 BUN 18 18 14 Creatinine 1.0 1.0 0.8 Estimated GFR (MDRD) 52 L 52 L 68 L 07/06/21 07/05/21 04:30 04:17 BUN 34 H 39 H Creatinine 1.2 H 1.7 H Estimated GFR (MDRD) 42 L 28 L Cultures 07/07/21 21:15 Cerebral Spinal Fluid CSF Culture - Preliminary 07/05/21 07:32 Blood Blood Culture - Preliminary NO GROWTH AFTER 2 DAYS 07/05/21 07:24 Blood Blood Culture - Preliminary NO GROWTH AFTER 2 DAYS Monitoring plan: Daily serum creatinine Next trough due prior to maintenance dose #: 3 Next trough due (date/time): 07/10 AT 0930 Areas for additional monitoring: IV to PO when appropriate, Therapy de- escalation based on culture results Pharmacy recommendation: Continue current regime
[2021-07-08] MEDS: D5NS W/20 MEQ KCL 1,000 ML IV SCH (18:01)
[2021-07-09] MEDS ORDERED: HYDROmorphone 1 MG/ML CARPUJECT IVP PRN (02:24)
[2021-07-09] MEDS: DEXAMETHASONE 10 MG/ML VIAL IVP SCH (02:36)
[2021-07-09] MEDS: ACYCLOVIR IV SCH ×3 (05:00→21:35)
[2021-07-09] MEDS: SODIUM CHLORIDE 0.9% IV SCH ×3 (05:00→21:35)
[2021-07-09] MEDS: D5NS W/20 MEQ KCL 1,000 ML IV SCH ×2 (05:10→20:56)
[2021-07-09] MEDS: MEROPENEM 1 GM in SODIUM CHLORIDE 0.9% MINIBAG 100 ML IV SCH ×3 (07:11→21:05)
[2021-07-09 08:18] LABS: CALCIUM 7.7 mg/dL (8.5-10.3); CREATININE 0.9 mg/dL (0.4-1.0); POTASSIUM 4.9 mmol/L (3.5-5.0)
[2021-07-09 08:31] LABS: BASOPHILS % (AUTO) 0.2 %; HGB - HEMOGLOBIN 12.1 g/dL (12.0-16.0); LYMPHOCYTES # (AUTO) 0.5 10^3/uL (1.5-3.5); LYMPHOCYTES % (AUTO) 3.1 %; MEAN CORPUSCULAR HEMOGLOBIN 23.1 pg (27.0-31.0); MEAN CORPUSCULAR HGB CONC 30.3 g/dL (32.0-36.0); MEAN CORPUSCULAR VOLUME 76.3 fL (81.0-99.0); MONOCYTES # (AUTO) 0.5 10^3/uL (0.0-1.0); MONOCYTES % (AUTO) 3.5 %; NEUTROPHILS # (AUTO) 14.2 10^3/uL (1.5-6.6); NEUTROPHILS % (AUTO) 92.7 %; PLT - PLATELET COUNT 141 10^3/uL (130-450); RED BLOOD COUNT 5.24 10^6/uL (4.20-5.40); RED CELL DISTRIBUTION WIDTH 19.6 % (12.0-15.0); WHITE BLOOD COUNT 15.4 x10^3/uL (4.8-10.8)
[2021-07-09 08:46] LABS: SLIDE REVIEW? Indicated
[2021-07-09 09:03] LABS: PLATELET ESTIMATE, MANUAL NORMAL (130-450,000) (NORMAL); PLATELET MORPHOLOGY NORMAL APPEARANCE (NORMAL); RBC MORPHOLOGY (MULTIPLE) NORMAL APPEARANCE (NORMAL)
[2021-07-09] MEDS: levETIRAcetam INJ 1,000 MG in SODIUM CHLORIDE 0.9% 100ML 100 ML IV SCH ×2 (09:20→20:44)
[2021-07-09] MEDS: VANCOMYCIN INJ 1 GM in SODIUM CHLORIDE 0.9% 250 ML IV SCH (10:10)
--- NOTE | 2021-07-09 10:30 | PROVIDER PROGRESS NOTE ---
Assessment/Plan - Problem List (1) Encephalopathy Assessment/Plan: According to the admission note on 07/05/2021, the patient was admitted with increased confusion over two weeks. When she arrived, she was verbal and interacting with staff. A CT of the brain was done on 07/05/2021 and was unremarkable, however the MRI done 07/07/2021 showed "abnormal hyperintense signal within the right temporal lobe with hyperintense diffusion signal." There was also question of "loss of flow void within the right MCA." It was recommended that further evaluation be done with MR brain with contrast as well as MRA head and neck but was postpone due to concerns about patient's respiratory status on 07/08/2021. A lumbar puncture was completed on 07/07/2021 and the preliminary report shows "no growth". Patient was started on empiric Meropenem and Acyclovir on 07/06/2021 with Vancomyacin added on 07/07/2021 after WBCs continued to increase. A 24 hour course of Dexamethasone 10 mg IV every 8 hours finished at 0230 today. Patient was also started on Keppra 1000 mg IV twice daily on 07/07/2021 after a new seizure. Differentials include a subacute CVA vs seizure vs viral infection. Plan: MR brain and MRA of the head and neck today. Will discuss with family plans to transfer for neurology evaluation and EEG if no improvements and MRI/ MRA is negative for pathology. Continue Keppra 1000mg IV twice daily for seizure prevention and prn Ativan. Discontinue Dilaudid to prevent sedation masking neurological status. Continue empirical antibiotics and antiviral Vancomycin, Meropenem, and Acyclovir. (2) Hyponatremia Assessment/Plan: Hyponatermia is mild. Sodium level yesterday was 126 and today it has improved to 130. Plan: We will continue to monitor and treat accordingly. (3) Seizure Assessment/Plan: New seizure activity was witnessed on 07/07/2021 after the Lumbar puncture. Patient was given IV Ativan at the time and started on Keppra. No additional seizures have been observed. Plan: Continue Keppra 1000 mg IV twice daily and prn Ativan for breakthrough seizures. If no change in mental status will discuss with family the possibility of transfer for EEG and neurology consult. (4) Leukocytosis Assessment/Plan: The etiology is undetermined. Her white blood cell count is elevated to 15.4 from 14.5 yesterday. Patient received 24 hours of Decadron which ended today at 0230 and could be contributing to her increase in white blood cell count. The preliminary report from the lumbar puncture on 07/07/2021 is "no growth". Blood cultures form 07/05/2021 also showed "no growth". The patient is afebrile. Plan: Will continue to monitor. Continue on empiric antibiotics Vancomycin and Meropenem. Also continue antiviral Ayclovir. - Current Meds Current Meds: Current Medications Generic Name Dose Route Start Last Admin Trade Name Freq PRN Reason Stop Dose Admin Acetaminophen 650 mg 07/05/21 07:03 07/06/21 00:38 Acetaminophen 325 Mg Tablet PO 650 mg Q4HR PRN Administration Pain 1 to 4 Acyclovir 450 mg/ Sodium 509 mls @ 500 mls/hr 07/07/21 21:00 07/09/21 06:05 Chloride IV Infused Q8H TERRANCE Infusion Meropenem 1 gm/ Sodium 100 mls @ 200 mls/hr 07/07/21 21:00 07/09/21 07:45 Chloride IV Infused Q8H TERRANCE Infusion Vancomycin HCl 1 gm/ Sodium 250 mls @ 167 mls/hr 07/08/21 10:00 07/09/21 10:10 Chloride IV 167 mls/hr Q24H TERRANCE Administration Levetiracetam 1,000 mg/ Sodium 110 mls @ 400 mls/hr 07/08/21 10:00 07/09/21 09:45 Chloride IV Infused BID TERRANCE Infusion Potassium Chloride/Dextrose/Sod Cl 1,000 mls @ 100 mls/hr 07/08/21 13:00 07/09/21 09:20 D5ns W/20 Meq Kcl IV 0 mls/hr .Q10H TERRANCE Infusion Ondansetron HCl 4 mg 07/05/21 07:03 07/06/21 10:03 Ondansetron Odt 4 Mg Tablet TL 4 mg Q6HR PRN Administration Nausea / Vomiting Sodium Chloride 10 ml 07/05/21 09:00 07/08/21 18:05 Sodium Chloride Flush 0.9% 10 Ml Syringe IVP 10 ml 0100,0900,1700 TERRANCE Administration - Lab Result Fish Bone Diagrams: 07/11/21 05:55 07/11/21 05:55 <FelySamantha - Last Filed: 07/11/21 14:42> - Current Meds Current Meds: Current Medications Generic Name Dose Route Start Last Admin Trade Name Alethea PRN Reason Stop Dose Admin Acetaminophen 650 mg 07/05/21 07:03 07/06/21 00:38 Acetaminophen 325 Mg Tablet PO 650 mg Q4HR PRN Administration Pain 1 to 4 Acyclovir 450 mg/ Sodium 509 mls @ 500 mls/hr 07/07/21 21:00 07/11/21 13:29 Chloride IV 500 mls/hr Q8H TERRANCE Administration Levetiracetam 1,000 mg/ Sodium 110 mls @ 400 mls/hr 07/08/21 10:00 07/11/21 09:40 Chloride IV Infused BID TERRANCE Infusion Potassium Chloride/Dextrose/Sod Cl 1,000 mls @ 100 mls/hr 07/08/21 13:00 07/11/21 13:00 D5ns W/20 Meq Kcl IV 100 mls/hr .Q10H TERRANCE Infusion Valproic Acid 500 mg/ Sodium 105 mls @ 100 mls/hr 07/10/21 14:00 07/11/21 03:15 Chloride IV Infused Q12H TERRANCE Infusion Potassium Phosphate 15 mmol/ 255 mls @ 63 mls/hr 07/11/21 10:33 07/11/21 11:03 Sodium Chloride IV 07/11/21 14:35 63 mls/hr ONCE ONE Administration Protocol Levalbuterol HCl 1.25 mg 07/10/21 20:43 07/11/21 05:31 Levalbuterol 1.25 Mg/3 Ml Neb INH 1.25 mg Q4H PRN Administration Shortness of Air/Wheezing Lorazepam 1 mg 07/10/21 16:30 07/11/21 04:51 Lorazepam 2 Mg/Ml Vial IVP 1 mg Q2H PRN Administration Anxiety Metoprolol Tartrate 5 mg 07/10/21 18:44 07/10/21 18:50 Metoprolol 5 Mg/5 Ml Vial IVP 5 mg Q6H PRN Administration PER PHYSICIAN ORDER Ondansetron HCl 4 mg 07/05/21 07:03 07/06/21 10:03 Ondansetron Odt 4 Mg Tablet TL 4 mg Q6HR PRN Administration Nausea / Vomiting Scopolamine HBr 1 patch 02/10/22 18:00 07/10/21 18:30 Scopolamine Patch TOP 1 patch Q3D TERRANCE Administration Sodium Chloride 10 ml 07/05/21 07:03 07/11/21 04:52 Sodium Chloride Flush 0.9% 10 Ml Syringe IVP 10 ml PRN PRN Administration NEEDED PER PROVIDER ORDERS Sodium Chloride 10 ml 07/05/21 09:00 07/11/21 09:14 Sodium Chloride Flush 0.9% 10 Ml Syringe IVP 10 ml 0100,0900,1700 TERRANCE Administration - Lab Result Fish Bone Diagrams: 07/11/21 05:55 07/11/21 05:55 - Additional Planning My Orders: My Active Orders 07/10/21 14:00 Valproate Inj [Depakene Inj] 500 mg Sodium Chloride 0.9% 100Ml [Normal Saline 0.9% 100Ml] 100 ml IV Q12H 07/10/21 16:30 LORazepam INJ [Ativan Inj (Vial)] 1 mg IVP Q2H PRN 07/10/21 18:00 Scopolamine Patch [Transderm-Scop] 1 patch TOP Q3D 07/10/21 18:44 Metoprolol Inj [Lopressor Inj] 5 mg IVP Q6H PRN 07/11/21 09:08 Electrolyte [Initiate ICU Electrolyte Prot.] [RC] QSHIFT 07/11/21 10:33 Potassium Phosphate 15 mmol Sodium Chloride 0.9% [Normal Saline 0.9%] 250 ml IV ONCE 07/12/21 05:00 BMP - BASIC METABOLIC PANEL [CHEM] DAILYLAB CBC - COMP BLD CT W/AUTO DIFF [HEME] DAILYLAB 07/13/21 05:00 BMP - BASIC METABOLIC PANEL [CHEM] DAILYLAB CBC - COMP BLD CT W/AUTO DIFF [HEME] DAILYLAB COMPREHENSIVE METABOLIC PANEL [CHEM] Timed MAGNESIUM [CHEM] Timed PHOSPHORUS [CHEM] Timed PREALBUMIN [CHEM] Timed 07/14/21 05:00 BMP - BASIC METABOLIC PANEL [CHEM] DAILYLAB CBC - COMP BLD CT W/AUTO DIFF [HEME] DAILYLAB 07/16/21 05:00 COMPREHENSIVE METABOLIC PANEL [CHEM] Timed MAGNESIUM [CHEM] Timed PHOSPHORUS [CHEM] Timed PREALBUMIN [CHEM] Timed <Leny Nino F - Last Filed: 07/12/21 17:15> Subjective - Subjective Patient Reports: Other (Patient resting in bed with mouth wide open. Groans and grunts when stimulated but does not open eyes.) Nursing Reports: Other (No change in neuro status from pervious day. Continue to grimace with stimulations and does not follow commands.) <Samantha Geiger - Last Filed: 07/11/21 14:42> Objective Vital Signs: Vital Signs - 24 hr 07/08/21 07/08/21 07/08/21 11:00 12:00 13:00 Temperature 36.8 C Heart Rate [ 101 H 87 80 Monitoring electrodes] Respiratory 33 H 33 H 35 H Rate Blood Pressure 149/64 H 107/51 L 108/51 L [Right Brachial artery] O2 Saturation 99 97 96 07/08/21 07/08/21 07/08/21 14:00 15:00 16:00 Temperature 36.5 C Heart Rate [ 80 99 88 Monitoring electrodes] Respiratory 35 H 29 H 34 H Rate Blood Pressure 109/51 L 124/58 L 129/60 [Right Brachial artery] O2 Saturation 95 96 97 07/08/21 07/08/21 07/08/21 17:00 18:00 19:00 Temperature Heart Rate [ 80 88 84 Monitoring electrodes] Respiratory 35 H 32 H 28 H Rate Blood Pressure 95/50 L 125/68 109/57 L [Right Brachial artery] O2 Saturation 96 96 97 07/08/21 07/08/21 07/08/21 20:00 21:00 22:00 Temperature 36.5 C Heart Rate [ 77 75 78 Monitoring electrodes] Respiratory 28 H 26 H 29 H Rate Blood Pressure 102/52 L 99/61 102/51 L [Right Brachial artery] O2 Saturation 94 95 96 07/08/21 07/09/21 07/09/21 23:00 00:00 01:00 Temperature 36.6 C Heart Rate [ 79 73 71 Monitoring electrodes] Respiratory 26 H 26 H 25 H Rate Blood Pressure 96/52 L 103/60 107/55 L [Right Brachial artery] O2 Saturation 95 95 97 07/09/21 07/09/21 07/09/21 02:00 03:00 04:00 Temperature 36.5 C Heart Rate [ 68 96 107 H Monitoring electrodes] Respiratory 25 H 17 20 Rate Blood Pressure 113/62 135/71 H 143/71 H [Right Brachial artery] O2 Saturation 97 92 93 0209/22 02/09/22 02/09/22 05:00 06:00 07:00 Temperature Heart Rate [ 101 H 95 91 Monitoring electrodes] Respiratory 21 21 20 Rate Blood Pressure 119/74 128/63 133/61 H [Right Brachial artery] O2 Saturation 95 96 95 07/09/21 07:59 Temperature 36.6 C Heart Rate [ 93 Monitoring electrodes] Respiratory 16 Rate Blood Pressure 130/58 L [Right Brachial artery] O2 Saturation 97 Oxygen O2 Source [With Activity] on 0.5L O2 via NC O2 Source Nasal cannula Oxygen Flow Rate 0.5 I&O (Last 24 Hrs): Intake and Output Totals x24h 07/07/21 07/08/21 07/09/21 23:59 23:59 23:59 Intake Total 3352.333 4906 2085.666 Output Total 2150 630 185 Balance 5833.901 0090 1900.666 General: Other (Patient is obtundated and does not follow commands. She grunts and groans with verbal cues and sternal rub. She does not open eyes.) HEENT: Atraumatic, PERRLA, Other (Bilateral pupils are 2.) Neck: Supple, No JVD, No thyromegaly Neuro: Other (Disoriented to self, place, time, and situtation. Patient is non- verbal and makes incoherent sounds. She withdrawls all extremties to painful stimuli. She does not follow commands or opens eyes.) Cardiovascular: Regular rate, No murmurs Respiratory: Chest non-tender, No respiratory distress, Breath sounds nml Abdomen: Normal bowel sounds, Soft, No tenderness Genitourinary: Other (Sampson with clear yellow urine.) Extremities: No clubbing, No cyanosis, No edema, Normal pulses, Other (Bilateral feet are in plantar flexion.) Skin: No rashes, No breakdown, No significant lesion - Results Results: Laboratory Results WBC 15.4 x10^3/uL (4.8-10.8) H 07/09/21 08:01 RBC 5.24 10^6/uL (4.20-5.40) 07/09/21 08:01 Hgb 12.1 g/dL (12.0-16.0) 07/09/21 08:01 Hct 40.0 % (37.0-47.0) 07/09/21 08:01 MCV 76.3 fL (81.0-99.0) L 07/09/21 08:01 MCH 23.1 pg (27.0-31.0) L 07/09/21 08:01 MCHC 30.3 g/dL (32.0-36.0) L 07/09/21 08:01 RDW 19.6 % (12.0-15.0) H 07/09/21 08:01 Plt Count 141 10^3/uL (130-450) 07/09/21 08:01 MPV 11.8 fL (7.9-10.8) H 07/08/21 04:41 Neut # (Auto) 14.2 10^3/uL (1.5-6.6) H 07/09/21 08:01 Lymph # (Auto) 0.5 10^3/uL (1.5-3.5) L 07/09/21 08:01 [place] # (Auto) 0.5 10^3/uL (0.0-1.0) 07/09/21 08:01 Eos # (Auto) 0.0 10^3/uL (0.0-0.7) 07/09/21 08:01 Baso # (Auto) 0.0 10^3/uL (0.0-0.1) 07/09/21 08:01 Absolute Nucleated RBC 0.00 x10^3/uL 07/09/21 08:01 Total Counted 100 07/08/21 04:41 Band Neuts % (Manual) 1 % (0-10) 07/08/21 04:41 Abnorm Lymph % (Manual) 0 % 07/08/21 04:41 Nucleated RBC % 0.0 /100WBC 07/09/21 08:01 Neutrophils # (Manual) 12.2 10^3/uL (1.5-6.6) H 07/08/21 04:41 Lymphocytes # (Manual) 1.7 10^3/uL (1.5-3.5) 07/08/21 04:41 Monocytes # (Manual) 0.6 10^3/uL (0.0-1.0) 07/08/21 04:41 Eosinophils # (Manual) 0.0 10^3/uL (0-0.7) 07/08/21 04:41 Basophils # (Manual) 0.0 10^3/uL (0-0.1) 07/08/21 04:41 Differential Comment MANUAL DIFFERENTIAL 07/08/21 04:41 Manual Slide Review Indicated 07/09/21 08:01 WBC Morphology NORMAL APPEARANCE (NORMAL) 07/08/21 04:41 Platelet Estimate NORMAL (130-450,000) (NORMAL) 07/09/21 08:01 Platelet Morphology NORMAL APPEARANCE (NORMAL) 07/09/21 08:01 RBC Morph Micro Appear NORMAL APPEARANCE (NORMAL) 07/09/21 08:01 Sodium 131 mmol/L (135-145) L 07/09/21 08:01 Potassium 4.9 mmol/L (3.5-5.0) 07/09/21 08:01 Chloride 104 mmol/L (101-111) 07/09/21 08:01 Carbon Dioxide 21 mmol/L (21-32) 07/09/21 08:01 Anion Gap 6.0 (6-13) 07/09/21 08:01 BUN 23 mg/dL (6-20) H 07/09/21 08:01 Creatinine 0.9 mg/dL (0.4-1.0) 07/09/21 08:01 Estimated GFR (MDRD) 59 (>89) L 07/09/21 08:01 Glucose 158 mg/dL (70-100) H 07/09/21 08:01 Lactic Acid 1.4 mmol/L (0.5-2.2) 07/05/21 04:17 Calcium 7.7 mg/dL (8.5-10.3) L 07/09/21 08:01 Magnesium 2.0 mg/dL (1.7-2.8) 07/05/21 04:17 Total Bilirubin 0.5 mg/dL (0.2-1.0) 07/07/21 23:53 Direct Bilirubin < 0.1 mg/dL (0.1-0.5) L 07/07/21 23:53 AST 50 IU/L (10-42) H 07/07/21 23:53 ALT 35 IU/L (10-60) 07/07/21 23:53 Alkaline Phosphatase 26 IU/L (42-121) L 07/07/21 23:53 Troponin I High Sens 29.1 ng/L (2.3-14.8) H* 07/05/21 10:40 Total Protein 4.5 g/dL (6.7-8.2) L 07/07/21 23:53 Albumin 2.2 g/dL (3.2-5.5) L 07/07/21 23:53 Globulin 2.3 g/dL (2.1-4.2) 07/07/21 23:53 Albumin/Globulin Ratio 1.1 (1.0-2.2) 07/05/21 04:17 Lipase 99 U/L (22-51) H 07/05/21 04:17 TSH 0.21 uIU/mL (0.34-5.60) L 07/07/21 04:50 Free T4 1.16 ng/dL (0.58-1.64) 07/07/21 04:50 Urine Color YELLOW 07/05/21 04:17 Urine Clarity CLEAR (CLEAR) 07/05/21 04:17 Urine pH 5.5 PH (5.0-7.5) 07/05/21 04:17 Ur Specific Johnson 1.025 (1.002-1.030) 07/05/21 04:17 Urine Protein 30 mg/dL (NEGATIVE) H 07/05/21 04:17 Urine Glucose (UA) NEGATIVE mg/dL (NEGATIVE) 07/05/21 04:17 Urine Ketones NEGATIVE mg/dL (NEGATIVE) 07/05/21 04:17 Urine Occult Blood MODERATE (NEGATIVE) H 07/05/21 04:17 Urine Nitrite NEGATIVE (NEGATIVE) 07/05/21 04:17 Urine Bilirubin NEGATIVE (NEGATIVE) 07/05/21 04:17 Urine Urobilinogen 0.2 (NORMAL) E.U./dL (NORMAL) 07/05/21 04:17 Ur Leukocyte Esterase NEGATIVE (NEGATIVE) 07/05/21 04:17 Urine RBC 6-10 /HPF (0-5) H 07/05/21 04:17 Urine WBC 0-3 /HPF (0-5) 07/05/21 04:17 Ur Squamous Epith Cells NONE SEEN (<= Few) 07/05/21 04:17 Urine Bacteria Many /HPF (None Seen) H 07/05/21 04:17 Ur Microscopic Review INDICATED 07/05/21 04:17 Urine Culture Comments NOT INDICATED 07/05/21 04:17 CSF Color COLORLESS (COLORLESS) 07/07/21 21:15 CSF Clarity CLEAR (CLEAR) 07/07/21 21:15 Xanthrochromic ABSENT (ABSENT) 07/07/21 21:15 CSF WBC 6 /mm^3 (0-5) H 07/07/21 21:15 CSF RBC 23 /mm^3 (0-1) H 07/07/21 21:15 CSF Cell Count Tube # CSF TUBE# 3 07/07/21 21:15 CSF Neutrophils 2 % (0-6) 07/07/21 21:15 CSF Lymphocytes 35 % (40-80) L 07/07/21 21:15 CSF Monocytes 63 % (15-45) H 07/07/21 21:15 CSF Glucose 51 mg/dL (45-70) 07/07/21 21:15 CSF Total Protein 160 mg/dL (15-60) H 07/07/21 21:15 Nasal Adenovirus (PCR) NOT DETECTED 07/05/21 03:45 Nasal B. parapertussis DNA (PCR) NOT DETECTED 07/05/21 03:45 Nasal Coronavir 229E PCR NOT DETECTED 07/05/21 03:45 Nasal Coronavir HKU1 PCR NOT DETECTED 07/05/21 03:45 Nasal Coronavir NL63 PCR NOT DETECTED 07/05/21 03:45 Nasal Coronavir OC43 PCR NOT DETECTED 07/05/21 03:45 Nasal Enterovir/Rhinovir PCR NOT DETECTED 07/05/21 03:45 Nasal Influenza B PCR NOT DETECTED 07/05/21 03:45 Nasal Influenza A PCR NOT DETECTED 07/05/21 03:45 Nasal Parainfluen 1 PCR NOT DETECTED 07/05/21 03:45 Nasal Parainfluen 2 PCR NOT DETECTED 07/05/21 03:45 Nasal Parainfluen 3 PCR NOT DETECTED 07/05/21 03:45 Nasal Parainfluen 4 PCR NOT DETECTED 07/05/21 03:45 Nasal RSV (PCR) NOT DETECTED 07/05/21 03:45 Nasal B.pertussis DNA PCR NOT DETECTED 07/05/21 03:45 Nasal C.pneumoniae (PCR) NOT DETECTED 07/05/21 03:45 Jerson Human Metapneumo PCR NOT DETECTED 07/05/21 03:45 Nasal M.pneumoniae (PCR) NOT DETECTED 07/05/21 03:45 Nasal SARS-CoV-2 (PCR) NOT DETECTED 07/05/21 03:45 Urine Opiates Screen NEGATIVE (NEGATIVE) 07/05/21 11:00 Ur Oxycodone Screen NEGATIVE (NEGATIVE) 07/05/21 11:00 Urine Methadone Screen NEGATIVE (NEGATIVE) 07/05/21 11:00 Ur Propoxyphene Screen NEGATIVE (NEGATIVE) 07/05/21 11:00 Ur Barbiturates Screen NEGATIVE (NEGATIVE) 07/05/21 11:00 Ur Tricyclics Screen NEGATIVE (NEGATIVE) 07/05/21 11:00 Ur Phencyclidine Scrn NEGATIVE (NEGATIVE) 07/05/21 11:00 Ur Amphetamine Screen NEGATIVE (NEGATIVE) 07/05/21 11:00 U Methamphetamines Scrn NEGATIVE (NEGATIVE) 07/05/21 11:00 U Benzodiazepines Scrn NEGATIVE (NEGATIVE) 07/05/21 11:00 Urine Cocaine Screen NEGATIVE (NEGATIVE) 07/05/21 11:00 U Cannabinoids Screen NEGATIVE (NEGATIVE) 07/05/21 11:00 <Samantha Geiger - Last Filed: 07/11/21 14:42> Vital Signs: Vital Signs - 24 hr 07/10/21 07/10/21 07/10/21 15:00 16:00 17:00 Temperature 36.7 C Heart Rate Heart Rate [ 113 H 122 H 124 H Monitoring electrodes] Respiratory 28 H 33 H 30 H Rate Blood Pressure Blood Pressure 156/77 H 140/73 H 160/81 H [Right Brachial artery] O2 Saturation 91 L 94 95 07/10/21 07/10/21 07/10/21 18:00 18:50 19:00 Temperature Heart Rate Heart Rate [ 111 H 76 Monitoring electrodes] Respiratory 34 H 22 Rate Blood Pressure 140/73 H Blood Pressure 182/71 H 151/69 H [Right Brachial artery] O2 Saturation 95 95 07/10/21 07/10/21 07/10/21 19:37 20:00 21:00 Temperature 37 C Heart Rate Heart Rate [ 82 82 Monitoring electrodes] Respiratory 31 H 32 H Rate Blood Pressure 117/49 L Blood Pressure 123/48 L 145/84 H [Right Brachial artery] O2 Saturation 93 97 07/10/21 07/10/21 07/10/21 21:01 22:00 23:00 Temperature Heart Rate 82 Heart Rate [ 89 89 Monitoring electrodes] Respiratory 22 26 H 26 H Rate Blood Pressure Blood Pressure 124/65 138/62 H [Right Brachial artery] O2 Saturation 92 94 07/11/21 07/11/21 07/11/21 00:08 00:54 01:00 Temperature 37.0 C 37.4 C Heart Rate 92 Heart Rate [ 101 H 91 Monitoring electrodes] Respiratory 26 H 25 H 28 H Rate Blood Pressure Blood Pressure 151/62 H 130/54 L [Right Brachial artery] O2 Saturation 97 100 07/11/21 07/11/21 07/11/21 02:00 03:00 04:00 Temperature 37.4 C Heart Rate Heart Rate [ 104 H 92 91 Monitoring electrodes] Respiratory 32 H 24 13 Rate Blood Pressure Blood Pressure 136/60 H 131/52 H 131/56 H [Right Brachial artery] O2 Saturation 96 95 95 07/11/21 07/11/21 07/11/21 05:00 05:31 06:00 Temperature Heart Rate 91 Heart Rate [ 91 109 H Monitoring electrodes] Respiratory 21 13 30 H Rate Blood Pressure Blood Pressure 146/67 H 156/61 H [Right Brachial artery] O2 Saturation 100 92 07/11/21 07/11/21 07/11/21 07:00 07:57 09:00 Temperature 37.2 C 37.7 C Heart Rate Heart Rate [ 109 H 102 H 100 Monitoring electrodes] Respiratory 23 30 H 26 H Rate Blood Pressure Blood Pressure 152/72 H 144/55 H 151/57 H [Right Brachial artery] O2 Saturation 93 95 92 07/11/21 07/11/21 07/11/21 10:00 11:00 12:00 Temperature 37.2 C Heart Rate Heart Rate [ 92 97 97 Monitoring electrodes] Respiratory 16 20 39 H Rate Blood Pressure Blood Pressure 147/61 H 142/70 H 150/63 H [Right Brachial artery] O2 Saturation 96 96 97 07/11/21 13:00 Temperature Heart Rate Heart Rate [ 103 H Monitoring electrodes] Respiratory 40 H Rate Blood Pressure Blood Pressure 142/56 H [Right Brachial artery] O2 Saturation 94 Oxygen O2 Source [With Activity] on 0.5L O2 via NC O2 Source Room air Oxygen Flow Rate 0.5 I&O (Last 24 Hrs): Intake and Output Totals x24h 07/09/21 07/10/21 07/11/21 23:59 23:59 23:59 Intake Total 4297.000 3998.667 1910.666 Output Total 532 1225 880 Balance 3765.000 2773.667 1030.666 - Results Results: Laboratory Results WBC 14.5 x10^3/uL (4.8-10.8) H 07/11/21 05:55 RBC 4.73 10^6/uL (4.20-5.40) 07/11/21 05:55 Hgb 11.4 g/dL (12.0-16.0) L 07/11/21 05:55 Hct 35.1 % (37.0-47.0) L 07/11/21 05:55 MCV 74.2 fL (81.0-99.0) L 07/11/21 05:55 MCH 24.1 pg (27.0-31.0) L 07/11/21 05:55 MCHC 32.5 g/dL (32.0-36.0) 07/11/21 05:55 RDW 19.8 % (12.0-15.0) H 07/11/21 05:55 Plt Count 313 10^3/uL (130-450) 07/11/21 05:55 MPV 10.8 fL (7.9-10.8) 07/11/21 05:55 Neut # (Auto) 12.2 10^3/uL (1.5-6.6) H 07/11/21 05:55 Lymph # (Auto) 1.0 10^3/uL (1.5-3.5) L 07/11/21 05:55 [place] # (Auto) 1.1 10^3/uL (0.0-1.0) H 07/11/21 05:55 Eos # (Auto) 0.1 10^3/uL (0.0-0.7) 07/11/21 05:55 Baso # (Auto) 0.0 10^3/uL (0.0-0.1) 07/11/21 05:55 Absolute Nucleated RBC 0.00 x10^3/uL 07/11/21 05:55 Total Counted 100 07/08/21 04:41 Band Neuts % (Manual) 1 % (0-10) 07/08/21 04:41 Abnorm Lymph % (Manual) 0 % 07/08/21 04:41 Nucleated RBC % 0.0 /100WBC 07/11/21 05:55 Neutrophils # (Manual) 12.2 10^3/uL (1.5-6.6) H 07/08/21 04:41 Lymphocytes # (Manual) 1.7 10^3/uL (1.5-3.5) 07/08/21 04:41 Monocytes # (Manual) 0.6 10^3/uL (0.0-1.0) 07/08/21 04:41 Eosinophils # (Manual) 0.0 10^3/uL (0-0.7) 07/08/21 04:41 Basophils # (Manual) 0.0 10^3/uL (0-0.1) 07/08/21 04:41 Differential Comment MANUAL DIFFERENTIAL 07/08/21 04:41 Manual Slide Review Indicated 07/10/21 07:32 WBC Morphology NORMAL APPEARANCE (NORMAL) 07/10/21 07:32 Platelet Estimate NORMAL (130-450,000) (NORMAL) 07/10/21 07:32 Platelet Morphology NORMAL APPEARANCE (NORMAL) 07/10/21 07:32 RBC Morph Micro Appear NORMAL APPEARANCE (NORMAL) 07/10/21 07:32 VBG pH 7.377 (7.31-7.41) 07/11/21 05:55 Ionized Calcium 1.05 mmol/L (1.15-1.33) L 07/11/21 05:55 Sodium 132 mmol/L (135-145) L 07/11/21 05:55 Potassium 3.9 mmol/L (3.5-5.0) 07/11/21 05:55 Chloride 103 mmol/L (101-111) 07/11/21 05:55 Carbon Dioxide 20 mmol/L (21-32) L 07/11/21 05:55 Anion Gap 9.0 (6-13) 07/11/21 05:55 BUN 17 mg/dL (6-20) 07/11/21 05:55 Creatinine 0.8 mg/dL (0.4-1.0) 07/11/21 05:55 Estimated GFR (MDRD) 68 (>89) L 07/11/21 05:55 Glucose 108 mg/dL (70-100) H 07/11/21 05:55 Lactic Acid 1.4 mmol/L (0.5-2.2) 07/05/21 04:17 Calcium 7.5 mg/dL (8.5-10.3) L 07/11/21 05:55 Phosphorus 2.0 mg/dL (2.5-4.6) L 07/11/21 05:55 Magnesium 2.0 mg/dL (1.7-2.8) 07/11/21 05:55 Total Bilirubin 0.5 mg/dL (0.2-1.0) 07/11/21 05:55 Direct Bilirubin < 0.1 mg/dL (0.1-0.5) L 07/07/21 23:53 AST 26 IU/L (10-42) 07/11/21 05:55 ALT 21 IU/L (10-60) 07/11/21 05:55 Alkaline Phosphatase 31 IU/L (42-121) L 07/11/21 05:55 Troponin I High Sens 29.1 ng/L (2.3-14.8) H* 07/05/21 10:40 Total Protein 5.1 g/dL (6.7-8.2) L 07/11/21 05:55 Albumin 2.4 g/dL (3.2-5.5) L 07/11/21 05:55 Globulin 2.7 g/dL (2.1-4.2) 07/11/21 05:55 Albumin/Globulin Ratio 0.9 (1.0-2.2) L 07/11/21 05:55 Prealbumin 18 mg/dL (18-45) 07/11/21 05:55 Lipase 99 U/L (22-51) H 07/05/21 04:17 TSH 0.21 uIU/mL (0.34-5.60) L 07/07/21 04:50 Free T4 1.16 ng/dL (0.58-1.64) 07/07/21 04:50 Urine Color YELLOW 07/05/21 04:17 Urine Clarity CLEAR (CLEAR) 07/05/21 04:17 Urine pH 5.5 PH (5.0-7.5) 07/05/21 04:17 Ur Specific Johnson 1.025 (1.002-1.030) 07/05/21 04:17 Urine Protein 30 mg/dL (NEGATIVE) H 07/05/21 04:17 Urine Glucose (UA) NEGATIVE mg/dL (NEGATIVE) 07/05/21 04:17 Urine Ketones NEGATIVE mg/dL (NEGATIVE) 07/05/21 04:17 Urine Occult Blood MODERATE (NEGATIVE) H 07/05/21 04:17 Urine Nitrite NEGATIVE (NEGATIVE) 07/05/21 04:17 Urine Bilirubin NEGATIVE (NEGATIVE) 07/05/21 04:17 Urine Urobilinogen 0.2 (NORMAL) E.U./dL (NORMAL) 07/05/21 04:17 Ur Leukocyte Esterase NEGATIVE (NEGATIVE) 07/05/21 04:17 Urine RBC 6-10 /HPF (0-5) H 07/05/21 04:17 Urine WBC 0-3 /HPF (0-5) 07/05/21 04:17 Ur Squamous Epith Cells NONE SEEN (<= Few) 07/05/21 04:17 Urine Bacteria Many /HPF (None Seen) H 07/05/21 04:17 Ur Microscopic Review INDICATED 07/05/21 04:17 Urine Culture Comments NOT INDICATED 07/05/21 04:17 CSF Color COLORLESS (COLORLESS) 07/07/21 21:15 CSF Clarity CLEAR (CLEAR) 07/07/21 21:15 Xanthrochromic ABSENT (ABSENT) 07/07/21 21:15 CSF WBC 6 /mm^3 (0-5) H 07/07/21 21:15 CSF RBC 23 /mm^3 (0-1) H 07/07/21 21:15 CSF Cell Count Tube # CSF TUBE# 3 07/07/21 21:15 CSF Neutrophils 2 % (0-6) 07/07/21 21:15 CSF Lymphocytes 35 % (40-80) L 07/07/21 21:15 CSF Monocytes 63 % (15-45) H 07/07/21 21:15 CSF Glucose 51 mg/dL (45-70) 07/07/21 21:15 CSF Total Protein 160 mg/dL (15-60) H 07/07/21 21:15 Nasal Adenovirus (PCR) NOT DETECTED 07/05/21 03:45 Nasal B. parapertussis DNA (PCR) NOT DETECTED 07/05/21 03:45 Nasal Coronavir 229E PCR NOT DETECTED 07/05/21 03:45 Nasal Coronavir HKU1 PCR NOT DETECTED 07/05/21 03:45 Nasal Coronavir NL63 PCR NOT DETECTED 07/05/21 03:45 Nasal Coronavir OC43 PCR NOT DETECTED 07/05/21 03:45 Nasal Enterovir/Rhinovir PCR NOT DETECTED 07/05/21 03:45 Nasal Influenza B PCR NOT DETECTED 07/05/21 03:45 Nasal Influenza A PCR NOT DETECTED 07/05/21 03:45 Nasal Parainfluen 1 PCR NOT DETECTED 07/05/21 03:45 Nasal Parainfluen 2 PCR NOT DETECTED 07/05/21 03:45 Nasal Parainfluen 3 PCR NOT DETECTED 07/05/21 03:45 Nasal Parainfluen 4 PCR NOT DETECTED 07/05/21 03:45 Nasal RSV (PCR) NOT DETECTED 07/05/21 03:45 Nasal Screen MRSA (PCR) NEGATIVE (NEGATIVE) 07/09/21 10:30 Nasal B.pertussis DNA PCR NOT DETECTED 07/05/21 03:45 Nasal C.pneumoniae (PCR) NOT DETECTED 07/05/21 03:45 Jerson Human Metapneumo PCR NOT DETECTED 07/05/21 03:45 Nasal M.pneumoniae (PCR) NOT DETECTED 07/05/21 03:45 Nasal SARS-CoV-2 (PCR) NOT DETECTED 07/05/21 03:45 Last Dose Date 07/09/21 07/10/21 09:35 Last Dose Time 1140 07/10/21 09:35 Vancomycin Trough 14.0 ug/mL (10.0-20.0) 07/10/21 09:35 Urine Opiates Screen NEGATIVE (NEGATIVE) 07/05/21 11:00 Ur Oxycodone Screen NEGATIVE (NEGATIVE) 07/05/21 11:00 Urine Methadone Screen NEGATIVE (NEGATIVE) 07/05/21 11:00 Ur Propoxyphene Screen NEGATIVE (NEGATIVE) 07/05/21 11:00 Ur Barbiturates Screen NEGATIVE (NEGATIVE) 07/05/21 11:00 Ur Tricyclics Screen NEGATIVE (NEGATIVE) 07/05/21 11:00 Ur Phencyclidine Scrn NEGATIVE (NEGATIVE) 07/05/21 11:00 Ur Amphetamine Screen NEGATIVE (NEGATIVE) 07/05/21 11:00 U Methamphetamines Scrn NEGATIVE (NEGATIVE) 07/05/21 11:00 U Benzodiazepines Scrn NEGATIVE (NEGATIVE) 07/05/21 11:00 Urine Cocaine Screen NEGATIVE (NEGATIVE) 07/05/21 11:00 U Cannabinoids Screen NEGATIVE (NEGATIVE) 07/05/21 11:00 <Leny Nino - Last Filed: 07/12/21 17:15> Sepsis Event Note (H) - Evaluation Current Stage of Sepsis: Ruled out <Samantha Geiger - Last Filed: 07/11/21 14:42> ABX Reporting Has patient been on IV antibiotics over the past 48 hours?: Yes <Samantha Geiger - Last Filed: 07/11/21 14:42>
--- NOTE | 2021-07-09 18:05 | MRI Report ---
PROCEDURE: Angio Neck W/O (MRA) INDICATIONS: aloc, ams TECHNIQUE: Noncontrast imaging of the neck was performed by physician request. 2-D [id number] imaging was performed in the axial plane, with 3-D reformatted images. COMPARISON: Correlation is made with the accompanying brain MRI angiogram, 07/09/2021. Correlation is a lso made with prior chronic left frontal ultrasound 10/09/2018. FINDINGS: This study is limited by motion artifact. The origins of the common carotid arteries are within normal limits, with a normal-appearing aortic a rch branching pattern. The common carotid arteries are within normal limits. Within the carotid bifur cation regions, there is focal atherosclerotic irregularity, with 40-50% narrowing seen involving the right proximal internal carotid artery and 67% narrowing seen involving the left proximal internal c arotid artery. The more distal internal carotid arteries demonstrate normal course and caliber. The origins of the vertebral arteries are not well seen. The left vertebral artery is dominant to the right. To the limits of this study, no hemodynamically significant vertebral artery stenosis can be seen. On these images, no significant soft tissue abnormality is identified. IMPRESSION: Focal stenosis can be seen involving the proximal internal carotid arteries, left worse than right. Please consider a follow-up neck CT angiogram with IV contrast for further evaluation. Reviewed by: Nathan Moralez MD on 07/09/2021 5:04 PM [place] Approved by: Nathan Moralez MD on 07/09/2021 5:04 PM [facility] Station ID: [id number]
--- NOTE | 2021-07-09 18:08 | MRI Report ---
PROCEDURE: Angio Brain W/O (MRA) INDICATIONS: ams and altered level of consciousness TECHNIQUE: Noncontrast axial 3-D [id number] MR angiogram, with 3-dimensional maximum intensity projection (M IP) reformats of the internal carotid arteries and posterior circulation then performed. COMPARISON: Correlation is made with the accompanying neck MR angiogram, 07/09/2021. Correlation is al so made with the recent prior brain MR I to 722 and the recent prior head CT, 07/05/2021. FINDINGS: Image quality: Motion artifact is noted. Anterior circulation: Intracranial internal carotid arteries demonstrate normal size and intralumina l flow signal. The flow within the paired anterior cerebral arteries is normal and symmetric. The f low within the middle cerebral arteries is normal and symmetric. The anterior communicating artery i s seen. No stenoses, occlusions, or aneurysms. Posterior circulation: Visualized portions of the vertebral arteries demonstrate normal caliber, and join to form a normal appearing basilar artery. The flow within the posterior cerebral arteries is normal and symmetric. No stenoses, occlusions, or aneurysms. Mild abnormal signal can be seen involving the right insula and the anterior right temporal lobe, whi ch is much better seen on the recent prior MRI dated 07/07/2021. IMPRESSION: No significant intracranial arterial abnormalities are seen. If clinically appropriate, please consider follow-up brain MRI for further evaluation. Reviewed by: Nathan Moralez MD on 07/09/2021 5:07 PM [facility] Approved by: Nathan Moralez MD on 07/09/2021 5:07 PM [facility] Station ID: [id number]
[2021-07-09] MEDS: SODIUM CHLORIDE FLUSH 0.9% 10 ML SYRINGE IVP SCH ×2 (21:24→21:25)
[2021-07-10] MEDS: SODIUM CHLORIDE 0.9% IV SCH ×3 (04:30→21:24)
[2021-07-10] MEDS: ACYCLOVIR IV SCH ×3 (04:30→21:24)
[2021-07-10] MEDS: MEROPENEM 1 GM in SODIUM CHLORIDE 0.9% MINIBAG 100 ML IV SCH ×3 (05:35→20:46)
[2021-07-10] MEDS: SODIUM CHLORIDE FLUSH 0.9% 10 ML SYRINGE IVP SCH ×3 (07:06→17:00)
--- NOTE | 2021-07-10 07:37 | PROVIDER PROGRESS NOTE ---
Assessment/Plan - Problem List (1) CVA (cerebral vascular accident) Assessment/Plan: MRI with contrast done on 07/10/2021 afternoon showed abnormal signal believed to be secondary to subacute infarct Involving the right insular, anterior aspect of the right temporal lobe, right basal ganglia, right thalamus. (2) Encephalopathy Assessment/Plan: 07/10 No change in the patient's clinical status today I spoke with our neurologist at [facility] in [place] who recommended ordering [place] encephalitis panel. This has been ordered. Also recommended repeating an MRI of the brain with contrast which has been ordered. And adding Depakote Depakote 500 mg IV twice daily has been ordered. We will check Depakote level in 48 hours. Goal is for a therapeutic range between 50 and 100. She also agreed that patient would need an EEG. However [facility] have no bed availability currently. Patient's white blood cell count today was 22.3. This is likely an effect of Decadron she received 2 days ago. She has a temp of 98.7F this morning. We will continue acyclovir, vancomycin and meropenem. Continue 1000 mg IV twice daily 07/08 Etiology undetermined. Differential includes subacute CVA versus seizure versus viral infection. CT of the brain was unremarkable. However MRI done 07/07/2021 showed abnormal hyperintense signal within the right temporal lobe with hyperintense diffusion signal. There was also question of loss of flow void within the right MCA. It was recommended that further evaluation be done with MR brain with contrast as well as MRA head and neck. This was not done on 07/08/2021 for concern about patient's respiratory status. Will plan on doing the above imaging on 07/09/2021. LP analysis does not support a bacterial infection As WBC was 6 blood glucose 51 total protein 160. It was clear in color. Patient is still on vancomycin, Meropenem and acyclovir empirically. Dexamethasone 10 mg IV every 8 hours for 3 doses ordered. Patient was also started on Keppra 1000 mg IV twice daily. If no improvement within the next 24 hours. Will discuss further with family. Further plans could involve transfer for neurology evaluation and or EEG. (4) Seizure Assessment/Plan: Keppra 1000 mg IV twice daily. Depakote 500 mg IV twice daily. Patient would need to be transferred for an EEG and neurology consult. However there is currently no bed availability for transfer. (5) Leukocytosis Assessment/Plan: Suspect secondary to steroid administration 2 days ago. White blood cell count today is 22.3. Blood cultures are no growth to date. Patient is on empiric antibiotics with vancomycin and meropenem. She is also on acyclovir. We will continue to monitor. - Current Meds Current Meds: Current Medications Generic Name Dose Route Start Last Admin Trade Name Freq PRN Reason Stop Dose Admin Acetaminophen 650 mg 07/05/21 07:03 07/06/21 00:38 Acetaminophen 325 Mg Tablet PO 650 mg Q4HR PRN Administration Pain 1 to 4 Acyclovir 450 mg/ Sodium 509 mls @ 500 mls/hr 07/07/21 21:00 07/10/21 05:35 Chloride IV Infused Q8H TERRANCE Infusion Meropenem 1 gm/ Sodium 100 mls @ 200 mls/hr 07/07/21 21:00 07/10/21 06:05 Chloride IV Infused Q8H TERRANCE Infusion Vancomycin HCl 1 gm/ Sodium 250 mls @ 167 mls/hr 07/08/21 10:00 07/09/21 11:40 Chloride IV Infused Q24H TERRANCE Infusion Levetiracetam 1,000 mg/ Sodium 110 mls @ 400 mls/hr 07/08/21 10:00 07/09/21 21:01 Chloride IV Infused BID TERRANCE Infusion Potassium Chloride/Dextrose/Sod Cl 1,000 mls @ 100 mls/hr 07/08/21 13:00 07/09/21 20:56 D5ns W/20 Meq Kcl IV 100 mls/hr .Q10H TERRANCE Administration Ondansetron HCl 4 mg 07/05/21 07:03 07/06/21 10:03 Ondansetron Odt 4 Mg Tablet TL 4 mg Q6HR PRN Administration Nausea / Vomiting Sodium Chloride 10 ml 07/05/21 09:00 07/10/21 07:06 Sodium Chloride Flush 0.9% 10 Ml Syringe IVP Not Given 0100,0900,1700 TERRANCE - Lab Result Fish Bone Diagrams: 07/11/21 05:55 07/11/21 05:55 - Additional Planning My Orders: My Active Orders 07/10/21 05:00 BMP - BASIC METABOLIC PANEL [CHEM] DAILYLAB CBC - COMP BLD CT W/AUTO DIFF [HEME] DAILYLAB 07/11/21 05:00 BMP - BASIC METABOLIC PANEL [CHEM] DAILYLAB CBC - COMP BLD CT W/AUTO DIFF [HEME] DAILYLAB 07/12/21 05:00 BMP - BASIC METABOLIC PANEL [CHEM] DAILYLAB CBC - COMP BLD CT W/AUTO DIFF [HEME] DAILYLAB 07/13/21 05:00 BMP - BASIC METABOLIC PANEL [CHEM] DAILYLAB CBC - COMP BLD CT W/AUTO DIFF [HEME] DAILYLAB 07/14/21 05:00 BMP - BASIC METABOLIC PANEL [CHEM] DAILYLAB CBC - COMP BLD CT W/AUTO DIFF [HEME] DAILYLAB Subjective - Subjective Patient Reports: Other (There has been no change in the patient's clinical status in 3 days. She does not respond to tactile or verbal stimuli. She grimaces and moans to painful stimuli.) Objective Vital Signs: Vital Signs - 24 hr 07/09/21 07/09/21 07/09/21 07:59 09:00 10:00 Temperature 36.6 C Heart Rate Heart Rate [ 93 83 83 Monitoring electrodes] Respiratory 16 20 22 Rate Blood Pressure 130/58 L 117/63 119/70 [Right Brachial artery] O2 Saturation 97 96 96 07/09/21 07/09/21 07/09/21 11:00 11:23 12:00 Temperature 36.6 C 36.4 C L Heart Rate 83 Heart Rate [ 75 76 Monitoring electrodes] Respiratory 18 22 22 Rate Blood Pressure 118/51 L 111/80 [Right Brachial artery] O2 Saturation 97 96 96 07/09/21 07/09/21 07/09/21 13:00 14:00 15:00 Temperature Heart Rate Heart Rate [ 69 83 97 Monitoring electrodes] Respiratory 22 18 26 H Rate Blood Pressure 118/55 L 135/51 H 135/68 H [Right Brachial artery] O2 Saturation 94 92 94 07/09/21 07/09/21 07/09/21 16:00 18:00 19:00 Temperature 36.4 C L Heart Rate Heart Rate [ 102 H 105 H 105 H Monitoring electrodes] Respiratory 27 H 26 H 24 Rate Blood Pressure 138/57 H 138/65 H 143/61 H [Right Brachial artery] O2 Saturation 95 93 96 07/09/21 07/09/21 07/09/21 20:00 21:00 22:00 Temperature 36.5 C Heart Rate Heart Rate [ 104 H 99 99 Monitoring electrodes] Respiratory 94 H 28 H 24 Rate Blood Pressure 142/72 H 141/60 H 147/63 H [Right Brachial artery] O2 Saturation 93 93 07/09/21 07/10/21 07/10/21 23:00 00:00 01:00 Temperature 36.6 C Heart Rate Heart Rate [ 103 H 100 97 Monitoring electrodes] Respiratory 28 H 28 H 29 H Rate Blood Pressure 140/56 H 128/54 L 118/52 L [Right Brachial artery] O2 Saturation 90 L 90 L 90 L 07/10/21 07/10/21 07/10/21 02:00 03:00 04:00 Temperature 36.7 C Heart Rate Heart Rate [ 98 87 97 Monitoring electrodes] Respiratory 26 H 26 H 27 H Rate Blood Pressure 138/58 H 119/59 L 134/53 H [Right Brachial artery] O2 Saturation 91 L 91 L 85 L 07/10/21 07/10/21 07/10/21 05:00 06:00 07:00 Temperature Heart Rate Heart Rate [ 96 98 97 Monitoring electrodes] Respiratory 29 H 26 H 26 H Rate Blood Pressure 144/58 H 146/48 H 148/53 H [Right Brachial artery] O2 Saturation 92 91 L 92 Oxygen O2 Source [With Activity] on 0.5L O2 via NC O2 Source Room air Oxygen Flow Rate 0.5 I&O (Last 24 Hrs): Intake and Output Totals x24h 07/08/21 07/09/21 07/10/21 23:59 23:59 23:59 Intake Total 4906 4297.000 609 Output Total 630 532 235 Balance 4276 3765.000 374 Comments/Notes: General: Other (lethargic, not oriented to place, self or time) HEENT: Atraumatic, PERRLA, EOMI Neck: Supple, No JVD Neuro: Other (Not oriented to self, time, place or reason. Grimaces/moans painful stimuli only.) Cardiovascular: Regular rate, Normal S1, Normal S2 Respiratory: Chest non-tender, Breath sounds nml, Abdomen: Normal bowel sounds, Soft Extremities: No clubbing, No cyanosis, No edema Skin: No rashes, No breakdown, No significant lesion - Results Results: Laboratory Results WBC 15.4 x10^3/uL (4.8-10.8) H 07/09/21 08:01 RBC 5.24 10^6/uL (4.20-5.40) 07/09/21 08:01 Hgb 12.1 g/dL (12.0-16.0) 07/09/21 08:01 Hct 40.0 % (37.0-47.0) 07/09/21 08:01 MCV 76.3 fL (81.0-99.0) L 07/09/21 08:01 MCH 23.1 pg (27.0-31.0) L 07/09/21 08:01 MCHC 30.3 g/dL (32.0-36.0) L 07/09/21 08:01 RDW 19.6 % (12.0-15.0) H 07/09/21 08:01 Plt Count 141 10^3/uL (130-450) 07/09/21 08:01 MPV 11.8 fL (7.9-10.8) H 07/08/21 04:41 Neut # (Auto) 14.2 10^3/uL (1.5-6.6) H 07/09/21 08:01 Lymph # (Auto) 0.5 10^3/uL (1.5-3.5) L 07/09/21 08:01 Heard # (Auto) 0.5 10^3/uL (0.0-1.0) 07/09/21 08:01 Eos # (Auto) 0.0 10^3/uL (0.0-0.7) 07/09/21 08:01 Baso # (Auto) 0.0 10^3/uL (0.0-0.1) 07/09/21 08:01 Absolute Nucleated RBC 0.00 x10^3/uL 07/09/21 08:01 Total Counted 100 07/08/21 04:41 Band Neuts % (Manual) 1 % (0-10) 07/08/21 04:41 Abnorm Lymph % (Manual) 0 % 07/08/21 04:41 Nucleated RBC % 0.0 /100WBC 07/09/21 08:01 Neutrophils # (Manual) 12.2 10^3/uL (1.5-6.6) H 07/08/21 04:41 Lymphocytes # (Manual) 1.7 10^3/uL (1.5-3.5) 07/08/21 04:41 Monocytes # (Manual) 0.6 10^3/uL (0.0-1.0) 07/08/21 04:41 Eosinophils # (Manual) 0.0 10^3/uL (0-0.7) 07/08/21 04:41 Basophils # (Manual) 0.0 10^3/uL (0-0.1) 07/08/21 04:41 Differential Comment MANUAL DIFFERENTIAL 07/08/21 04:41 Manual Slide Review Indicated 07/09/21 08:01 WBC Morphology NORMAL APPEARANCE (NORMAL) 07/08/21 04:41 Platelet Estimate NORMAL (130-450,000) (NORMAL) 07/09/21 08:01 Platelet Morphology NORMAL APPEARANCE (NORMAL) 07/09/21 08:01 RBC Morph Micro Appear NORMAL APPEARANCE (NORMAL) 07/09/21 08:01 Sodium 131 mmol/L (135-145) L 07/09/21 08:01 Potassium 4.9 mmol/L (3.5-5.0) 07/09/21 08:01 Chloride 104 mmol/L (101-111) 07/09/21 08:01 Carbon Dioxide 21 mmol/L (21-32) 07/09/21 08:01 Anion Gap 6.0 (6-13) 07/09/21 08:01 BUN 23 mg/dL (6-20) H 07/09/21 08:01 Creatinine 0.9 mg/dL (0.4-1.0) 07/09/21 08:01 Estimated GFR (MDRD) 59 (>89) L 07/09/21 08:01 Glucose 158 mg/dL (70-100) H 07/09/21 08:01 Lactic Acid 1.4 mmol/L (0.5-2.2) 07/05/21 04:17 Calcium 7.7 mg/dL (8.5-10.3) L 07/09/21 08:01 Magnesium 2.0 mg/dL (1.7-2.8) 07/05/21 04:17 Total Bilirubin 0.5 mg/dL (0.2-1.0) 07/07/21 23:53 Direct Bilirubin < 0.1 mg/dL (0.1-0.5) L 07/07/21 23:53 AST 50 IU/L (10-42) H 07/07/21 23:53 ALT 35 IU/L (10-60) 07/07/21 23:53 Alkaline Phosphatase 26 IU/L (42-121) L 07/07/21 23:53 Troponin I High Sens 29.1 ng/L (2.3-14.8) H* 07/05/21 10:40 Total Protein 4.5 g/dL (6.7-8.2) L 07/07/21 23:53 Albumin 2.2 g/dL (3.2-5.5) L 07/07/21 23:53 Globulin 2.3 g/dL (2.1-4.2) 07/07/21 23:53 Albumin/Globulin Ratio 1.1 (1.0-2.2) 07/05/21 04:17 Lipase 99 U/L (22-51) H 07/05/21 04:17 TSH 0.21 uIU/mL (0.34-5.60) L 07/07/21 04:50 Free T4 1.16 ng/dL (0.58-1.64) 07/07/21 04:50 Urine Color YELLOW 07/05/21 04:17 Urine Clarity CLEAR (CLEAR) 07/05/21 04:17 Urine pH 5.5 PH (5.0-7.5) 07/05/21 04:17 Ur Specific Plessis 1.025 (1.002-1.030) 07/05/21 04:17 Urine Protein 30 mg/dL (NEGATIVE) H 07/05/21 04:17 Urine Glucose (UA) NEGATIVE mg/dL (NEGATIVE) 07/05/21 04:17 Urine Ketones NEGATIVE mg/dL (NEGATIVE) 07/05/21 04:17 Urine Occult Blood MODERATE (NEGATIVE) H 07/05/21 04:17 Urine Nitrite NEGATIVE (NEGATIVE) 07/05/21 04:17 Urine Bilirubin NEGATIVE (NEGATIVE) 07/05/21 04:17 Urine Urobilinogen 0.2 (NORMAL) E.U./dL (NORMAL) 07/05/21 04:17 Ur Leukocyte Esterase NEGATIVE (NEGATIVE) 07/05/21 04:17 Urine RBC 6-10 /HPF (0-5) H 07/05/21 04:17 Urine WBC 0-3 /HPF (0-5) 07/05/21 04:17 Ur Squamous Epith Cells NONE SEEN (<= Few) 07/05/21 04:17 Urine Bacteria Many /HPF (None Seen) H 07/05/21 04:17 Ur Microscopic Review INDICATED 07/05/21 04:17 Urine Culture Comments NOT INDICATED 07/05/21 04:17 CSF Color COLORLESS (COLORLESS) 07/07/21 21:15 CSF Clarity CLEAR (CLEAR) 07/07/21 21:15 Xanthrochromic ABSENT (ABSENT) 07/07/21 21:15 CSF WBC 6 /mm^3 (0-5) H 07/07/21 21:15 CSF RBC 23 /mm^3 (0-1) H 07/07/21 21:15 CSF Cell Count Tube # CSF TUBE# 3 07/07/21 21:15 CSF Neutrophils 2 % (0-6) 07/07/21 21:15 CSF Lymphocytes 35 % (40-80) L 07/07/21 21:15 CSF Monocytes 63 % (15-45) H 07/07/21 21:15 CSF Glucose 51 mg/dL (45-70) 07/07/21 21:15 CSF Total Protein 160 mg/dL (15-60) H 07/07/21 21:15 Nasal Adenovirus (PCR) NOT DETECTED 07/05/21 03:45 Nasal B. parapertussis DNA (PCR) NOT DETECTED 07/05/21 03:45 Nasal Coronavir 229E PCR NOT DETECTED 07/05/21 03:45 Nasal Coronavir HKU1 PCR NOT DETECTED 07/05/21 03:45 Nasal Coronavir NL63 PCR NOT DETECTED 07/05/21 03:45 Nasal Coronavir OC43 PCR NOT DETECTED 07/05/21 03:45 Nasal Enterovir/Rhinovir PCR NOT DETECTED 07/05/21 03:45 Nasal Influenza B PCR NOT DETECTED 07/05/21 03:45 Nasal Influenza A PCR NOT DETECTED 07/05/21 03:45 Nasal Parainfluen 1 PCR NOT DETECTED 07/05/21 03:45 Nasal Parainfluen 2 PCR NOT DETECTED 07/05/21 03:45 Nasal Parainfluen 3 PCR NOT DETECTED 07/05/21 03:45 Nasal Parainfluen 4 PCR NOT DETECTED 07/05/21 03:45 Nasal RSV (PCR) NOT DETECTED 07/05/21 03:45 Nasal Screen MRSA (PCR) NEGATIVE (NEGATIVE) 07/09/21 10:30 Nasal B.pertussis DNA PCR NOT DETECTED 07/05/21 03:45 Nasal C.pneumoniae (PCR) NOT DETECTED 07/05/21 03:45 Jerson Human Metapneumo PCR NOT DETECTED 07/05/21 03:45 Nasal M.pneumoniae (PCR) NOT DETECTED 07/05/21 03:45 Nasal SARS-CoV-2 (PCR) NOT DETECTED 07/05/21 03:45 Urine Opiates Screen NEGATIVE (NEGATIVE) 07/05/21 11:00 Ur Oxycodone Screen NEGATIVE (NEGATIVE) 07/05/21 11:00 Urine Methadone Screen NEGATIVE (NEGATIVE) 07/05/21 11:00 Ur Propoxyphene Screen NEGATIVE (NEGATIVE) 07/05/21 11:00 Ur Barbiturates Screen NEGATIVE (NEGATIVE) 07/05/21 11:00 Ur Tricyclics Screen NEGATIVE (NEGATIVE) 07/05/21 11:00 Ur Phencyclidine Scrn NEGATIVE (NEGATIVE) 07/05/21 11:00 Ur Amphetamine Screen NEGATIVE (NEGATIVE) 07/05/21 11:00 U Methamphetamines Scrn NEGATIVE (NEGATIVE) 07/05/21 11:00 U Benzodiazepines Scrn NEGATIVE (NEGATIVE) 07/05/21 11:00 Urine Cocaine Screen NEGATIVE (NEGATIVE) 07/05/21 11:00 U Cannabinoids Screen NEGATIVE (NEGATIVE) 07/05/21 11:00 Sepsis Event Note (H) - Evaluation Current Stage of Sepsis: Ruled out ABX Reporting Has patient been on IV antibiotics over the past 48 hours?: Yes
[2021-07-10 07:55] LABS: BASOPHILS % (AUTO) 0.2 %; HCT - HEMATOCRIT 35.3 % (37.0-47.0); HGB - HEMOGLOBIN 11.2 g/dL (12.0-16.0); LYMPHOCYTES # (AUTO) 1.1 10^3/uL (1.5-3.5); LYMPHOCYTES % (AUTO) 4.9 %; MEAN CORPUSCULAR HEMOGLOBIN 23.6 pg (27.0-31.0); MEAN CORPUSCULAR HGB CONC 31.7 g/dL (32.0-36.0); MEAN CORPUSCULAR VOLUME 74.3 fL (81.0-99.0); MONOCYTES # (AUTO) 1.3 10^3/uL (0.0-1.0); MONOCYTES % (AUTO) 5.7 %; NEUTROPHILS # (AUTO) 19.8 10^3/uL (1.5-6.6); NEUTROPHILS % (AUTO) 88.7 %; PLT - PLATELET COUNT 263 10^3/uL (130-450); RED BLOOD COUNT 4.75 10^6/uL (4.20-5.40); RED CELL DISTRIBUTION WIDTH 19.9 % (12.0-15.0); WHITE BLOOD COUNT 22.3 x10^3/uL (4.8-10.8)
[2021-07-10] MEDS: D5NS W/20 MEQ KCL 1,000 ML IV SCH ×3 (08:00→22:56)
[2021-07-10 08:03] LABS: CALCIUM 7.5 mg/dL (8.5-10.3); CREATININE 0.9 mg/dL (0.4-1.0); POTASSIUM 4.2 mmol/L (3.5-5.0)
[2021-07-10 08:17] LABS: SLIDE REVIEW? Indicated
[2021-07-10] MEDS: levETIRAcetam INJ 1,000 MG in SODIUM CHLORIDE 0.9% 100ML 100 ML IV SCH ×2 (08:20→20:21)
[2021-07-10 08:52] LABS: PLATELET ESTIMATE, MANUAL NORMAL (130-450,000) (NORMAL); PLATELET MORPHOLOGY NORMAL APPEARANCE (NORMAL); RBC MORPHOLOGY (MULTIPLE) NORMAL APPEARANCE (NORMAL); WBC MORPHOLOGY (MULTIPLE) NORMAL APPEARANCE (NORMAL)
[2021-07-10] MEDS: VANCOMYCIN INJ 1 GM in SODIUM CHLORIDE 0.9% 250 ML IV SCH (11:00)
--- NOTE | 2021-07-10 11:50 | XRAY Report ---
PROCEDURE: Chest for Line Placement INDICATIONS: verify NGT placement TECHNIQUE: One view of the chest was acquired. COMPARISON: 07/05/2021 FINDINGS: Surgical changes and devices: Nasogastric tube is in place. The tip is near midline at the level of t he diaphragm. The sidehole is in the midesophagus. There is partial obscuration from the external por tion of the nasogastric tube and overlying monitoring wires.. Lungs and pleura: Bibasilar opacities and pleural effusions. Upper lungs are aerated. Infrahilar inte rstitial thickening. Airways are calcified. Mediastinum: Mediastinal contours appear normal. Heart size is normal. Dense mitral annular calcif ication. Bones and chest wall: No suspicious bony lesions. Sclerosis at the T12-L1 vertebral body levels, inc ompletely imaged. Overlying soft tissues appear unremarkable. IMPRESSION: 1. Incomplete insertion of nasogastric tube which remains in the distal esophagus. Further insertion at least 20 cm is recommended. 2. Bibasilar effusions and opacities, probably pulmonary edema. Reviewed by: Dilcia Zapata MD on 07/10/2021 11:49 AM PST Approved by: Dilcia Zapata MD on 07/10/2021 11:49 AM PST Station ID: [id number]
[2021-07-10] MEDS ORDERED: GADOBUTROL 7.5 MMOL/7.5 ML VIAL ONE (13:49)
--- NOTE | 2021-07-10 15:11 | MRI Report ---
PROCEDURE: Brain W/Contrast INDICATIONS: altered mental status CONTRAST: IV gadolinium contrast given. TECHNIQUE: Noncontrast axial T1 spin echo, axial T2 fast spin echo, sagittal and axial FLAIR, coronal T2 fast sp in echo, axial gradient echo, axial diffusion and ADC through the brain. After the administration of contrast, axial and coronal T1 spin echo with fat saturation through the brain. COMPARISON: Prior brain MRI examinations, 07/07/2021 and 10/10/2018. Correlation is also made with [facility] MR angiogram, 07/09/2021. FINDINGS: Image quality: Motion artifact is noted. CSF spaces: Basal cisterns are patent. No extra-axial fluid collections. Ventricles are normal in size and shape. Brain: As previously demonstrated, there is a broad area of abnormal increased T2-weighted signal wit hin the right insula and within the anterior aspect of the right temporal lobe. There is also involve ment of the right basal ganglia, including within the right thalamus. Within these regions there is i ncreased diffusion-weighted signal, particularly along the cortex of the right insula, the right ante rior temporal lobe and within the right thalamus. Although not well seen, there is believed to be ass ociated abnormally decreased diffusion weighted signal. The extent of this abnormal signal is similar to the 07/07/2021 examination. No abnormal enhancement can be seen within these regions. No midline sh ift. No intracranial bleeds or masses. No abnormal intracranial enhancement. There is cerebral vol ume loss for age. There is periventricular white matter chronic small vessel ischemic change. The b rainstem appears normal. Normal intravascular flow voids are present. Skull and face: Calvarial marrow is normal in signal. Orbits appear normal. Sinuses: Sinuses and mastoids appear clear. IMPRESSION: Abnormal signal can be seen on the right, primarily within the right insula and the righ t anterior temporal lobe, also involving the right thalamus. The abnormal signal is similar to the 07/07/2021 examination. The abnormal signal is believed to be on the basis of a subacute infarction. No masses or abnormal enhancement can be seen. Reviewed by: Nathan Moralez MD on 07/10/2021 2:09 PM [facility] Approved by: Nathan Moralez MD on 07/10/2021 2:09 PM [facility] Station ID: [id number]
[2021-07-10] MEDS ORDERED: GADOBUTROL 7.5 MMOL/7.5 ML VIAL IVP ONE (15:18)
[2021-07-10] MEDS: VALPROATE INJ 500 MG in SODIUM CHLORIDE 0.9% 100ML 100 ML IV SCH (15:40)
--- NOTE | 2021-07-10 16:08 | XRAY Report ---
PROCEDURE: Chest for Line Placement INDICATIONS: verify NGT placement TECHNIQUE: One view of the chest was acquired. COMPARISON: CT chest 07/06/2021 FINDINGS: Surgical changes and devices: Nasogastric tube is in appropriate position with distal tip projecting below left hemidiaphragm. Lungs and pleura: Mild bilateral pleural effusions, left greater than right. Mediastinum: Mediastinal contours appear normal. Heart size is enlarged. Bones and chest wall: No suspicious bony lesions. Overlying soft tissues appear unremarkable. IMPRESSION: Bilateral effusions as above. Areas of underlying pneumonia and/or atelectasis cannot be excluded. Nasogastric tube in appropriate position. Reviewed by: Pam Vargas MD on 07/10/2021 4:07 PM [facility] Approved by: Pam Vargas MD on 07/10/2021 4:07 PM [facility] Station ID: [id number]
--- NOTE | 2021-07-10 17:21 | PHARMACY PROGRESS NOTE ---
- Therapy Status Vancomycin regimen day #: 4 Therapy status: Trough subtherapeutic Basis for treatment: Empirical Trough goal: 15-20 - ISABEL Risk Risk level for Acute Kidney Injury: High Acute Kidney Injury risk factors: Baseline CrCl <50, IV contrast within 72 hrs, Baseline BUN:SCr >20:1, Goal trough >15, Admission to ICU - Monitoring and Recommendation Clinical response to treatment: I&O Previous 24 hours 07/08/21 07/09/21 07/10/21 23:59 23:59 23:59 Intake Total 4906 4297.000 2876.333 Output Total 630 532 660 Balance 4276 3765.000 2216.333 Lab Results 07/10/21 07/09/21 07/08/21 07:32 08:01 04:41 BUN 21 H 23 H 18 Creatinine 0.9 0.9 1.0 Estimated GFR (MDRD) 59 L 59 L 52 L 07/07/21 07/07/21 07/06/21 23:53 04:50 04:30 BUN 18 14 34 H Creatinine 1.0 0.8 1.2 H Estimated GFR (MDRD) 52 L 68 L 42 L 07/05/21 04:17 BUN 39 H Creatinine 1.7 H Estimated GFR (MDRD) 28 L Vancomycin Monitoring 07/10/21 09:35 Vancomycin Trough 14.0 Cultures 07/07/21 21:15 Cerebral Spinal Fluid CSF Culture - Preliminary 07/05/21 07:32 Blood Blood Culture - Final NO GROWTH AFTER 5 DAYS 07/05/21 07:24 Blood Blood Culture - Final NO GROWTH AFTER 5 DAYS Monitoring plan: Daily serum creatinine, Draw trough early Next trough due (date/time): 07/13 @0930 Areas for additional monitoring: IV to PO when appropriate, Therapy de- escalation based on culture results Pharmacy recommendation: Increase dose (LAST DOSE GIVEN AT 11:40. TROUGH =14 (LAST DOSE GIVEN LATE BY ALMOST 2 HRS). INCREASE VANCO TO 1.25G q24H)
[2021-07-10] MEDS: LORazepam 2 MG/ML VIAL IVP PRN (18:00)
[2021-07-10] MEDS: SCOPOLAMINE PATCH TOP SCH (18:30)
[2021-07-10] MEDS ORDERED: METOPROLOL 5 MG/5 ML VIAL IVP PRN (18:44)
[2021-07-10] MEDS: LEVALBUTEROL 1.25 MG/3 ML NEB INH PRN (20:59)
[2021-07-11] MEDS: LORazepam 2 MG/ML VIAL IVP PRN ×2 (00:46→04:51)
[2021-07-11] MEDS: SODIUM CHLORIDE FLUSH 0.9% 10 ML SYRINGE IVP SCH ×3 (00:46→17:21)
[2021-07-11] MEDS: LEVALBUTEROL 1.25 MG/3 ML NEB INH PRN ×2 (00:53→05:31)
[2021-07-11] MEDS: D5NS W/20 MEQ KCL 1,000 ML IV SCH ×2 (01:33→11:04)
[2021-07-11] MEDS: VALPROATE INJ 500 MG in SODIUM CHLORIDE 0.9% 100ML 100 ML IV SCH (02:06)
[2021-07-11] MEDS: MEROPENEM 1 GM in SODIUM CHLORIDE 0.9% MINIBAG 100 ML IV SCH (04:33)
[2021-07-11] MEDS: SODIUM CHLORIDE FLUSH 0.9% 10 ML SYRINGE IVP PRN (04:52)
[2021-07-11] MEDS: ACYCLOVIR IV SCH ×2 (05:19→13:29)
[2021-07-11] MEDS: SODIUM CHLORIDE 0.9% IV SCH ×2 (05:19→13:29)
[2021-07-11 06:02] LABS: BASOPHILS % (AUTO) 0.1 %; EOSINOPHILS # (AUTO) 0.1 10^3/uL (0.0-0.7); EOSINOPHILS % (AUTO) 0.5 %; HCT - HEMATOCRIT 35.1 % (37.0-47.0); HGB - HEMOGLOBIN 11.4 g/dL (12.0-16.0); LYMPHOCYTES % (AUTO) 7.1 %; MEAN CORPUSCULAR HEMOGLOBIN 24.1 pg (27.0-31.0); MEAN CORPUSCULAR HGB CONC 32.5 g/dL (32.0-36.0); MEAN CORPUSCULAR VOLUME 74.2 fL (81.0-99.0); MEAN PLATELET VOLUME 10.8 fL (7.9-10.8); MONOCYTES # (AUTO) 1.1 10^3/uL (0.0-1.0); MONOCYTES % (AUTO) 7.7 %; NEUTROPHILS # (AUTO) 12.2 10^3/uL (1.5-6.6); PLT - PLATELET COUNT 313 10^3/uL (130-450); RED BLOOD COUNT 4.73 10^6/uL (4.20-5.40); RED CELL DISTRIBUTION WIDTH 19.8 % (12.0-15.0); WHITE BLOOD COUNT 14.5 x10^3/uL (4.8-10.8)
[2021-07-11 06:06] LABS: CALCIUM, IONIZED 1.05 mmol/L (1.15-1.33); VBG PH 7.377 (7.31-7.41)
[2021-07-11 06:19] LABS: ALBUMIN 2.4 g/dL (3.2-5.5); ALBUMIN/GLOBULIN RATIO 0.9 (1.0-2.2); BILIRUBIN,TOTAL 0.5 mg/dL (0.2-1.0); CALCIUM 7.5 mg/dL (8.5-10.3); CREATININE 0.8 mg/dL (0.4-1.0); POTASSIUM 3.9 mmol/L (3.5-5.0); TOTAL PROTEIN 5.1 g/dL (6.7-8.2)
--- NOTE | 2021-07-11 09:03 | PROVIDER PROGRESS NOTE ---
Assessment/Plan - Problem List (1) CVA (cerebral vascular accident) Assessment/Plan: MRI with contrast done on 07/10/2021 showed abnormal signal believed to be secondary to subacute infarct Involving the right insular, anterior aspect of the right temporal lobe, right basal ganglia, right thalamus. A family meeting was held between myself, social work and the patient's family. This comprised of her daughter Madalyn Williamson, and 3 grandchildren. After discussion amongst themselves, they made her comfort care. We discussed what comfort measures entails. Highlighting that we would discontinue all therapeutic measures and only direct care towards comfort. They expressed understanding and were agreeable with the plan. Tube feeding, Keppra, Depakote, labs, telemetry and vital checks were discontinued. (2) Encephalopathy Assessment/Plan: Secondary to right-sided stroke and resulting seizures. Patient is currently on comfort measures. Ativan as needed for anxiety and seizures (4) Seizure Assessment/Plan: Secondary to right-sided stroke. Patient is currently on comfort measures. Ativan as needed for seizures (5) Leukocytosis Assessment/Plan: Suspect secondary to steroid administration 3 days ago. White blood cell count today is 14.5. Blood cultures are no growth to date. All antimicrobial medications discontinued. Patient is currently on comfort measures. - Current Meds Current Meds: Current Medications Generic Name Dose Route Start Last Admin Trade Name Freq PRN Reason Stop Dose Admin Acetaminophen 650 mg 07/05/21 07:03 07/06/21 00:38 Acetaminophen 325 Mg Tablet PO 650 mg Q4HR PRN Administration Pain 1 to 4 Acyclovir 450 mg/ Sodium 509 mls @ 500 mls/hr 07/07/21 21:00 07/11/21 06:56 Chloride IV Infused Q8H TERRANCE Infusion Levetiracetam 1,000 mg/ Sodium 110 mls @ 400 mls/hr 07/08/21 10:00 07/10/21 20:43 Chloride IV Infused BID TERRANCE Infusion Potassium Chloride/Dextrose/Sod Cl 1,000 mls @ 100 mls/hr 07/08/21 13:00 07/11/21 06:56 D5ns W/20 Meq Kcl IV 100 mls/hr .Q10H TERRANCE Infusion Valproic Acid 500 mg/ Sodium 105 mls @ 100 mls/hr 07/10/21 14:00 07/11/21 03:15 Chloride IV Infused Q12H TERRANCE Infusion Levalbuterol HCl 1.25 mg 07/10/21 20:43 07/11/21 05:31 Levalbuterol 1.25 Mg/3 Ml Neb INH 1.25 mg Q4H PRN Administration Shortness of Air/Wheezing Lorazepam 1 mg 07/10/21 16:30 07/11/21 04:51 Lorazepam 2 Mg/Ml Vial IVP 1 mg Q2H PRN Administration Anxiety Metoprolol Tartrate 5 mg 07/10/21 18:44 07/10/21 18:50 Metoprolol 5 Mg/5 Ml Vial IVP 5 mg Q6H PRN Administration PER PHYSICIAN ORDER Ondansetron HCl 4 mg 07/05/21 07:03 07/06/21 10:03 Ondansetron Odt 4 Mg Tablet TL 4 mg Q6HR PRN Administration Nausea / Vomiting Scopolamine HBr 1 patch 07/10/21 18:00 07/10/21 18:30 Scopolamine Patch TOP 1 patch Q3D TERRANCE Administration Sodium Chloride 10 ml 07/05/21 07:03 07/11/21 04:52 Sodium Chloride Flush 0.9% 10 Ml Syringe IVP 10 ml PRN PRN Administration NEEDED PER PROVIDER ORDERS Sodium Chloride 10 ml 07/05/21 09:00 07/11/21 00:46 Sodium Chloride Flush 0.9% 10 Ml Syringe IVP 10 ml 0100,0900,1700 TERRANCE Administration - Lab Result Fish Bone Diagrams: 07/11/21 05:55 07/11/21 05:55 - Additional Planning My Orders: My Active Orders 07/10/21 10:17 Nasogastric [NG Tube Care] [RC] Q4HR 07/10/21 10:28 Daily Weight [RC] DAILY IO [RC] QSHIFT Tube Feeding [RC] QSHIFT 07/10/21 13:01 Miscellaneous Laboratory Order [LAB] Urgent 07/10/21 14:00 Valproate Inj [Depakene Inj] 500 mg Sodium Chloride 0.9% 100Ml [Normal Saline 0.9% 100Ml] 100 ml IV Q12H 07/10/21 16:30 LORazepam INJ [Ativan Inj (Vial)] 1 mg IVP Q2H PRN 07/10/21 18:00 Scopolamine Patch [Transderm-Scop] 1 patch TOP Q3D 07/10/21 18:44 Metoprolol Inj [Lopressor Inj] 5 mg IVP Q6H PRN 07/12/21 05:00 BMP - BASIC METABOLIC PANEL [CHEM] DAILYLAB CBC - COMP BLD CT W/AUTO DIFF [HEME] DAILYLAB 07/13/21 05:00 BMP - BASIC METABOLIC PANEL [CHEM] DAILYLAB CBC - COMP BLD CT W/AUTO DIFF [HEME] DAILYLAB COMPREHENSIVE METABOLIC PANEL [CHEM] Timed MAGNESIUM [CHEM] Timed PHOSPHORUS [CHEM] Timed PREALBUMIN [CHEM] Timed 07/14/21 05:00 BMP - BASIC METABOLIC PANEL [CHEM] DAILYLAB CBC - COMP BLD CT W/AUTO DIFF [HEME] DAILYLAB 07/16/21 05:00 COMPREHENSIVE METABOLIC PANEL [CHEM] Timed MAGNESIUM [CHEM] Timed PHOSPHORUS [CHEM] Timed PREALBUMIN [CHEM] Timed Subjective - Subjective Patient Reports: Other (There has been no improvement in the patient's clinical status in 3 days. She does not respond to tactile or verbal stimuli. She grimaces and moans to painful stimuli. There is no gag reflex. Increased secre tions requiring suctioning) Objective Vital Signs: Vital Signs - 24 hr 07/10/21 07/10/21 07/10/21 10:00 11:00 12:00 Temperature Heart Rate Heart Rate [ 99 98 92 Monitoring electrodes] Respiratory 28 H 31 H 30 H Rate Blood Pressure Blood Pressure 131/49 H 147/67 H 152/77 H [Right Brachial artery] O2 Saturation 93 93 90 L 07/10/21 07/10/21 07/10/21 13:00 15:00 16:00 Temperature 36.7 C Heart Rate Heart Rate [ 91 113 H 122 H Monitoring electrodes] Respiratory 28 H 28 H 33 H Rate Blood Pressure Blood Pressure 141/52 H 156/77 H 140/73 H [Right Brachial artery] O2 Saturation 91 L 91 L 94 07/10/21 07/10/21 07/10/21 17:00 18:00 18:50 Temperature Heart Rate Heart Rate [ 124 H 111 H Monitoring electrodes] Respiratory 30 H 34 H Rate Blood Pressure 140/73 H Blood Pressure 160/81 H 182/71 H [Right Brachial artery] O2 Saturation 95 95 07/10/21 07/10/21 07/10/21 19:00 19:37 20:00 Temperature 37 C Heart Rate Heart Rate [ 76 82 Monitoring electrodes] Respiratory 22 31 H Rate Blood Pressure 117/49 L Blood Pressure 151/69 H 123/48 L [Right Brachial artery] O2 Saturation 95 93 07/10/21 07/10/21 07/10/21 21:00 21:01 22:00 Temperature Heart Rate 82 Heart Rate [ 82 89 Monitoring electrodes] Respiratory 32 H 22 26 H Rate Blood Pressure Blood Pressure 145/84 H 124/65 [Right Brachial artery] O2 Saturation 97 92 07/10/21 07/11/21 07/11/21 23:00 00:08 00:54 Temperature 37.0 C Heart Rate 92 Heart Rate [ 89 101 H Monitoring electrodes] Respiratory 26 H 26 H 25 H Rate Blood Pressure Blood Pressure 138/62 H 151/62 H [Right Brachial artery] O2 Saturation 94 97 07/11/21 07/11/21 07/11/21 01:00 02:00 03:00 Temperature 37.4 C Heart Rate Heart Rate [ 91 104 H 92 Monitoring electrodes] Respiratory 28 H 32 H 24 Rate Blood Pressure Blood Pressure 130/54 L 136/60 H 131/52 H [Right Brachial artery] O2 Saturation 100 96 95 07/11/21 07/11/21 07/11/21 04:00 05:00 05:31 Temperature 37.4 C Heart Rate 91 Heart Rate [ 91 91 Monitoring electrodes] Respiratory 13 21 13 Rate Blood Pressure Blood Pressure 131/56 H 146/67 H [Right Brachial artery] O2 Saturation 95 100 07/11/21 07/11/21 07/11/21 06:00 07:00 07:57 Temperature 37.2 C 37.7 C Heart Rate Heart Rate [ 109 H 109 H 102 H Monitoring electrodes] Respiratory 30 H 23 30 H Rate Blood Pressure Blood Pressure 156/61 H 152/72 H 144/55 H [Right Brachial artery] O2 Saturation 92 93 95 Oxygen O2 Source [With Activity] on 0.5L O2 via NC O2 Source Room air Oxygen Flow Rate 0.5 I&O (Last 24 Hrs): Intake and Output Totals x24h 07/09/21 07/10/21 07/11/21 23:59 23:59 23:59 Intake Total 4297.000 3998.667 1162.333 Output Total 532 1225 650 Balance 3765.000 2773.667 512.333 - Results Results: Laboratory Results WBC 14.5 x10^3/uL (4.8-10.8) H 07/11/21 05:55 RBC 4.73 10^6/uL (4.20-5.40) 07/11/21 05:55 Hgb 11.4 g/dL (12.0-16.0) L 07/11/21 05:55 Hct 35.1 % (37.0-47.0) L 07/11/21 05:55 MCV 74.2 fL (81.0-99.0) L 07/11/21 05:55 MCH 24.1 pg (27.0-31.0) L 07/11/21 05:55 MCHC 32.5 g/dL (32.0-36.0) 07/11/21 05:55 RDW 19.8 % (12.0-15.0) H 07/11/21 05:55 Plt Count 313 10^3/uL (130-450) 07/11/21 05:55 MPV 10.8 fL (7.9-10.8) 07/11/21 05:55 Neut # (Auto) 12.2 10^3/uL (1.5-6.6) H 07/11/21 05:55 Lymph # (Auto) 1.0 10^3/uL (1.5-3.5) L 07/11/21 05:55 [place] # (Auto) 1.1 10^3/uL (0.0-1.0) H 07/11/21 05:55 Eos # (Auto) 0.1 10^3/uL (0.0-0.7) 07/11/21 05:55 Baso # (Auto) 0.0 10^3/uL (0.0-0.1) 07/11/21 05:55 Absolute Nucleated RBC 0.00 x10^3/uL 07/11/21 05:55 Total Counted 100 07/08/21 04:41 Band Neuts % (Manual) 1 % (0-10) 07/08/21 04:41 Abnorm Lymph % (Manual) 0 % 07/08/21 04:41 Nucleated RBC % 0.0 /100WBC 07/11/21 05:55 Neutrophils # (Manual) 12.2 10^3/uL (1.5-6.6) H 07/08/21 04:41 Lymphocytes # (Manual) 1.7 10^3/uL (1.5-3.5) 07/08/21 04:41 Monocytes # (Manual) 0.6 10^3/uL (0.0-1.0) 07/08/21 04:41 Eosinophils # (Manual) 0.0 10^3/uL (0-0.7) 07/08/21 04:41 Basophils # (Manual) 0.0 10^3/uL (0-0.1) 07/08/21 04:41 Differential Comment MANUAL DIFFERENTIAL 07/08/21 04:41 Manual Slide Review Indicated 07/10/21 07:32 WBC Morphology NORMAL APPEARANCE (NORMAL) 07/10/21 07:32 Platelet Estimate NORMAL (130-450,000) (NORMAL) 07/10/21 07:32 Platelet Morphology NORMAL APPEARANCE (NORMAL) 07/10/21 07:32 RBC Morph Micro Appear NORMAL APPEARANCE (NORMAL) 07/10/21 07:32 VBG pH 7.377 (7.31-7.41) 07/11/21 05:55 Ionized Calcium 1.05 mmol/L (1.15-1.33) L 07/11/21 05:55 Sodium 132 mmol/L (135-145) L 07/11/21 05:55 Potassium 3.9 mmol/L (3.5-5.0) 07/11/21 05:55 Chloride 103 mmol/L (101-111) 07/11/21 05:55 Carbon Dioxide 20 mmol/L (21-32) L 07/11/21 05:55 Anion Gap 9.0 (6-13) 07/11/21 05:55 BUN 17 mg/dL (6-20) 07/11/21 05:55 Creatinine 0.8 mg/dL (0.4-1.0) 07/11/21 05:55 Estimated GFR (MDRD) 68 (>89) L 07/11/21 05:55 Glucose 108 mg/dL (70-100) H 07/11/21 05:55 Lactic Acid 1.4 mmol/L (0.5-2.2) 07/05/21 04:17 Calcium 7.5 mg/dL (8.5-10.3) L 07/11/21 05:55 Phosphorus 2.0 mg/dL (2.5-4.6) L 07/11/21 05:55 Magnesium 2.0 mg/dL (1.7-2.8) 07/11/21 05:55 Total Bilirubin 0.5 mg/dL (0.2-1.0) 07/11/21 05:55 Direct Bilirubin < 0.1 mg/dL (0.1-0.5) L 07/07/21 23:53 AST 26 IU/L (10-42) 07/11/21 05:55 ALT 21 IU/L (10-60) 07/11/21 05:55 Alkaline Phosphatase 31 IU/L (42-121) L 07/11/21 05:55 Troponin I High Sens 29.1 ng/L (2.3-14.8) H* 07/05/21 10:40 Total Protein 5.1 g/dL (6.7-8.2) L 07/11/21 05:55 Albumin 2.4 g/dL (3.2-5.5) L 07/11/21 05:55 Globulin 2.7 g/dL (2.1-4.2) 07/11/21 05:55 Albumin/Globulin Ratio 0.9 (1.0-2.2) L 07/11/21 05:55 Prealbumin 18 mg/dL (18-45) 07/11/21 05:55 Lipase 99 U/L (22-51) H 07/05/21 04:17 TSH 0.21 uIU/mL (0.34-5.60) L 07/07/21 04:50 Free T4 1.16 ng/dL (0.58-1.64) 07/07/21 04:50 Urine Color YELLOW 07/05/21 04:17 Urine Clarity CLEAR (CLEAR) 07/05/21 04:17 Urine pH 5.5 PH (5.0-7.5) 07/05/21 04:17 Ur Specific [place] 1.025 (1.002-1.030) 07/05/21 04:17 Urine Protein 30 mg/dL (NEGATIVE) H 07/05/21 04:17 Urine Glucose (UA) NEGATIVE mg/dL (NEGATIVE) 07/05/21 04:17 Urine Ketones NEGATIVE mg/dL (NEGATIVE) 07/05/21 04:17 Urine Occult Blood MODERATE (NEGATIVE) H 07/05/21 04:17 Urine Nitrite NEGATIVE (NEGATIVE) 07/05/21 04:17 Urine Bilirubin NEGATIVE (NEGATIVE) 07/05/21 04:17 Urine Urobilinogen 0.2 (NORMAL) E.U./dL (NORMAL) 07/05/21 04:17 Ur Leukocyte Esterase NEGATIVE (NEGATIVE) 07/05/21 04:17 Urine RBC 6-10 /HPF (0-5) H 07/05/21 04:17 Urine WBC 0-3 /HPF (0-5) 07/05/21 04:17 Ur Squamous Epith Cells NONE SEEN (<= Few) 07/05/21 04:17 Urine Bacteria Many /HPF (None Seen) H 07/05/21 04:17 Ur Microscopic Review INDICATED 07/05/21 04:17 Urine Culture Comments NOT INDICATED 07/05/21 04:17 CSF Color COLORLESS (COLORLESS) 07/07/21 21:15 CSF Clarity CLEAR (CLEAR) 07/07/21 21:15 Xanthrochromic ABSENT (ABSENT) 07/07/21 21:15 CSF WBC 6 /mm^3 (0-5) H 07/07/21 21:15 CSF RBC 23 /mm^3 (0-1) H 07/07/21 21:15 CSF Cell Count Tube # CSF TUBE# 3 07/07/21 21:15 CSF Neutrophils 2 % (0-6) 07/07/21 21:15 CSF Lymphocytes 35 % (40-80) L 07/07/21 21:15 CSF Monocytes 63 % (15-45) H 07/07/21 21:15 CSF Glucose 51 mg/dL (45-70) 07/07/21 21:15 CSF Total Protein 160 mg/dL (15-60) H 07/07/21 21:15 Nasal Adenovirus (PCR) NOT DETECTED 07/05/21 03:45 Nasal B. parapertussis DNA (PCR) NOT DETECTED 07/05/21 03:45 Nasal Coronavir 229E PCR NOT DETECTED 07/05/21 03:45 Nasal Coronavir HKU1 PCR NOT DETECTED 07/05/21 03:45 Nasal Coronavir NL63 PCR NOT DETECTED 07/05/21 03:45 Nasal Coronavir OC43 PCR NOT DETECTED 07/05/21 03:45 Nasal Enterovir/Rhinovir PCR NOT DETECTED 07/05/21 03:45 Nasal Influenza B PCR NOT DETECTED 07/05/21 03:45 Nasal Influenza A PCR NOT DETECTED 07/05/21 03:45 Nasal Parainfluen 1 PCR NOT DETECTED 07/05/21 03:45 Nasal Parainfluen 2 PCR NOT DETECTED 07/05/21 03:45 Nasal Parainfluen 3 PCR NOT DETECTED 07/05/21 03:45 Nasal Parainfluen 4 PCR NOT DETECTED 07/05/21 03:45 Nasal RSV (PCR) NOT DETECTED 07/05/21 03:45 Nasal Screen MRSA (PCR) NEGATIVE (NEGATIVE) 07/09/21 10:30 Nasal B.pertussis DNA PCR NOT DETECTED 07/05/21 03:45 Nasal C.pneumoniae (PCR) NOT DETECTED 07/05/21 03:45 [place] Human Metapneumo PCR NOT DETECTED 07/05/21 03:45 Nasal M.pneumoniae (PCR) NOT DETECTED 07/05/21 03:45 Nasal SARS-CoV-2 (PCR) NOT DETECTED 07/05/21 03:45 Last Dose Date 07/09/21 07/10/21 09:35 Last Dose Time 1140 07/10/21 09:35 Vancomycin Trough 14.0 ug/mL (10.0-20.0) 07/10/21 09:35 Urine Opiates Screen NEGATIVE (NEGATIVE) 07/05/21 11:00 Ur Oxycodone Screen NEGATIVE (NEGATIVE) 07/05/21 11:00 Urine Methadone Screen NEGATIVE (NEGATIVE) 07/05/21 11:00 Ur Propoxyphene Screen NEGATIVE (NEGATIVE) 07/05/21 11:00 Ur Barbiturates Screen NEGATIVE (NEGATIVE) 07/05/21 11:00 Ur Tricyclics Screen NEGATIVE (NEGATIVE) 07/05/21 11:00 Ur Phencyclidine Scrn NEGATIVE (NEGATIVE) 07/05/21 11:00 Ur Amphetamine Screen NEGATIVE (NEGATIVE) 07/05/21 11:00 U Methamphetamines Scrn NEGATIVE (NEGATIVE) 07/05/21 11:00 U Benzodiazepines Scrn NEGATIVE (NEGATIVE) 07/05/21 11:00 Urine Cocaine Screen NEGATIVE (NEGATIVE) 07/05/21 11:00 U Cannabinoids Screen NEGATIVE (NEGATIVE) 07/05/21 11:00 - Procedures Procedures: General: Other (lethargic, not oriented to place, self or time) HEENT: Atraumatic, PERRLA, EOMI Neck: Supple, No JVD Neuro: Other (Not oriented to self, time, place or reason. Grimaces/moans painful stimuli only. Mo gag reflex) Cardiovascular: Regular rate, Normal S1, Normal S2 Respiratory: Chest non-tender, Breath sounds nml, Abdomen: Normal bowel sounds, Soft Extremities: No clubbing, No cyanosis, No edema Skin: No rashes, No breakdown, No significant lesion Sepsis Event Note (H) - Evaluation Current Stage of Sepsis: Ruled out ABX Reporting Has patient been on IV antibiotics over the past 48 hours?: No
[2021-07-11] MEDS: levETIRAcetam INJ 1,000 MG in SODIUM CHLORIDE 0.9% 100ML 100 ML IV SCH (09:14)
[2021-07-11] MEDS ORDERED: VANCOMYCIN INJ 1 GM, VANCOMYCIN INJ 250 MG in SODIUM CHLORIDE 0.9% 250 ML IV SCH (10:00)
[2021-07-11] MEDS ORDERED: CALCIUM GLUCONATE IN NS 0.9% 1,000 MG/50 ML BAG IV ONE (10:33)
[2021-07-11] MEDS ORDERED: POTASSIUM PHOSPHATE 15 MMOL in SODIUM CHLORIDE 0.9% 250 ML IV ONE (10:33)
--- NOTE | 2021-07-11 15:25 | ADVANCE CARE PLANNING NOTE ---
Advance Care Planning - Planning Encounter Date: 07/11/21 Time: 14:00 Purpose: To discuss goals of care Parties in Attendance: Patient's daughter Elena Williamson and 3 grandchildren Decisional Capacity of the Patient: Patient is unconscious and unable to make decisions - Diagnosis for Encounter (1) CVA (cerebral vascular accident) Summary: MRI with contrast done on 07/10/2021 showed abnormal signal believed to be secondary to subacute infarct Involving the right insular, anterior aspect of the right temporal lobe, right basal ganglia, right thalamus. (2) Encephalopathy Summary: Secondary to right-sided stroke and resulting seizures. (3) Seizure Summary: Secondary to right-sided stroke. - Encounter Subjective/Patient's Story: Patient's family highlights that she was a very strong, active and independent individual prior to coming to the hospital. Objective/Medical Story: Per HPI: Patient is an 89 year old female. She is confused, unable to give reliable ROS or HPI. She lives at home with her son. Her son reports that she is mildly confused at baseline but has been getting progressively more confused over the past two weeks. She has been "mumbling and zoning out." She has also had poor appetite. He reports that she has a had a mild cough, congestion and an episode of vomiting 4 days ago. He denies shortness of breath, diarrhea, fever or urinary incontinence. Today he was worried and called an ambulance to have her evaluated in the emergency department. He reports that she ambulates without a walker at baseline. Upon arrival to the ED, she complained of vomiting and weakness. Her vitals were stable, she was afebrile at 37.4 C, heart rate 94, respiration 18, bp 147/78 with O2 saturation 96%. She was alert and oriented. Work-up was concerning for pneumonia due to elevated WBC at 13.7, ill defined densities on chest x-ray and cough. However, chest CT shows no infiltrates or significant densities. COVID and respiratory pathogen panel negative. UA unremarkable. CMP shows hyponatremia 129, BUN 39, Cr 1.8, GFR 38. Admitted to floor for further work up. Upon admission to floor, patient became hypoxic and unresponsive. She later regained consciousness but was confused, disoriented to time and event." Over the past 5 days the patient has not been awake, alert or oriented to self, place or time. She mainly grunts, moans or grimaces. She has a non-focused response to pain stimuli with her right hand only. Gag reflex is absent. There is increased secretions at the back of her mouth. She has also experienced a couple of seizures in the past 24 hours despite 2 antiseizure medications. Goals of Care: Comfort measures Plan: Comfort measure initiated. This would include morphine IV as needed for pain. Ativan IV as needed for anxiety and/or seizures Zofran as needed for nausea. Supplemental oxygen. We will discontinue telemetry, vitals checks, labs, all antimicrobials, IV hydration and tube feeding Additional Discussion: A staff member from our social service department was present and discussed options/scenarios for hospice. It appears hospice at home will be unlikely Social service will assist with a Medicare application for long-term care as well Code Status: Do Not Attempt Resuscitation Time spent on advance care plannin minutes
[2021-07-11] MEDS: MORPHINE 2 MG/ML CARPUJECT IVP PRN ×2 (15:52→17:22)
[2021-07-12] MEDS: MORPHINE 2 MG/ML CARPUJECT IVP PRN ×4 (05:13→18:00)
[2021-07-12] MEDS: SODIUM CHLORIDE FLUSH 0.9% 10 ML SYRINGE IVP SCH ×3 (05:13→17:00)
--- NOTE | 2021-07-12 08:21 | PROVIDER PROGRESS NOTE ---
Assessment/Plan - Problem List (1) CVA (cerebral vascular accident) Assessment/Plan: MRI with contrast done on 07/10/2021 showed abnormal signal believed to be secondary to subacute infarct Involving the right insular, anterior aspect of the right temporal lobe, right basal ganglia, right thalamus. A family meeting was held between myself, social work and the patient's family. This comprised of her daughter Madalyn Williamson, and 3 grandchildren. After discussion amongst themselves, they made her comfort care. We discussed what comfort measures entails. Highlighting that we would discontinue all therapeutic measures and only direct care towards comfort. They expressed understanding and were agreeable with the plan. Tube feeding, Keppra, Depakote, labs, telemetry and vital checks were discontinued. (2) Encephalopathy Assessment/Plan: Secondary to right-sided stroke and resulting seizures. Patient is currently on comfort measures. Ativan as needed for anxiety and seizures (4) Seizure Assessment/Plan: Secondary to right-sided stroke. Patient is currently on comfort measures. Ativan as needed for seizures (5) Leukocytosis Assessment/Plan: Suspect secondary to steroid administration 3 days ago. White blood cell count today is 14.5. Blood cultures are no growth to date. All antimicrobial medications discontinued. Patient is currently on comfort measures. - Current Meds Current Meds: Current Medications Generic Name Dose Route Start Last Admin Trade Name Freq PRN Reason Stop Dose Admin Acetaminophen 650 mg 07/05/21 07:03 07/06/21 00:38 Acetaminophen 325 Mg Tablet PO 650 mg Q4HR PRN Administration Pain 1 to 4 Lorazepam 1 mg 07/10/21 16:30 07/11/21 04:51 Lorazepam 2 Mg/Ml Vial IVP 1 mg Q2H PRN Administration Anxiety Metoprolol Tartrate 5 mg 07/10/21 18:44 07/10/21 18:50 Metoprolol 5 Mg/5 Ml Vial IVP 5 mg Q6H PRN Administration PER PHYSICIAN ORDER Morphine Sulfate 2 mg 07/11/21 14:57 07/12/21 05:13 Morphine 2 Mg/Ml Carpuject IVP 2 mg Q2HR PRN Administration Pain or Shortness of air Ondansetron HCl 4 mg 07/05/21 07:03 07/06/21 10:03 Ondansetron Odt 4 Mg Tablet TL 4 mg Q6HR PRN Administration Nausea / Vomiting Scopolamine HBr 1 patch 07/10/21 18:00 07/10/21 18:30 Scopolamine Patch TOP 1 patch Q3D TERRANCE Administration Sodium Chloride 10 ml 07/05/21 07:03 07/11/21 04:52 Sodium Chloride Flush 0.9% 10 Ml Syringe IVP 10 ml PRN PRN Administration NEEDED PER PROVIDER ORDERS Sodium Chloride 10 ml 07/05/21 09:00 07/12/21 05:13 Sodium Chloride Flush 0.9% 10 Ml Syringe IVP 10 ml 0100,0900,1700 TERRANCE Administration - Lab Result Fish Bone Diagrams: 07/11/21 05:55 07/11/21 05:55 - Additional Planning My Orders: My Active Orders 07/11/21 14:57 Oral Care - Nursing [RC] BID Morphine Inj (Carpuject) [Morphine (Carpuject)] 2 mg IVP Q2HR PRN 07/11/21 14:58 Comfort Care [RC] QSHIFT Subjective - Subjective Patient Reports: Other (There has been no improvement in the patient's clinical status in 3 days. She does not respond to tactile or verbal stimuli. She grimaces and moans to painful stimuli. There is no gag reflex. Increased secretions requiring suctioning. Sluggish response of pupils to light.) Objective Vital Signs: Vital Signs - 24 hr 07/11/21 07/11/21 07/11/21 09:00 10:00 11:00 Temperature Heart Rate [ 100 92 97 Monitoring electrodes] Respiratory 26 H 16 20 Rate Blood Pressure 151/57 H 147/61 H 142/70 H [Right Brachial artery] O2 Saturation 92 96 96 07/11/21 07/11/21 12:00 13:00 Temperature 37.2 C Heart Rate [ 97 103 H Monitoring electrodes] Respiratory 39 H 40 H Rate Blood Pressure 150/63 H 142/56 H [Right Brachial artery] O2 Saturation 97 94 Oxygen O2 Source [With Activity] on 0.5L O2 via NC O2 Source Room air Oxygen Flow Rate 0.5 I&O (Last 24 Hrs): Intake and Output Totals x24h 07/10/21 07/11/21 07/12/21 23:59 23:59 23:59 Intake Total 3998.667 3041.333 Output Total 1225 2360 400 Balance 2773.667 681.333 -400 Comments/Notes: General: Other (lethargic, not oriented to place, self or time) HEENT: Atraumatic, Pupils constricted with sluggish response to light, EOMI Neck: Supple, No JVD Neuro: Other (Not oriented to self, time, place or reason. Grimaces/moans painful stimuli only. No gag reflex. Babinski positive) Cardiovascular: Regular rate, Normal S1, Normal S2 Respiratory: Chest non-tender, Breath sounds nml, Abdomen: Normal bowel sounds, Soft Extremities: No clubbing, No cyanosis, No edema Skin: No rashes, No breakdown, No significant lesion - Results Results: Laboratory Results WBC 14.5 x10^3/uL (4.8-10.8) H 07/11/21 05:55 RBC 4.73 10^6/uL (4.20-5.40) 07/11/21 05:55 Hgb 11.4 g/dL (12.0-16.0) L 07/11/21 05:55 Hct 35.1 % (37.0-47.0) L 07/11/21 05:55 MCV 74.2 fL (81.0-99.0) L 07/11/21 05:55 MCH 24.1 pg (27.0-31.0) L 07/11/21 05:55 MCHC 32.5 g/dL (32.0-36.0) 07/11/21 05:55 RDW 19.8 % (12.0-15.0) H 07/11/21 05:55 Plt Count 313 10^3/uL (130-450) 07/11/21 05:55 MPV 10.8 fL (7.9-10.8) 07/11/21 05:55 Neut # (Auto) 12.2 10^3/uL (1.5-6.6) H 07/11/21 05:55 Lymph # (Auto) 1.0 10^3/uL (1.5-3.5) L 07/11/21 05:55 [place] # (Auto) 1.1 10^3/uL (0.0-1.0) H 07/11/21 05:55 Eos # (Auto) 0.1 10^3/uL (0.0-0.7) 07/11/21 05:55 Baso # (Auto) 0.0 10^3/uL (0.0-0.1) 07/11/21 05:55 Absolute Nucleated RBC 0.00 x10^3/uL 07/11/21 05:55 Total Counted 100 07/08/21 04:41 Band Neuts % (Manual) 1 % (0-10) 07/08/21 04:41 Abnorm Lymph % (Manual) 0 % 07/08/21 04:41 Nucleated RBC % 0.0 /100WBC 07/11/21 05:55 Neutrophils # (Manual) 12.2 10^3/uL (1.5-6.6) H 07/08/21 04:41 Lymphocytes # (Manual) 1.7 10^3/uL (1.5-3.5) 07/08/21 04:41 Monocytes # (Manual) 0.6 10^3/uL (0.0-1.0) 07/08/21 04:41 Eosinophils # (Manual) 0.0 10^3/uL (0-0.7) 07/08/21 04:41 Basophils # (Manual) 0.0 10^3/uL (0-0.1) 07/08/21 04:41 Differential Comment MANUAL DIFFERENTIAL 07/08/21 04:41 Manual Slide Review Indicated 07/10/21 07:32 WBC Morphology NORMAL APPEARANCE (NORMAL) 07/10/21 07:32 Platelet Estimate NORMAL (130-450,000) (NORMAL) 07/10/21 07:32 Platelet Morphology NORMAL APPEARANCE (NORMAL) 07/10/21 07:32 RBC Morph Micro Appear NORMAL APPEARANCE (NORMAL) 07/10/21 07:32 VBG pH 7.377 (7.31-7.41) 07/11/21 05:55 Ionized Calcium 1.05 mmol/L (1.15-1.33) L 07/11/21 05:55 Sodium 132 mmol/L (135-145) L 07/11/21 05:55 Potassium 3.9 mmol/L (3.5-5.0) 07/11/21 05:55 Chloride 103 mmol/L (101-111) 07/11/21 05:55 Carbon Dioxide 20 mmol/L (21-32) L 07/11/21 05:55 Anion Gap 9.0 (6-13) 07/11/21 05:55 BUN 17 mg/dL (6-20) 07/11/21 05:55 Creatinine 0.8 mg/dL (0.4-1.0) 07/11/21 05:55 Estimated GFR (MDRD) 68 (>89) L 07/11/21 05:55 Glucose 108 mg/dL (70-100) H 07/11/21 05:55 Lactic Acid 1.4 mmol/L (0.5-2.2) 07/05/21 04:17 Calcium 7.5 mg/dL (8.5-10.3) L 07/11/21 05:55 Phosphorus 2.0 mg/dL (2.5-4.6) L 07/11/21 05:55 Magnesium 2.0 mg/dL (1.7-2.8) 07/11/21 05:55 Total Bilirubin 0.5 mg/dL (0.2-1.0) 07/11/21 05:55 Direct Bilirubin < 0.1 mg/dL (0.1-0.5) L 07/07/21 23:53 AST 26 IU/L (10-42) 07/11/21 05:55 ALT 21 IU/L (10-60) 07/11/21 05:55 Alkaline Phosphatase 31 IU/L (42-121) L 07/11/21 05:55 Troponin I High Sens 29.1 ng/L (2.3-14.8) H* 07/05/21 10:40 Total Protein 5.1 g/dL (6.7-8.2) L 07/11/21 05:55 Albumin 2.4 g/dL (3.2-5.5) L 07/11/21 05:55 Globulin 2.7 g/dL (2.1-4.2) 07/11/21 05:55 Albumin/Globulin Ratio 0.9 (1.0-2.2) L 07/11/21 05:55 Prealbumin 18 mg/dL (18-45) 07/11/21 05:55 Lipase 99 U/L (22-51) H 07/05/21 04:17 TSH 0.21 uIU/mL (0.34-5.60) L 07/07/21 04:50 Free T4 1.16 ng/dL (0.58-1.64) 07/07/21 04:50 Urine Color YELLOW 07/05/21 04:17 Urine Clarity CLEAR (CLEAR) 07/05/21 04:17 Urine pH 5.5 PH (5.0-7.5) 07/05/21 04:17 Ur Specific [place] 1.025 (1.002-1.030) 07/05/21 04:17 Urine Protein 30 mg/dL (NEGATIVE) H 07/05/21 04:17 Urine Glucose (UA) NEGATIVE mg/dL (NEGATIVE) 07/05/21 04:17 Urine Ketones NEGATIVE mg/dL (NEGATIVE) 07/05/21 04:17 Urine Occult Blood MODERATE (NEGATIVE) H 07/05/21 04:17 Urine Nitrite NEGATIVE (NEGATIVE) 07/05/21 04:17 Urine Bilirubin NEGATIVE (NEGATIVE) 07/05/21 04:17 Urine Urobilinogen 0.2 (NORMAL) E.U./dL (NORMAL) 07/05/21 04:17 Ur Leukocyte Esterase NEGATIVE (NEGATIVE) 07/05/21 04:17 Urine RBC 6-10 /HPF (0-5) H 07/05/21 04:17 Urine WBC 0-3 /HPF (0-5) 07/05/21 04:17 Ur Squamous Epith Cells NONE SEEN (<= Few) 07/05/21 04:17 Urine Bacteria Many /HPF (None Seen) H 07/05/21 04:17 Ur Microscopic Review INDICATED 07/05/21 04:17 Urine Culture Comments NOT INDICATED 07/05/21 04:17 CSF Color COLORLESS (COLORLESS) 07/07/21 21:15 CSF Clarity CLEAR (CLEAR) 07/07/21 21:15 Xanthrochromic ABSENT (ABSENT) 07/07/21 21:15 CSF WBC 6 /mm^3 (0-5) H 07/07/21 21:15 CSF RBC 23 /mm^3 (0-1) H 07/07/21 21:15 CSF Cell Count Tube # CSF TUBE# 3 07/07/21 21:15 CSF Neutrophils 2 % (0-6) 07/07/21 21:15 CSF Lymphocytes 35 % (40-80) L 07/07/21 21:15 CSF Monocytes 63 % (15-45) H 07/07/21 21:15 CSF Glucose 51 mg/dL (45-70) 07/07/21 21:15 CSF Total Protein 160 mg/dL (15-60) H 07/07/21 21:15 Nasal Adenovirus (PCR) NOT DETECTED 07/05/21 03:45 Nasal B. parapertussis DNA (PCR) NOT DETECTED 07/05/21 03:45 Nasal Coronavir 229E PCR NOT DETECTED 07/05/21 03:45 Nasal Coronavir HKU1 PCR NOT DETECTED 07/05/21 03:45 Nasal Coronavir NL63 PCR NOT DETECTED 07/05/21 03:45 Nasal Coronavir OC43 PCR NOT DETECTED 07/05/21 03:45 Nasal Enterovir/Rhinovir PCR NOT DETECTED 07/05/21 03:45 Nasal Influenza B PCR NOT DETECTED 07/05/21 03:45 Nasal Influenza A PCR NOT DETECTED 07/05/21 03:45 Nasal Parainfluen 1 PCR NOT DETECTED 07/05/21 03:45 Nasal Parainfluen 2 PCR NOT DETECTED 07/05/21 03:45 Nasal Parainfluen 3 PCR NOT DETECTED 07/05/21 03:45 Nasal Parainfluen 4 PCR NOT DETECTED 07/05/21 03:45 Nasal RSV (PCR) NOT DETECTED 07/05/21 03:45 Nasal Screen MRSA (PCR) NEGATIVE (NEGATIVE) 07/09/21 10:30 Nasal B.pertussis DNA PCR NOT DETECTED 07/05/21 03:45 Nasal C.pneumoniae (PCR) NOT DETECTED 07/05/21 03:45 [place]erson Human Metapneumo PCR NOT DETECTED 07/05/21 03:45 Nasal M.pneumoniae (PCR) NOT DETECTED 07/05/21 03:45 Nasal SARS-CoV-2 (PCR) NOT DETECTED 07/05/21 03:45 Last Dose Date 07/09/21 07/10/21 09:35 Last Dose Time 1140 07/10/21 09:35 Vancomycin Trough 14.0 ug/mL (10.0-20.0) 07/10/21 09:35 Urine Opiates Screen NEGATIVE (NEGATIVE) 07/05/21 11:00 Ur Oxycodone Screen NEGATIVE (NEGATIVE) 07/05/21 11:00 Urine Methadone Screen NEGATIVE (NEGATIVE) 07/05/21 11:00 Ur Propoxyphene Screen NEGATIVE (NEGATIVE) 07/05/21 11:00 Ur Barbiturates Screen NEGATIVE (NEGATIVE) 07/05/21 11:00 Ur Tricyclics Screen NEGATIVE (NEGATIVE) 07/05/21 11:00 Ur Phencyclidine Scrn NEGATIVE (NEGATIVE) 07/05/21 11:00 Ur Amphetamine Screen NEGATIVE (NEGATIVE) 07/05/21 11:00 U Methamphetamines Scrn NEGATIVE (NEGATIVE) 07/05/21 11:00 U Benzodiazepines Scrn NEGATIVE (NEGATIVE) 07/05/21 11:00 Urine Cocaine Screen NEGATIVE (NEGATIVE) 07/05/21 11:00 U Cannabinoids Screen NEGATIVE (NEGATIVE) 07/05/21 11:00 Sepsis Event Note (H) - Evaluation Current Stage of Sepsis: Ruled out ABX Reporting Has patient been on IV antibiotics over the past 48 hours?: No
[2021-07-12] MEDS: MINERAL OIL/PETROLAT OPHTH OINT EACHEYE PRN (09:15)
[2021-07-13] MEDS: SODIUM CHLORIDE FLUSH 0.9% 10 ML SYRINGE IVP SCH ×3 (00:26→17:00)
[2021-07-13] MEDS: MORPHINE 2 MG/ML CARPUJECT IVP PRN ×5 (00:26→16:00)
[2021-07-13] MEDS: SODIUM CHLORIDE FLUSH 0.9% 10 ML SYRINGE IVP PRN (04:33)
[2021-07-13] MEDS: LORazepam 2 MG/ML VIAL IVP PRN (09:15)
[2021-07-13 11:27] LABS: HSV 2 DNA NOT DETECTED; SOURCE CEREBROSPINAL FLUID
--- NOTE | 2021-07-13 12:05 | PROVIDER PROGRESS NOTE ---
Assessment/Plan - Problem List (1) CVA (cerebral vascular accident) Assessment/Plan: According to the admission note on 07/05/2021, the patient was admitted with increased confusion over two weeks. She was verbal on admission and interacting with staff. A CT of the brain was done on 07/05/2021 and was unremarkable, however the MRI done 07/07/2021 showed "abnormal hyperintense signal within the right temporal lobe with hyperintense diffusion signal." Her neurological function deteriorated over several days. She became non-verbal and only groaned and grunted to stimulation. She does not follow commands, withdrawal to pain, open eyes, cough, or gag. She has a positive babinski and pupils are perrl 1 and slu ggish. A repeat MRI with contrast of the brain on 07/10/2021 showed "abnormal signal on the right, primarily within the right insula and the right anterior temporal lobe, also involving the right thalamus. The abnormal signal is believed to be on the basis of a subacute infarction". On 07/11/2021 a family meeting was held between the daughter Madalyn Williamson, her 3 grandchildren, our director of social media marketing, and provider. After discussing among themselves, they decided to pursue comfort measures. At that time, her Keppra, Depakote, tube feedings, labs, and vital signs were discontinued. Plan: Continue comfort measures with prn Morphine and Ativan. (2) Encephalopathy Assessment/Plan: Patient was started on empiric Meropenem and Acyclovir on 07/06/2021 with Vancomya bharati added on 07/07/2021 after WBCs increased. These were discontinued on 07/11/2021 after family decided to begin comfort measures. She also received a 24 hour course of Dexamethasone 10 mg IV for 3 doses that finished on 07/09/2021. Keppra 1000 mg IV twice daily was started on 07/07/2021 after a new seizures and then stopped on 07/11/2021. 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 Patient received 5 days of Acyclovir that was discontinued on 07/11/2021 after family decided to begin comfort care. DaughterMadalyn was contacted by the provider and updated on the results. Madalyn questions were answered and she verbalized understanding. Plan: Continue Comfort measures. Continue Ativan prn seizures and anxiety. (3) Seizure Assessment/Plan: New seizure activity was witnessed on 07/07/2021 after the lumbar puncture. Patient was given IV Ativan at the time and started on Keppra which has been discontinued after being transitioned to comfort measures on 07/11/2021. Plan: Continue prn Ativan for breakthrough seizures. (4) Leukocytosis Assessment/Plan: The etiology was undetermined. Her highest white blood cell count was 22.3. Patient received 24 hours of Decadron 4 days ago. The preliminary report from the lumbar puncture on 07/07/2021 was "no growth". Blood cultures form 07/05/2021 also showed "no growth". The patient is afebrile. Patient was made comfort care by family on 07/11/2021. Antibiotics and labs were discontinued at that time. Plan: Continue to provide comfort measures. - Current Meds Current Meds: Current Medications Generic Name Dose Route Start Last Admin Trade Name Freq PRN Reason Stop Dose Admin Acetaminophen 650 mg 07/05/21 07:03 07/06/21 00:38 Acetaminophen 325 Mg Tablet PO 650 mg Q4HR PRN Administration Pain 1 to 4 Lorazepam 1 mg 07/10/21 16:30 07/13/21 09:15 Lorazepam 2 Mg/Ml Vial IVP 1 mg Q2H PRN Administration Anxiety Metoprolol Tartrate 5 mg 07/10/21 18:44 07/10/21 18:50 Metoprolol 5 Mg/5 Ml Vial IVP 5 mg Q6H PRN Administration PER PHYSICIAN ORDER Morphine Sulfate 2 mg 07/11/21 14:57 07/13/21 08:00 Morphine 2 Mg/Ml Carpuject IVP 2 mg Q2HR PRN Administration Pain or Shortness of air Multi-Ingred Cream/Lotion/Oil/Oint 1 applic 07/12/21 09:00 07/12/21 09:15 Mineral Oil/Petrolat Ophth Oint EACHEYE 1 applic QPM PRN Administration Dry Eye Ondansetron HCl 4 mg 07/05/21 07:03 07/06/21 10:03 Ondansetron Odt 4 Mg Tablet TL 4 mg Q6HR PRN Administration Nausea / Vomiting Scopolamine HBr 1 patch 07/10/21 18:00 07/10/21 18:30 Scopolamine Patch TOP 1 patch Q3D TERRANCE Administration Sodium Chloride 10 ml 07/05/21 07:03 07/13/21 04:33 Sodium Chloride Flush 0.9% 10 Ml Syringe IVP 10 ml PRN PRN Administration NEEDED PER PROVIDER ORDERS Sodium Chloride 10 ml 07/05/21 09:00 07/13/21 08:00 Sodium Chloride Flush 0.9% 10 Ml Syringe IVP 10 ml 0100,0900,1700 TERRANCE Administration - Lab Result Fish Bone Diagrams: 07/11/21 05:55 07/11/21 05:55 Subjective - Subjective Patient Reports: Other (Patient is unable to respond) Nursing Reports: No Complaints, Other (Patient had a 40 second siezure that involved rapid eye movement.) Objective Vital Signs: Oxygen O2 Source [With Activity] on 0.5L O2 via NC O2 Source Room air Oxygen Flow Rate 0.5 I&O (Last 24 Hrs): Intake and Output Totals x24h 07/11/21 07/12/21 07/13/21 23:59 23:59 23:59 Intake Total 3041.666 Output Total 2360 950 495 Balance 681.666 -950 -495 General: Other (Patient is unresponsive. She does not follow commands.) HEENT: Atraumatic, Other (PERRL 1 and sluggish.) Neuro: Disoriented, Other (Unresponsive, does not follow commands, withdrawal to pain, gag, or cough. Postive bilateral babinski.) Cardiovascular: Regular rate, Normal S1, Normal S2 (Non-pitting edema to bilateral arms and hands.) Respiratory: No respiratory distress, Rhonchi (Respirations are irregular. Rhonchi throughout.) Abdomen: Normal bowel sounds, Soft Genitourinary: Other (Sampson catheter insitu.) - Results Results: Laboratory Results WBC 14.5 x10^3/uL (4.8-10.8) H 07/11/21 05:55 RBC 4.73 10^6/uL (4.20-5.40) 07/11/21 05:55 Hgb 11.4 g/dL (12.0-16.0) L 07/11/21 05:55 Hct 35.1 % (37.0-47.0) L 07/11/21 05:55 MCV 74.2 fL (81.0-99.0) L 07/11/21 05:55 MCH 24.1 pg (27.0-31.0) L 07/11/21 05:55 MCHC 32.5 g/dL (32.0-36.0) 07/11/21 05:55 RDW 19.8 % (12.0-15.0) H 07/11/21 05:55 Plt Count 313 10^3/uL (130-450) 07/11/21 05:55 MPV 10.8 fL (7.9-10.8) 07/11/21 05:55 Neut # (Auto) 12.2 10^3/uL (1.5-6.6) H 07/11/21 05:55 Lymph # (Auto) 1.0 10^3/uL (1.5-3.5) L 07/11/21 05:55 [place] # (Auto) 1.1 10^3/uL (0.0-1.0) H 07/11/21 05:55 Eos # (Auto) 0.1 10^3/uL (0.0-0.7) 07/11/21 05:55 Baso # (Auto) 0.0 10^3/uL (0.0-0.1) 07/11/21 05:55 Absolute Nucleated RBC 0.00 x10^3/uL 07/11/21 05:55 Total Counted 100 07/08/21 04:41 Band Neuts % (Manual) 1 % (0-10) 07/08/21 04:41 Abnorm Lymph % (Manual) 0 % 07/08/21 04:41 Nucleated RBC % 0.0 /100WBC 07/11/21 05:55 Neutrophils # (Manual) 12.2 10^3/uL (1.5-6.6) H 07/08/21 04:41 Lymphocytes # (Manual) 1.7 10^3/uL (1.5-3.5) 07/08/21 04:41 Monocytes # (Manual) 0.6 10^3/uL (0.0-1.0) 07/08/21 04:41 Eosinophils # (Manual) 0.0 10^3/uL (0-0.7) 07/08/21 04:41 Basophils # (Manual) 0.0 10^3/uL (0-0.1) 07/08/21 04:41 Differential Comment MANUAL DIFFERENTIAL 07/08/21 04:41 Manual Slide Review Indicated 07/10/21 07:32 WBC Morphology NORMAL APPEARANCE (NORMAL) 07/10/21 07:32 Platelet Estimate NORMAL (130-450,000) (NORMAL) 07/10/21 07:32 Platelet Morphology NORMAL APPEARANCE (NORMAL) 07/10/21 07:32 RBC Morph Micro Appear NORMAL APPEARANCE (NORMAL) 07/10/21 07:32 VBG pH 7.377 (7.31-7.41) 07/11/21 05:55 Ionized Calcium 1.05 mmol/L (1.15-1.33) L 07/11/21 05:55 Sodium 132 mmol/L (135-145) L 07/11/21 05:55 Potassium 3.9 mmol/L (3.5-5.0) 07/11/21 05:55 Chloride 103 mmol/L (101-111) 07/11/21 05:55 Carbon Dioxide 20 mmol/L (21-32) L 07/11/21 05:55 Anion Gap 9.0 (6-13) 07/11/21 05:55 BUN 17 mg/dL (6-20) 07/11/21 05:55 Creatinine 0.8 mg/dL (0.4-1.0) 07/11/21 05:55 Estimated GFR (MDRD) 68 (>89) L 07/11/21 05:55 Glucose 108 mg/dL (70-100) H 07/11/21 05:55 Lactic Acid 1.4 mmol/L (0.5-2.2) 07/05/21 04:17 Calcium 7.5 mg/dL (8.5-10.3) L 07/11/21 05:55 Phosphorus 2.0 mg/dL (2.5-4.6) L 07/11/21 05:55 Magnesium 2.0 mg/dL (1.7-2.8) 07/11/21 05:55 Total Bilirubin 0.5 mg/dL (0.2-1.0) 07/11/21 05:55 Direct Bilirubin < 0.1 mg/dL (0.1-0.5) L 07/07/21 23:53 AST 26 IU/L (10-42) 07/11/21 05:55 ALT 21 IU/L (10-60) 07/11/21 05:55 Alkaline Phosphatase 31 IU/L (42-121) L 07/11/21 05:55 Troponin I High Sens 29.1 ng/L (2.3-14.8) H* 07/05/21 10:40 Total Protein 5.1 g/dL (6.7-8.2) L 07/11/21 05:55 Albumin 2.4 g/dL (3.2-5.5) L 07/11/21 05:55 Globulin 2.7 g/dL (2.1-4.2) 07/11/21 05:55 Albumin/Globulin Ratio 0.9 (1.0-2.2) L 07/11/21 05:55 Prealbumin 18 mg/dL (18-45) 07/11/21 05:55 Lipase 99 U/L (22-51) H 07/05/21 04:17 TSH 0.21 uIU/mL (0.34-5.60) L 07/07/21 04:50 Free T4 1.16 ng/dL (0.58-1.64) 07/07/21 04:50 Urine Color YELLOW 07/05/21 04:17 Urine Clarity CLEAR (CLEAR) 07/05/21 04:17 Urine pH 5.5 PH (5.0-7.5) 07/05/21 04:17 Ur Specific [place] 1.025 (1.002-1.030) 07/05/21 04:17 Urine Protein 30 mg/dL (NEGATIVE) H 07/05/21 04:17 Urine Glucose (UA) NEGATIVE mg/dL (NEGATIVE) 07/05/21 04:17 Urine Ketones NEGATIVE mg/dL (NEGATIVE) 07/05/21 04:17 Urine Occult Blood MODERATE (NEGATIVE) H 07/05/21 04:17 Urine Nitrite NEGATIVE (NEGATIVE) 07/05/21 04:17 Urine Bilirubin NEGATIVE (NEGATIVE) 07/05/21 04:17 Urine Urobilinogen 0.2 (NORMAL) E.U./dL (NORMAL) 07/05/21 04:17 Ur Leukocyte Esterase NEGATIVE (NEGATIVE) 07/05/21 04:17 Urine RBC 6-10 /HPF (0-5) H 07/05/21 04:17 Urine WBC 0-3 /HPF (0-5) 07/05/21 04:17 Ur Squamous Epith Cells NONE SEEN (<= Few) 07/05/21 04:17 Urine Bacteria Many /HPF (None Seen) H 07/05/21 04:17 Ur Microscopic Review INDICATED 07/05/21 04:17 Urine Culture Comments NOT INDICATED 07/05/21 04:17 CSF Color COLORLESS (COLORLESS) 07/07/21 21:15 CSF Clarity CLEAR (CLEAR) 07/07/21 21:15 Xanthrochromic ABSENT (ABSENT) 07/07/21 21:15 CSF WBC 6 /mm^3 (0-5) H 07/07/21 21:15 CSF RBC 23 /mm^3 (0-1) H 07/07/21 21:15 CSF Cell Count Tube # CSF TUBE# 3 07/07/21 21:15 CSF Neutrophils 2 % (0-6) 07/07/21 21:15 CSF Lymphocytes 35 % (40-80) L 07/07/21 21:15 CSF Monocytes 63 % (15-45) H 07/07/21 21:15 CSF Glucose 51 mg/dL (45-70) 07/07/21 21:15 CSF Total Protein 160 mg/dL (15-60) H 07/07/21 21:15 Nasal Adenovirus (PCR) NOT DETECTED 07/05/21 03:45 Nasal B. parapertussis DNA (PCR) NOT DETECTED 07/05/21 03:45 Nasal Coronavir 229E PCR NOT DETECTED 07/05/21 03:45 Nasal Coronavir HKU1 PCR NOT DETECTED 07/05/21 03:45 Nasal Coronavir NL63 PCR NOT DETECTED 07/05/21 03:45 Nasal Coronavir OC43 PCR NOT DETECTED 07/05/21 03:45 Nasal Enterovir/Rhinovir PCR NOT DETECTED 07/05/21 03:45 Nasal Influenza B PCR NOT DETECTED 07/05/21 03:45 Nasal Influenza A PCR NOT DETECTED 07/05/21 03:45 Nasal Parainfluen 1 PCR NOT DETECTED 07/05/21 03:45 Nasal Parainfluen 2 PCR NOT DETECTED 07/05/21 03:45 Nasal Parainfluen 3 PCR NOT DETECTED 07/05/21 03:45 Nasal Parainfluen 4 PCR NOT DETECTED 07/05/21 03:45 Nasal RSV (PCR) NOT DETECTED 07/05/21 03:45 Nasal Screen MRSA (PCR) NEGATIVE (NEGATIVE) 07/09/21 10:30 Nasal B.pertussis DNA PCR NOT DETECTED 07/05/21 03:45 Nasal C.pneumoniae (PCR) NOT DETECTED 07/05/21 03:45 Jerson Human Metapneumo PCR NOT DETECTED 07/05/21 03:45 Nasal M.pneumoniae (PCR) NOT DETECTED 07/05/21 03:45 Nasal SARS-CoV-2 (PCR) NOT DETECTED 07/05/21 03:45 Last Dose Date 07/09/21 07/10/21 09:35 Last Dose Time 1140 07/10/21 09:35 Vancomycin Trough 14.0 ug/mL (10.0-20.0) 07/10/21 09:35 Urine Opiates Screen NEGATIVE (NEGATIVE) 07/05/21 11:00 Ur Oxycodone Screen NEGATIVE (NEGATIVE) 07/05/21 11:00 Urine Methadone Screen NEGATIVE (NEGATIVE) 07/05/21 11:00 Ur Propoxyphene Screen NEGATIVE (NEGATIVE) 07/05/21 11:00 Ur Barbiturates Screen NEGATIVE (NEGATIVE) 07/05/21 11:00 Ur Tricyclics Screen NEGATIVE (NEGATIVE) 07/05/21 11:00 Ur Phencyclidine Scrn NEGATIVE (NEGATIVE) 07/05/21 11:00 Ur Amphetamine Screen NEGATIVE (NEGATIVE) 07/05/21 11:00 U Methamphetamines Scrn NEGATIVE (NEGATIVE) 07/05/21 11:00 U Benzodiazepines Scrn NEGATIVE (NEGATIVE) 07/05/21 11:00 Urine Cocaine Screen NEGATIVE (NEGATIVE) 07/05/21 11:00 U Cannabinoids Screen NEGATIVE (NEGATIVE) 07/05/21 11:00 HSV I DNA Quant (PCR) DETECTED A 07/07/21 21:15 HSV II DNA Quant (PCR) NOT DETECTED 07/07/21 21:15 HSV (PCR) Source CEREBROSPINAL FLUID 07/07/21 21:15 Sepsis Event Note (H) - Evaluation Current Stage of Sepsis: Ruled out ABX Reporting Has patient been on IV antibiotics over the past 48 hours?: No
[2021-07-13 12:27] LABS: HSV 1 DNA DETECTED
[2021-07-13] MEDS: SCOPOLAMINE PATCH TOP SCH (18:30)
[2021-07-14] MEDS: SODIUM CHLORIDE FLUSH 0.9% 10 ML SYRINGE IVP SCH ×3 (04:07→17:45)
[2021-07-14] MEDS: MORPHINE 2 MG/ML CARPUJECT IVP PRN ×4 (04:07→19:57)
--- NOTE | 2021-07-14 08:19 | PROVIDER PROGRESS NOTE ---
Assessment/Plan - Problem List (1) CVA (cerebral vascular accident) Assessment/Plan: According to the admission note on 07/05/2021, the patient was admitted with increased confusion over two weeks. She was verbal on admission and interacting with staff. A CT of the brain was done on 07/05/2021 and was unremarkable, however the MRI done 07/07/2021 showed "abnormal hyperintense signal within the right temporal lobe with hyperintense diffusion signal." Her neurological function deteriorated over several days. She became non-verbal and only groaned and grunted to stimulation. She does not follow commands, withdrawal to pain, open eyes, cough, or gag. She has a positive babinski and pupils are perrl 1 and slu ggish. A repeat MRI with contrast of the brain on 07/10/2021 showed "abnormal signal on the right, primarily within the right insula and the right anterior temporal lobe, also involving the right thalamus. The abnormal signal is believed to be on the basis of a subacute infarction". 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 After discussing among themselves, they decided to pursue comfort measures. At that time, her Keppra, Depakote, tube feedings, labs, and vital signs were discontinued. Plan: Continue comfort measures with prn Morphine and Ativan. 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 These were discontinued on 07/11/2021 after family decided to begin comfort measures. She also received a 24 hour course of Dexamethasone 10 mg IV for 3 doses that finished on 07/09/2021. Keppra 1000 mg IV twice daily was started on 07/07/2021 after a new seizures and then stopped on 07/11/2021. 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 Patient received 5 days of Acyclovir that was discontinued on 07/11/2021 after family decided to begin comfort care. DaughterMadalyn was contacted by the provider and updated on the results. Madalyn questions were answered and she verbalized understanding. Plan: Continue Comfort measures. Continue Ativan prn seizures and anxiety. (3) Encephalopathy Assessment/Plan: Patient was started on empiric Meropenem and Acyclovir on 07/06/2021 with Vancomyacin added on 07/07/2021 after WBCs increased. These were discontinued on 07/11/2021 after family decided to begin comfort measures. She also received a 24 hour course of Dexamethasone 10 mg IV for 3 doses that finished on 07/09/2021. Ke ppra 1000 mg IV twice daily was started on 07/07/2021 after a new seizures and then stopped on 07/11/2021. 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 Patient received 5 days of Acyclovir that was discontinued on 07/11/2021 after family decided to begin comfort care. Daughter, Madalyn was contacted by the provider and updated on the results. Madalyn questions were answered and she verbalized understanding. Plan: Continue Comfort measures. Continue Ativan prn seizures and anxiety. (5) Seizure Assessment/Plan: New seizure activity was witnessed on 07/07/2021 after the lumbar puncture. Patient was given IV Ativan at the time and started on Keppra which has been discontinued after being transitioned to comfort measures on 07/11/2021. Plan: Continue prn Ativan for breakthrough seizures. (6) Leukocytosis Assessment/Plan: The etiology was undetermined. Her highest white blood cell count was 22.3. Patient received 24 hours of Decadron 4 days ago. The preliminary report from the lumbar puncture on 07/07/2021 was "no growth". Blood cultures form 07/05/2021 also showed "no growth". The patient is afebrile. Patient was made comfort care by family on 07/11/2021. Antibiotics and labs were discontinued at that time. Plan: Continue to provide comfort measures. - Current Meds Current Meds: Current Medications Generic Name Dose Route Start Last Admin Trade Name Freq PRN Reason Stop Dose Admin Acetaminophen 650 mg 07/05/21 07:03 07/06/21 00:38 Acetaminophen 325 Mg Tablet PO 650 mg Q4HR PRN Administration Pain 1 to 4 Lorazepam 1 mg 07/10/21 16:30 07/13/21 09:15 Lorazepam 2 Mg/Ml Vial IVP 1 mg Q2H PRN Administration Anxiety Metoprolol Tartrate 5 mg 07/10/21 18:44 07/10/21 18:50 Metoprolol 5 Mg/5 Ml Vial IVP 5 mg Q6H PRN Administration PER PHYSICIAN ORDER Morphine Sulfate 2 mg 07/11/21 14:57 07/14/21 04:07 Morphine 2 Mg/Ml Carpuject IVP 2 mg Q2HR PRN Administration Pain or Shortness of air Multi-Ingred Cream/Lotion/Oil/Oint 1 applic 07/12/21 09:00 07/12/21 09:15 Mineral Oil/Petrolat Ophth Oint EACHEYE 1 applic QPM PRN Administration Dry Eye Ondansetron HCl 4 mg 07/05/21 07:03 07/06/21 10:03 Ondansetron Odt 4 Mg Tablet TL 4 mg Q6HR PRN Administration Nausea / Vomiting Scopolamine HBr 1 patch 07/10/21 18:00 07/13/21 18:30 Scopolamine Patch TOP 1 patch Q3D TERRANCE Administration Sodium Chloride 10 ml 07/05/21 07:03 07/13/21 04:33 Sodium Chloride Flush 0.9% 10 Ml Syringe IVP 10 ml PRN PRN Administration NEEDED PER PROVIDER ORDERS Sodium Chloride 10 ml 07/05/21 09:00 07/14/21 07:41 Sodium Chloride Flush 0.9% 10 Ml Syringe IVP 10 ml 0100,0900,1700 TERRANCE Administration - Lab Result Fish Bone Diagrams: 07/11/21 05:55 07/11/21 05:55 Subjective - Subjective Patient Reports: Other (Patient appears comfortable. No response to tactile or verbal stimuli. Breathing comfortable.) Objective Vital Signs: Vital Signs - 24 hr 07/14/21 07:40 Heart Rate [ 93 Monitoring electrodes] Respiratory 25 H Rate O2 Saturation 83 L Oxygen O2 Source [With Activity] on 0.5L O2 via NC O2 Source Room air Oxygen Flow Rate 0.5 I&O (Last 24 Hrs): Intake and Output Totals x24h 07/12/21 07/13/21 07/14/21 23:59 23:59 23:59 Output Total 131 050 606 [facility] [phone] Comments/Notes: General: Other (Patient is unresponsive. She does not follow commands.) HEENT: Atraumatic, Other (PERRL 1 and sluggish.) Neuro: Disoriented, Other (Unresponsive, does not follow commands, withdrawal to pain, gag, or cough. Postive bilateral babinski.) Cardiovascular: Regular rate, Normal S1, Normal S2 (Non-pitting edema to bilateral arms and hands.) Respiratory: No respiratory distress, Rhonchi (Respirations are irregular. Rhonchi throughout.) Abdomen: Normal bowel sounds, Soft Genitourinary: Other (Sampson catheter insitu.) - Results Results: Laboratory Results WBC 14.5 x10^3/uL (4.8-10.8) H 07/11/21 05:55 RBC 4.73 10^6/uL (4.20-5.40) 07/11/21 05:55 Hgb 11.4 g/dL (12.0-16.0) L 07/11/21 05:55 Hct 35.1 % (37.0-47.0) L 07/11/21 05:55 MCV 74.2 fL (81.0-99.0) L 07/11/21 05:55 MCH 24.1 pg (27.0-31.0) L 07/11/21 05:55 MCHC 32.5 g/dL (32.0-36.0) 07/11/21 05:55 RDW 19.8 % (12.0-15.0) H 07/11/21 05:55 Plt Count 313 10^3/uL (130-450) 07/11/21 05:55 MPV 10.8 fL (7.9-10.8) 07/11/21 05:55 Neut # (Auto) 12.2 10^3/uL (1.5-6.6) H 07/11/21 05:55 Lymph # (Auto) 1.0 10^3/uL (1.5-3.5) L 07/11/21 05:55 [place] # (Auto) 1.1 10^3/uL (0.0-1.0) H 07/11/21 05:55 Eos # (Auto) 0.1 10^3/uL (0.0-0.7) 07/11/21 05:55 Baso # (Auto) 0.0 10^3/uL (0.0-0.1) 07/11/21 05:55 Absolute Nucleated RBC 0.00 x10^3/uL 07/11/21 05:55 Total Counted 100 07/08/21 04:41 Band Neuts % (Manual) 1 % (0-10) 07/08/21 04:41 Abnorm Lymph % (Manual) 0 % 07/08/21 04:41 Nucleated RBC % 0.0 /100WBC 07/11/21 05:55 Neutrophils # (Manual) 12.2 10^3/uL (1.5-6.6) H 07/08/21 04:41 Lymphocytes # (Manual) 1.7 10^3/uL (1.5-3.5) 07/08/21 04:41 Monocytes # (Manual) 0.6 10^3/uL (0.0-1.0) 07/08/21 04:41 Eosinophils # (Manual) 0.0 10^3/uL (0-0.7) 07/08/21 04:41 Basophils # (Manual) 0.0 10^3/uL (0-0.1) 07/08/21 04:41 Differential Comment MANUAL DIFFERENTIAL 07/08/21 04:41 Manual Slide Review Indicated 07/10/21 07:32 WBC Morphology NORMAL APPEARANCE (NORMAL) 07/10/21 07:32 Platelet Estimate NORMAL (130-450,000) (NORMAL) 07/10/21 07:32 Platelet Morphology NORMAL APPEARANCE (NORMAL) 07/10/21 07:32 RBC Morph Micro Appear NORMAL APPEARANCE (NORMAL) 07/10/21 07:32 VBG pH 7.377 (7.31-7.41) 07/11/21 05:55 Ionized Calcium 1.05 mmol/L (1.15-1.33) L 07/11/21 05:55 Sodium 132 mmol/L (135-145) L 07/11/21 05:55 Potassium 3.9 mmol/L (3.5-5.0) 07/11/21 05:55 Chloride 103 mmol/L (101-111) 07/11/21 05:55 Carbon Dioxide 20 mmol/L (21-32) L 07/11/21 05:55 Anion Gap 9.0 (6-13) 07/11/21 05:55 BUN 17 mg/dL (6-20) 07/11/21 05:55 Creatinine 0.8 mg/dL (0.4-1.0) 07/11/21 05:55 Estimated GFR (MDRD) 68 (>89) L 07/11/21 05:55 Glucose 108 mg/dL (70-100) H 07/11/21 05:55 Lactic Acid 1.4 mmol/L (0.5-2.2) 07/05/21 04:17 Calcium 7.5 mg/dL (8.5-10.3) L 07/11/21 05:55 Phosphorus 2.0 mg/dL (2.5-4.6) L 07/11/21 05:55 Magnesium 2.0 mg/dL (1.7-2.8) 07/11/21 05:55 Total Bilirubin 0.5 mg/dL (0.2-1.0) 07/11/21 05:55 Direct Bilirubin < 0.1 mg/dL (0.1-0.5) L 07/07/21 23:53 AST 26 IU/L (10-42) 07/11/21 05:55 ALT 21 IU/L (10-60) 07/11/21 05:55 Alkaline Phosphatase 31 IU/L (42-121) L 07/11/21 05:55 Troponin I High Sens 29.1 ng/L (2.3-14.8) H* 07/05/21 10:40 Total Protein 5.1 g/dL (6.7-8.2) L 07/11/21 05:55 Albumin 2.4 g/dL (3.2-5.5) L 07/11/21 05:55 Globulin 2.7 g/dL (2.1-4.2) 07/11/21 05:55 Albumin/Globulin Ratio 0.9 (1.0-2.2) L 07/11/21 05:55 Prealbumin 18 mg/dL (18-45) 07/11/21 05:55 Lipase 99 U/L (22-51) H 07/05/21 04:17 TSH 0.21 uIU/mL (0.34-5.60) L 07/07/21 04:50 Free T4 1.16 ng/dL (0.58-1.64) 07/07/21 04:50 Urine Color YELLOW 07/05/21 04:17 Urine Clarity CLEAR (CLEAR) 07/05/21 04:17 Urine pH 5.5 PH (5.0-7.5) 07/05/21 04:17 Ur Specific [place] 1.025 (1.002-1.030) 07/05/21 04:17 Urine Protein 30 mg/dL (NEGATIVE) H 07/05/21 04:17 Urine Glucose (UA) NEGATIVE mg/dL (NEGATIVE) 07/05/21 04:17 Urine Ketones NEGATIVE mg/dL (NEGATIVE) 07/05/21 04:17 Urine Occult Blood MODERATE (NEGATIVE) H 07/05/21 04:17 Urine Nitrite NEGATIVE (NEGATIVE) 07/05/21 04:17 Urine Bilirubin NEGATIVE (NEGATIVE) 07/05/21 04:17 Urine Urobilinogen 0.2 (NORMAL) E.U./dL (NORMAL) 07/05/21 04:17 Ur Leukocyte Esterase NEGATIVE (NEGATIVE) 07/05/21 04:17 Urine RBC 6-10 /HPF (0-5) H 07/05/21 04:17 Urine WBC 0-3 /HPF (0-5) 07/05/21 04:17 Ur Squamous Epith Cells NONE SEEN (<= Few) 07/05/21 04:17 Urine Bacteria Many /HPF (None Seen) H 07/05/21 04:17 Ur Microscopic Review INDICATED 07/05/21 04:17 Urine Culture Comments NOT INDICATED 07/05/21 04:17 CSF Color COLORLESS (COLORLESS) 07/07/21 21:15 CSF Clarity CLEAR (CLEAR) 07/07/21 21:15 Xanthrochromic ABSENT (ABSENT) 07/07/21 21:15 CSF WBC 6 /mm^3 (0-5) H 07/07/21 21:15 CSF RBC 23 /mm^3 (0-1) H 07/07/21 21:15 CSF Cell Count Tube # CSF TUBE# 3 07/07/21 21:15 CSF Neutrophils 2 % (0-6) 07/07/21 21:15 CSF Lymphocytes 35 % (40-80) L 07/07/21 21:15 CSF Monocytes 63 % (15-45) H 07/07/21 21:15 CSF Glucose 51 mg/dL (45-70) 07/07/21 21:15 CSF Total Protein 160 mg/dL (15-60) H 07/07/21 21:15 Nasal Adenovirus (PCR) NOT DETECTED 07/05/21 03:45 Nasal B. parapertussis DNA (PCR) NOT DETECTED 07/05/21 03:45 Nasal Coronavir 229E PCR NOT DETECTED 07/05/21 03:45 Nasal Coronavir HKU1 PCR NOT DETECTED 07/05/21 03:45 Nasal Coronavir NL63 PCR NOT DETECTED 07/05/21 03:45 Nasal Coronavir OC43 PCR NOT DETECTED 07/05/21 03:45 Nasal Enterovir/Rhinovir PCR NOT DETECTED 07/05/21 03:45 Nasal Influenza B PCR NOT DETECTED 07/05/21 03:45 Nasal Influenza A PCR NOT DETECTED 07/05/21 03:45 Nasal Parainfluen 1 PCR NOT DETECTED 07/05/21 03:45 Nasal Parainfluen 2 PCR NOT DETECTED 07/05/21 03:45 Nasal Parainfluen 3 PCR NOT DETECTED 07/05/21 03:45 Nasal Parainfluen 4 PCR NOT DETECTED 07/05/21 03:45 Nasal RSV (PCR) NOT DETECTED 07/05/21 03:45 Nasal Screen MRSA (PCR) NEGATIVE (NEGATIVE) 07/09/21 10:30 Nasal B.pertussis DNA PCR NOT DETECTED 07/05/21 03:45 Nasal C.pneumoniae (PCR) NOT DETECTED 07/05/21 03:45 [place] Human Metapneumo PCR NOT DETECTED 07/05/21 03:45 Nasal M.pneumoniae (PCR) NOT DETECTED 07/05/21 03:45 Nasal SARS-CoV-2 (PCR) NOT DETECTED 07/05/21 03:45 Last Dose Date 07/09/21 07/10/21 09:35 Last Dose Time 1140 07/10/21 09:35 Vancomycin Trough 14.0 ug/mL (10.0-20.0) 07/10/21 09:35 Urine Opiates Screen NEGATIVE (NEGATIVE) 07/05/21 11:00 Ur Oxycodone Screen NEGATIVE (NEGATIVE) 07/05/21 11:00 Urine Methadone Screen NEGATIVE (NEGATIVE) 07/05/21 11:00 Ur Propoxyphene Screen NEGATIVE (NEGATIVE) 07/05/21 11:00 Ur Barbiturates Screen NEGATIVE (NEGATIVE) 07/05/21 11:00 Ur Tricyclics Screen NEGATIVE (NEGATIVE) 07/05/21 11:00 Ur Phencyclidine Scrn NEGATIVE (NEGATIVE) 07/05/21 11:00 Ur Amphetamine Screen NEGATIVE (NEGATIVE) 07/05/21 11:00 U Methamphetamines Scrn NEGATIVE (NEGATIVE) 07/05/21 11:00 U Benzodiazepines Scrn NEGATIVE (NEGATIVE) 07/05/21 11:00 Urine Cocaine Screen NEGATIVE (NEGATIVE) 07/05/21 11:00 U Cannabinoids Screen NEGATIVE (NEGATIVE) 07/05/21 11:00 HSV I DNA Quant (PCR) DETECTED A 07/07/21 21:15 HSV II DNA Quant (PCR) NOT DETECTED 07/07/21 21:15 HSV (PCR) Source CEREBROSPINAL FLUID 07/07/21 21:15 Sepsis Event Note (H) - Evaluation Current Stage of Sepsis: Ruled out ABX Reporting Has patient been on IV antibiotics over the past 48 hours?: No
[2021-07-14] MEDS: SODIUM CHLORIDE FLUSH 0.9% 10 ML SYRINGE IVP PRN ×2 (12:11→19:57)
--- NOTE | 2021-07-15 10:09 | PROVIDER PROGRESS NOTE ---
Assessment/Plan - Problem List (1) CVA (cerebral vascular accident) Assessment/Plan: 07/15 pt is comfortably resting at the bed now. she is on comfortable care only status. she was consulted for hospice care, and pending placement for hospice care. In the hospital stay, Her neurological function deteriorated over several days. She became non-verbal and only groaned and grunted to stimulation. She does not follow commands, withdrawal to pain, open eyes, cough, or gag. She has a positive babinski and pupils are perrl 1 and sluggish. image studies show abnormal signal is believed to be on the basis of a subacute infarction, abnormal signal on the right, primarily within the right insula and the right anterior temporal lobe, also involving the right thalamus. 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 pt's CSF culture from lumbar puncture on 07/07/2021 resulted today (07/13/2021) and PCR was positive for HSV I. pt started with Acyclovir on 07/06/2021. but clinically pt was not improved, still was unresponsive. pt's family and prior provider had meeting about the care plan. family made the decision, comfortable care only status, consult with hospice care, director social service help placement for hospice care. continue Morphine and Ativan PRN for comfortable care. (3) Encephalopathy Assessment/Plan: pt was unresponsive. As the above prior study, It was believed the encephalitis was caused by HSV 1. Plan: Continue Comfort measures. Continue Ativan prn seizures and anxiety. (5) Seizure Assessment/Plan: New seizure activity was witnessed on 07/07/2021 after the lumbar puncture. Patient was given IV Ativan at the time and started on Keppra which has been discontinued after being transitioned to comfort measures on 07/11/2021. Plan: Continue prn Ativan for breakthrough seizures. (6) Leukocytosis Assessment/Plan: The etiology was undetermined. it is possible from encephalitis reaction Plan: Continue to provide comfort measures. (7)comfort care only status pt is comfortable rest in the bed. Per pt' family and prior provider discussed as the above. pt is on comfortable care only, followup with hospice care status. continue Morphine and Ativan PRN for comfortable care. - Current Meds Current Meds: Current Medications Generic Name Dose Route Start Last Admin Trade Name Freq PRN Reason Stop Dose Admin Acetaminophen 650 mg 07/05/21 07:03 07/06/21 00:38 Acetaminophen 325 Mg Tablet PO 650 mg Q4HR PRN Administration Pain 1 to 4 Lorazepam 1 mg 07/10/21 16:30 07/13/21 09:15 Lorazepam 2 Mg/Ml Vial IVP 1 mg Q2H PRN Administration Anxiety Multi-Ingred Cream/Lotion/Oil/Oint 1 applic 07/12/21 09:00 07/12/21 09:15 Mineral Oil/Petrolat Ophth Oint EACHEYE 1 applic QPM PRN Administration Dry Eye Ondansetron HCl 4 mg 07/05/21 07:03 07/06/21 10:03 Ondansetron Odt 4 Mg Tablet TL 4 mg Q6HR PRN Administration Nausea / Vomiting Scopolamine HBr 1 patch 07/10/21 18:00 07/13/21 18:30 Scopolamine Patch TOP 1 patch Q3D TERRANCE Administration Sodium Chloride 10 ml 07/05/21 07:03 07/14/21 19:57 Sodium Chloride Flush 0.9% 10 Ml Syringe IVP 10 ml PRN PRN Administration NEEDED PER PROVIDER ORDERS Sodium Chloride 10 ml 07/05/21 09:00 07/14/21 17:45 Sodium Chloride Flush 0.9% 10 Ml Syringe IVP 10 ml 0100,0900,1700 TERRANCE Administration - Lab Result Fish Bone Diagrams: 07/11/21 05:55 07/11/21 05:55 - Additional Planning My Orders: My Active Orders 07/15/21 Social Work Consult [CONS] Routine 07/15/21 08:17 Morphine Oral Soln [Roxanol] 10 mg PO Q2HR PRN Subjective - Subjective Patient Reports: Resting Comfortably Objective Vital Signs: Vital Signs - 24 hr 07/14/21 07/15/21 15:52 07:35 Temperature 37.3 C Heart Rate [ 97 95 Monitoring electrodes] Respiratory 17 24 Rate Blood Pressure 128/50 L [Right Brachial artery] O2 Saturation 81 L 88 L Oxygen O2 Source [With Activity] on 0.5L O2 via NC O2 Source Room air Oxygen Flow Rate 0.5 I&O (Last 24 Hrs): Intake and Output Totals x24h 07/13/21 07/14/21 07/15/21 23:59 23:59 23:59 Intake Total 0 Output Total 671 697 322 Balance -197 -667 -474 General: Other (lethargic) HEENT: Atraumatic Neck: Supple Lymphatic: no adenopathy Neuro: Other (lethargic, unresponsive) Cardiovascular: Regular rate, Normal S1, Normal S2 Respiratory: Chest non-tender, No respiratory distress Abdomen: Normal bowel sounds, Soft Extremities: Normal pulses - Results Results: Laboratory Results WBC 14.5 x10^3/uL (4.8-10.8) H 07/11/21 05:55 RBC 4.73 10^6/uL (4.20-5.40) 07/11/21 05:55 Hgb 11.4 g/dL (12.0-16.0) L 07/11/21 05:55 Hct 35.1 % (37.0-47.0) L 07/11/21 05:55 MCV 74.2 fL (81.0-99.0) L 07/11/21 05:55 MCH 24.1 pg (27.0-31.0) L 07/11/21 05:55 MCHC 32.5 g/dL (32.0-36.0) 07/11/21 05:55 RDW 19.8 % (12.0-15.0) H 07/11/21 05:55 Plt Count 313 10^3/uL (130-450) 07/11/21 05:55 MPV 10.8 fL (7.9-10.8) 07/11/21 05:55 Neut # (Auto) 12.2 10^3/uL (1.5-6.6) H 07/11/21 05:55 Lymph # (Auto) 1.0 10^3/uL (1.5-3.5) L 07/11/21 05:55 [place] # (Auto) 1.1 10^3/uL (0.0-1.0) H 07/11/21 05:55 Eos # (Auto) 0.1 10^3/uL (0.0-0.7) 07/11/21 05:55 Baso # (Auto) 0.0 10^3/uL (0.0-0.1) 07/11/21 05:55 Absolute Nucleated RBC 0.00 x10^3/uL 07/11/21 05:55 Total Counted 100 07/08/21 04:41 Band Neuts % (Manual) 1 % (0-10) 07/08/21 04:41 Abnorm Lymph % (Manual) 0 % 07/08/21 04:41 Nucleated RBC % 0.0 /100WBC 07/11/21 05:55 Neutrophils # (Manual) 12.2 10^3/uL (1.5-6.6) H 07/08/21 04:41 Lymphocytes # (Manual) 1.7 10^3/uL (1.5-3.5) 07/08/21 04:41 Monocytes # (Manual) 0.6 10^3/uL (0.0-1.0) 07/08/21 04:41 Eosinophils # (Manual) 0.0 10^3/uL (0-0.7) 07/08/21 04:41 Basophils # (Manual) 0.0 10^3/uL (0-0.1) 07/08/21 04:41 Differential Comment MANUAL DIFFERENTIAL 07/08/21 04:41 Manual Slide Review Indicated 07/10/21 07:32 WBC Morphology NORMAL APPEARANCE (NORMAL) 07/10/21 07:32 Platelet Estimate NORMAL (130-450,000) (NORMAL) 07/10/21 07:32 Platelet Morphology NORMAL APPEARANCE (NORMAL) 07/10/21 07:32 RBC Morph Micro Appear NORMAL APPEARANCE (NORMAL) 07/10/21 07:32 VBG pH 7.377 (7.31-7.41) 07/11/21 05:55 Ionized Calcium 1.05 mmol/L (1.15-1.33) L 07/11/21 05:55 Sodium 132 mmol/L (135-145) L 07/11/21 05:55 Potassium 3.9 mmol/L (3.5-5.0) 07/11/21 05:55 Chloride 103 mmol/L (101-111) 07/11/21 05:55 Carbon Dioxide 20 mmol/L (21-32) L 07/11/21 05:55 Anion Gap 9.0 (6-13) 07/11/21 05:55 BUN 17 mg/dL (6-20) 07/11/21 05:55 Creatinine 0.8 mg/dL (0.4-1.0) 07/11/21 05:55 Estimated GFR (MDRD) 68 (>89) L 07/11/21 05:55 Glucose 108 mg/dL (70-100) H 07/11/21 05:55 Lactic Acid 1.4 mmol/L (0.5-2.2) 07/05/21 04:17 Calcium 7.5 mg/dL (8.5-10.3) L 07/11/21 05:55 Phosphorus 2.0 mg/dL (2.5-4.6) L 07/11/21 05:55 Magnesium 2.0 mg/dL (1.7-2.8) 07/11/21 05:55 Total Bilirubin 0.5 mg/dL (0.2-1.0) 07/11/21 05:55 Direct Bilirubin < 0.1 mg/dL (0.1-0.5) L 07/07/21 23:53 AST 26 IU/L (10-42) 07/11/21 05:55 ALT 21 IU/L (10-60) 07/11/21 05:55 Alkaline Phosphatase 31 IU/L (42-121) L 07/11/21 05:55 Troponin I High Sens 29.1 ng/L (2.3-14.8) H* 07/05/21 10:40 Total Protein 5.1 g/dL (6.7-8.2) L 07/11/21 05:55 Albumin 2.4 g/dL (3.2-5.5) L 07/11/21 05:55 Globulin 2.7 g/dL (2.1-4.2) 07/11/21 05:55 Albumin/Globulin Ratio 0.9 (1.0-2.2) L 07/11/21 05:55 Prealbumin 18 mg/dL (18-45) 07/11/21 05:55 Lipase 99 U/L (22-51) H 07/05/21 04:17 TSH 0.21 uIU/mL (0.34-5.60) L 07/07/21 04:50 Free T4 1.16 ng/dL (0.58-1.64) 07/07/21 04:50 Urine Color YELLOW 07/05/21 04:17 Urine Clarity CLEAR (CLEAR) 07/05/21 04:17 Urine pH 5.5 PH (5.0-7.5) 07/05/21 04:17 Ur Specific [place] 1.025 (1.002-1.030) 07/05/21 04:17 Urine Protein 30 mg/dL (NEGATIVE) H 07/05/21 04:17 Urine Glucose (UA) NEGATIVE mg/dL (NEGATIVE) 07/05/21 04:17 Urine Ketones NEGATIVE mg/dL (NEGATIVE) 07/05/21 04:17 Urine Occult Blood MODERATE (NEGATIVE) H 07/05/21 04:17 Urine Nitrite NEGATIVE (NEGATIVE) 07/05/21 04:17 Urine Bilirubin NEGATIVE (NEGATIVE) 07/05/21 04:17 Urine Urobilinogen 0.2 (NORMAL) E.U./dL (NORMAL) 07/05/21 04:17 Ur Leukocyte Esterase NEGATIVE (NEGATIVE) 07/05/21 04:17 Urine RBC 6-10 /HPF (0-5) H 07/05/21 04:17 Urine WBC 0-3 /HPF (0-5) 07/05/21 04:17 Ur Squamous Epith Cells NONE SEEN (<= Few) 07/05/21 04:17 Urine Bacteria Many /HPF (None Seen) H 07/05/21 04:17 Ur Microscopic Review INDICATED 07/05/21 04:17 Urine Culture Comments NOT INDICATED 07/05/21 04:17 CSF Color COLORLESS (COLORLESS) 07/07/21 21:15 CSF Clarity CLEAR (CLEAR) 07/07/21 21:15 Xanthrochromic ABSENT (ABSENT) 07/07/21 21:15 CSF WBC 6 /mm^3 (0-5) H 07/07/21 21:15 CSF RBC 23 /mm^3 (0-1) H 07/07/21 21:15 CSF Cell Count Tube # CSF TUBE# 3 07/07/21 21:15 CSF Neutrophils 2 % (0-6) 07/07/21 21:15 CSF Lymphocytes 35 % (40-80) L 07/07/21 21:15 CSF Monocytes 63 % (15-45) H 07/07/21 21:15 CSF Glucose 51 mg/dL (45-70) 07/07/21 21:15 CSF Total Protein 160 mg/dL (15-60) H 07/07/21 21:15 Nasal Adenovirus (PCR) NOT DETECTED 07/05/21 03:45 Nasal B. parapertussis DNA (PCR) NOT DETECTED 07/05/21 03:45 Nasal Coronavir 229E PCR NOT DETECTED 07/05/21 03:45 Nasal Coronavir HKU1 PCR NOT DETECTED 07/05/21 03:45 Nasal Coronavir NL63 PCR NOT DETECTED 07/05/21 03:45 Nasal Coronavir OC43 PCR NOT DETECTED 07/05/21 03:45 Nasal Enterovir/Rhinovir PCR NOT DETECTED 07/05/21 03:45 Nasal Influenza B PCR NOT DETECTED 07/05/21 03:45 Nasal Influenza A PCR NOT DETECTED 07/05/21 03:45 Nasal Parainfluen 1 PCR NOT DETECTED 07/05/21 03:45 Nasal Parainfluen 2 PCR NOT DETECTED 07/05/21 03:45 Nasal Parainfluen 3 PCR NOT DETECTED 07/05/21 03:45 Nasal Parainfluen 4 PCR NOT DETECTED 07/05/21 03:45 Nasal RSV (PCR) NOT DETECTED 07/05/21 03:45 Nasal Screen MRSA (PCR) NEGATIVE (NEGATIVE) 07/09/21 10:30 Nasal B.pertussis DNA PCR NOT DETECTED 07/05/21 03:45 Nasal C.pneumoniae (PCR) NOT DETECTED 07/05/21 03:45 [place] Human Metapneumo PCR NOT DETECTED 07/05/21 03:45 Nasal M.pneumoniae (PCR) NOT DETECTED 07/05/21 03:45 Nasal SARS-CoV-2 (PCR) NOT DETECTED 07/05/21 03:45 Last Dose Date 07/09/21 07/10/21 09:35 Last Dose Time 1140 07/10/21 09:35 Vancomycin Trough 14.0 ug/mL (10.0-20.0) 07/10/21 09:35 Urine Opiates Screen NEGATIVE (NEGATIVE) 07/05/21 11:00 Ur Oxycodone Screen NEGATIVE (NEGATIVE) 07/05/21 11:00 Urine Methadone Screen NEGATIVE (NEGATIVE) 07/05/21 11:00 Ur Propoxyphene Screen NEGATIVE (NEGATIVE) 07/05/21 11:00 Ur Barbiturates Screen NEGATIVE (NEGATIVE) 07/05/21 11:00 Ur Tricyclics Screen NEGATIVE (NEGATIVE) 07/05/21 11:00 Ur Phencyclidine Scrn NEGATIVE (NEGATIVE) 07/05/21 11:00 Ur Amphetamine Screen NEGATIVE (NEGATIVE) 07/05/21 11:00 U Methamphetamines Scrn NEGATIVE (NEGATIVE) 07/05/21 11:00 U Benzodiazepines Scrn NEGATIVE (NEGATIVE) 07/05/21 11:00 Urine Cocaine Screen NEGATIVE (NEGATIVE) 07/05/21 11:00 U Cannabinoids Screen NEGATIVE (NEGATIVE) 07/05/21 11:00 HSV I DNA Quant (PCR) DETECTED A 07/07/21 21:15 HSV II DNA Quant (PCR) NOT DETECTED 07/07/21 21:15 HSV (PCR) Source CEREBROSPINAL FLUID 07/07/21 21:15 Sepsis Event Note (H) - Evaluation Current Stage of Sepsis: Ruled out ABX Reporting Has patient been on IV antibiotics over the past 48 hours?: No Current Medications - Current Medications Current Medications: Active Medications Acetaminophen (Acetaminophen 325 Mg Tablet) 650 mg PO Q4HR PRN PRN Reason: Pain 1 to 4 Last Admin: 07/06/21 00:38 Dose: 650 mg Lorazepam (Lorazepam 2 Mg/Ml Vial) 1 mg IVP Q2H PRN PRN Reason: Anxiety Last Admin: 07/13/21 09:15 Dose: 1 mg Morphine Sulfate (Morphine Elisa 10 Mg/0.5 Ml Oral Syringe) 10 mg PO Q2HR PRN PRN Reason: PAIN Multi-Ingred Cream/Lotion/Oil/Oint (Mineral Oil/Petrolat Ophth Oint) 1 applic EACHEYE QPM PRN PRN Reason: Dry Eye Last Admin: 07/12/21 09:15 Dose: 1 applic Ondansetron HCl (Ondansetron Odt 4 Mg Tablet) 4 mg TL Q6HR PRN PRN Reason: Nausea / Vomiting Last Admin: 07/06/21 10:03 Dose: 4 mg Ondansetron HCl (Ondansetron 4 Mg/2 Ml Vial) 4 mg IVP Q6HR PRN PRN Reason: Nausea / Vomiting Scopolamine HBr (Scopolamine Patch) 1 patch TOP Q3D TERRANCE Last Admin: 07/13/21 18:30 Dose: 1 patch Sodium Chloride (Sodium Chloride Flush 0.9% 10 Ml Syringe) 10 ml IVP PRN PRN PRN Reason: NEEDED PER PROVIDER ORDERS Last Admin: 07/14/21 19:57 Dose: 10 ml Sodium Chloride (Sodium Chloride Flush 0.9% 10 Ml Syringe) 10 ml IVP 0100 ,0900,1700 TERRANCE Last Admin: 07/14/21 17:45 Dose: 10 ml Omeprazole 20 mg PO QDAC 07/13/14 Albuterol Sulf [Ventolin Hfa Inhaler] 1 - 2 puffs INH Q4HR PRN 07/31/18 Magnesium Oxide [Mag Ox] 400 mg PO DAILY 10/09/18 Acetaminophen [8 Hour Pain Relief] 650 mg PO Q8H 07/05/21 Ascorbic Acid [Vitamin C] 500 mg PO DAILY 07/05/21 Calcium Carbonate [Tums (Calcium Carbonate 500mg)] 200 mg PO DAILY PRN 07/05/21 Cholecalciferol (Vitamin D3) [Vitamin D3] 50 mcg PO DAILY 07/05/21 Diclofenac Potassium [Cataflam] 50 mg PO BID PRN 07/05/21 Fluticasone [Flonase] 1 sprays SYEDA BID 07/05/21 Lidocaine Patch 5% [Lidoderm Patch] 1 each TOP DAILY PRN 07/05/21 Metoprolol Tartrate [Lopressor] 25 mg PO BID 07/05/21 Trospium Chloride 20 mg PO QPM 07/05/21 amLODIPine [Norvasc] 5 mg PO BID 07/05/21 polyethylene glycoL 3350 [Miralax] 17 gm PO DAILY PRN 07/05/21
[2021-07-15] MEDS: MORPHINE SOL 10 MG/0.5 ML ORAL SYRINGE PO PRN ×2 (11:42→13:32)
[2021-07-15] MEDS: SODIUM CHLORIDE FLUSH 0.9% 10 ML SYRINGE IVP SCH ×3 (11:42→20:42)
[2021-07-15] MEDS: LORazepam 2 MG/ML VIAL IVP PRN (13:31)
[2021-07-15] MEDS: MINERAL OIL/PETROLAT OPHTH OINT EACHEYE PRN (20:43)
[2021-07-16] MEDS: SODIUM CHLORIDE FLUSH 0.9% 10 ML SYRINGE IVP SCH ×3 (03:17→17:39)
[2021-07-16 08:14] VITALS: BP 134/65
--- NOTE | 2021-07-16 11:20 | PROVIDER PROGRESS NOTE ---
Assessment/Plan - Problem List (1) CVA (cerebral vascular accident) Assessment/Plan: 07/16 pt is comfortable, unresponsive. pt has been on comfortable care only status since 07/11/21. harvest worker field crop report Rosa Dawson may take pt for hospice care on this Wednesday. Pt's daughter Elena came to hospital to visit pt. Discussed the care plan and answered their questions. Elena hope to keep comfortable measure for her mother, and followup with hospice care. harvest worker field crop is at pt's bedside as well for the discussion. 07/15 pt is comfortably at the bed now. she is on comfortable care only status. she was consulted for hospice care, and pending placement for hospice care. In the hospital stay, Her neurological function deteriorated over several days. She became non-verbal and only groaned and grunted to stimulation. She does not follow commands, withdrawal to pain, open eyes, cough, or gag. She has a posi tive babinski and pupils are perrl 1 and sluggish. image studies show abnormal signal is believed to be on the basis of a subacute infarction, abnormal signal on the right, primarily within the right insula and the right anterior temporal lobe, also involving the right thalamus. 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 Pt's daughter Elena came to hospital to visit pt. Answered her questions and discussed pt's care plan with her. Patient had lumbar puncture on July 07. pt's CSF culture from lumbar puncture on 07/07/2021 resulted today (07/13/2021) and PCR was positive for HSV I. pt started with Acyclovir on 07/06/2021. but clinically pt was not improved, still was unresponsive. pt's family and prior provider had meeting about the care plan. family made the decision, comfortable care only status, consult with hospice care, social services director help placement for hospice care. continue Morphine and Ativan PRN for comfortable care. (3) Encephalopathy Assessment/Plan: 07/16 pt is unresponsive, will continue comfort measure pt is unresponsive. As the above prior study, It was believed the encephalitis was caused by HSV 1. Plan: Continue Comfort measures. Continue Ativan prn seizures and anxiety. (5) Seizure Assessment/Plan: 07/16 no seizure on yesterday and today as far, Continue prn Ativan IV for seizures. New seizure activity was witnessed on 07/07/2021 after the lumbar puncture. Patient was given IV Ativan at the time and started on Keppra which has been discontinued after being transitioned to comfort measures on 07/11/2021. Plan: Continue prn Ativan for breakthrough seizures. (6) Leukocytosis Assessment/Plan: The etiology was undetermined. it is possible from encephalitis reaction Plan: Continue to provide comfort measures. (7)comfort care only status 07/16 meet pt's daughter Elena at pt's bedside. Elena hope to keep comfortable measure for her mother, and followup with hospice care. pt is comfortable rest in the bed. Per pt' family and prior provider discussed as ACP. pt is on comfortable care only, followup with hospice care status. continue Morphine and Ativan PRN for comfortable care. - Current Meds Current Meds: Current Medications Generic Name Dose Route Start Last Admin Trade Name Freq PRN Reason Stop Dose Admin Acetaminophen 650 mg 07/05/21 07:03 07/06/21 00:38 Acetaminophen 325 Mg Tablet PO 650 mg Q4HR PRN Administration Pain 1 to 4 Lorazepam 1 mg 07/10/21 16:30 07/15/21 13:31 Lorazepam 2 Mg/Ml Vial IVP 1 mg Q2H PRN Administration Anxiety Morphine Sulfate 10 mg 07/15/21 08:17 07/15/21 13:32 Morphine Elisa 10 Mg/0.5 Ml Oral Syringe PO 10 mg Q2HR PRN Administration PAIN Multi-Ingred Cream/Lotion/Oil/Oint 1 applic 07/12/21 09:00 07/15/21 20:43 Mineral Oil/Petrolat Ophth Oint EACHEYE 1 applic QPM PRN Administration Dry Eye Ondansetron HCl 4 mg 07/05/21 07:03 07/06/21 10:03 Ondansetron Odt 4 Mg Tablet TL 4 mg Q6HR PRN Administration Nausea / Vomiting Scopolamine HBr 1 patch 07/10/21 18:00 07/13/21 18:30 Scopolamine Patch TOP 1 patch Q3D [facility]ERRANCE Administration Sodium Chloride 10 ml 07/05/21 07:03 07/14/21 19:57 Sodium Chloride Flush 0.9% 10 Ml Syringe IVP 10 ml PRN PRN Administration NEEDED PER PROVIDER ORDERS Sodium Chloride 10 ml 07/05/21 09:00 07/16/21 09:53 Sodium Chloride Flush 0.9% 10 Ml Syringe IVP 10 ml 0100,0900,1700 [facility] Administration - Lab Result Fish Bone Diagrams: 07/11/21 05:55 07/11/21 05:55 Subjective - Subjective Patient Reports: Resting Comfortably Objective Vital Signs: Vital Signs - 24 hr 07/15/21 07/16/21 17:23 08:13 Temperature 37.7 C Heart Rate [ 88 93 Monitoring electrodes] Respiratory 16 23 Rate Blood Pressure 134/65 H [Right Radial artery] O2 Saturation 86 L Oxygen O2 Source [With Activity] on 0.5L O2 via NC O2 Source Room air Oxygen Flow Rate 0.5 I&O (Last 24 Hrs): Intake and Output Totals x24h 07/14/21 07/15/21 07/16/21 23:59 23:59 23:59 Intake Total 0 Output Total 800 600 300 Balance -800 -600 -300 General: Other (unreponsive) HEENT: Atraumatic Neck: Supple Lymphatic: no adenopathy Neuro: Other (unresponsive) Cardiovascular: Regular rate, Normal S1, Normal S2 Respiratory: Chest non-tender, Other (fast shallow breathing) Abdomen: Soft, Other (diminished bowel sound) Extremities: Normal pulses - Results Results: Laboratory Results WBC 14.5 x10^3/uL (4.8-10.8) H 07/11/21 05:55 RBC 4.73 10^6/uL (4.20-5.40) 07/11/21 05:55 Hgb 11.4 g/dL (12.0-16.0) L 07/11/21 05:55 Hct 35.1 % (37.0-47.0) L 07/11/21 05:55 MCV 74.2 fL (81.0-99.0) L 07/11/21 05:55 MCH 24.1 pg (27.0-31.0) L 07/11/21 05:55 MCHC 32.5 g/dL (32.0-36.0) 07/11/21 05:55 RDW 19.8 % (12.0-15.0) H 07/11/21 05:55 Plt Count 313 10^3/uL (130-450) 07/11/21 05:55 MPV 10.8 fL (7.9-10.8) 07/11/21 05:55 Neut # (Auto) 12.2 10^3/uL (1.5-6.6) H 07/11/21 05:55 Lymph # (Auto) 1.0 10^3/uL (1.5-3.5) L 07/11/21 05:55 [place] # (Auto) 1.1 10^3/uL (0.0-1.0) H 07/11/21 05:55 Eos # (Auto) 0.1 10^3/uL (0.0-0.7) 07/11/21 05:55 Baso # (Auto) 0.0 10^3/uL (0.0-0.1) 07/11/21 05:55 Absolute Nucleated RBC 0.00 x10^3/uL 07/11/21 05:55 Total Counted 100 07/08/21 04:41 Band Neuts % (Manual) 1 % (0-10) 07/08/21 04:41 Abnorm Lymph % (Manual) 0 % 07/08/21 04:41 Nucleated RBC % 0.0 /100WBC 07/11/21 05:55 Neutrophils # (Manual) 12.2 10^3/uL (1.5-6.6) H 07/08/21 04:41 Lymphocytes # (Manual) 1.7 10^3/uL (1.5-3.5) 07/08/21 04:41 Monocytes # (Manual) 0.6 10^3/uL (0.0-1.0) 07/08/21 04:41 Eosinophils # (Manual) 0.0 10^3/uL (0-0.7) 07/08/21 04:41 Basophils # (Manual) 0.0 10^3/uL (0-0.1) 07/08/21 04:41 Differential Comment MANUAL DIFFERENTIAL 07/08/21 04:41 Manual Slide Review Indicated 07/10/21 07:32 WBC Morphology NORMAL APPEARANCE (NORMAL) 07/10/21 07:32 Platelet Estimate NORMAL (130-450,000) (NORMAL) 07/10/21 07:32 Platelet Morphology NORMAL APPEARANCE (NORMAL) 07/10/21 07:32 RBC Morph Micro Appear NORMAL APPEARANCE (NORMAL) 07/10/21 07:32 VBG pH 7.377 (7.31-7.41) 07/11/21 05:55 Ionized Calcium 1.05 mmol/L (1.15-1.33) L 07/11/21 05:55 Sodium 132 mmol/L (135-145) L 07/11/21 05:55 Potassium 3.9 mmol/L (3.5-5.0) 07/11/21 05:55 Chloride 103 mmol/L (101-111) 07/11/21 05:55 Carbon Dioxide 20 mmol/L (21-32) L 07/11/21 05:55 Anion Gap 9.0 (6-13) 07/11/21 05:55 BUN 17 mg/dL (6-20) 07/11/21 05:55 Creatinine 0.8 mg/dL (0.4-1.0) 07/11/21 05:55 Estimated GFR (MDRD) 68 (>89) L 07/11/21 05:55 Glucose 108 mg/dL (70-100) H 07/11/21 05:55 Lactic Acid 1.4 mmol/L (0.5-2.2) 07/05/21 04:17 Calcium 7.5 mg/dL (8.5-10.3) L 07/11/21 05:55 Phosphorus 2.0 mg/dL (2.5-4.6) L 07/11/21 05:55 Magnesium 2.0 mg/dL (1.7-2.8) 07/11/21 05:55 Total Bilirubin 0.5 mg/dL (0.2-1.0) 07/11/21 05:55 Direct Bilirubin < 0.1 mg/dL (0.1-0.5) L 07/07/21 23:53 AST 26 IU/L (10-42) 07/11/21 05:55 ALT 21 IU/L (10-60) 07/11/21 05:55 Alkaline Phosphatase 31 IU/L (42-121) L 07/11/21 05:55 Troponin I High Sens 29.1 ng/L (2.3-14.8) H* 07/05/21 10:40 Total Protein 5.1 g/dL (6.7-8.2) L 07/11/21 05:55 Albumin 2.4 g/dL (3.2-5.5) L 07/11/21 05:55 Globulin 2.7 g/dL (2.1-4.2) 07/11/21 05:55 Albumin/Globulin Ratio 0.9 (1.0-2.2) L 07/11/21 05:55 Prealbumin 18 mg/dL (18-45) 07/11/21 05:55 Lipase 99 U/L (22-51) H 07/05/21 04:17 TSH 0.21 uIU/mL (0.34-5.60) L 07/07/21 04:50 Free T4 1.16 ng/dL (0.58-1.64) 07/07/21 04:50 Urine Color YELLOW 07/05/21 04:17 Urine Clarity CLEAR (CLEAR) 07/05/21 04:17 Urine pH 5.5 PH (5.0-7.5) 07/05/21 04:17 Ur Specific [place] 1.025 (1.002-1.030) 07/05/21 04:17 Urine Protein 30 mg/dL (NEGATIVE) H 07/05/21 04:17 Urine Glucose (UA) NEGATIVE mg/dL (NEGATIVE) 07/05/21 04:17 Urine Ketones NEGATIVE mg/dL (NEGATIVE) 07/05/21 04:17 Urine Occult Blood MODERATE (NEGATIVE) H 07/05/21 04:17 Urine Nitrite NEGATIVE (NEGATIVE) 07/05/21 04:17 Urine Bilirubin NEGATIVE (NEGATIVE) 07/05/21 04:17 Urine Urobilinogen 0.2 (NORMAL) E.U./dL (NORMAL) 07/05/21 04:17 Ur Leukocyte Esterase NEGATIVE (NEGATIVE) 07/05/21 04:17 Urine RBC 6-10 /HPF (0-5) H 07/05/21 04:17 Urine WBC 0-3 /HPF (0-5) 07/05/21 04:17 Ur Squamous Epith Cells NONE SEEN (<= Few) 07/05/21 04:17 Urine Bacteria Many /HPF (None Seen) H 07/05/21 04:17 Ur Microscopic Review INDICATED 07/05/21 04:17 Urine Culture Comments NOT INDICATED 07/05/21 04:17 CSF Color COLORLESS (COLORLESS) 07/07/21 21:15 CSF Clarity CLEAR (CLEAR) 07/07/21 21:15 Xanthrochromic ABSENT (ABSENT) 07/07/21 21:15 CSF WBC 6 /mm^3 (0-5) H 07/07/21 21:15 CSF RBC 23 /mm^3 (0-1) H 07/07/21 21:15 CSF Cell Count Tube # CSF TUBE# 3 07/07/21 21:15 CSF Neutrophils 2 % (0-6) 07/07/21 21:15 CSF Lymphocytes 35 % (40-80) L 07/07/21 21:15 CSF Monocytes 63 % (15-45) H 07/07/21 21:15 CSF Glucose 51 mg/dL (45-70) 07/07/21 21:15 CSF Total Protein 160 mg/dL (15-60) H 07/07/21 21:15 Nasal Adenovirus (PCR) NOT DETECTED 07/05/21 03:45 Nasal B. parapertussis DNA (PCR) NOT DETECTED 07/05/21 03:45 Nasal Coronavir 229E PCR NOT DETECTED 07/05/21 03:45 Nasal Coronavir HKU1 PCR NOT DETECTED 07/05/21 03:45 Nasal Coronavir NL63 PCR NOT DETECTED 07/05/21 03:45 Nasal Coronavir OC43 PCR NOT DETECTED 07/05/21 03:45 Nasal Enterovir/Rhinovir PCR NOT DETECTED 07/05/21 03:45 Nasal Influenza B PCR NOT DETECTED 07/05/21 03:45 Nasal Influenza A PCR NOT DETECTED 07/05/21 03:45 Nasal Parainfluen 1 PCR NOT DETECTED 07/05/21 03:45 Nasal Parainfluen 2 PCR NOT DETECTED 07/05/21 03:45 Nasal Parainfluen 3 PCR NOT DETECTED 07/05/21 03:45 Nasal Parainfluen 4 PCR NOT DETECTED 07/05/21 03:45 Nasal RSV (PCR) NOT DETECTED 07/05/21 03:45 Nasal Screen MRSA (PCR) NEGATIVE (NEGATIVE) 07/09/21 10:30 Nasal B.pertussis DNA PCR NOT DETECTED 07/05/21 03:45 Nasal C.pneumoniae (PCR) NOT DETECTED 07/05/21 03:45 Syeda Human Metapneumo PCR NOT DETECTED 07/05/21 03:45 Nasal M.pneumoniae (PCR) NOT DETECTED 07/05/21 03:45 Nasal SARS-CoV-2 (PCR) NOT DETECTED 07/05/21 03:45 Last Dose Date 07/09/21 07/10/21 09:35 Last Dose Time 1140 07/10/21 09:35 Vancomycin Trough 14.0 ug/mL (10.0-20.0) 07/10/21 09:35 Urine Opiates Screen NEGATIVE (NEGATIVE) 07/05/21 11:00 Ur Oxycodone Screen NEGATIVE (NEGATIVE) 07/05/21 11:00 Urine Methadone Screen NEGATIVE (NEGATIVE) 07/05/21 11:00 Ur Propoxyphene Screen NEGATIVE (NEGATIVE) 07/05/21 11:00 Ur Barbiturates Screen NEGATIVE (NEGATIVE) 07/05/21 11:00 Ur Tricyclics Screen NEGATIVE (NEGATIVE) 07/05/21 11:00 Ur Phencyclidine Scrn NEGATIVE (NEGATIVE) 07/05/21 11:00 Ur Amphetamine Screen NEGATIVE (NEGATIVE) 07/05/21 11:00 U Methamphetamines Scrn NEGATIVE (NEGATIVE) 07/05/21 11:00 U Benzodiazepines Scrn NEGATIVE (NEGATIVE) 07/05/21 11:00 Urine Cocaine Screen NEGATIVE (NEGATIVE) 07/05/21 11:00 U Cannabinoids Screen NEGATIVE (NEGATIVE) 07/05/21 11:00 HSV I DNA Quant (PCR) DETECTED A 07/07/21 21:15 HSV II DNA Quant (PCR) NOT DETECTED 07/07/21 21:15 HSV (PCR) Source CEREBROSPINAL FLUID 07/07/21 21:15 Sepsis Event Note (H) - Evaluation Current Stage of Sepsis: Ruled out ABX Reporting Has patient been on IV antibiotics over the past 48 hours?: No Current Medications - Current Medications Current Medications: Active Medications Acetaminophen (Acetaminophen 325 Mg Tablet) 650 mg PO Q4HR PRN PRN Reason: Pain 1 to 4 Last Admin: 07/06/21 00:38 Dose: 650 mg Lorazepam (Lorazepam 2 Mg/Ml Vial) 1 mg IVP Q2H PRN PRN Reason: Anxiety Last Admin: 07/15/21 13:31 Dose: 1 mg Morphine Sulfate (Morphine Elisa 10 Mg/0.5 Ml Oral Syringe) 10 mg PO Q2HR PRN PRN Reason: PAIN Last Admin: 07/15/21 13:32 Dose: 10 mg Multi-Ingred Cream/Lotion/Oil/Oint (Mineral Oil/Petrolat Ophth Oint) 1 applic EACHEYE QPM PRN PRN Reason: Dry Eye Last Admin: 07/15/21 20:43 Dose: 1 applic Ondansetron HCl (Ondansetron Odt 4 Mg Tablet) 4 mg TL Q6HR PRN PRN Reason: Nausea / Vomiting Last Admin: 07/06/21 10:03 Dose: 4 mg Ondansetron HCl (Ondansetron 4 Mg/2 Ml Vial) 4 mg IVP Q6HR PRN PRN Reason: Nausea / Vomiting Scopolamine HBr (Scopolamine Patch) 1 patch TOP Q3D [facility] Last Admin: 07/13/21 18:30 Dose: 1 patch Sodium Chloride (Sodium Chloride Flush 0.9% 10 Ml Syringe) 10 ml IVP PRN PRN PRN Reason: NEEDED PER PROVIDER ORDERS Last Admin: 07/14/21 19:57 Dose: 10 ml Sodium Chloride (Sodium Chloride Flush 0.9% 10 Ml Syringe) 10 ml IVP 0100,090 0,1700 [facility] Last Admin: 07/16/21 09:53 Dose: 10 ml Omeprazole 20 mg PO QDAC 07/13/14 Albuterol Sulf [Ventolin Hfa Inhaler] 1 - 2 puffs INH Q4HR PRN 07/31/18 Magnesium Oxide [Mag Ox] 400 mg PO DAILY 10/09/18 Acetaminophen [8 Hour Pain Relief] 650 mg PO Q8H 07/05/21 Ascorbic Acid [Vitamin C] 500 mg PO DAILY 07/05/21 Calcium Carbonate [Tums (Calcium Carbonate 500mg)] 200 mg PO DAILY PRN 07/05/21 Cholecalciferol (Vitamin D3) [Vitamin D3] 50 mcg PO DAILY 07/05/21 Diclofenac Potassium [Cataflam] 50 mg PO BID PRN 07/05/21 Fluticasone [Flonase] 1 sprays SYEDA BID 07/05/21 Lidocaine Patch 5% [Lidoderm Patch] 1 each TOP DAILY PRN 07/05/21 Metoprolol Tartrate [Lopressor] 25 mg PO BID 07/05/21 Trospium Chloride 20 mg PO QPM 07/05/21 amLODIPine [Norvasc] 5 mg PO BID 07/05/21 polyethylene glycoL 3350 [Miralax] 17 gm PO DAILY PRN 07/05/21
[2021-07-16] MEDS: MORPHINE SOL 10 MG/0.5 ML ORAL SYRINGE PO PRN (18:53)
[2021-07-16] MEDS: SCOPOLAMINE PATCH TOP SCH (18:53)
[2021-07-17] MEDS: SODIUM CHLORIDE FLUSH 0.9% 10 ML SYRINGE IVP SCH ×3 (01:29→17:37)
[2021-07-17] MEDS: MORPHINE SOL 10 MG/0.5 ML ORAL SYRINGE PO PRN (02:39)
--- NOTE | 2021-07-17 10:46 | PROVIDER PROGRESS NOTE ---
Assessment/Plan - Problem List (1) CVA (cerebral vascular accident) Assessment/Plan: 07/17 pt is comfortable, pt is on comfortable measure only status. Per social sciences instructor, pt will be d/c to [facility] for hospice care on Wednesday. 07/16 pt is comfortable, unresponsive. pt has been on comfortable care only st at since 07/11/21. artificial marble worker report [facility] [place] may take pt for hospice care on this Wednesday. Pt's daughter Elena came to hospital to visit pt. Discussed the care plan and answered their questions. Elena hope to keep comfortable measure for her mother, and followup with hospice care. artificial marble worker is at pt's bedside as well for the discussion. 07/15 pt is comfortably at the bed now. she is on comfortable care only status. she was consulted for hospice care, and pending placement for hospice care. In the hospital stay, Her neurological function deteriorated over several days per previous provider's assessment, She became non-verbal and only groaned and grunted to stimulation. She does not follow commands, withdrawal to pain, open eyes, cough, or gag. She has a positive babinski and pupils are perrl 1 and sluggish. image studies show abnormal signal is believed to be on the basis of a subacute infarction, abnormal signal on the right, primarily within the right insula and the right anterior temporal lobe, also involving the right thalamus. 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 07/16 pt is unresponsive. Pt's daughter Elena came to hospital to visit pt. Answered her questions and discussed pt's care plan with her. in 07/10 MRI study, radiologist believe herpes simplex encephalitis should be Considered wtihin the differential, consider lumbar puncture for confirmation of this diagnosis. Patient had lumbar puncture on July 07. pt's CSF culture from lumbar puncture on 07/07/2021 resulted today (07/13/2021) and PCR was positive for HSV I. pt started with Acyclovir on 07/06/2021. but clinically pt was not improved, still was unresponsive. pt's family and prior provider had meeting about the care plan. family made the decision, comfortable care only status, consult with hospice care, social sciences instructor help placement for hospice care. continue Morphine and Ativan PRN for comfortable care. (3) Encephalopathy Assessment/Plan: 07/17 pt is comfort, continue comfort care 07/16 pt is unresponsive, will continue comfort measure pt is unresponsive. As the above prior study, It was believed the encephalitis was caused by HSV 1. Plan: Continue Comfort measures. Continue Ativan prn seizures and anxiety. (5) Seizure Assessment/Plan: 07/17 no seizure, Continue prn Ativan IV for seizures. 07/16 no seizure on yesterday and today as far, Continue prn Ativan IV for seizures. New seizure activity was witnessed on 07/07/2021 after the lumbar puncture. Patient was given IV Ativan at the time and started on Keppra which has been discontinued after being transitioned to comfort measures on 07/11/2021. Plan: Continue prn Ativan for breakthrough seizures. (6) Leukocytosis Assessment/Plan: The etiology was undetermined. it is possible from encephalitis reaction Plan: Continue to provide comfort measures. (7)comfort care only status 07/16 meet pt's daughter Elena at pt's bedside. Elena hope to keep comfortable measure for her mother, and followup with hospice care. pt is comfortable rest in the bed. Per pt' family and prior provider discussed as ACP. pt is on comfortable care only, followup with hospice care status. continue Morphine and Ativan PRN for comfortable care. - Current Meds Current Meds: Current Medications Generic Name Dose Route Start Last Admin Trade Name Freq PRN Reason Stop Dose Admin Acetaminophen 650 mg 07/05/21 07:03 07/06/21 00:38 Acetaminophen 325 Mg Tablet PO 650 mg Q4HR PRN Administration Pain 1 to 4 Lorazepam 1 mg 07/10/21 16:30 07/15/21 13:31 Lorazepam 2 Mg/Ml Vial IVP 1 mg Q2H PRN Administration Anxiety Morphine Sulfate 10 mg 07/15/21 08:17 07/17/21 02:39 Morphine Elisa 10 Mg/0.5 Ml Oral Syringe PO 10 mg Q2HR PRN Administration PAIN Multi-Ingred Cream/Lotion/Oil/Oint 1 applic 07/12/21 09:00 07/15/21 20:43 Mineral Oil/Petrolat Ophth Oint EACHEYE 1 applic QPM PRN Administration Dry Eye Ondansetron HCl 4 mg 07/05/21 07:03 07/06/21 10:03 Ondansetron Odt 4 Mg Tablet TL 4 mg Q6HR PRN Administration Nausea / Vomiting Scopolamine HBr 1 patch 07/10/21 18:00 07/16/21 18:53 Scopolamine Patch TOP 1 patch Q3D TERRANCE Administration Sodium Chloride 10 ml 07/05/21 07:03 07/14/21 19:57 Sodium Chloride Flush 0.9% 10 Ml Syringe IVP 10 ml PRN PRN Administration NEEDED PER PROVIDER ORDERS Sodium Chloride 10 ml 07/05/21 09:00 07/17/21 01:29 Sodium Chloride Flush 0.9% 10 Ml Syringe IVP 10 ml 0100,0900,1700 TERRANCE Administration - Lab Result [place] Diagrams: 07/11/21 05:55 07/11/21 05:55 Subjective - Subjective Patient Reports: Resting Comfortably Objective Vital Signs: Vital Signs - 24 hr 07/16/21 07/17/21 18:49 08:20 Respiratory 24 20 Rate O2 Saturation 77 L Oxygen O2 Source [With Activity] on 0.5L O2 via NC O2 Source Room air Oxygen Flow Rate 0.5 I&O (Last 24 Hrs): Intake and Output Totals x24h 07/15/21 07/16/21 07/17/21 23:59 23:59 23:59 Output Total 600 675 Balance -600 -675 General: No acute distress HEENT: Atraumatic Neck: Supple Lymphatic: no adenopathy Cardiovascular: Regular rate, Normal S1, Normal S2 Respiratory: Chest non-tender, Other (shallow breathing) Abdomen: Normal bowel sounds, Soft Extremities: Normal pulses - Results Results: Laboratory Results WBC 14.5 x10^3/uL (4.8-10.8) H 07/11/21 05:55 RBC 4.73 10^6/uL (4.20-5.40) 07/11/21 05:55 Hgb 11.4 g/dL (12.0-16.0) L 07/11/21 05:55 Hct 35.1 % (37.0-47.0) L 07/11/21 05:55 MCV 74.2 fL (81.0-99.0) L 07/11/21 05:55 MCH 24.1 pg (27.0-31.0) L 07/11/21 05:55 MCHC 32.5 g/dL (32.0-36.0) 07/11/21 05:55 RDW 19.8 % (12.0-15.0) H 07/11/21 05:55 Plt Count 313 10^3/uL (130-450) 07/11/21 05:55 MPV 10.8 fL (7.9-10.8) 07/11/21 05:55 Neut # (Auto) 12.2 10^3/uL (1.5-6.6) H 07/11/21 05:55 Lymph # (Auto) 1.0 10^3/uL (1.5-3.5) L 07/11/21 05:55 Perkins # (Auto) 1.1 10^3/uL (0.0-1.0) H 07/11/21 05:55 Eos # (Auto) 0.1 10^3/uL (0.0-0.7) 07/11/21 05:55 Baso # (Auto) 0.0 10^3/uL (0.0-0.1) 07/11/21 05:55 Absolute Nucleated RBC 0.00 x10^3/uL 07/11/21 05:55 Total Counted 100 07/08/21 04:41 Band Neuts % (Manual) 1 % (0-10) 07/08/21 04:41 Abnorm Lymph % (Manual) 0 % 07/08/21 04:41 Nucleated RBC % 0.0 /100WBC 07/11/21 05:55 Neutrophils # (Manual) 12.2 10^3/uL (1.5-6.6) H 07/08/21 04:41 Lymphocytes # (Manual) 1.7 10^3/uL (1.5-3.5) 07/08/21 04:41 Monocytes # (Manual) 0.6 10^3/uL (0.0-1.0) 07/08/21 04:41 Eosinophils # (Manual) 0.0 10^3/uL (0-0.7) 07/08/21 04:41 Basophils # (Manual) 0.0 10^3/uL (0-0.1) 07/08/21 04:41 Differential Comment MANUAL DIFFERENTIAL 07/08/21 04:41 Manual Slide Review Indicated 07/10/21 07:32 WBC Morphology NORMAL APPEARANCE (NORMAL) 07/10/21 07:32 Platelet Estimate NORMAL (130-450,000) (NORMAL) 07/10/21 07:32 Platelet Morphology NORMAL APPEARANCE (NORMAL) 07/10/21 07:32 RBC Morph Micro Appear NORMAL APPEARANCE (NORMAL) 07/10/21 07:32 VBG pH 7.377 (7.31-7.41) 07/11/21 05:55 Ionized Calcium 1.05 mmol/L (1.15-1.33) L 07/11/21 05:55 Sodium 132 mmol/L (135-145) L 07/11/21 05:55 Potassium 3.9 mmol/L (3.5-5.0) 07/11/21 05:55 Chloride 103 mmol/L (101-111) 07/11/21 05:55 Carbon Dioxide 20 mmol/L (21-32) L 07/11/21 05:55 Anion Gap 9.0 (6-13) 07/11/21 05:55 BUN 17 mg/dL (6-20) 07/11/21 05:55 Creatinine 0.8 mg/dL (0.4-1.0) 07/11/21 05:55 Estimated GFR (MDRD) 68 (>89) L 07/11/21 05:55 Glucose 108 mg/dL (70-100) H 07/11/21 05:55 Lactic Acid 1.4 mmol/L (0.5-2.2) 07/05/21 04:17 Calcium 7.5 mg/dL (8.5-10.3) L 07/11/21 05:55 Phosphorus 2.0 mg/dL (2.5-4.6) L 07/11/21 05:55 Magnesium 2.0 mg/dL (1.7-2.8) 07/11/21 05:55 Total Bilirubin 0.5 mg/dL (0.2-1.0) 07/11/21 05:55 Direct Bilirubin < 0.1 mg/dL (0.1-0.5) L 07/07/21 23:53 AST 26 IU/L (10-42) 07/11/21 05:55 ALT 21 IU/L (10-60) 07/11/21 05:55 Alkaline Phosphatase 31 IU/L (42-121) L 07/11/21 05:55 Troponin I High Sens 29.1 ng/L (2.3-14.8) H* 07/05/21 10:40 Total Protein 5.1 g/dL (6.7-8.2) L 07/11/21 05:55 Albumin 2.4 g/dL (3.2-5.5) L 07/11/21 05:55 Globulin 2.7 g/dL (2.1-4.2) 07/11/21 05:55 Albumin/Globulin Ratio 0.9 (1.0-2.2) L 07/11/21 05:55 Prealbumin 18 mg/dL (18-45) 07/11/21 05:55 Lipase 99 U/L (22-51) H 07/05/21 04:17 TSH 0.21 uIU/mL (0.34-5.60) L 07/07/21 04:50 Free T4 1.16 ng/dL (0.58-1.64) 07/07/21 04:50 Urine Color YELLOW 07/05/21 04:17 Urine Clarity CLEAR (CLEAR) 07/05/21 04:17 Urine pH 5.5 PH (5.0-7.5) 07/05/21 04:17 Ur Specific [place] 1.025 (1.002-1.030) 07/05/21 04:17 Urine Protein 30 mg/dL (NEGATIVE) H 07/05/21 04:17 Urine Glucose (UA) NEGATIVE mg/dL (NEGATIVE) 07/05/21 04:17 Urine Ketones NEGATIVE mg/dL (NEGATIVE) 07/05/21 04:17 Urine Occult Blood MODERATE (NEGATIVE) H 07/05/21 04:17 Urine Nitrite NEGATIVE (NEGATIVE) 07/05/21 04:17 Urine Bilirubin NEGATIVE (NEGATIVE) 07/05/21 04:17 Urine Urobilinogen 0.2 (NORMAL) E.U./dL (NORMAL) 07/05/21 04:17 Ur Leukocyte Esterase NEGATIVE (NEGATIVE) 07/05/21 04:17 Urine RBC 6-10 /HPF (0-5) H 07/05/21 04:17 Urine WBC 0-3 /HPF (0-5) 07/05/21 04:17 Ur Squamous Epith Cells NONE SEEN (<= Few) 07/05/21 04:17 Urine Bacteria Many /HPF (None Seen) H 07/05/21 04:17 Ur Microscopic Review INDICATED 07/05/21 04:17 Urine Culture Comments NOT INDICATED 07/05/21 04:17 CSF Color COLORLESS (COLORLESS) 07/07/21 21:15 CSF Clarity CLEAR (CLEAR) 07/07/21 21:15 Xanthrochromic ABSENT (ABSENT) 07/07/21 21:15 CSF WBC 6 /mm^3 (0-5) H 07/07/21 21:15 CSF RBC 23 /mm^3 (0-1) H 07/07/21 21:15 CSF Cell Count Tube # CSF TUBE# 3 07/07/21 21:15 CSF Neutrophils 2 % (0-6) 07/07/21 21:15 CSF Lymphocytes 35 % (40-80) L 07/07/21 21:15 CSF Monocytes 63 % (15-45) H 07/07/21 21:15 CSF Glucose 51 mg/dL (45-70) 07/07/21 21:15 CSF Total Protein 160 mg/dL (15-60) H 07/07/21 21:15 Nasal Adenovirus (PCR) NOT DETECTED 07/05/21 03:45 Nasal B. parapertussis DNA (PCR) NOT DETECTED 07/05/21 03:45 Nasal Coronavir 229E PCR NOT DETECTED 07/05/21 03:45 Nasal Coronavir HKU1 PCR NOT DETECTED 07/05/21 03:45 Nasal Coronavir NL63 PCR NOT DETECTED 07/05/21 03:45 Nasal Coronavir OC43 PCR NOT DETECTED 07/05/21 03:45 Nasal Enterovir/Rhinovir PCR NOT DETECTED 07/05/21 03:45 Nasal Influenza B PCR NOT DETECTED 07/05/21 03:45 Nasal Influenza A PCR NOT DETECTED 07/05/21 03:45 Nasal Parainfluen 1 PCR NOT DETECTED 07/05/21 03:45 Nasal Parainfluen 2 PCR NOT DETECTED 07/05/21 03:45 Nasal Parainfluen 3 PCR NOT DETECTED 07/05/21 03:45 Nasal Parainfluen 4 PCR NOT DETECTED 07/05/21 03:45 Nasal RSV (PCR) NOT DETECTED 07/05/21 03:45 Nasal Screen MRSA (PCR) NEGATIVE (NEGATIVE) 07/09/21 10:30 Nasal B.pertussis DNA PCR NOT DETECTED 07/05/21 03:45 Nasal C.pneumoniae (PCR) NOT DETECTED 07/05/21 03:45 Syeda Human Metapneumo PCR NOT DETECTED 07/05/21 03:45 Nasal M.pneumoniae (PCR) NOT DETECTED 07/05/21 03:45 Nasal SARS-CoV-2 (PCR) NOT DETECTED 07/05/21 03:45 Last Dose Date 07/09/21 07/10/21 09:35 Last Dose Time 1140 07/10/21 09:35 Vancomycin Trough 14.0 ug/mL (10.0-20.0) 07/10/21 09:35 Urine Opiates Screen NEGATIVE (NEGATIVE) 07/05/21 11:00 Ur Oxycodone Screen NEGATIVE (NEGATIVE) 07/05/21 11:00 Urine Methadone Screen NEGATIVE (NEGATIVE) 07/05/21 11:00 Ur Propoxyphene Screen NEGATIVE (NEGATIVE) 07/05/21 11:00 Ur Barbiturates Screen NEGATIVE (NEGATIVE) 07/05/21 11:00 Ur Tricyclics Screen NEGATIVE (NEGATIVE) 07/05/21 11:00 Ur Phencyclidine Scrn NEGATIVE (NEGATIVE) 07/05/21 11:00 Ur Amphetamine Screen NEGATIVE (NEGATIVE) 07/05/21 11:00 U Methamphetamines Scrn NEGATIVE (NEGATIVE) 07/05/21 11:00 U Benzodiazepines Scrn NEGATIVE (NEGATIVE) 07/05/21 11:00 Urine Cocaine Screen NEGATIVE (NEGATIVE) 07/05/21 11:00 U Cannabinoids Screen NEGATIVE (NEGATIVE) 07/05/21 11:00 HSV I DNA Quant (PCR) DETECTED A 07/07/21 21:15 HSV II DNA Quant (PCR) NOT DETECTED 07/07/21 21:15 HSV (PCR) Source CEREBROSPINAL FLUID 07/07/21 21:15 Sepsis Event Note (H) - Evaluation Current Stage of Sepsis: Ruled out ABX Reporting Has patient been on IV antibiotics over the past 48 hours?: No Current Medications - Current Medications Current Medications: Active Medications Acetaminophen (Acetaminophen 325 Mg Tablet) 650 mg PO Q4HR PRN PRN Reason: Pain 1 to 4 Last Admin: 07/06/21 00:38 Dose: 650 mg Lorazepam (Lorazepam 2 Mg/Ml Vial) 1 mg IVP Q2H PRN PRN Reason: Anxiety Last Admin: 07/15/21 13:31 Dose: 1 mg Morphine Sulfate (Morphine Elisa 10 Mg/0.5 Ml Oral Syringe) 10 mg PO Q2HR PRN PRN Reason: PAIN Last Admin: 07/17/21 02:39 Dose: 10 mg Multi-Ingred Cream/Lotion/Oil/Oint (Mineral Oil/Petrolat Ophth Oint) 1 applic EACHEYE QPM PRN PRN Reason: Dry Eye Last Admin: 07/15/21 20:43 Dose: 1 applic Ondansetron HCl (Ondansetron Odt 4 Mg Tablet) 4 mg TL Q6HR PRN PRN Reason: Nausea / Vomiting Last Admin: 07/06/21 10:03 Dose: 4 mg Ondansetron HCl (Ondansetron 4 Mg/2 Ml Vial) 4 mg IVP Q6HR PRN PRN Reason: Nausea / Vomiting Scopolamine HBr (Scopolamine Patch) 1 patch TOP Q3D [facility] Last Admin: 07/16/21 18:53 Dose: 1 patch Sodium Chloride (Sodium Chloride Flush 0.9% 10 Ml Syringe) 10 ml IVP PRN PRN PRN Reason: NEEDED PER PROVIDER ORDERS Last Admin: 07/14/21 19:57 Dose: 10 ml Sodium Chloride (Sodium Chloride Flush 0.9% 10 Ml Syringe) 10 ml IVP 0100,0900,1700 [facility] Last Admin: 07/17/21 01:29 Dose: 10 ml Omeprazole 20 mg PO QDAC 07/13/14 Albuterol Sulf [Ventolin Hfa Inhaler] 1 - 2 puffs INH Q4HR PRN 07/31/18 Magnesium Oxide [Mag Ox] 400 mg PO DAILY 10/09/18 Acetaminophen [8 Hour Pain Relief] 650 mg PO Q8H 07/05/21 Ascorbic Acid [Vitamin C] 500 mg PO DAILY 07/05/21 Calcium Carbonate [Tums (Calcium Carbonate 500mg)] 200 mg PO DAILY PRN 07/05/21 Cholecalciferol (Vitamin D3) [Vitamin D3] 50 mcg PO DAILY 07/05/21 Diclofenac Potassium [Cataflam] 50 mg PO BID PRN 07/05/21 Fluticasone [Flonase] 1 sprays SYEDA BID 07/05/21 Lidocaine Patch 5% [Lidoderm Patch] 1 each TOP DAILY PRN 07/05/21 Metoprolol Tartrate [Lopressor] 25 mg PO BID 07/05/21 Trospium Chloride 20 mg PO QPM 07/05/21 amLODIPine [Norvasc] 5 mg PO BID 07/05/21 polyethylene glycoL 3350 [Miralax] 17 gm PO DAILY PRN 07/05/21
[2021-07-18] MEDS: SODIUM CHLORIDE FLUSH 0.9% 10 ML SYRINGE IVP SCH ×2 (00:23→09:33)
--- NOTE | 2021-07-18 08:13 | Discharge Plan ---
Discharge Plan Problem Reviewed?: Yes Disposition: 50 Hospice/Home DC/Xfer Condition: Serious Prescriptions: Morphine Oral Soln [Roxanol] 10 mg PO Q2HR PRN #30 ml PRN Reason: Pain Scopolamine Patch [Transderm-Scop] 1 patch TOP Q3D #2 patch Instruction Topics: Hospice Health Concerns: hospice care Plan of Treatment: pt may followup with hospice care in [place] Care Goals: Focus on comfortable care, quality of life And hospice care Assessment: Patient's family and daughter understood and agreed on hospice care Additional Instructions or Follow Up instructions: pt may followup with hospice care in [place] No Smoking: If you smoke, Please STOP! Call for help.
--- NOTE | 2021-07-18 08:23 | DISCHARGE SUMMARY ---
Discharge Summary Admit Date: 07/05/21 Discharge Date: 07/18/21 Discharging Provider: Pedro Huang Primary Care Provider: Nj Rojas Condition at Discharge: Serious Discharge Disposition: 50 Hospice/Home DC/Xfer Discharge Facility Name: [facility] - DIAGNOSES Discharge Diagnoses with Status of Each Condition: (1) CVA (cerebral vascular accident) In MRI of brain study pt was believed to have subacute infarction with abnormal signal on the right, primarily within the right insula and the right anterior temporal lobe, also involving the right thalamus. In the hospital stay, pt became more somnolent and lethargic. She became non-verbal and only groaned and grunted to stimulation. She does not follow commands, withdrawal to pain, open eyes, cough, or gag, then pt became unresponsive. pt's family had a meeting with prior provider, and made the decision: have comfortable care only at hospital and followup with hospice care for d/c. Pt is d/c to [facility] for hospice care today, and hospice team will admit pt on to afternoon. 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 Patient had lumbar puncture on July 07. pt's CSF culture from lumbar puncture on 07/07/2021, result on 07/13/2021, PCR was positive for HSV I. pt started with Acyclovir on 07/06/2021. but pt continue to have poor responsive. Med ication was hold after pt's family had a meeting with prior provider, and made the decision: have comfortable care only at hospital and followup with hospice care. Pt is d/c to [facility] for hospice care today, and hospice team will admit pt on today afternoon. (3) Encephalopathy Patient was admitted for altered mental status. pt was poor responsive to the treatment, and her Mental status continue deteriorated, then pt became unresponsive. Pt is d/c to [facility] for hospice care today, and hospice team will admit pt on today afternoon. (5) Seizure pt presented seizure activity in the hospital stay, pt was treated with IV Keppra. But her Mental status continue deteriorated. medication was hold after pt's family had a meeting with prior provider, and made the decision: have comfortable care only at hospital and followup with hospice care for d/c. (6) Leukocytosis The etiology was undetermined. it is possible from encephalitis reaction (7)encounter of hospice care pt's family had a meeting with prior provider, and made the decision: have comfortable care only at hospital, and followup with hospice care. pt was accepted by hospice team for hospice care. pt will have hospice care in [facility] at this afternoon - HPI History of Present Illness: refer from Ms Sierra's HPI on 07/05/21 Patient is an 89 year old female. She is confused, unable to give reliable ROS or HPI. She lives at home with her son. Her son reports that she is mildly confused at baseline but has been getting progressively more confused over the past two weeks. She has been "mumbling and zoning out." She has also had poor appetite. He reports that she has a had a mild cough, congestion and an episode of vomiting 4 days ago. He denies shortness of breath, diarrhea, fever or urinary incontinence. Today he was worried and called an ambulance to have her evaluated in the emergency department. He reports that she ambulates without a walker at baseline. Upon arrival to the ED, she complained of vomiting and weakness. Her vitals were stable, she was afebrile at 37.4 C, heart rate 94, respiration 18, bp 147/78 with O2 saturation 96%. She was alert and oriented. Work-up was concerning for pneumonia due to elevated WBC at 13.7, ill defined densities on chest x-ray and cough. However, chest CT shows no infiltrates or significant densities. COVID and respiratory pathogen panel negative. UA unremarkable. CMP shows hyponatremia 129, BUN 39, Cr 1.8, GFR 38. Admitted to floor for further work up. Upon admission to floor, patient became hypoxic and unresponsive. She later regained consciousness but was confused, disoriented to time and event. - CONSULTS | PROCEDURES Consultations: hospice care Procedures: no - HOSPITAL COURSE Hospital Course: pt was admitted with hypoxic and non-arousable. Her pupils were pinpoint. She has since regained consciousness but is confused. She then became frankly unresponsive with pinpoint pupils and Sonorous respiration. CT of the head and that was negative for stroke. CT of the chest was reviewed and there is no pneumonia. Urine toxic screen was negative for external agents. Pt developed fever in the hospital stay, pt was treated with antibiotics and Acyclovir IV as well. pt also developed seizure. pt was treated with IV Keppra. In MRI of brain study, pt was believed to have subacute infarction with abnormal signal on the right, primarily within the right insula and the right anterior temporal lobe, also involving the right thalamus. In pt's MRI study, radiologist believe herpes simplex encephalitis should be Considered wtihin the differential, consider lumbar puncture for confirmation of this diagnosis. Patient had lumbar puncture on July 07. pt's CSF culture from lumbar puncture on 07/07/2021, result on 07/13/2021, PCR was positive for HSV I. Patient's mental status continue deteriorated. she was not responding to stimuli and She was unresponsive. pt's family had a meeting with prior provider, and made the decision: have comfortable care only at hospital and followup with hospice care for d/c. Pt is d/c to [facility] for hospice care today, and hospice team will admit pt on today afternoon. - ALLERGIES Allergies/Adverse Reactions: Allergies Allergy/AdvReac Type Severity Reaction Status Date / Time Penicillins Allergy Severe Rash Verified 07/05/21 03:31 cyclobenzaprine Allergy Unknown Rash Verified 07/08/21 10:58 [From Flexeril] - MEDICATIONS Home Medications: Ambulatory Orders Medication Instructions Recorded Confirmed Morphine Oral Soln [Roxanol] 10 mg PO Q2HR PRN #30 ml 07/18/21 Scopolamine Patch [Transderm-Scop] 1 patch TOP Q3D #2 patch 07/18/21 - PHYSICAL EXAM AT DISCHARGE General Appearance: positive: Lethargic Eyes Bilateral: positive: No lid inflammation ENT: negative: Purulent nasal drainage Neck: positive: Nml inspection, Trachea midline. negative: Tracheal deviation Respiratory: positive: Other (shallow breathing) Cardiovascular: positive: Tachycardia. negative: Systolic murmur Peripheral Pulses: positive: 1+ Abdomen: positive: No distention, Abnml bowel sounds (hypoactive bowel sound) Back: positive: Nml inspection Skin: positive: Warm, Dry, Pallor Extremities: positive: Nml appearance Neurologic/Psychiatric: positive: Other (unresponsive, non-verbal). negative: Facial droop - LABS Result Diagrams: 07/11/21 05:55 07/11/21 05:55 - SEPSIS Current Stage of Sepsis: Ruled out - FOLLOW UP Follow Up: pt may followup with hospice care in [facility]. - TIME SPENT Time Spent in Discharge (Minutes): 30
[2021-07-18] MEDS: MORPHINE SOL 10 MG/0.5 ML ORAL SYRINGE PO PRN (09:45)
== END 2021-07-18 10:50 | disposition hospice, home (50) | DRG 97 ==
LOC: EDUNIT# → ED 03:22 → MS3 07:03 → ICU 07-08 00:59 → OBSVTOIN 07-08 12:35 → MS2 07-14 07:05
PROVIDERS: ADMIT Specialist; ATTEND Nurse Practitioner Gerontology
DX: B00.4 Herpesviral encephalitis (principal); I63.9 Cerebral infarction, unspecified; G93.40 Encephalopathy, unspecified; R47.01 Aphasia; E87.1 Hypo-osmolality and hyponatremia; M25.511 Pain in right shoulder; M25.512 Pain in left shoulder; N17.9 Acute kidney failure, unspecified; E87.6 Hypokalemia; J44.9 Chronic obstructive pulmonary disease, unspecified; D72.829 Elevated white blood cell count, unspecified; I10 Essential (primary) hypertension; E78.00 Pure hypercholesterolemia, unspecified; K21.9 Gastro-esophageal reflux disease without esophagitis; K44.9 Diaphragmatic hernia without obstruction or gangrene; K59.09 Other constipation; G89.29 Other chronic pain; M54.9 Dorsalgia, unspecified; F03.90 Unspecified dementia, unspecified severity, without behavioral disturbance, psychotic disturbance, mood disturbance, and anxiety; R09.02 Hypoxemia; R09.81 Nasal congestion; R10.9 Unspecified abdominal pain; R05.9 Cough, unspecified; R11.2 Nausea with vomiting, unspecified; R13.10 Dysphagia, unspecified; R32 Unspecified urinary incontinence; R53.1 Weakness; R56.9 Unspecified convulsions; Z20.822 Contact with and (suspected) exposure to COVID-19; Z66 Do not resuscitate; Z79.51 Long term (current) use of inhaled steroids; Z51.5 Encounter for palliative care; Z79.52 Long term (current) use of systemic steroids; Z79.82 Long term (current) use of aspirin; Z79.899 Other long term (current) drug therapy; Z87.891 Personal history of nicotine dependence; Z88.0 Allergy status to penicillin; Z90.710 Acquired absence of both cervix and uterus
CPT/HCPCS: 36415; 51701; 62270; 70450; 70544; 70547; 70551; 70552; 71045; 71250; 71275; 74176; 80048; 80053; 80076; 80202; 80306; 81001; 81599; 82330; 82945; 83605; 83690; 83735; 84100; 84134; 84157; 84439; 84443; 84484; 85025; 87040; 87070; 87150; 87205; 87529; 87631; 89051; 93005; 94640; 96361; 96365; 96366; 96367; 96368; 96372; 96375; 96376; 97163; 97166; 99283; 99285; A9270; A9585; J0133; J1170; J1650; J2060; J2185; J3370; J3490; J7120; Q0162; Q9967; 0202U; 81003; 87086

== ENCOUNTER 2021-07-18 10:46 | Outpatient (CLI) | payer MEDICARE, MEDICAID | END 2021-07-18 10:47 | disposition hospice, home (50) | LOC: EMS 10:46 | PROVIDERS: ATTEND Nurse Practitioner Gerontology | DX: R40.20 Unspecified coma (principal); Z74.01 Bed confinement status | CPT/HCPCS: A0425; A0428 ==